=== PATIENT | female | born 1935 | race Caucasian/White ===

== ENCOUNTER 2016-10-14 07:07 | Inpatient (IN) | payer MEDICARE, BC ==
[2016-10-14] MEDS ORDERED: MORPHINE SULFATE 2 MG/ML SYRINGE IVP STA (07:21)
[2016-10-14] MEDS ORDERED: SODIUM CHLORIDE 0.9% 1,000 ML IV STA (07:21)
[2016-10-14] MEDS ORDERED: NITROGLYCERIN SL TABS 0.4 MG TAB SUBLINGUAL STA (07:21)
[2016-10-14] MEDS ORDERED: ONDANSETRON 4 MG/2 ML VIAL IVP STA (07:21)
[2016-10-14 07:42] LABS: Basophils # (A) 0.1 k/uL (0-0.2); Basophils % (A) 1 %; CHCM 33.4; Eosinophils % (A) 0 %; HCT 37.9 % (34.0-46.0); HDW 2.23; HGB 12.4 gm/dL (11.4-16.0); Luc # (Auto) 0.18; Luc % (Auto) 2; Lymphocytes # (A) 1.3 k/uL (1.0-4.8); Lymphocytes % (A) 12 %; MCH 31.4 pg (25.0-35.0); MCHC 32.6 g/dL (31.0-37.0); MCV 96.4 fL (80.0-100.0); Mean Platelet Volume 7.9; Monocytes # (A) 1.1 k/uL (0-1.0); Monocytes % (A) 10 %; Neutrophils # (A) 7.6 k/uL (1.3-7.7); Neutrophils % (A) 74 %; RBC 3.93 m/uL (3.80-5.40); RDW 13.3 % (11.5-15.5); WBC 10.3 k/uL (3.8-10.6)
--- NOTE | 2016-10-14 07:48 | ED ---
Chest Pain HPI - General Chief Complaint: Chest Pain Stated Complaint: chest pain Time Seen by Provider: 10/14/16 07:10 Source: patient Mode of arrival: EMS Limitations: no limitations - History of Present Illness Initial Comments: Started 2 AM today, its affecting her left side of the chest, pain gets worse with deep breaths, she denies any trauma to the chest no fever no chills she has been coughing up some phlegm. Does have a history of hypertension congestive heart failure and thyroid disease I remember seeing her back in September 19 myself in ER at that time she had a left bundle branch block and today's EKG has a left bundle branch block. She denies any headaches no migraines has does have a some shortness of breath no abdominal pain no frequency urgency dysuria no sinus symptoms of TIA or CVA - Related Data Home Medications Medication Instructions Recorded Confirmed ALPRAZolam [Xanax] 0.25 mg PO DAILY PRN 01/28/16 09/19/16 Furosemide [Furosemide] 40 mg PO DAILY PRN 01/28/16 09/19/16 Levothyroxine Sodium [Levoxyl] 200 mcg PO QAM 01/28/16 09/19/16 Verapamil HCl [Verapamil ER] 240 mg PO QAM 01/28/16 09/19/16 Calcium Carbonate [Calcium] 600 mg PO DAILY 08/14/16 09/19/16 Ergocalciferol [Vitamin D2] 100,000 unit PO QMONTH 08/14/16 09/19/16 Simvastatin [Simvastatin] 20 mg PO HS 09/02/16 09/19/16 Aspirin EC [Ecotrin Low Dose] 81 mg PO DAILY 09/19/16 09/19/16 predniSONE See Taper PO DAILY 09/19/16 09/19/16 Previous Rx's Medication Instructions Recorded Cephalexin [Keflex] 500 mg PO Q8HR #30 cap 09/23/16 Nystatin 100,000 Unit/gm Powd 1 applic TOPICAL BID #30 powder 09/23/16 [Mycostatin Powder] Allergies Allergy/AdvReac Type Severity Reaction Status Date / Time doxycycline Allergy Itching Verified 10/14/16 07:22 Review of Systems ROS Statement: Those systems with pertinent positive or pertinent negative responses have been documented in the HPI. ROS Other: All systems not noted in ROS Statement are negative. EKG Findings - EKG Comments: EKG Findings:: EKG is a sinus tachycardia ventricular rate is 105 NM interval is 150 QRS duration is 132 review of this EKG shows left bundle branch block old EKG was reviewed and this one was compared with old EKG for from September 19 that one also had a left bundle branch block Past Medical History Past Medical History: Heart Failure, Hyperlipidemia, Hypertension, Osteoarthritis (OA), Skin Disorder, Thyroid Disorder Additional Past Medical History / Comment(s): urine incontinency,psoriasis to perineum and rectal areas,no longer uses cpap,hx diverticulitis, states since taking the Doxycycl- hyc has been itching all over. History of Any Multi-Drug Resistant Organisms: None Reported Past Surgical History: Bowel Resection, Joint Replacement Additional Past Surgical History / Comment(s): thyroidectomy,raissa knee replacements Past Anesthesia/Blood Transfusion Reactions: No Reported Reaction Past Psychological History: No Psychological Hx Reported Smoking Status: Never smoker Past Alcohol Use History: Occasional Past Drug Use History: None Reported - Past Family History Mother Family Medical History: No Reported History, Memory Impairment Father Family Medical History: Liver Disease Sister(s) Additional Family Medical History / Comment(s): heart problems Brother(s) Additional Family Medical History / Comment(s): heart problems r/t rheumatic fever General Exam - General Exam Comments Initial Comments: General: The patient is awake and alert, in no distress, and does not appear acutely ill. She is quite anxious Skin: Skin is warm and dry and no rashes or lesions are noted. Do not notice any rash on the left lateral chest wall Eye: Extraocular muscles are intact. Ears, nose, mouth and throat: There are moist mucous membranes and no oral lesions. Neck: The neck is supple, there is no tenderness or JVD. Cardiovascular: There is a regular rate and rhythm. No murmur, rub or gallop is appreciated. Respiratory: To auscultation bilateral, decreased breath sounds at the bases Gastrointestinal: Soft, non-distended, non-tender abdomen without masses or organomegaly Back: There is no tenderness to palpation in the midline. There is no obvious deformity. Musculoskeletal: Normal ROM, no tenderness, There is no pedal edema. There is no calf tenderness or swelling. No cords were appreciated. Neurological: CN II-XII intact, Cranial nerves III through XII are intact. There are no obvious motor or sensory deficits. Coordination appears grossly intact. Speech is normal. Psychiatric: Cooperative, seems depressed and quite anxious. Limitations: no limitations Course Vital Signs 10/14/16 10/14/16 10/14/16 07:15 07:25 08:06 Temperature 98.9 F Pulse Rate 106 H 105 H Pulse Rate [ 106 H [employer] ] Respiratory 22 20 Rate Blood Pressure 159/89 137/59 O2 Sat by Pulse 91 L 95 Oximetry 10/14/16 09:27 Temperature Pulse Rate 103 H Pulse Rate [ [employer] ] Respiratory 20 Rate Blood Pressure 167/72 O2 Sat by Pulse 97 Oximetry Critical Care Time Total Critical Care Time: 40 Critical Care Time: She presented with the pleuritic chest pain on the left side, x-ray confirmed the congestive heart failure and d-dimer was quite elevated with the CT and J chest to confirm the PE she be admitted to Dr. Berman service and then numb depending on who she has seen before: Have a pulmonary medicine on board as well she be heparinized and we managed her pain with the morphine IV and congestive heart failure she had Lasix 40 mg IV Disposition Clinical Impression: Chest pain, Pleuritic chest pain, Congestive heart failure, Pulmonary embolism Disposition: ADMITTED IP TO THIS HOSP Condition: Fair Referrals: Case Berman MD [Primary Care Provider] - 1-2 days
[2016-10-14 07:52] LABS: ALT 57 U/L (9-52); AST 32 U/L (14-36); Alkaline Phosphatase 64 U/L (38-126); Anion Gap 12 mmol/L; Blood Urea Nitrogen 14 mg/dL (7-17); Carbon Dioxide 28 mmol/L (22-30); Chloride 102 mmol/L (98-107); Glucose 124 mg/dL (74-99); Non-African American GFR(MDRD) >60 (>60 ml/min/1.73 sqM); Potassium 3.8 mmol/L (3.5-5.1); Sodium 142 mmol/L (137-145); Total Bilirubin 1.2 mg/dL (0.2-1.3); Total Protein 6.5 g/dL (6.3-8.2)
[2016-10-14 07:55] LABS: INR 1.1 (<1.1); Partial Thromboplastin Time 23.4 sec (22.0-30.0); Prothrombin Time 11.4 sec (9.0-12.0)
[2016-10-14] MEDS ORDERED: MORPHINE SULFATE 2 MG/ML SYRINGE IVP ONE ×2 (07:56→09:13)
--- NOTE | 2016-10-14 08:01 | XR ---
EXAMINATION TYPE: XR chest 2V DATE OF EXAM: 10/14/2016 7:56 AM COMPARISON: 09/19/2016 HISTORY: 81-year-old female with chest pain TECHNIQUE: AP and lateral views FINDINGS: Heart is mildly enlarged. Diffuse interstitial prominence and prominence to the pulmonary vasculature . These changes appear somewhat accentuated from prior. Blunted costophrenic angles suggests trace ef fusions. IMPRESSION: Correlate for mild CHF with pulmonary vascular congestion and trace pleural effusions.
[2016-10-14 08:35] LABS: Troponin I 0.028 ng/mL (0.000-0.034)
[2016-10-14] MEDS ORDERED: RX INFO: IV CONTRAST WAS GIVEN 1 EACH MISC MISCELLANE PRN (08:39)
[2016-10-14 08:43] LABS: Creatine Kinase MB 10.9 ng/mL (0.0-2.4)
[2016-10-14] MEDS ORDERED: FUROSEMIDE 10 MG/ML 4 ML VIAL IV STA (08:46)
--- NOTE | 2016-10-14 09:45 | CT ---
EXAMINATION TYPE: CT angio chest DATE OF EXAM: 10/14/2016 9:20 AM COMPARISON: Radiographs same day and CT 08/08/2016 HISTORY: 81-year-old female left lateral chest pain, rule out PE. TECHNIQUE: Contiguous axial scanning of the chest performed with IV Contrast, patient injected with 6 6 mL of Omnipaque 350. Delayed images through the kidneys were obtained. Coronal/sagittal MIP reconst ructions performed. CT DLP: 270 mGycm Automated exposure control for dose reduction was used. FINDINGS: The heart is mild to moderately enlarged without pericardial effusion. Mild coronary vessel calcifica tions are present in remarkable for coronary artery disease. Aorta is normal caliber with conventional arch vessel branching anatomy and mild atherosclerotic arch calcifications. No thoracic lymphadenopathy seen. While there is satisfactory opacification of the pulmonary arterial system, there is excessive respir atory motion degrading the exam. However, there appear to be filling defects within the pulmonary art eries involving the right lower lobe segmental and subsegmental branches, possibly chronic mural base d thrombus along the left lower lobar branch, and additional segmental and subsegmental pulmonary emb von more distally in the left lower lobe. This is mild to moderate burden on the left and mild burden on the right. There is no flattening of the interventricular septum or reflux of contrast into the h epatic veins. There is prominent patchy dependent atelectasis along the posterior lungs and posterior costophrenic angles and some patchy consolidation posteromedial left lower lobe, axial image 89. Patchy groundglass present in the mid to lower lungs and some reticular opacities. No significant ple ural effusion. Visualized upper abdomen shows a tiny 4 mm dependent gallstone and normal adrenal glands. 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 Bones: Moderate endplate spondylosis throughout. No osseous destructive process. IMPRESSION: 1. EXAM POSITIVE FOR PULMONARY EMBOLI WITHIN THE BILATERAL LOWER LOBE SEGMENTAL AND SUBSEGMENTAL BRAN CHES. MODERATE BURDEN ON THE LEFT AND MILD BURDEN ON THE RIGHT. NO CT EVIDENCE FOR RIGHT HEART STRAIN . 2. SOME OF THE THROMBUS IN THE LEFT LOWER LOBAR PULMONARY ARTERY APPEARS MURAL BASED AND CHRONIC. 3. FOCAL CONSOLIDATION POSTERIOR LEFT BASE COULD REPRESENT PULMONARY INFARCT OR INFILTRATE. 4. GROUNDGLASS AND INTERSTITIAL DENSITIES IN THE MID TO LOWER LUNGS WORSENED FROM 08/08/2016 COULD REF LECT PROGRESSIVE INTERSTITIAL FIBROSIS/INTERSTITIAL PNEUMONITIS OR MILD CHF. NO PLEURAL EFFUSION> 5. INCIDENTAL 1.5 CM SPLENIC ARTERY ANEURYSM UNCHANGED FROM PREVIOUS EXAM. CRITICAL FINDINGS GIVEN TO DR. RAE IN THE ER BY PHONE AT 9:40 AM.
[2016-10-14] MEDS ORDERED: NALOXONE 0.4 MG/ML 1 ML VIAL IV PRN (09:58)
[2016-10-14] MEDS ORDERED: HEPARIN SODIUM,PORCINE 10,000 UNIT/ML 1 ML VIAL IV ONE (10:03)
[2016-10-14] MEDS ORDERED: HEPARIN SODIUM,PORCINE 5,000 UNIT/ML 1 ML VIAL IV PRN (10:03)
[2016-10-14] MEDS ORDERED: FUROSEMIDE 40 MG TAB PO PRN (10:04)
[2016-10-14] MEDS ORDERED: ALPRAZolam 0.25 MG TAB PO PRN (10:04)
[2016-10-14] MEDS: HEPARIN SODIUM,PORCINE/D5W PMX 25,000 UNIT in DEXTROSE/WATER 1 500ML.BAG IV SCH (10:33)
[2016-10-14] MEDS: CALCIUM CARBONATE 500 MG CHEWABLE PO SCH (11:35)
[2016-10-14] MEDS: HYDROcodone/APAP 10-325MG 1 EACH TAB PO PRN (12:46)
[2016-10-14] MEDS: SODIUM CHLORIDE 0.9% 1,000 ML IV SCH (12:46)
--- NOTE | 2016-10-14 13:05 | P.CNPUL ---
History of Present Illness Consult date: 10/14/16 Reason for consult: dyspnea, pulmonary embolism History of present illness: 81-year-old female patient was hospitalized for an acute pleuritic chest pain proceed with shortness of breath and EMS was called to the scene and the patient was moved to the emergency department where a CT angios the chest was done and showed presence of bilateral pulmonary embolism and the patient was started on IV heparin. Specifically, the CAT scan of the chest showed filling defects within the pulmonary arteries involving the right lower lobe segmental and subsegmental branches, mural thrombus along the left lower lobe pulmonary artery branch along with filling defect in the segmental and subsegmental pulmonary emboli distally in the left lower lobe. The patient had mild-to- moderate burden of clots. There was no flattening of the interventricular septum or any reflux of contrast into the hepatic veins. No thoracic lymphadenopathy. The patient remained hemodynamically stable. No hypotension. No significant tachycardia. Noted the patient was in the hospital between 09/20/2016 and 09/24/2016. At that time the patient was in for Celexa the right lower extremity. The patient was treated and she was discharged home. Note that during the course of the tube and the patient was receiving subcu heparin for DVT prophylaxis. She also has history of myositis and she has been on a long-term prednisone taper and according to the family she was down to 15 mg of prednisone a daily basis. 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 Dominant atrophy and type I hypertrophy along with chronic myopathic changes with some grouped lobe related fibers. This suspected diagnosis of myositis along with her age and his other comorbidities has caused significant limitation in exercise capacity and over the past 2 weeks the patient has been noted to be spending most of the time in bed and she has become very sedentary and doing limited amount of activity and moving around to help of a walker. She has significant amount of social support system and she has drank is living with her what involved in her care such as preparing food doing laundry and doing other daily household activity. The patient denies having any previous history of DVT or pulmonary embolism. No calf pain or tenderness. 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 She had one episode of fall few months back without any major injuries. Otherwise no frequent falling, but the patient is considered to be at an increased risk of falls due to her overall debility and muscle weakness. No malignancy. No recent orthopedic surgeries. Review of Systems For review of system was done and the positive findings are almost above the history of present illness Past Medical History Past Medical History: Heart Failure, Hyperlipidemia, Hypertension, Osteoarthritis (OA), Skin Disorder, Thyroid Disorder Additional Past Medical History / Comment(s): Obesity, muscle weakness without definite diagnosis of myositis based on the muscle biopsy being treated with steroids on outpatient basis and the patient has been receiving long-term steroid taper, psoriasis, recent hospitalization for a right lower extremity cellulitis, hypothyroidism, osteoarthritis, history of bowel obstruction requiring surgical intervention, diverticulosis, urinary incontinence, obstructive sleep apnea not utilizing any CPAP therapy, extensive reaction to doxycycline occurred on January 2016. History of Any Multi-Drug Resistant Organisms: None Reported Past Surgical History: Bowel Resection, Joint Replacement Additional Past Surgical History / Comment(s): thyroidectomy,raissa knee replacements Past Anesthesia/Blood Transfusion Reactions: No Reported Reaction Past Psychological History: No Psychological Hx Reported Smoking Status: Never smoker Past Alcohol Use History: Occasional Past Drug Use History: None Reported - Past Family History Mother Family Medical History: No Reported History, Memory Impairment Father Family Medical History: Liver Disease Sister(s) Additional Family Medical History / Comment(s): heart problems Brother(s) Additional Family Medical History / Comment(s): heart problems r/t rheumatic fever Medications and Allergies Home Medications Medication Instructions Recorded Confirmed Type ALPRAZolam [Xanax] 0.25 mg PO DAILY PRN 01/28/16 10/14/16 History Furosemide [Furosemide] 40 mg PO DAILY PRN 01/28/16 10/14/16 History Levothyroxine Sodium [Levoxyl] 200 mcg PO QAM 01/28/16 10/14/16 History Verapamil HCl [Verapamil ER] 240 mg PO QAM 01/28/16 10/14/16 History Calcium Carbonate [Calcium] 600 mg PO DAILY 08/14/16 10/14/16 History Ergocalciferol [Vitamin D2] 100,000 unit PO Q30D 08/14/16 10/14/16 History Simvastatin [Simvastatin] 20 mg PO HS 09/02/16 10/14/16 History Aspirin EC [Ecotrin Low Dose] 81 mg PO DAILY 09/19/16 10/14/16 History predniSONE See Taper PO DAILY 09/19/16 10/14/16 History Allergies Allergy/AdvReac Type Severity Reaction Status Date / Time doxycycline Allergy Itching Verified 10/14/16 10:18 Physical Exam Vitals: Vital Signs Temp Pulse Pulse Resp BP BP Pulse Ox 10/14/16 11:24 88 16 10/14/16 10:35 97.6 F 100 16 144/77 97 10/14/16 10:15 100 F H 88 17 162/75 97 Intake and Output 10/13/16 10/14/16 10/14/16 22:59 06:59 14:59 Other: Weight 86.2 kg Patient Weight 10/15/16 06:59 Weight 86.2 kg Head exam was generally normal. There was no scleral icterus or corneal arcus. Mucous membranes were moist.Neck was supple and without jugular venous distension, thyromegaly, or carotid bruits. Carotids were easily palpable bilaterally. There was no adenopathy. Lung sounds are diminished bilaterally as the patient is unable to perform deep breathing due to the pleuritic chest pain that she is experiencing. Breath sounds are quite diminished specially the lung bases.Cardiac exam revealed the PMI to be normally situated and sized. The rhythm was regular and no extrasystoles were noted during several minutes of auscultation. The first and second heart sounds were normal and physiologic splitting of the second heart sound was noted. There were no murmurs, rubs, clicks, or gallops.Abdominal exam revealed normal bowel sounds. The abdomen was soft, non-tender, and without masses, organomegaly, or appreciable enlargement of the abdominal aorta. Extremities are slightly swollen and there is some calf tenderness bilaterally. Scars of previous knee surgery can be seen bilaterally. No cyanosis or clubbing. Neurologically the patient is awake and alert. Results - Laboratory Findings CBC and BMP: 10/14/16 07:20 10/14/16 07:20 PT/INR, D-dimer PT 11.4 sec (9.0-12.0) 10/14/16 07:20 INR 1.1 (<1.1) 10/14/16 07:20 D-Dimer 2.69 mg/L FEU (<0.60) H 10/14/16 07:20 - Diagnostic Findings CT scan - chest: image reviewed Assessment and Plan Plan: Assessment 1 Acute bilateral pulmonary embolism with suspected DVT of the lower extremity. This fact is being sedentary lifestyle and progressive muscle weakness which has caused this patient to become quite inactive and sedentary. Hemodynamically stable. No evidence of any right ventricular failure or strain based on the CAT scan findings. We'll need an echocardiogram. We will need also to repeat a Doppler of the lower extremities 2 acute hypoxemia with pleuritic breath or chest pain secondary to above 3 suspected myositis although this has not been confirmed by an open muscle biopsy. Currently on a prednisone burst taper receiving 50 mg 4 obesity 5 psoriasis, 6 recent hospitalization for a right lower extremity cellulitis, 7 hypothyroidism, 8 osteoarthritis, 9 history of bowel obstruction requiring surgical intervention, 10 diverticulosis, 11 urinary incontinence, 12 obstructive sleep apnea not utilizing any CPAP therapy, 13 extensive reaction to doxycycline occurred on January 2016. Plan IV heparin. Doppler of the lower extremities. Echocardiogram. Continue the prednisone and discussed the case with rheumatology and considers discontinue the prednisone altogether as long as the patient does not have any evidence of myositis on the open lung biopsy. He will need aggressive physical therapy and occupational therapy. We will recommend long-term anticoagulation due to the extensive nature of this better pulmonary embolism. She will need at least 1 year of anticoagulation to be reevaluated later stage.
[2016-10-14] MEDS: CEPHALEXIN 500 MG CAP PO SCH (15:27)
[2016-10-14] MEDS: HYDROmorphone 2 MG/ML 1 ML SYRINGE IVP PRN (15:36)
--- NOTE | 2016-10-14 17:06 | US ---
EXAMINATION TYPE: US venous doppler duplex LE BI DATE OF EXAM: 10/14/2016 2:39 PM COMPARISON: NONE CLINICAL HISTORY: 81-year-old female with pulmonary embolus, CHF TECHNIQUE: Duplex Doppler ultrasound examination of bilateral lower extremities. FINDINGS: SIDE PERFORMED: Bilateral VESSELS IMAGED: External Iliac Vein (EIV) Common Femoral Vein Deep Femoral Vein Greater Saphenous Vein * Femoral Vein Popliteal Vein Small Saphenous Vein * Proximal Calf Veins (* superficial vessels) Right Leg: Negative for DVT Left Leg: Negative for DVT IMPRESSION: No evidence of DVT within the bilateral lower extremities imaged from the groin to the upper calves.
[2016-10-14] MEDS ORDERED: ACETAMINOPHEN TAB 325 MG TAB PO PRN (23:17)
[2016-10-15] MEDS: ATORVASTATIN 10 MG TAB PO SCH ×2 (00:14→23:29)
[2016-10-15] MEDS: CEPHALEXIN 500 MG CAP PO SCH ×3 (00:14→17:58)
[2016-10-15] MEDS: DILTIAZEM 125 MG in SODIUM CHLORIDE 0.9% 100 ML IV SCH (00:15)
[2016-10-15] MEDS: NYSTATIN 100,000 UNIT/GM POWD 15 GM TOPICAL SCH ×3 (00:18→23:30)
[2016-10-15] MEDS: HYDROmorphone 2 MG/ML 1 ML SYRINGE IVP PRN ×4 (00:56→13:54)
[2016-10-15 03:16] VITALS: RESP 18
[2016-10-15 06:27] LABS: Basophils % (A) 0 %; CH 31.7; CHCM 32.6; Eosinophils % (A) 0 %; HCT 34.3 % (34.0-46.0); HDW 2.23; Luc # (Auto) 0.16; Luc % (Auto) 2; Lymphocytes # (A) 1.8 k/uL (1.0-4.8); Lymphocytes % (A) 20 %; MCH 31.5 pg (25.0-35.0); MCHC 32.2 g/dL (31.0-37.0); MCV 97.9 fL (80.0-100.0); Mean Platelet Volume 8.2; Monocytes # (A) 0.8 k/uL (0-1.0); Monocytes % (A) 9 %; Neutrophils # (A) 6.2 k/uL (1.3-7.7); Neutrophils % (A) 68 %; WBC 9.1 k/uL (3.8-10.6); WBC (Perox) 9.58
[2016-10-15] MEDS: LEVOTHYROXINE 100 MCG TAB PO SCH (07:10)
[2016-10-15] MEDS: HEPARIN SODIUM,PORCINE/D5W PMX 25,000 UNIT in DEXTROSE/WATER 1 500ML.BAG IV SCH ×2 (07:56→18:00)
[2016-10-15] MEDS: ALBUTEROL NEBULIZED 2.5 MG/3 ML INHALATION SCH ×5 (08:00→20:42)
--- NOTE | 2016-10-15 08:05 | XR ---
EXAMINATION TYPE: XR chest 1V portable DATE OF EXAM: 10/15/2016 7:48 AM Comparison: 10/14/2016 Clinical History: 81-year-old female CHF follow-up Findings: Heart remains mildly enlarged. Diffuse interstitial opacities, patchy left greater than right bibasil ar opacities, and trace effusions. Impression: Overall stable exam. Correlate for COPD with superimposed CHF and pulmonary vascular congestion/inter stitial edema. Trace left greater than right pleural effusions.
[2016-10-15] MEDS ORDERED: ERGOCALCIFEROL 50,000 UNIT CAP PO SCH (09:00)
[2016-10-15] MEDS ORDERED: VERAPAMIL SR 240 MG TABLET.ER PO SCH (09:00)
[2016-10-15] MEDS: HYDROcodone/APAP 10-325MG 1 EACH TAB PO PRN (09:56)
[2016-10-15] MEDS: ASPIRIN 81 MG CHEW PO SCH (11:32)
[2016-10-15] MEDS: CALCIUM CARBONATE 500 MG CHEWABLE PO SCH (11:33)
[2016-10-15] MEDS: predniSONE 10 MG TAB PO SCH (11:33)
[2016-10-15] MEDS ORDERED: RX INFO: IV CONTRAST WAS GIVEN 1 EACH MISC MISCELLANE PRN (11:38)
--- NOTE | 2016-10-15 11:38 | P.CONS ---
History of Present Illness - Reason for Consult Consult date: 10/15/16 Pulmonary embolus - History of Present Illness The patient is a 81-year-old lady, who had presented in the fall of 2015, with complaints of significant muscle pain and weakness, in the shoulder and the pelvic girdle areas. She had also developed a prominent skin rash. 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 She was started on steroids, and had a muscle biopsy in late 08/16. Interestingly, the biopsy showed no definite evidence of muscle inflammation but did show significant muscle atrophic. The patient is currently continuing on a steroid taper, along with physical therapy with some improvement. She was also admitted to the hospital in the last week of August 2016 with cellulitis. The patient developed fairly acute onset of shortness of breath and chest pressure which was made worse by deep breathing. Per the patient she was having significant discomfort in the left lower chest wall on deep inspiration. Therefore EMS was called and the patient was brought into the hospital. She had a CTA of the chest done, which showed bilateral pulmonary emboli with moderate burden on the left, and mild burden on the right. She also had mild elevation of CK-MB, and troponin. She was therefore admitted for further management, and started on IV heparin. Doppler of both lower extremities was also performed and negative for DVT. The patient denies any prior personal history of DVT or PE. There is no family history of the same. Overall activity level level is reduced due to her neuromuscular condition. However the patient states that she does ambulate with a walker, and does exercises recommended by physical therapy several times a day, as well as some off her activities of daily living. Review of Systems Constitutional: Reports weakness Eyes: denies blurred vision, denies pain Ears: deny: decreased hearing, ear discharge, earache, tinnitus Ears, nose, mouth and throat: Denies headache, Denies sore throat Breasts: Reports as per HPI (Up-to-date with her mammograms) Cardiovascular: Reports chest pain, Reports palpitations, Reports shortness of breath Respiratory: Reports dyspnea, Reports pain on inspiration Gastrointestinal: Denies abdominal pain, Denies diarrhea, Denies nausea, Denies vomiting Genitourinary: Denies dysuria, Denies hematuria Menstruation: Reports postmenopausal Musculoskeletal: Reports as per HPI, Reports muscle weakness (Mostly affecting the shoulder and pelvic girdle) Musculoskeletal: right: shoulder stiffness Integumentary: Reports rash (Resolved with steroids) Neurological: Reports gait dysfunction, Reports weakness Psychiatric: Denies anxiety, Denies depression Endocrine: Denies fatigue, Denies weight change Hematologic/Lymphatic: Reports as per HPI Past Medical History Past Medical History: Heart Failure, Hyperlipidemia, Hypertension, Osteoarthritis (OA), Skin Disorder, Thyroid Disorder Additional Past Medical History / Comment(s): Obesity, muscle weakness without definite diagnosis of myositis based on the muscle biopsy being treated with steroids on outpatient basis and the patient has been receiving long-term steroid taper, psoriasis, recent hospitalization for a right lower extremity cellulitis, hypothyroidism, osteoarthritis, history of bowel obstruction requiring surgical intervention, diverticulosis, urinary incontinence, obstructive sleep apnea not utilizing any CPAP therapy, extensive reaction to doxycycline occurred on January 2016. History of Any Multi-Drug Resistant Organisms: None Reported Past Surgical History: Bowel Resection, Joint Replacement Additional Past Surgical History / Comment(s): thyroidectomy,raissa knee replacements Past Anesthesia/Blood Transfusion Reactions: No Reported Reaction Past Psychological History: No Psychological Hx Reported Smoking Status: Never smoker Past Alcohol Use History: Occasional Past Drug Use History: None Reported - Past Family History Mother Family Medical History: No Reported History, Memory Impairment Father Family Medical History: Liver Disease Sister(s) Additional Family Medical History / Comment(s): heart problems Brother(s) Additional Family Medical History / Comment(s): heart problems r/t rheumatic fever Medications and Allergies Home Medications Medication Instructions Recorded Confirmed Type ALPRAZolam [Xanax] 0.25 mg PO DAILY PRN 01/28/16 10/14/16 History Furosemide [Furosemide] 40 mg PO DAILY PRN 01/28/16 10/14/16 History Levothyroxine Sodium [Levoxyl] 200 mcg PO QAM 01/28/16 10/14/16 History Verapamil HCl [Verapamil ER] 240 mg PO QAM 01/28/16 10/14/16 History Calcium Carbonate [Calcium] 600 mg PO DAILY 08/14/16 10/14/16 History Ergocalciferol [Vitamin D2] 100,000 unit PO Q30D 08/14/16 10/14/16 History Simvastatin [Simvastatin] 20 mg PO HS 09/02/16 10/14/16 History Aspirin EC [Ecotrin Low Dose] 81 mg PO DAILY 09/19/16 10/14/16 History predniSONE See Taper PO DAILY 09/19/16 10/14/16 History Allergies Allergy/AdvReac Type Severity Reaction Status Date / Time doxycycline Allergy Itching Verified 10/14/16 10:18 Physical Exam Vitals: Vital Signs Temp Pulse Resp BP Pulse Ox 10/15/16 11:21 75 18 116/60 92 L 10/15/16 08:00 100.2 F H 80 18 133/60 96 10/15/16 04:00 98.3 F 94 18 111/60 95 10/15/16 02:05 99.0 F 10/15/16 01:25 101.4 F H 10/15/16 00:00 101.3 F H 112 H 18 125/65 92 L 10/14/16 20:00 102.1 F H 117 H 18 179/82 95 10/14/16 15:30 97 F L 80 17 143/70 98 10/14/16 15:24 88 16 10/14/16 11:24 88 16 Intake and Output 10/14/16 10/15/16 10/15/16 22:59 06:59 14:59 Intake Total 120 140 Balance 120 140 Intake: Intake, IV Titration 140 Amount Diltiazem 125 mg In 20 Sodium Chloride 0.9% 100 ml @ 5 MG/HR 5 mls/hr IV .Q24H [facility] Rx#:[id number] Heparin Sodium,Porcine/ 120 D5w Pmx 25,000 unit In Dextrose/Water 1 500ml. bag @ 18 UNITS/KG/HR 31. 02 mls/hr IV .Q16H8M [facility] Rx#:[id number] Oral 120 Other: Voiding Method Diaper Diaper Diaper # Voids 1 1 Weight 87 kg - Constitutional General appearance: no acute distress - EENT Eyes: EOMI, PERRLA ENT: hearing grossly normal, normal oropharynx - Neck Neck: no lymphadenopathy Thyroid: bilateral: normal size - Respiratory Respiratory: bilateral: CTA - Cardiovascular Rhythm: regular Heart sounds: normal: S1, S2 - Gastrointestinal General gastrointestinal: normal bowel sounds, soft - Integumentary Integumentary: normal - Neurologic Neurologic: CNII-XII intact, focal deficits (Proximal upper and lower extremity weakness. Distal strength appears to be normal) - Musculoskeletal As above - Psychiatric Psychiatric: A&O x's 3, appropriate affect, intact judgment & insight Results CBC & Chem 7: 10/15/16 05:53 10/14/16 07:20 Labs: Abnormal Lab Results - Last 24 Hours (Table) 10/14/16 10/15/16 10/15/16 Range/Units 16:15 00:19 05:53 RBC 3.50 L (3.80-5.40) m/uL Hgb 11.0 L (11.4-16.0) gm/dL Plt Count 131 L (150-450) k/uL APTT 73.8 H (22.0-30.0) sec Troponin I 0.053 H* (0.000-0.034) ng/mL 10/15/16 10/15/16 Range/Units 05:53 05:53 RBC (3.80-5.40) m/uL Hgb (11.4-16.0) gm/dL Plt Count (150-450) k/uL APTT 69.4 H (22.0-30.0) sec Troponin I 0.060 H* (0.000-0.034) ng/mL Chest x-ray: report reviewed CT scan - chest: report reviewed Venous US: report reviewed Assessment and Plan (1) Pulmonary embolism Narrative/Plan: The patient came in with bilateral clots, with CTA results as described above. Doppler of the lower extremities were negative. She has no prior personal history, and no family history. This would be considered unprovoked clot, or a secondary hypercoagulable condition. The patient does appear to have had a chronic inflammatory condition , over the last few months. She has also been on steroids since the beginning of 09/15 (though steroid use over a comparatively short period of time should not be a major risk factor by itself), and had a recent hospital admission. Overall activity level is also reduced compared to before. The combination of the above factors, does appear to be sufficient to explain the clot. Therefore testing for primary hypercoagulable conditions is not indicated. The patient is up-to-date with her age-appropriate cancer workup. Her CTA did show some progressive fibrosis, but no suspicious adenopathy or mass lesion. As her neuromuscular symptoms can occur with paraneoplastic syndromes, I believe his it is justified to do a more extended workup with a CT of the abdomen and pelvis. The patient is appropriately on IV heparin, and feels better. Chest pain on inspiration has mostly resolved. She can be switched over to an oral agent, whenever felt to be appropriate by the admitting service and pulmonary medicine. As her liver and kidney functions are normal, she can be treated with the any of the newer direct factor inhibitors. I would recommend anticoagulation for at least one year. At that time, if her risk factors are felt to be persistent, she would be a candidate for prolonged anticoagulation, as long as she tolerates the treatment well. Status: Acute (2) Bicytopenia Narrative/Plan: The patient had a mild drop in hemoglobin, and platelets postadmission. These were normal on admission. 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 At this time we will monitor. Status: Acute Plan: The case was also discussed with rheumatology.
--- NOTE | 2016-10-15 11:40 | P.CRDCN ---
History of Present Illness Consult date: 10/15/16 History of present illness: this is a pleasant 81-year-old female patient with a past medical history significant for hypertension and dyslipidemia presented to the hospital complaining of chest discomfort. The patient was in his usual state of health until the day she presented to the hospital where she was at home and suddenly developed sharp discomfort on the left lower part of the chest was worse with deep breath. She underwent a computed tomography scan of the chest which showed bilateral PE. Immediately the patient was started on anticoagulation using heparin IV. Over the last several weeks, the patient has been treated for what it seems to be myositis. She underwent a muscle biopsy. She was started on steroids. We get involved in the care of the patient because during her hospitalization she went into an A. fib with RVR and she was started on Cardizem and drip and she was already receiving the heparin IV. The patient is not aware of any prior history of atrial fibrillation and as a matter of fact she never seen any lamp inspector in the past and never been diagnosed was coronary artery disease or congestive heart failure. I will obtain an echocardiogram was Doppler to evaluate for any right heart strain and also to evaluate the LV function.I will start the patient on AV quyen [place] agents with metoprolol and try to wean her from the Cardizem IV. Currently she is on heparin for anticoagulation. She needs to be on oral anticoagulation once she is seen and evaluated by the hematology service. The atrial fibrillation is likely to be triggered by the PE. Past Medical History Past Medical History: Heart Failure, Hyperlipidemia, Hypertension, Osteoarthritis (OA), Skin Disorder, Thyroid Disorder Additional Past Medical History / Comment(s): Obesity, muscle weakness without definite diagnosis of myositis based on the muscle biopsy being treated with steroids on outpatient basis and the patient has been receiving long-term steroid taper, psoriasis, recent hospitalization for a right lower extremity cellulitis, hypothyroidism, osteoarthritis, history of bowel obstruction requiring surgical intervention, diverticulosis, urinary incontinence, obstructive sleep apnea not utilizing any CPAP therapy, extensive reaction to doxycycline occurred on January 2016. History of Any Multi-Drug Resistant Organisms: None Reported Past Surgical History: Bowel Resection, Joint Replacement Additional Past Surgical History / Comment(s): thyroidectomy,raissa knee replacements Past Anesthesia/Blood Transfusion Reactions: No Reported Reaction Past Psychological History: No Psychological Hx Reported Smoking Status: Never smoker Past Alcohol Use History: Occasional Past Drug Use History: None Reported - Past Family History Mother Family Medical History: No Reported History, Memory Impairment Father Family Medical History: Liver Disease Sister(s) Additional Family Medical History / Comment(s): heart problems Brother(s) Additional Family Medical History / Comment(s): heart problems r/t rheumatic fever Medications and Allergies Home Medications Medication Instructions Recorded Confirmed Type ALPRAZolam [Xanax] 0.25 mg PO DAILY PRN 01/28/16 10/14/16 History Furosemide [Furosemide] 40 mg PO DAILY PRN 01/28/16 10/14/16 History Levothyroxine Sodium [Levoxyl] 200 mcg PO QAM 01/28/16 10/14/16 History Verapamil HCl [Verapamil ER] 240 mg PO QAM 01/28/16 10/14/16 History Calcium Carbonate [Calcium] 600 mg PO DAILY 08/14/16 10/14/16 History Ergocalciferol [Vitamin D2] 100,000 unit PO Q30D 08/14/16 10/14/16 History Simvastatin [Simvastatin] 20 mg PO HS 09/02/16 10/14/16 History Aspirin EC [Ecotrin Low Dose] 81 mg PO DAILY 09/19/16 10/14/16 History predniSONE See Taper PO DAILY 09/19/16 10/14/16 History Allergies Allergy/AdvReac Type Severity Reaction Status Date / Time doxycycline Allergy Itching Verified 10/14/16 10:18 Physical Exam Vitals: Vital Signs Temp Pulse Resp BP Pulse Ox 10/15/16 11:21 75 18 116/60 92 L 10/15/16 08:00 100.2 F H 80 18 133/60 96 10/15/16 04:00 98.3 F 94 18 111/60 95 10/15/16 02:05 99.0 F 10/15/16 01:25 101.4 F H 10/15/16 00:00 101.3 F H 112 H 18 125/65 92 L 10/14/16 20:00 102.1 F H 117 H 18 179/82 95 10/14/16 15:30 97 F L 80 17 143/70 98 10/14/16 15:24 88 16 Intake and Output 10/14/16 10/15/16 10/15/16 22:59 06:59 14:59 Intake Total 120 140 Balance 120 140 Intake: Intake, IV Titration 140 Amount Diltiazem 125 mg In 20 Sodium Chloride 0.9% 100 ml @ 5 MG/HR 5 mls/hr IV .Q24H [facility] Rx#:[id number] Heparin Sodium,Porcine/ 120 D5w Pmx 25,000 unit In Dextrose/Water 1 500ml. bag @ 18 UNITS/KG/HR 31. 02 mls/hr IV .Q16H8M [facility] Rx#:[id number] Oral 120 Other: Voiding Method Diaper Diaper Diaper # Voids 1 1 Weight 87 kg - Constitutional General appearance: no acute distress - Respiratory Respiratory: bilateral: rhonchi - Cardiovascular Rhythm: irregularly irregular Heart sounds: normal: S1, S2 Results 10/15/16 05:53 10/14/16 07:20 Cardiac Enzymes 10/15/16 10/15/16 Range/Units 00:19 05:53 Troponin I 0.053 H* 0.060 H* (0.000-0.034) ng/mL Coagulation 10/14/16 10/15/16 Range/Units 16:15 05:53 APTT 73.8 H 69.4 H (22.0-30.0) sec CBC 10/15/16 Range/Units 05:53 WBC 9.1 (3.8-10.6) k/uL RBC 3.50 L (3.80-5.40) m/uL Hgb 11.0 L (11.4-16.0) gm/dL Hct 34.3 (34.0-46.0) % Plt Count 131 L (150-450) k/uL Current Medications Generic Name Dose Route Start Last Admin Trade Name Freq PRN Reason Stop Dose Admin Acetaminophen 650 mg 10/14/16 23:17 10/15/16 00:13 Tylenol Tab PO 650 mg Q4HR PRN Administration Fever Acetaminophen/Hydrocodone Bitart 1 each 10/14/16 12:35 10/15/16 09:56 [place] 10 PO 1 each Q6H PRN Administration Pain Albuterol Sulfate 2.5 mg 10/15/16 08:00 10/15/16 08:15 Ventolin Nebulized INHALATION Not Given RT-QID [facility] Alprazolam 0.25 mg 10/14/16 10:04 Xanax PO DAILY PRN Anxiety Aspirin 81 mg 10/15/16 09:00 10/15/16 11:32 Aspirin PO 81 mg DAILY [facility] Administration Atorvastatin Calcium 10 mg 10/14/16 21:00 10/15/16 00:14 Lipitor PO 10 mg HS [facility] Administration Calcium Carbonate/Glycine 500 mg 10/14/16 12:00 10/15/16 11:33 Tums PO 500 mg 1200 [facility] Administration Cephalexin 500 mg 10/14/16 16:00 10/15/16 09:56 Keflex PO 500 mg Q8HR [facility] Administration Ergocalciferol 100,000 unit 10/15/16 09:00 Vitamin D2 PO QMONTH [facility] Heparin Sodium (Porcine) 0 unit 10/14/16 10:03 Heparin IV PER PROTOCOL PRN Low PTT Protocol Hydromorphone HCl 2 mg 10/14/16 15:19 10/15/16 07:29 Dilaudid IVP 2 mg Q6HR PRN Administration Pain Heparin Sodium/Dextrose 25,000 500 mls @ 31.02 mls/hr 10/14/16 10:15 07:56 unit/ IV Solution IV Not Given .Q16H8M [facility] Protocol 18 UNITS/KG/HR Sodium Chloride 1,000 mls @ 40 mls/hr 10/14/16 12:45 10/14/16 12:46 Saline 0.9% IV Not Given .Q24H [facility] Diltiazem HCl 125 mg/ Sodium 125 mls @ 5 mls/hr 10/14/16 23:45 10/15/16 00:15 Chloride IV 5 mg/hr .Q24H [facility] 5 mls/hr Protocol Administration 5 MG/HR Levothyroxine Sodium 200 mcg 10/15/16 06:30 10/15/16 07:10 Synthroid PO 200 mcg 0630 [facility] Administration Metoprolol Tartrate 50 mg 10/15/16 11:30 Lopressor PO BID [facility] Miscellaneous Information 1 each 10/14/16 08:39 Rx Info: Iv Contrast Was Given MISCELLANE 10/16/16 08:40 DAILY PRN Per Protocol Naloxone HCl 0.2 mg 10/14/16 09:58 Narcan IV Q2M PRN Opioid Reversal Nystatin 1 applic 10/14/16 21:00 10/15/16 07:56 Mycostatin Powder TOPICAL Not Given BID [facility] Prednisone 10 mg 10/15/16 09:00 10/15/16 11:33 PO 10 mg DAILY [facility] Administration Intake and Output 10/14/16 10/15/16 10/15/16 22:59 06:59 14:59 Intake Total 120 140 Balance 120 140 Intake: Intake, IV Titration 140 Amount Diltiazem 125 mg In 20 Sodium Chloride 0.9% 100 ml @ 5 MG/HR 5 mls/hr IV .Q24H [facility] Rx#:[id number] Heparin Sodium,Porcine/ 120 D5w Pmx 25,000 unit In Dextrose/Water 1 500ml. bag @ 18 UNITS/KG/HR 31. 02 mls/hr IV .Q16H8M [facility] Rx#:[id number] Oral 120 Other: Voiding Method Diaper Diaper Diaper # Voids 1 1 Weight 87 kg 10/15/16 05:53 Assessment and Plan Plan: assessment #1 A. fib with RVR #2 bilateral PE #3 systemic hypertension #4 dyslipidemia #5 possible myositis Plan #1 continue the IV heparin at this point #2 start the patient on metoprolol for heart rate control and wean her from the Cardizem IV #3 obtain an echocardiogram was Doppler #4 follow-up with the patient
[2016-10-15] MEDS: METOPROLOL TARTRATE 50 MG TAB PO SCH ×2 (12:07→23:29)
[2016-10-15 12:54] LABS: ALT 47 U/L (9-52); AST 23 U/L (14-36); Alkaline Phosphatase 53 U/L (38-126); Anion Gap 8 mmol/L; Blood Urea Nitrogen 12 mg/dL (7-17); Calcium 8.6 mg/dL (8.4-10.2); Carbon Dioxide 29 mmol/L (22-30); Chloride 102 mmol/L (98-107); Glucose 101 mg/dL (74-99); Non-African American GFR(MDRD) >60 (>60 ml/min/1.73 sqM); Potassium 3.5 mmol/L (3.5-5.1); Sodium 139 mmol/L (137-145); Total Bilirubin 0.9 mg/dL (0.2-1.3); Total Protein 5.4 g/dL (6.3-8.2)
--- NOTE | 2016-10-15 13:25 | P.PN ---
Subjective 81-year-old female patient was hospitalized for an acute pleuritic chest pain proceed with shortness of breath and EMS was called to the scene and the patient was moved to the emergency department where a CT angios the chest was done and showed presence of bilateral pulmonary embolism and the patient was started on IV heparin. Specifically, the CAT scan of the chest showed filling defects within the pulmonary arteries involving the right lower lobe segmental and subsegmental branches, mural thrombus along the left lower lobe pulmonary artery branch along with filling defect in the segmental and subsegmental pulmonary emboli distally in the left lower lobe. The patient had mild-to- moderate burden of clots. There was no flattening of the interventricular septum or any reflux of contrast into the hepatic veins. No thoracic lymphadenopathy. The patient remained hemodynamically stable. No hypotension. No significant tachycardia. Noted the patient was in the hospital between 09/20/2016 and 09/24/2016. At that time the patient was in for Celexa the right lower extremity. The patient was treated and she was discharged home. Note that during the course of the tube and the patient was receiving subcu heparin for DVT prophylaxis. She also has history of myositis and she has been on a long-term prednisone taper and according to the family she was down to 15 mg of prednisone a daily basis. I reviewed the medical records and I see that the patient had a muscle biopsy and the results were sent out at [facility] and the biopsy showed no evidence of any acute or chronic myositis and there is type II. Dominant atrophy and type I hypertrophy along with chronic myopathic changes with some grouped lobe related fibers. This suspected diagnosis of myositis along with her age and his other comorbidities has caused significant limitation in exercise capacity and over the past 2 weeks the patient has been noted to be spending most of the time in bed and she has become very sedentary and doing limited amount of activity and moving around to help of a walker. She has significant amount of social support system and she has drank is living with her what involved in her care such as preparing food doing laundry and doing other daily household activity. The patient denies having any previous history of DVT or pulmonary embolism. No calf pain or tenderness. 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 She had one episode of fall few months back without any major injuries. Otherwise no frequent falling, but the patient is considered to be at an increased risk of falls due to her overall debility and muscle weakness. No malignancy. No recent orthopedic surgeries. On 10/15/2016 the patient remains on IV heparin and for pulmonary embolism treatment. Breath sounds are quite diminished in lung bases and today's chest x -ray shows some atelectatic changes and small effusions lung bases more so on the left. The patient is on oxygen at 2 L per minute nasal cannula. Icterus is improving. She is able to take deeper breaths. No hemoptysis. No angina. She was found to be in atrial fibrillation with rapid ventricular response that she was started on a Cardizem drip and she is already on IV heparin. The patient is not aware of any previous cardiac arrhythmias. Echocardiogram was ordered and is also still pending for now. Repeat Doppler of the lower extremities showed no evidence of any DVTs. Objective - Vital Signs Vital signs: Vital Signs Temp 100.2 F H 10/15/16 08:00 Pulse 75 10/15/16 11:21 Resp 18 10/15/16 11:21 BP 116/60 10/15/16 11:21 Pulse Ox 92 L 10/15/16 11:21 Intake & Output 10/14/16 10/15/16 10/15/16 18:59 06:59 18:59 Intake Total 20 120 140 Balance 20 120 140 Weight 86.2 kg 87 kg Intake: Intake, IV Titration 140 Amount Diltiazem 125 mg In 20 Sodium Chloride 0.9% 100 ml @ 5 MG/HR 5 mls/hr IV .Q24H [facility] Rx#:[id number] Heparin Sodium,Porcine/ 120 D5w Pmx 25,000 unit In Dextrose/Water 1 500ml. bag @ 18 UNITS/KG/HR 31. 02 mls/hr IV .Q16H8M [facility] Rx#:[id number] Oral 20 120 Other: Voiding Method Diaper Diaper # Voids 1 1 - Exam Head exam was generally normal. There was no scleral icterus or corneal arcus. Mucous membranes were moist.Neck was supple and without jugular venous distension, thyromegaly, or carotid bruits. Carotids were easily palpable bilaterally. There was no adenopathy. Lung sounds are diminished bilaterally lung bases. Heart sounds are irregular, pulses +2 and the rate is under better control. Abdomen is soft nontender no direct tenderness to about this or guarding. Extremities trace edema and there is no cyanosis or clubbing. Neurologically the patient has multiple weakness bilaterally both in upper and lower extremities and this is more severe proximal muscle weakness. - Labs CBC & Chem 7: 10/15/16 05:53 10/15/16 11:56 Labs: Abnormal Lab Results - Last 24 Hours (Table) 10/14/16 10/15/16 10/15/16 Range/Units 16:15 00:19 05:53 RBC 3.50 L (3.80-5.40) m/uL Hgb 11.0 L (11.4-16.0) gm/dL Plt Count 131 L (150-450) k/uL APTT 73.8 H (22.0-30.0) sec Glucose (74-99) mg/dL Troponin I 0.053 H* (0.000-0.034) ng/mL Total Protein (6.3-8.2) g/dL Albumin (3.5-5.0) g/dL 10/15/16 10/15/16 10/15/16 Range/Units 05:53 05:53 11:56 RBC (3.80-5.40) m/uL Hgb (11.4-16.0) gm/dL Plt Count (150-450) k/uL APTT 69.4 H (22.0-30.0) sec Glucose (74-99) mg/dL Troponin I 0.060 H* 0.046 H* (0.000-0.034) ng/mL Total Protein (6.3-8.2) g/dL Albumin (3.5-5.0) g/dL 10/15/16 Range/Units 11:56 RBC (3.80-5.40) m/uL Hgb (11.4-16.0) gm/dL Plt Count (150-450) k/uL APTT (22.0-30.0) sec Glucose 101 H (74-99) mg/dL Troponin I (0.000-0.034) ng/mL Total Protein 5.4 L (6.3-8.2) g/dL Albumin 2.9 L (3.5-5.0) g/dL Assessment and Plan Plan: Assessment 1 Acute bilateral pulmonary embolism with suspected DVT of the lower extremity. This fact is being sedentary lifestyle and progressive muscle weakness which has caused this patient to become quite inactive and sedentary. Hemodynamically stable. No evidence of any right ventricular failure or strain based on the CAT scan findings. We'll need an echocardiogram. We will need also to repeat a Doppler of the lower extremities On 10/15 2016 the patient remains on IV heparin. The patient has developed some small bilateral pleural effusions bilaterally along with atelectatic changes in the lung bases. She'll be continued on IV heparin and she be encouraged to use incentive spirometer. Doppler of the lower oximetry has been negative. 2 New onset atrial fibrillation with rapid ventricular response. This could be potentially related to the pulmonary embolism. The patient on a Cardizem drip for rate control. The patient on IV heparin. Echo cardiac exam is pending for now. 3 suspected myositis although this has not been confirmed by an open muscle biopsy. Currently on a prednisone burst taper receiving 15 mg 4 obesity 5 psoriasis, 6 recent hospitalization for a right lower extremity cellulitis, 7 hypothyroidism, 8 osteoarthritis, 9 history of bowel obstruction requiring surgical intervention, 10 diverticulosis, 11 urinary incontinence, 12 obstructive sleep apnea not utilizing any CPAP therapy, 13 extensive reaction to doxycycline occurred on January 2016. Plan IV heparin. Echocardiogram is pending. The patient was seen by hematology oncology. This blood clot is unprovoked and that could be in a setting of a larger picture of either connective tissue disease or a paraneoplastic syndrome causing muscle weakness. As such, the patient will have a CAT scan of the abdomen and pelvis completed. His incentive spirometer. Deep breathing. We' ll continue to follow.
[2016-10-15] MEDS: SODIUM CHLORIDE 0.9% 1,000 ML IV SCH (13:53)
[2016-10-15] MEDS: IOHEXOL 350 MG/ML 25 ML BOTTLE (ORAL USE) PO PRN ×2 (13:59→14:54)
--- NOTE | 2016-10-15 14:49 | HP ---
DATE OF ADMISSION: 10/14/2016 CHIEF COMPLAINT: Shortness of breath and left anterolateral and lower chest pain. HISTORY OF PRESENT ILLNESS: This is another admission for this 81-year-old white female. She presented to the hospital with shortness of breath and left lower anterior lateral chest pain and was found to have a PE. She has had a prior history of osteoarthritis, hypertension, hypothyroidism and recently has been treated for generalized inflammatory dermatitis and weakness, which was initially thought to be dermatomyositis, but ruled out. REVIEW OF SYSTEMS: She has had no syncope, orthopnea, PND, abdominal pain, vomiting, hematemesis, melena, jaundice, hematuria, frequency, urgency, renal disease, etc. Past medical history, family history and personal and social histories are otherwise unremarkable and unchanged. She is allergic to TETRACYCLINE. Her medications include: 1. Verapamil ER 240 once a day. 2. Sujit care oral capsules 40 one a day. 3. Levothyroxine 0.3 mg a day. 4. Lasix 40 mg once a day. 5. Xanax 0.25 p.o. t.i.d. p.r.n. She does not smoke or drink. PHYSICAL EXAMINATION: Blood pressure is 160/90 with a pulse of 92, respirations of 38, and she is afebrile. In general, she appeared to be uncomfortable with the chest pain and short of breath. She had generalized erythematous maculopapular dermatitis. Pupils equal, round, and reactive. Gaze is conjugate. Ears are clear. Nose, mouth, and throat were normal. Neck veins are not distended. Thyroid is not enlarged. Chest is clear, but she is splinting. Cardiac exam demonstrates sinus tachycardia and the abdomen is soft, nontender. There is no visceromegaly or masses. Bowel sounds are present. Extremities are normal. IMPRESSION: 1. Left-sided pulmonary embolism. 2. Hypertension. 3. Hypothyroidism. 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 PLAN: 1. Bed rest. 2. IV fluids. 3. Anticoagulation. 4. Updrafts. 5. Hematology consult.
--- NOTE | 2016-10-15 16:06 | CT ---
EXAMINATION TYPE: CT abdomen pelvis w con DATE OF EXAM: 10/15/2016 3:59 PM COMPARISON: NONE HISTORY: LUQ pain CT DLP: 1087.4 mGycm Automated exposure control for dose reduction was used. TECHNIQUE: Helical acquisition of images was performed from the lung bases through the pelvis. CONTRAST: Performed with Oral Contrast and with IV Contrast, patient injected with 100 mL of Omnipaque 300. FINDINGS: There is small bilateral pleural effusions. There are infiltrates and atelectasis at both lung bases and more on the left side. Heart is enlarged. Liver shows no focal defect. There is probably a cyst calcified small gallstone. Spleen appears ashok l. There is no pancreatic mass. Bile ducts are not dilated. There is no adrenal mass. Kidneys show satisfactory contrast opacification. There is no hydronephrosi s. Ureters are not dilated. Bladder distends smoothly. There is no sign of a pelvic mass. There is no ascites. I see no intestina l wall thickening. There are no dilated loops. There are spondylotic changes in the lumbar spine. The re is some spinal stenosis noted at L3-4. IMPRESSION: BILATERAL BASILAR PULMONARY INFILTRATES AND ATELECTASIS. SMALL PLEURAL EFFUSIONS. CARDIOMEGALY. NO ACUTE ABNORMALITY SEEN WITHIN THE ABDOMEN AND PELVIS. PROBABLE SMALL GALLSTONE.
[2016-10-15] MEDS: CEFTAROLINE FOSAMIL 600 MG in SODIUM CHLORIDE 0.9% 250 ML IVPB SCH (17:58)
--- NOTE | 2016-10-15 22:13 | PN ---
DATE OF SERVICE: 10/15/2016 CHIEF COMPLAINT: Pulmonary embolism. HISTORY OF PRESENT ILLNESS: This lady is still having a lot of chest discomfort in the left anterior lateral area and also the left upper quadrant. She has had no fever, chills, CT scan of the abdomen has been ordered. PHYSICAL EXAMINATION: CHEST: Fairly clear. No rales or rhonchi. CARDIAC: Normal. ABDOMEN: Soft and nontender. EXTREMITIES: Normal. IMPRESSION: 1. Pulmonary embolism. 2. Left upper quadrant pain. 3. Hypertension. 4. Atrial fibrillation. 5. Fever of undetermined etiology. PLAN: 1. Await results of cultures. 2. Await results of CT of the abdomen. 3. Continue anticoagulation.
[2016-10-16 06:24] LABS: Basophils % (A) 0 %; CHCM 32.7; Eosinophils # (A) 0.1 k/uL (0-0.7); Eosinophils % (A) 1 %; HCT 32.2 % (34.0-46.0); HDW 2.27; HGB 10.5 gm/dL (11.4-16.0); Luc # (Auto) 0.17; Luc % (Auto) 3; Lymphocytes # (A) 1.3 k/uL (1.0-4.8); Lymphocytes % (A) 21 %; MCH 31.9 pg (25.0-35.0); MCHC 32.5 g/dL (31.0-37.0); MCV 98.1 fL (80.0-100.0); Mean Platelet Volume 7.7; Monocytes # (A) 0.6 k/uL (0-1.0); Monocytes % (A) 9 %; Neutrophils # (A) 4.1 k/uL (1.3-7.7); Neutrophils % (A) 66 %; RBC 3.29 m/uL (3.80-5.40); RDW 12.8 % (11.5-15.5); WBC 6.2 k/uL (3.8-10.6); WBC (Perox) 6.93
[2016-10-16] MEDS: LEVOTHYROXINE 100 MCG TAB PO SCH (06:55)
[2016-10-16] MEDS: CEFTAROLINE FOSAMIL 600 MG in SODIUM CHLORIDE 0.9% 250 ML IVPB SCH ×2 (07:01→17:16)
[2016-10-16] MEDS: DILTIAZEM 125 MG in SODIUM CHLORIDE 0.9% 100 ML IV SCH ×2 (07:02→17:18)
[2016-10-16] MEDS: ALBUTEROL NEBULIZED 2.5 MG/3 ML INHALATION SCH ×4 (07:38→20:09)
[2016-10-16] MEDS: NYSTATIN 100,000 UNIT/GM POWD 15 GM TOPICAL SCH ×2 (08:32→23:04)
[2016-10-16] MEDS: CALCIUM CARBONATE 500 MG CHEWABLE PO SCH (08:32)
[2016-10-16] MEDS: predniSONE 10 MG TAB PO SCH (08:32)
[2016-10-16] MEDS: ASPIRIN 81 MG CHEW PO SCH (08:32)
[2016-10-16] MEDS: METOPROLOL TARTRATE 50 MG TAB PO SCH ×3 (08:33→23:04)
--- NOTE | 2016-10-16 09:52 | ECHOF ---
Referral Reason:PE MEASUREMENTS -------- HEIGHT: 175.3 cm WEIGHT: 88.5 kg BP: RVIDd: 3.0 cm (< 3.3) IVSd: 1.2 cm (0.6 - 1.1) LVIDd: 3.8 cm (3.9 - 5.3) LVPWd: 1.0 cm (0.6 - 1.1) IVSs: 1.5 cm LVIDs: 2.7 cm LVPWs: 1.4 cm LA Diam: 4.0 cm (2.7 - 3.8) Ao Diam: 3.2 cm (2.0 - 3.7) AV Cusp: 1.6 cm (1.5 - 2.6) LA Diam: 4.7 cm (2.7 - 3.8) MV EXCURSION: 16.009 mm (> 18.000) MV EF SLOPE: 81 mm/s (70 - 150) EPSS: 0.3 cm RAP: 5.00 mmHg RVSP: 49.39 mmHg FINDINGS -------- Undetermined rhythm. This was a technically adequate study. Pt. not compliant. There is mild concentric left ventricular hypertrophy. Overall left ventricular systolic function is low-normal with, an EF between 50 - 55 %. The right ventricle is normal in size. The left atrial size is normal. The right atrial size is normal. There is mild aortic valve sclerosis. There is no evidence of aortic regurgitation. Mild mitral annular calcification present. Mild mitral regurgitation is present. Mild tricuspid regurgitation present. There is moderate pulmonary hypertension. The right ventricular systolic pressure, as measured by Doppler, is 49.39mmHg. Trace/mild (physiologic) pulmonic regurgitation. The aortic root size is normal. There is no pericardial effusion. CONCLUSIONS -------- 1. Pt. not compliant. 2. There is mild concentric left ventricular hypertrophy. 3. Overall left ventricular systolic function is low-normal with, an EF between 50 - 55 %. 4. There is mild aortic valve sclerosis. 5. Mild mitral annular calcification present. 6. Mild mitral regurgitation is present. 7. Mild tricuspid regurgitation present. 8. There is moderate pulmonary hypertension. 9. The right ventricular systolic pressure, as measured by Doppler, is 49.39mmHg. MANUFACTURING SR ENGINEER: Luzma Bacon RDCS
--- NOTE | 2016-10-16 10:23 | P.PN ---
Subjective Principal diagnosis: A. fib this is a pleasant 81-year-old female patient with a past medical history significant for hypertension and dyslipidemia presented to the hospital complaining of chest discomfort. The patient was in his usual state of health until the day she presented to the hospital where she was at home and suddenly developed sharp discomfort on the left lower part of the chest was worse with deep breath. She underwent a computed tomography scan of the chest which showed bilateral PE. Immediately the patient was started on anticoagulation using heparin IV. Over the last several weeks, the patient has been treated for what it seems to be myositis. She underwent a muscle biopsy. She was started on steroids. We get involved in the care of the patient because during her hospitalization she went into an A. fib with RVR and she was started on Cardizem and drip and she was already receiving the heparin IV. The patient is not aware of any prior history of atrial fibrillation and as a matter of fact she never seen any manager generation in the past and never been diagnosed was coronary artery disease or congestive heart failure. The patient continues to be in A. fib with heart rate around 100. She is on metoprolol 50 mg by mouth twice a day and she still on Cardizem and drip at 5. I'm going to increase the dose of metoprolol to 50 mg by mouth 3 times a day and try to wean her from the Cardizem drip. We will check with the hematology service before we start her on any anticoagulation orally. The patient had an echo showed normal LV function. Objective - Vital Signs Vital signs: Vital Signs Temp 98.8 F 10/16/16 08:00 Pulse 103 H 10/16/16 08:00 Resp 18 10/16/16 08:00 BP 112/54 10/16/16 08:00 Pulse Ox 91 L 10/16/16 08:00 Intake & Output 10/15/16 10/16/16 10/16/16 18:59 06:59 18:59 Intake Total 420 180 Balance 420 180 Weight 88.5 kg Intake: Intake, IV Titration 420 Amount Diltiazem 125 mg In 20 Sodium Chloride 0.9% 100 ml @ 5 MG/HR 5 mls/hr IV .Q24H [facility] Rx#:[id number] Heparin Sodium,Porcine/ 120 D5w Pmx 25,000 unit In Dextrose/Water 1 500ml. bag @ 18 UNITS/KG/HR 31. 02 mls/hr IV .Q16H8M [facility] Rx#:[id number] Sodium Chloride 0.9% 1, 280 000 ml @ 40 mls/hr IV . Q24H [facility] Rx#:[id number] Oral 180 Other: Voiding Method Diaper Diaper Diaper # Voids 1 - Constitutional General appearance: Present: no acute distress - Respiratory Respiratory: bilateral: diminished - Cardiovascular Rhythm: irregularly irregular Heart sounds: normal: S1, S2 - Labs CBC & Chem 7: 10/16/16 05:57 10/15/16 11:56 Labs: Abnormal Lab Results - Last 24 Hours (Table) 10/15/16 10/15/16 10/16/16 Range/Units 11:56 11:56 05:57 RBC 3.29 L (3.80-5.40) m/uL Hgb 10.5 L (11.4-16.0) gm/dL Hct 32.2 L (34.0-46.0) % Plt Count 139 L (150-450) k/uL APTT (22.0-30.0) sec Glucose 101 H (74-99) mg/dL Troponin I 0.046 H* (0.000-0.034) ng/mL Total Protein 5.4 L (6.3-8.2) g/dL Albumin 2.9 L (3.5-5.0) g/dL 10/16/16 Range/Units 05:57 RBC (3.80-5.40) m/uL Hgb (11.4-16.0) gm/dL Hct (34.0-46.0) % Plt Count (150-450) k/uL APTT 53.0 H (22.0-30.0) sec Glucose (74-99) mg/dL Troponin I (0.000-0.034) ng/mL Total Protein (6.3-8.2) g/dL Albumin (3.5-5.0) g/dL Microbiology - Last 24 Hours (Table) 10/14/16 23:36 Blood Culture Gram Stain - Preliminary Blood Blood Culture - Preliminary Coagulase Negative Staph 10/15/16 00:19 Blood Culture - Preliminary Blood No Growth after 24 hours 10/14/16 23:36 Blood Culture - Preliminary Blood Assessment and Plan Plan: assessment #1 A. fib with RVR #2 bilateral PE #3 systemic hypertension #4 dyslipidemia #5 possible myositis Plan #1 continue the IV heparin at this point #2 increase the dose of metoprolol to 50 mg by mouth 3 times a day #3 follow-up with the patient
[2016-10-16] MEDS: HEPARIN SODIUM,PORCINE/D5W PMX 25,000 UNIT in DEXTROSE/WATER 1 500ML.BAG IV SCH (10:46)
--- NOTE | 2016-10-16 13:25 | P.PN ---
Subjective Principal diagnosis: 81-year-old female patient was hospitalized for an acute pleuritic chest pain proceed with shortness of breath and EMS was called to the scene and the patient was moved to the emergency department where a CT angios the chest was done and showed presence of bilateral pulmonary embolism and the patient was started on IV heparin. Specifically, the CAT scan of the chest showed filling defects within the pulmonary arteries involving the right lower lobe segmental and subsegmental branches, mural thrombus along the left lower lobe pulmonary artery branch along with filling defect in the segmental and subsegmental pulmonary emboli distally in the left lower lobe. The patient had mild-to- moderate burden of clots. There was no flattening of the interventricular septum or any reflux of contrast into the hepatic veins. No thoracic lymphadenopathy. The patient remained hemodynamically stable. No hypotension. No significant tachycardia. Noted the patient was in the hospital between 09/20/2016 and 09/24/2016. At that time the patient was in for Celexa the right lower extremity. The patient was treated and she was discharged home. Note that during the course of the tube and the patient was receiving subcu heparin for DVT prophylaxis. She also has history of myositis and she has been on a long-term prednisone taper and according to the family she was down to 15 mg of prednisone a daily basis. I reviewed the medical records and I see that the patient had a muscle biopsy and the results were sent out at [facility] and the biopsy showed no evidence of any acute or chronic myositis and there is type II. Dominant atrophy and type I hypertrophy along with chronic myopathic changes with some grouped lobe related fibers. This suspected diagnosis of myositis along with her age and his other comorbidities has caused significant limitation in exercise capacity and over the past 2 weeks the patient has been noted to be spending most of the time in bed and she has become very sedentary and doing limited amount of activity and moving around to help of a walker. She has significant amount of social support system and she has drank is living with her what involved in her care such as preparing food doing laundry and doing other daily household activity. The patient denies having any previous history of DVT or pulmonary embolism. No calf pain or tenderness. 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 She had one episode of fall few months back without any major injuries. Otherwise no frequent falling, but the patient is considered to be at an increased risk of falls due to her overall debility and muscle weakness. No malignancy. No recent orthopedic surgeries. On 10/15/2016 the patient remains on IV heparin and for pulmonary embolism treatment. Breath sounds are quite diminished in lung bases and today's chest x -ray shows some atelectatic changes and small effusions lung bases more so on the left. The patient is on oxygen at 2 L per minute nasal cannula. Icterus is improving. She is able to take deeper breaths. No hemoptysis. No angina. She was found to be in atrial fibrillation with rapid ventricular response that she was started on a Cardizem drip and she is already on IV heparin. The patient is not aware of any previous cardiac arrhythmias. Echocardiogram was ordered and is also still pending for now. Repeat Doppler of the lower extremities showed no evidence of any DVTs. 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 PTT today is 53. CBC is relatively unremarkable. Renal profile is normal. Objective - Vital Signs Vital signs: Vital Signs Temp 98.3 F 10/16/16 11:50 Pulse 94 10/16/16 11:50 Resp 18 10/16/16 11:50 BP 102/58 10/16/16 11:50 Pulse Ox 95 10/16/16 11:50 Intake & Output 10/15/16 10/16/16 10/16/16 18:59 06:59 18:59 Intake Total 420 680 Balance 420 680 Weight 88.5 kg Intake: Intake, IV Titration 420 500 Amount Diltiazem 125 mg In 20 Sodium Chloride 0.9% 100 ml @ 5 MG/HR 5 mls/hr IV .Q24H [facility] Rx#:[id number] Heparin Sodium,Porcine/ 120 500 D5w Pmx 25,000 unit In Dextrose/Water 1 500ml. bag @ 18 UNITS/KG/HR 31. 02 mls/hr IV .Q16H8M [facility] Rx#:[id number] Sodium Chloride 0.9% 1, 280 000 ml @ 40 mls/hr IV . Q24H [facility]AYNE Rx#:[id number] Oral 180 Other: Voiding Method Diaper Diaper Diaper # Voids 1 1 - Exam Head exam was generally normal. There was no scleral icterus or corneal arcus. Mucous membranes were moist.Neck was supple and without jugular venous distension, thyromegaly, or carotid bruits. Carotids were easily palpable bilaterally. There was no adenopathy. Lung sounds are diminished bilaterally lung bases. Heart sounds are irregular, pulses +2 and the rate is under better control. Abdomen is soft nontender no direct tenderness to about this or guarding. Extremities trace edema and there is no cyanosis or clubbing. Neurologically the patient has multiple weakness bilaterally both in upper and lower extremities and this is more severe proximal muscle weakness. - Labs CBC & Chem 7: 10/16/16 05:57 10/15/16 11:56 Labs: Abnormal Lab Results - Last 24 Hours (Table) 10/16/16 10/16/16 Range/Units 05:57 05:57 RBC 3.29 L (3.80-5.40) m/uL Hgb 10.5 L (11.4-16.0) gm/dL Hct 32.2 L (34.0-46.0) % Plt Count 139 L (150-450) k/uL APTT 53.0 H (22.0-30.0) sec Microbiology - Last 24 Hours (Table) 10/14/16 23:36 Blood Culture Gram Stain - Preliminary Blood Blood Culture - Preliminary Coagulase Negative Staph 10/15/16 00:19 Blood Culture - Preliminary Blood No Growth after 24 hours 10/14/16 23:36 Blood Culture - Preliminary Blood Assessment and Plan Plan: 1 Acute bilateral pulmonary embolism with suspected DVT of the lower extremity. This fact is being sedentary lifestyle and progressive muscle weakness which has caused this patient to become quite inactive and sedentary. Hemodynamically stable. No evidence of any right ventricular failure or strain based on the CAT scan findings. We'll need an echocardiogram. We will need also to repeat a Doppler of the lower extremities 2 New onset atrial fibrillation with rapid ventricular response. This could be potentially related to the pulmonary embolism. The patient on a Cardizem drip for rate control. The patient on IV heparin. Echo cardiac exam is pending for now. 3 suspected myositis although this has not been confirmed by an open muscle biopsy. Currently on a prednisone burst taper receiving 15 mg 4 obesity 5 psoriasis, 6 recent hospitalization for a right lower extremity cellulitis, 7 hypothyroidism, 8 osteoarthritis, 9 history of bowel obstruction requiring surgical intervention, 10 diverticulosis, 11 urinary incontinence, 12 obstructive sleep apnea not utilizing any CPAP therapy, 13 extensive reaction to doxycycline occurred on January 2016. Consider discharge planning in the next 24-48 hours, patient is to be discharged home fairly on Xarelto instead of Coumadin, and she is to have outpatient follow-up. Patient is to remain on anticoagulation therapy lifetime Time with Patient: Less than 30
[2016-10-16 15:21] VITALS: BMI 28.8
[2016-10-16] MEDS: SODIUM CHLORIDE 0.9% 1,000 ML IV SCH (17:17)
--- NOTE | 2016-10-16 19:14 | PN ---
DATE OF SERVICE: 10/16/2016 CHIEF COMPLAINT: Status post pulmonary embolism and abdominal pain. HISTORY OF PRESENT ILLNESS: This lady is still complaining of some abdominal discomfort and shortness of breath. CT of the abdomen and pelvis is pending, and she has been seen by Hematology. PHYSICAL EXAMINATION: Face is flushed. She is short of breath. Neck veins are not distended. The chest is clear, but breath sounds are diminished. Cardiac exam reveals atrial fibrillation. The abdomen is soft. There are no masses or visceromegaly. Extremities are normal. Neurologically she is intact. IMPRESSION: 1. Status post pulmonary embolism. 2. Abdominal pain, particularly in the left upper quadrant. 3. Atrial fibrillation. 4. Low-grade fever. PLAN: 1. Await results of CT. 2. Continue anticoagulation. 3. Paraneoplastic syndrome has to be considered at this lady.
[2016-10-16] MEDS: FAMOTIDINE 20 MG TAB PO SCH (22:00)
[2016-10-16] MEDS: ATORVASTATIN 10 MG TAB PO SCH (23:03)
--- NOTE | 2016-10-17 00:05 | P.PN ---
Progress Note - Text The patient reports some further improvement in her breathing. She is not having any chest pain on inspiration. Oxygen requirement is stable. Vital signs were reviewed, and are within normal limits. She denied any recurrence of fever or chills. No history of any hemoptysis or cough . Her shoulder and pelvic girdle weakness are stable. No recurrence of rash. Her review of systems otherwise negative out of 10 Labs/radiology : Computed tomography scan of the abdomen and pelvis revealed no evidence of any metastatic disease. A/P: #1. Pulmonary embolus- the patient is symptomatically improved, on IV heparin. She can be transitioned over to an oral anticoagulant at this time. She would much prefer using one of the newer oral direct factor inhibitor rather than Coumadin. These would be appropriate for her, given normal renal function and liver function. In addition, the relation of INR could be challenging in this patient on steroids, due to interaction with Coumadin. Therefore if covered by her insurance, the oral DFA is would be appropriate choice for her On the patient will need anticoagulation at least for one year. However at that time if her risk factors, specifically decreased activity and/ or need for ongoing steroid use persist, then prolonged anticoagulation lifelong will need to be considered, assuming the patient tolerates treatment well. Computed tomography scan of the abdomen and pelvis was negative for any evidence of malignancy.
[2016-10-17] MEDS: HEPARIN SODIUM,PORCINE/D5W PMX 25,000 UNIT in DEXTROSE/WATER 1 500ML.BAG IV SCH (06:03)
[2016-10-17] MEDS: LEVOTHYROXINE 100 MCG TAB PO SCH (06:04)
[2016-10-17] MEDS: CEFTAROLINE FOSAMIL 600 MG in SODIUM CHLORIDE 0.9% 250 ML IVPB SCH (06:04)
--- NOTE | 2016-10-17 06:27 | CONS ---
DATE OF CONSULTATION: DATE OF SERVICE: 10/16/2016 REASON FOR CONSULTATION: Fever and antibiotic recommendation. HISTORY OF PRESENT ILLNESS: The patient is a 81-year-old female who was brought into the ER on 10/14/2016 with chief complaints of difficulty breathing, had been starting getting worse that day. The patient's shortness of breath was also associated with the pain in the left lower chest area, did describe the pain to be sharp 6 to 7 out of 10, and worse when taking a deep breath. The patient has very mild cough and not bringing up any sputum. The patient denies having any lower extremity pain, denies having any fever or chill prior to presentation to the hospital. The patient has been evaluated by the ER physician where the patient did have a chest CT which was positive for PE bilateral and also a left lower lobe a consolidation and a question of possible pulmonary infarct. The patient did spike a fever of 100 on the and that evening she did spike a fever of over 102.1 and 100.2 yesterday morning for which ID has been consulted for further recommendation regarding antibiotic therapy. Patient did have blood cultures obtained on the , which is showing a coagulase negative staph. She did not have any elevated white count. Follow up blood culture has been negative. The patient is currently on antibiotic Teflaro. At the time of my evaluation this morning, the patient complaining of very weak and tired. She seemed to be slightly lethargic without any ability to do any activity. The patient did have a recent diagnosis of possible myositis and has been on prednisone therapy. Patient denies having any abdominal pain. Patient denies having any diarrhea and no burning or frequency of urine. REVIEW OF SYSTEMS: CONSTITUTIONAL: Positive for weakness. Denies any high grade or chills. EYES: No complaint. ENT: No complaint. RESPIRATORY: As per HPI. CARDIOVASCULAR: As per HPI. GENITOURINARY: No complaint. GASTROINTESTINAL: No complaint. MUSCULOSKELETAL: No complaint. INTEGUMENTARY: No complaint. PSYCHOLOGICAL: No complaint. ENDOCRINE: No complaint. NEUROLOGICAL: No complaint. PAST MEDICAL HISTORY: Significant for hypertension, hyperlipidemia, osteoarthritis, hypothyroidism, muscle weakness, obesity, recent right lower extremity cellulitis. PAST SURGICAL HISTORY: Bilateral knee replacement, thyroidectomy. SOCIAL HISTORY: No history of smoking, drinking, or drug use. FAMILY HISTORY: Mother with history of memory impairment. Father with history of liver disease. One of the sisters with heart problem. Allergy to DOXYCYCLINE. Medications include the patient is currently on prednisone, Mycostatin powder, Narcan, Lopressor, Synthroid, Dilaudid, famotidine, diltiazem, Teflaro 600 q.12, Lipitor, aspirin, Xanax, [place], Tylenol. On examination, blood pressure is 128/60 with a pulse of 76, temperature 97.2. She is 94% on room air. General description is an elderly female, lying in bed in no distress. No tachypnea or accessory muscle of respiration use. HEENT examination shows slight pallor. No scleral icterus. Oral mucous membrane is dry. NECK: Trachea is central. No thyromegaly. LUNGS: Unlabored breathing. Clear to auscultation. There was some decreased breath sounds at the bases. No wheeze. HEART: S1, S2, regular rhythm. ABDOMEN: Soft, no tenderness. EXTREMITIES: Slight swelling, no redness has been noticed. SKIN EXAMINATION: No rash. No mass palpable. NEUROLOGICAL: Patient awake, alert, oriented x3. Mood and affect normal. LABS: Hemoglobin is 10.5, white count 6.2 with a BUN of 12, creatinine 0.56. Electrolytes have been normal. Liver enzymes are normal. Troponin is slightly elevated. Blood cultures on admission, both of these sets were drawn in the ER showing a coagulase negative staph. Urine has been negative. Follow up blood culture on the negative so far. CT angiogram suggestive of PE and possible pulmonary infarct in left lower lobe. The patient also had a CT of the abdomen and pelvis, which showed bilateral basilar pulmonary infiltrate and atelectasis changes. No acute abnormality seen in the abdomen and pelvis, probable small gallstones. DIAGNOSTIC IMPRESSION AND PLAN: Patient with a fever and patient admitted to the hospital with shortness of breath and chest pain more likely secondary to underlying bilateral pulmonary embolism and question of possible pulmonary infarct. Clinically doubt underlying pneumonia as the patient has very mild cough and remains to be dry in nature. Patient had no abdominal pain, did have CT of the abdomen and pelvis, that was negative for any intra-abdominal pathology. The urine is negative. She did have positive blood culture with coagulase negative staph, those were drawn in the ER at same time and more likely representing a skin contamination as the patient had no clinical disease to go along with it. PLAN: 1. Patient currently on the Teflaro, it may be safely discontinued. 2. Will continue to monitor closely off antibiotic. If patient spikes any new fever or any change in clinical condition to reculture and start on appropriate antibiotic. Thank you for this consultation. We will follow this patient along with you. MITUL
[2016-10-17 06:54] LABS: Basophils % (A) 0 %; CH 31.8; CHCM 32.5; Eosinophils % (A) 1 %; HCT 33.2 % (34.0-46.0); HGB 10.7 gm/dL (11.4-16.0); Luc # (Auto) 0.12; Luc % (Auto) 3; Lymphocytes # (A) 1.4 k/uL (1.0-4.8); Lymphocytes % (A) 32 %; MCH 31.7 pg (25.0-35.0); MCHC 32.2 g/dL (31.0-37.0); MCV 98.5 fL (80.0-100.0); Monocytes # (A) 0.4 k/uL (0-1.0); Monocytes % (A) 10 %; Neutrophils # (A) 2.4 k/uL (1.3-7.7); Neutrophils % (A) 55 %; RBC 3.37 m/uL (3.80-5.40); RDW 12.7 % (11.5-15.5); WBC 4.3 k/uL (3.8-10.6); WBC (Perox) 4.58
[2016-10-17] MEDS: predniSONE 10 MG TAB PO SCH (08:18)
[2016-10-17] MEDS: NYSTATIN 100,000 UNIT/GM POWD 15 GM TOPICAL SCH (08:18)
[2016-10-17] MEDS: ASPIRIN 81 MG CHEW PO SCH (08:18)
[2016-10-17] MEDS: FAMOTIDINE 20 MG TAB PO SCH (08:18)
[2016-10-17] MEDS: METOPROLOL TARTRATE 50 MG TAB PO SCH (08:18)
[2016-10-17] MEDS: ALBUTEROL NEBULIZED 2.5 MG/3 ML INHALATION SCH ×2 (08:46→12:00)
[2016-10-17] MEDS ORDERED: RIVAROXABAN 15 MG TAB PO SCH (09:15)
--- NOTE | 2016-10-17 11:12 | PN ---
DATE OF SERVICE: 10/17/2016 Reason for followup: 1. Fever. 2. Positive blood culture. INTERVAL HISTORY: The patient is afebrile. Pain to the left lower chest area has improved. Her breathing is better. The patient denies having any significant cough or sputum production. Denies any abdominal pain, no nausea, vomiting or any diarrhea. On examination, blood pressure is 130/61 with a pulse of 82, temperature 97. She is 93% on room air. General description is an elderly female, lying in bed in no distress. RESPIRATORY SYSTEM: Unlabored breathing with decreased breath sounds at the left base. No wheeze. HEART: S1, S2, regular rate and rhythm. ABDOMEN: Soft, no tenderness. LABS: Hemoglobin is 10.7, white count of 4.3. Followup blood culture has been negative. DIAGNOSTIC IMPRESSION AND PLAN: 1. Patient admitted with fever, source is more likely pulmonary infarct. Clinically doubt pneumonia as patient did not have significant cough or sputum production. No elevated white count. Antibiotics can be safely discontinued. 2. Positive blood culture with coagulase-negative staph likely skin contamination, repeat blood culture has been negative. No need for antibiotic therapy for the same. Plan of care discussed with the primary team.
--- NOTE | 2016-10-17 11:14 | P.PN ---
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 81-year-old female patient was hospitalized for an acute pleuritic chest pain proceed with shortness of breath and EMS was called to the scene and the patient was moved to the emergency department where a CT angios the chest was done and showed presence of bilateral pulmonary embolism and the patient was started on IV heparin. Specifically, the CAT scan of the chest showed filling defects within the pulmonary arteries involving the right lower lobe segmental and subsegmental branches, mural thrombus along the left lower lobe pulmonary artery branch along with filling defect in the segmental and subsegmental pulmonary emboli distally in the left lower lobe. The patient had mild-to- moderate burden of clots. There was no flattening of the interventricular septum or any reflux of contrast into the hepatic veins. No thoracic lymphadenopathy. The patient remained hemodynamically stable. No hypotension. No significant tachycardia. Noted the patient was in the hospital between 09/20/2016 and 09/24/2016. At that time the patient was in for Celexa the right lower extremity. The patient was treated and she was discharged home. Note that during the course of the tube and the patient was receiving subcu heparin for DVT prophylaxis. She also has history of myositis and she has been on a long-term prednisone taper and according to the family she was down to 15 mg of prednisone a daily basis. I reviewed the medical records and I see that the patient had a muscle biopsy and the results were sent out at [facility] and the biopsy showed no evidence of any acute or chronic myositis and there is type II. Dominant atrophy and type I hypertrophy along with chronic myopathic changes with some grouped lobe related fibers. This suspected diagnosis of myositis along with her age and his other comorbidities has caused significant limitation in exercise capacity and over the past 2 weeks the patient has been noted to be spending most of the time in bed and she has become very sedentary and doing limited amount of activity and moving around to help of a walker. She has significant amount of social support system and she has drank is living with her what involved in her care such as preparing food doing laundry and doing other daily household activity. The patient denies having any previous history of DVT or pulmonary embolism. No calf pain or tenderness. 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 She had one episode of fall few months back without any major injuries. Otherwise no frequent falling, but the patient is considered to be at an increased risk of falls due to her overall debility and muscle weakness. No malignancy. No recent orthopedic surgeries. On 10/15/2016 the patient remains on IV heparin and for pulmonary embolism treatment. Breath sounds are quite diminished in lung bases and today's chest x -ray shows some atelectatic changes and small effusions lung bases more so on the left. The patient is on oxygen at 2 L per minute nasal cannula. Icterus is improving. She is able to take deeper breaths. No hemoptysis. No angina. She was found to be in atrial fibrillation with rapid ventricular response that she was started on a Cardizem drip and she is already on IV heparin. The patient is not aware of any previous cardiac arrhythmias. Echocardiogram was ordered and is also still pending for now. Repeat Doppler of the lower extremities showed no evidence of any DVTs. 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 PTT today is 53. CBC is relatively unremarkable. Renal profile is normal. On 10/17/2016, patient is doing well, she is now on Xarelto, discharge planning could be considered. And I would recommend that she stays on Xarelto lifetime, and on prednisone for her dermatomyositis as per rheumatology. Objective - Vital Signs Vital signs: Vital Signs Temp 97.0 F L 10/17/16 08:33 Pulse 82 10/17/16 09:00 Resp 18 10/17/16 08:00 BP 130/61 10/17/16 08:00 Pulse Ox 93 L 10/17/16 08:00 Intake & Output 10/16/16 10/17/16 10/17/16 18:59 06:59 18:59 Intake Total 680 500 Balance 680 500 Weight 88.5 kg 89.5 kg Intake: Intake, IV Titration 500 500 Amount Heparin Sodium,Porcine/ 500 500 D5w Pmx 25,000 unit In Dextrose/Water 1 500ml. bag @ 18 UNITS/KG/HR 31. 02 mls/hr IV .Q16H8M [facility] Rx#:[id number] Oral 180 0 Other: Voiding Method Diaper Diaper Diaper # Voids 1 1 # Bowel Movements 1 - Labs CBC & Chem 7: 10/17/16 06:14 01/15/17 11:56 Labs: Abnormal Lab Results - Last 24 Hours (Table) 10/17/16 10/17/16 Range/Units 06:14 06:14 RBC 3.37 L (3.80-5.40) m/uL Hgb 10.7 L (11.4-16.0) gm/dL Hct 33.2 L (34.0-46.0) % APTT 33.4 H (22.0-30.0) sec Microbiology - Last 24 Hours (Table) 10/15/16 00:19 Blood Culture - Preliminary Blood No Growth after 48 hours 10/15/16 20:13 Blood Culture - Preliminary Blood No Growth after 24 hours 10/15/16 19:52 Blood Culture - Preliminary Blood No Growth after 24 hours 10/14/16 23:36 Blood Culture Gram Stain - Preliminary Blood Blood Culture - Preliminary Coagulase Negative Staph Assessment and Plan Plan: 1 Acute bilateral pulmonary embolism with suspected DVT of the lower extremity. This fact is being sedentary lifestyle and progressive muscle weakness which has caused this patient to become quite inactive and sedentary. Hemodynamically stable. No evidence of any right ventricular failure or strain based on the CAT scan findings. 2 New onset atrial fibrillation with rapid ventricular response. This could be potentially related to the pulmonary embolism. The patient on a Cardizem drip for rate control. The patient on IV heparin. Echo cardiac exam is pending for now. 3 suspected myositis although this has not been confirmed by an open muscle biopsy. Currently on a prednisone burst taper receiving 15 mg 4 obesity 5 psoriasis, 6 recent hospitalization for a right lower extremity cellulitis, 7 hypothyroidism, 8 osteoarthritis, 9 history of bowel obstruction requiring surgical intervention, 10 diverticulosis, 11 urinary incontinence, 12 obstructive sleep apnea not utilizing any CPAP therapy, 13 extensive reaction to doxycycline occurred on January 2016. Consider discharge planning in the next 24 hours patient is to continue follow- up with rheumatology and with hematology/oncology. Time with Patient: Less than 30
[2016-10-17] MEDS: CALCIUM CARBONATE 500 MG CHEWABLE PO SCH (11:32)
[2016-10-17] MEDS: SODIUM CHLORIDE 0.9% 1,000 ML IV SCH (11:33)
[2016-10-17 12:08] VITALS: BP 132/64; TEMP 97.2
[2016-10-17 12:10] VITALS: PULSE 82
--- NOTE | 2016-10-17 12:25 | P.PN ---
Subjective Principal diagnosis: PE This is a pleasant 81-year-old female with history of hypertension, hyperlipidemia, who initially presented to the hospital with symptoms of chest discomfort. Patient was found by CTA to have bilateral pulmonary embolism and was initiated on IV heparin. Yesterday the IV heparin was discontinued and she was started on xarelto per PE protocol. Patient also went into atrial fibrillation with rapid ventricular response. Her dose of beta melida was increased to 50 mg one tablet by mouth 3 times a day yesterday. He continues to be in atrial fibrillation heart rate in the 80s today. Arrangements are being made for her to transfer to [facility] today. Objective - Vital Signs Vital signs: Vital Signs Temp 97.2 F L 10/17/16 12:00 Pulse 82 10/17/16 12:10 Resp 18 10/17/16 12:00 BP 132/64 10/17/16 12:00 Pulse Ox 93 L 10/17/16 12:00 Intake & Output 10/16/16 10/17/16 10/17/16 18:59 06:59 18:59 Intake Total 680 500 Balance 680 500 Weight 88.5 kg 89.5 kg Intake: Intake, IV Titration 500 500 Amount Heparin Sodium,Porcine/ 500 500 D5w Pmx 25,000 unit In Dextrose/Water 1 500ml. bag @ 18 UNITS/KG/HR 31. 02 mls/hr [id number] Rx#:[id number] Oral 180 0 Other: Voiding Method Diaper Diaper Diaper # Voids 1 1 # Bowel Movements 1 - Exam PHYSICAL EXAMINATION: HEENT: Head is atraumatic, normocephalic. Pupils equal, round. Neck is supple. There is no elevated jugular venous pressure. HEART EXAMINATION: S1 and S2 are regular regular CHEST EXAMINATION: Lungs are clear to auscultation and precussion. No chest wall tenderness is noted on palpation or with deep breathing. ABDOMEN: Soft, nontender. Bowel sounds are heard. No organomegaly noted. EXTREMITIES: 2+ peripheral pulses with no evidence of peripheral edema and no calf tenderness noted. NEUROLOGIC patient is awake, alert and oriented -3. . - Labs CBC & Chem 7: 10/17/16 06:14 10/15/16 11:56 Labs: Abnormal Lab Results - Last 24 Hours (Table) 10/17/16 10/17/16 Range/Units 06:14 06:14 RBC 3.37 L (3.80-5.40) m/uL Hgb 10.7 L (11.4-16.0) gm/dL Hct 33.2 L (34.0-46.0) % APTT 33.4 H (22.0-30.0) sec Microbiology - Last 24 Hours (Table) 10/15/16 00:19 Blood Culture - Preliminary Blood No Growth after 48 hours 10/15/16 20:13 Blood Culture - Preliminary Blood No Growth after 24 hours 10/15/16 19:52 Blood Culture - Preliminary Blood No Growth after 24 hours 10/14/16 23:36 Blood Culture Gram Stain - Preliminary Blood Blood Culture - Preliminary Coagulase Negative Staph Assessment and Plan (1) Chronic a-fib Status: Acute (2) HTN (hypertension) Status: Acute (3) Hyperlipemia Status: Acute (4) Pulmonary embolism Status: Acute Plan: From cardiology's perspective, we'll continue the metoprolol tartrate 50 mg 1 tablet by mouth 3 times a day along with his Xarelto, a follow-up appointment will be made in the office post discharge. DNP note has been reviewed, I agree with a documented findings and plan of care. Patient was seen and examined.
--- NOTE | 2016-10-17 13:29 | P.DS ---
Providers Date of admission: 10/14/16 09:58 Expected date of discharge: 10/17/16 Attending physician: Case Berman Consults: 10/14/16 10:58 Consult Physician Stat Consulting Provider: Kylah Jeter Consult Reason/Comments: Pulmonary embolism Do you want consulting provider notified?: Yes 10/14/16 14:38 Consult Physician Routine Consulting Provider: Param Zuniga Consult Reason/Comments: PE Do you want consulting provider notified?: Yes 10/14/16 23:47 Consult Physician Routine Consulting Provider: Roderick Walls Consult Reason/Comments: Afib with RVR Do you want consulting provider notified?: Yes 10/16/16 10:28 Consult Physician Stat Consulting Provider: Adam Doty Consult Reason/Comments: fever Do you want consulting provider notified?: Yes Primary care physician: Case Berman Hospital Course: 81-year-old female patient was hospitalized for an acute pleuritic chest pain proceed with shortness of breath and EMS was called to the scene and the patient was moved to the emergency department where a CT angios the chest was done and showed presence of bilateral pulmonary embolism and the patient was started on IV heparin. Specifically, the CAT scan of the chest showed filling defects within the pulmonary arteries involving the right lower lobe segmental and subsegmental branches, mural thrombus along the left lower lobe pulmonary artery branch along with filling defect in the segmental and subsegmental pulmonary emboli distally in the left lower lobe. The patient had mild-to- moderate burden of clots. There was no flattening of the interventricular septum or any reflux of contrast into the hepatic veins. No thoracic lymphadenopathy. The patient remained hemodynamically stable. No hypotension. No significant tachycardia. 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 Patient was seen by Dr. Zuniga oncology hematology. CAT scan of the abdomen and pelvis was negative for any evidence of malignancy. Recommendations were to use Xarelto anticoagulation would need to be lifelong Additionally patient was seen by cardiology service had episode of atrial fibrillation with a rapid ventricular response. Beta melida dose was increased to 3 times a day. There was a noted improvement in the rate. For now would continue the prednisone the PCP can discuss the case with the rheumatology and consider discontinuing the prednisone altogether as the patient does not have any evidence of myositis on open lung biopsy Given patient's generalized weakness decision was to transfer patient to subacute rehab in which the patient agreed patient was felt to be stable and appropriate proceed with a discharge Impression discharge diagnosis Present on admission shortness of breath due to an acute bilateral pulmonary emboli with suspected DVT of the lower extremity Acute hypoxic respiratory failure resolving 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 Obstructive sleep apnea not utilizing CPAP therapy History of osteoarthritis A recent hospitalization for right lower extremity cellulitis Skin condition psoriasis History of an extensive reaction to doxycycline January 2016 Chronic urinary incontinence Diverticulosis Chronic atrial fibrillation current rate controlled with intermittent episode of rapid ventricular response Hyperlipidemia Hypertension Echocardiogram 10/16/2016 left ventricular systolic function low normal EF between 50 and 55% Hypertension with hypertensive heart disease mild LVH with moderate pulmonary hypertension per echocardiogram The above dictated assessment and findings were discussed with dr berman . Impression and the plan of care have been dictated as directed. Columba Elmore nurse practitioner acting as a scribe for dr berman Patient Condition at Discharge: Fair Plan - Discharge Summary New Discharge Prescriptions: ALPRAZolam [Xanax] 0.25 mg PO DAILY PRN #30 tab PRN Reason: Anxiety HYDROcodone/APAP 10-325MG [[place] 10-325] 1 each PO Q6H PRN #30 tab PRN Reason: Pain Metoprolol Tartrate [Lopressor] 50 mg PO TID #90 tab Rivaroxaban [Xarelto] 15 mg PO BID-W/MEALS #60 tab Discharge Medication List Furosemide 40 mg PO DAILY PRN 01/28/16 [History] Levothyroxine Sodium [Levoxyl] 200 mcg PO QAM 01/28/16 [History] Verapamil HCl [Verapamil ER] 240 mg PO QAM 01/28/16 [History] Calcium Carbonate [Calcium] 600 mg PO DAILY 08/14/16 [History] Ergocalciferol [Vitamin D2 (DRISDOL)] 100,000 unit PO Q30D 08/14/16 [History] Simvastatin 20 mg PO HS 09/02/16 [History] Aspirin EC [Ecotrin Low Dose] 81 mg PO DAILY 09/19/16 [History] predniSONE See Taper PO DAILY 09/19/16 [History] Nystatin 100,000 Unit/gm Powd [Mycostatin Powder] 1 applic TOPICAL BID #30 powder 09/23/16 [Rx] ALPRAZolam [Xanax] 0.25 mg PO DAILY PRN #30 tab 10/17/16 [Rx] Acetaminophen Tab [Tylenol] 650 mg PO Q4HR PRN #0 tab 10/17/16 [Rx] Albuterol Nebulized [Ventolin Nebulized] 2.5 mg INHALATION RT-QID nebu [Rx] Famotidine [Pepcid] 20 mg PO BID tab 10/17/16 [Rx] HYDROcodone/APAP 10-325MG [[place] 10-325] 1 each PO Q6H PRN #30 tab 10/17/16 [Rx] Metoprolol Tartrate [Lopressor] 50 mg PO TID #90 tab 10/17/16 [Rx] Rivaroxaban [Xarelto] 15 mg PO BID-W/MEALS #60 tab 10/17/16 [Rx] Follow up Appointment(s)/Referral(s): Case Berman MD [Primary Care Provider] - 1-2 days Discharge Disposition: TRANSFER TO SNF/ECF
--- NOTE | 2016-10-18 13:44 | PN ---
DATE OF SERVICE: 10/17/2016 CHIEF COMPLAINT: Shortness of breath, chest pain and pulmonary embolism. HISTORY OF PRESENT ILLNESS: This lady is doing a little bit better. CT did not demonstrate any pathology in the left upper quadrant. The pain is improving and she is less short of breath. PHYSICAL EXAM: She has good breath sounds bilaterally. The cardiac exam is normal and the abdomen is soft, nontender. Extremities are normal. IMPRESSION: 1. Status post pulmonary embolism. 2. Left upper quadrant pain, etiology unknown. 3. Generalized progressive weakness, etiology unknown. 4. Generalized macular, papular, erythematous dermatitis. PLAN: Continue activity and she can probably go home and this might be today. If it is, this will be arranged by the nurse practitioner and will follow her up in the office in a few days.
== END 2016-10-17 15:21 | DRG 176 ==
LOC: EC 07:07 → 6SEL 09:58
PROVIDERS: ADMIT Family Medicine; ATTEND Family Medicine
DX: I26.99 Other pulmonary embolism without acute cor pulmonale (principal); I11.0 Hypertensive heart disease with heart failure; I27.2 Other secondary pulmonary hypertension; I50.9 Heart failure, unspecified; E03.9 Hypothyroidism, unspecified; E66.9 Obesity, unspecified; E78.5 Hyperlipidemia, unspecified; G47.33 Obstructive sleep apnea (adult) (pediatric); I44.7 Left bundle-branch block, unspecified; I48.2 Chronic atrial fibrillation; K57.90 Diverticulosis of intestine, part unspecified, without perforation or abscess without bleeding; L40.9 Psoriasis, unspecified; M19.90 Unspecified osteoarthritis, unspecified site; M60.9 Myositis, unspecified; R32 Unspecified urinary incontinence; L30.9 Dermatitis, unspecified; R10.12 Left upper quadrant pain; Z68.29 Body mass index [BMI] 29.0-29.9, adult; Z96.653 Presence of artificial knee joint, bilateral; Z79.82 Long term (current) use of aspirin; Z79.899 Other long term (current) drug therapy; Z88.1 Allergy status to other antibiotic agents
CPT/HCPCS: 36415; 71010; 71020; 71275; 74177; 80053; 82550; 82553; 83605; 83735; 84484; 85025; 85379; 85610; 85730; 87040; 87077; 87086; 87186; 93005; 93306; 93965; 93970; 94640; 96361; 96374; 96375; 96376; 99291

== ENCOUNTER 2016-10-21 15:31 | Emergency (ER) | payer MEDICARE, BC ==
[2016-10-21 15:46] VITALS: RESP 18
--- NOTE | 2016-10-21 16:19 | ED ---
Chest Pain HPI - General Chief Complaint: Chest Pain Stated Complaint: RIB PAIN Time Seen by Provider: 10/21/16 15:48 Source: patient, family Mode of arrival: EMS - History of Present Illness Initial Comments: The patient is a 81-year-old female who presents to he with a chief complaint of left-sided chest wall pain. The patient states that this began earlier today after she bent over and reached for something with her left arm. She then noticed a popping sensation along her left sided chest wall. Patient states that she was provided with a Hills while at these nursing facility. The patient was then transferred to the ED for further evaluation. Patient's family states they were concerned because the patient was recently diagnosed with a left-sided pulmonary embolism. Patient was treated with heparin and then started on Xarelto. Patient has been taking her Xarelto twice a day as directed. She has been following all the instructions to take this medication appropriately. Patient denies any shortness of breath associated with her symptoms. She is noted to be tender to palpation along the left-sided chest wall. Patient's pain is worsened with movement of the left arm. The patient is refusing any labwork. - Related Data Home Medications Medication Instructions Recorded Confirmed Furosemide 40 mg PO DAILY PRN 01/28/16 10/21/16 Levothyroxine Sodium [Levoxyl] 200 mcg PO QAM 01/28/16 10/21/16 Verapamil HCl [Verapamil ER] 240 mg PO QAM 01/28/16 10/21/16 Calcium Carbonate [Calcium] 600 mg PO HS 08/14/16 10/21/16 Aspirin EC [Ecotrin Low Dose] 81 mg PO DAILY 09/19/16 10/21/16 predniSONE See Taper PO DAILY 09/19/16 10/21/16 Acetaminophen Tab [Tylenol] 650 mg PO Q4HR PRN 10/21/16 10/21/16 Ammonium Lactate Lotion 1 applic TOPICAL BID 10/21/16 10/21/16 [Lac-Hydrin 12% Lotion] Atorvastatin [Lipitor] 10 mg PO HS 10/21/16 10/21/16 HYDROcodone/APAP 10-325MG [[place] 1 tab PO Q6H PRN 10/21/16 10/21/16 10-325] Potassium Chloride [Klor-Con 20] 20 meq PO DAILY PRN 10/21/16 10/21/16 Previous Rx's Medication Instructions Recorded Nystatin 100,000 Unit/gm Powd 1 applic TOPICAL BID #30 powder 09/23/16 [Mycostatin Powder] ALPRAZolam [Xanax] 0.25 mg PO DAILY PRN #30 tab 10/17/16 Albuterol Nebulized [Ventolin 2.5 mg INHALATION RT-QID nebu 10/17/16 Nebulized] Famotidine [Pepcid] 20 mg PO BID tab 10/17/16 Metoprolol Tartrate [Lopressor] 50 mg PO TID #90 tab 10/17/16 Rivaroxaban [Xarelto] 15 mg PO BID-W/MEALS #60 tab 10/17/16 HYDROcodone/APAP 10-325MG [[place] 1 tab PO Q6H PRN #20 tab 10/21/16 10-325] Allergies Allergy/AdvReac Type Severity Reaction Status Date / Time doxycycline Allergy Itching Verified 10/21/16 15:59 Review of Systems ROS Statement: Those systems with pertinent positive or pertinent negative responses have been documented in the HPI. ROS Other: All systems not noted in ROS Statement are negative. Constitutional: Denies: fever, chills, weakness Eyes: Denies: eye pain ENT: Denies: ear pain, throat pain Respiratory: Denies: cough, dyspnea, wheezes, hemoptysis Cardiovascular: Reports: chest pain. Denies: palpitations, dyspnea on exertion , orthopnea Endocrine: Reports: fatigue Gastrointestinal: Denies: abdominal pain, nausea, vomiting Genitourinary: Denies: urgency, dysuria Skin: Denies: rash, lesions Neurological: Denies: headache, weakness Psychiatric: Denies: anxiety, depression EKG Findings - EKG Comments: EKG Findings:: EKG demonstrates NSR with a rate of 72. There are no concerning ST-T changes. The QRS is slightly prolonged with evidence of LBBB. Past Medical History Past Medical History: Heart Failure, Hyperlipidemia, Hypertension, Osteoarthritis (OA), Skin Disorder, Thyroid Disorder Additional Past Medical History / Comment(s): Obesity, muscle weakness without definite diagnosis of myositis based on the muscle biopsy being treated with steroids on outpatient basis and the patient has been receiving long-term steroid taper, psoriasis, recent hospitalization for a right lower extremity cellulitis, hypothyroidism, osteoarthritis, history of bowel obstruction requiring surgical intervention, diverticulosis, urinary incontinence, obstructive sleep apnea not utilizing any CPAP therapy, extensive reaction to doxycycline occurred on January 2016. History of Any Multi-Drug Resistant Organisms: None Reported Past Surgical History: Bowel Resection, Joint Replacement Additional Past Surgical History / Comment(s): thyroidectomy,raissa knee replacements Past Anesthesia/Blood Transfusion Reactions: No Reported Reaction Past Psychological History: No Psychological Hx Reported Smoking Status: Never smoker Past Alcohol Use History: Occasional Past Drug Use History: None Reported - Past Family History Mother Family Medical History: No Reported History, Memory Impairment Father Family Medical History: Liver Disease Sister(s) Additional Family Medical History / Comment(s): heart problems Brother(s) Additional Family Medical History / Comment(s): heart problems r/t rheumatic fever General Exam General appearance: alert, in no apparent distress Head exam: Present: atraumatic, normocephalic Eye exam: Present: normal appearance, PERRL, EOMI, other (patient wears glasses) Pupils: Present: normal accommodation ENT exam: Present: normal exam, mucous membranes dry Neck exam: Present: normal inspection. Absent: tenderness Respiratory exam: Present: normal lung sounds bilaterally, chest wall tenderness (left-sided chest wall tenderness in the region of rights 6-8). Absent: respiratory distress, wheezes, rales, rhonchi, stridor Cardiovascular Exam: Present: regular rate, normal rhythm GI/Abdominal exam: Present: soft. Absent: distended, tenderness, guarding, rebound, rigid Extremities exam: Present: normal inspection, other (left-sided chest wall pain reproduced with movement of the left arm). Absent: tenderness Back exam: Present: normal inspection Neurological exam: Present: alert, oriented X3 Psychiatric exam: Present: normal affect, normal mood Skin exam: Present: warm, dry, intact, normal color. Absent: erythema Course Vital Signs 10/21/16 10/21/16 15:37 17:52 Temperature 98.2 F 97.9 F Pulse Rate 73 69 Respiratory 18 18 Rate Blood Pressure 111/56 109/53 O2 Sat by Pulse 95 94 L Oximetry Chest Pain MDM - MDM The patient is a 81-year-old female who presents to ED with a chief complaint of left-sided chest wall pain. Patient states that these symptoms have been present over the course of the past day. Patient states that the symptoms began after she bent over and reached for something with her left arm. She felt a popping sensation in her left chest at that point in time. Patient is noted to have exquisite tenderness to palpation along left-sided chest wall. Patient denies any sridhar shortness of breath associated with this pain. Patient denies any fevers or chills. Patient also has reproduction of pain with movement of the left arm. Patient's family is requesting that she not receive any additional narcotic medications due to the fact she is very sensitive to these meds and did receive a dose earlier today. She agrees with this plan as well. Patient did refuse a blood work. Check chest x-ray series to rule out fracture along the left ribs. 5:53 PM Updated patient's family of overall findings including no evidence of rib fracture on x-rays. Patient has an incentive spirometer at [facility]. She notes that he uses appropriately. Encourage the patient continue using this on a daily basis to ensure that she did not develop atelectasis or pneumonia. We'll discharge patient with additional doses of Hills for pain control. Suspect the patient has a pulled muscle some sort. Encourage patient to use heat for treatment of this pain. Counseled the patient and her family to follow-up with her PCP for further management in the long-term. Encouraged him to return to the ED should the patient's symptoms worsen, particularly associated with worsening chest pain or shortness of breath. I have answered all of the patient's questions to her satisfaction. Disposition Clinical Impression: Chest wall pain, Musculoskeletal pain Disposition: HOME SELF-CARE Condition: Good Instructions: Costochondritis (ED), Chest Pain (ED) Additional Instructions: Patient should not participate in any activity that involves use of the left arm. This is because of muscle strain present along the left chest wall. Patient can participate in physical therapy with left arm after two weeks and/ or pain has resolved. The patient is to take Hills 5mg/325mg every six hours as needed for chest wall pain. Prescriptions: HYDROcodone/APAP 10-325MG [[place] 10-325] 1 tab PO Q6H PRN #20 tab PRN Reason: Pain Referrals: Case Berman MD [Primary Care Provider] - 1-2 days Time of Disposition: 17:53
--- NOTE | 2016-10-21 17:19 | XR ---
EXAMINATION TYPE: XR ribs LT w pa chest xray DATE OF EXAM: 10/21/2016 4:59 PM COMPARISON: NONE HISTORY: Pain TECHNIQUE: Frontal chest. 2 views left RIBS FINDINGS: Costochondral cartilage calcification is present. No displaced left rib fractures are evide nt. Minimal left pleural fluid collection may be present. No pneumothorax is evident. IMPRESSION: 1. Minimal left pleural effusion. 2. No acute left rib fractures
[2016-10-21 17:53] VITALS: BP 109/53; PULSE 69; TEMP 97.9
== END 2016-10-21 18:51 | disposition home or self-care (01) ==
LOC: EC 15:31
DX: S29.011A Strain of muscle and tendon of front wall of thorax, initial encounter (principal); M94.0 Chondrocostal junction syndrome [Tietze]; J90 Pleural effusion, not elsewhere classified; I11.0 Hypertensive heart disease with heart failure; I50.9 Heart failure, unspecified; E78.5 Hyperlipidemia, unspecified; E03.9 Hypothyroidism, unspecified; M19.90 Unspecified osteoarthritis, unspecified site; L40.9 Psoriasis, unspecified; E66.9 Obesity, unspecified; Z86.711 Personal history of pulmonary embolism; Z82.49 Family history of ischemic heart disease and other diseases of the circulatory system; Z79.82 Long term (current) use of aspirin; Z79.52 Long term (current) use of systemic steroids; Z79.01 Long term (current) use of anticoagulants; Z79.891 Long term (current) use of opiate analgesic; Z79.899 Other long term (current) drug therapy; Z88.1 Allergy status to other antibiotic agents; X58.XXXA Exposure to other specified factors, initial encounter
CPT/HCPCS: 93005; 99285

== ENCOUNTER → 2017-03-22 | Outpatient (CLI) | payer MEDICARE, BC ==
--- NOTE | 2017-03-22 09:33 | US ---
EXAMINATION TYPE: US abdomen complete DATE OF EXAM: 03/22/2017 COMPARISON: NONE CLINICAL HISTORY: M79.662 Pain Lt Lower Limb, M79.61 Pain Rt Lower L. EXAM MEASUREMENTS: Liver Length: 16.9 cm Gallbladder Wall: 0.3 cm CBD: 0.5 cm Spleen: 10.6 cm Right Kidney: 11.2 x 4.4 x 5.2 cm Left Kidney: 10.3 x 4.4 x 5.0 cm Pancreas: wnl Liver: wnl Gallbladder: single fundal stone seen with no wall thickness Evidence for sonographic Panda's sign: no CBD: wnl Spleen: wnl Right Kidney: wnl Left Kidney: wnl Upper IVC: patent IVC with no signs of thrombus seen Abd Aorta: wnl Limited views of the pancreas are unremarkable. The liver is normal in size without biliary dilatation. There is a small stone within the gallbladder. There is no positive sonographic Panda's sign. The ga llbladder wall measures 3 mm. The distal common hepatic duct measures 5 mm. The spleen is normal in size. Both kidneys are normal. Limited views of the aorta and IVC are normal. IMPRESSION: CHOLELITHIASIS.
--- NOTE | 2017-03-22 09:34 | US ---
EXAMINATION TYPE: US venous doppler duplex LE DATE OF EXAM: 03/22/2017 9:10 AM COMPARISON: Previous study dated 10/14/2016. CLINICAL HISTORY: M79.662 Pain Lt Lower Limb, M79.61 Pain Rt Lower L. Swelling in legs for years, h/o PE, no h/o DVT in legs SIDE PERFORMED: Bilateral TECHNIQUE: The lower extremity deep venous system is examined utilizing real time linear array sonog mark with graded compression, doppler sonography and color-flow sonography. VESSELS IMAGED: External Iliac Vein (EIV) Common Femoral Vein Deep Femoral Vein Greater Saphenous Vein * Femoral Vein Popliteal Vein Small Saphenous Vein * Proximal Calf Veins (* superficial vessels) Right Leg: Appears negative for DVT Left Leg: Appears negative for DVT No popliteal fossa lesion was seen. IMPRESSION: THIS EXAMINATION IS NEGATIVE FOR DVT IN BOTH LEGS.
== END | disposition home or self-care (01) ==
LOC: RADUSWWP 08:17
PROVIDERS: ATTEND Family Medicine
DX: M79.661 Pain in right lower leg (principal); M79.662 Pain in left lower leg; R22.43 Localized swelling, mass and lump, lower limb, bilateral; R10.84 Generalized abdominal pain; K80.20 Calculus of gallbladder without cholecystitis without obstruction
CPT/HCPCS: 76700; 93970

== ENCOUNTER 2017-08-02 07:09 | Emergency (ER) | payer MEDICARE, BC ==
[2017-08-02 07:14] VITALS: TEMP 97.5
[2017-08-02] MEDS ORDERED: MORPHINE SULFATE 10 MG/ML SYRINGE IV STA (07:33)
[2017-08-02] MEDS ORDERED: KETOROLAC 30 MG/ML 1 ML VIAL IVP STA (07:34)
[2017-08-02 08:11] LABS: Basophils % (A) 1 %; CH 29.9; CHCM 31.8; Eosinophils # (A) 0.2 k/uL (0-0.7); Eosinophils % (A) 4 %; HCT 38.7 % (34.0-46.0); HDW 1.98; HGB 12.6 gm/dL (11.4-16.0); Luc # (Auto) 0.13; Luc % (Auto) 3; Lymphocytes # (A) 1.3 k/uL (1.0-4.8); Lymphocytes % (A) 30 %; MCH 30.7 pg (25.0-35.0); MCHC 32.5 g/dL (31.0-37.0); MCV 94.6 fL (80.0-100.0); Mean Platelet Volume 8.5; Monocytes # (A) 0.6 k/uL (0-1.0); Monocytes % (A) 14 %; Neutrophils # (A) 2.1 k/uL (1.3-7.7); Neutrophils % (A) 48 %; RDW 14.2 % (11.5-15.5); WBC 4.2 k/uL (3.8-10.6); WBC (Perox) 4.06
[2017-08-02 08:15] LABS: ALT 42 U/L (9-52); AST 29 U/L (14-36); Alkaline Phosphatase 77 U/L (38-126); Anion Gap 8 mmol/L; Blood Urea Nitrogen 12 mg/dL (7-17); Calcium 9.2 mg/dL (8.4-10.2); Carbon Dioxide 25 mmol/L (22-30); Chloride 110 mmol/L (98-107); Cholesterol 141 mg/dL (<200); Glucose 85 mg/dL (74-99); HDL Cholesterol 31 mg/dL (40-60); Magnesium 1.9 mg/dL (1.6-2.3); Non-African American GFR(MDRD) >60 (>60 ml/min/1.73 sqM); Phosphorus 3.6 mg/dL (2.5-4.5); Sodium 143 mmol/L (137-145); Total Bilirubin 0.5 mg/dL (0.2-1.3); Total Protein 6.2 g/dL (6.3-8.2)
--- NOTE | 2017-08-02 09:18 | US ---
EXAMINATION TYPE: US venous doppler duplex LE DATE OF EXAM: 08/02/2017 7:35 AM COMPARISON: US lower extremities 03/22/2017 CLINICAL HISTORY: Pain. Bilateral leg swelling and knee pain with HX of PE, on Xarelto SIDE PERFORMED: Bilateral TECHNIQUE: The lower extremity deep venous system is examined utilizing real time linear array sonog mark with graded compression, doppler sonography and color-flow sonography. VESSELS IMAGED: Common Femoral Vein Deep Femoral Vein Greater Saphenous Vein * Femoral Vein Popliteal Vein Small Saphenous Vein * Proximal Calf Veins (* superficial vessels) Right Leg: Negative for DVT Left Leg: Negative for DVT IMPRESSION: Grayscale, color doppler, spectral doppler imaging performed of the deep veins of the lo wer extremities. There is normal flow, compressibility, vascular waveforms. No evident deep venous thrombosis at or above the knees.
[2017-08-02 09:27] VITALS: BP 155/72; PULSE 79; RESP 16
--- NOTE | 2017-08-02 09:42 | ED ---
General Adult HPI - General Chief complaint: Extremity Injury, Lower Stated complaint: knee pain Time Seen by Provider: 08/02/17 07:19 Source: patient, RN notes reviewed, old records reviewed Mode of arrival: EMS Limitations: no limitations - History of Present Illness Initial comments: This is a 82-year-old female to the ER for evaluation. Patient is a for lower extremity edema mainly left leg pain. Patient has severe left knee pain is worse when she walks on it. No injuries or trauma. Patient's that she has history of DVT concerned that his DVT in the left extremity at this time. Patient is not on anticoagulation. Patient that she does take Lasix for edema - Related Data Home Medications Medication Instructions Recorded Confirmed Furosemide 40 mg PO DAILY PRN 01/28/16 08/02/17 Levothyroxine Sodium [Levoxyl] 200 mcg PO QAM 01/28/16 08/02/17 Verapamil HCl [Verapamil ER] 240 mg PO QAM 01/28/16 08/02/17 Calcium Carbonate [Calcium] 600 mg PO HS 08/14/16 08/02/17 Potassium Chloride [Klor-Con 20] 20 meq PO DAILY PRN 10/21/16 08/02/17 Cyanocobalamin (Vitamin B-12) 1,000 mcg PO DAILY 08/02/17 08/02/17 [Vitamin B-12] Rivaroxaban [Xarelto] 20 mg PO HS 08/02/17 08/02/17 Previous Rx's Medication Instructions Recorded ALPRAZolam [Xanax] 0.25 mg PO DAILY PRN #30 tab 10/17/16 Metoprolol Tartrate [Lopressor] 50 mg PO TID #90 tab 10/17/16 Simvastatin [Zocor] 20 mg PO DAILY #60 tab 08/02/17 Allergies Allergy/AdvReac Type Severity Reaction Status Date / Time doxycycline Allergy Itching Verified 10/21/16 15:59 Review of Systems ROS Statement: Those systems with pertinent positive or pertinent negative responses have been documented in the HPI. ROS Other: All systems not noted in ROS Statement are negative. Past Medical History Past Medical History: Heart Failure, Hyperlipidemia, Hypertension, Osteoarthritis (OA), Skin Disorder, Thyroid Disorder Additional Past Medical History / Comment(s): Obesity, muscle weakness without definite diagnosis of myositis based on the muscle biopsy being treated with steroids on outpatient basis and the patient has been receiving long-term steroid taper, psoriasis, recent hospitalization for a right lower extremity cellulitis, hypothyroidism, osteoarthritis, history of bowel obstruction requiring surgical intervention, diverticulosis, urinary incontinence, obstructive sleep apnea not utilizing any CPAP therapy, extensive reaction to doxycycline occurred on January 2016. History of Any Multi-Drug Resistant Organisms: None Reported Past Surgical History: Bowel Resection, Joint Replacement Additional Past Surgical History / Comment(s): thyroidectomy,raissa knee replacements Past Anesthesia/Blood Transfusion Reactions: No Reported Reaction Past Psychological History: No Psychological Hx Reported Smoking Status: Never smoker Past Alcohol Use History: Occasional Past Drug Use History: None Reported - Past Family History Mother Family Medical History: No Reported History, Memory Impairment Father Family Medical History: Liver Disease Sister(s) Additional Family Medical History / Comment(s): heart problems Brother(s) Additional Family Medical History / Comment(s): heart problems r/t rheumatic fever General Exam Limitations: no limitations General appearance: alert, in no apparent distress Head exam: Present: atraumatic, normocephalic, normal inspection Eye exam: Present: normal appearance, PERRL, EOMI. Absent: scleral icterus, conjunctival injection, periorbital swelling ENT exam: Present: normal exam, mucous membranes moist Neck exam: Present: normal inspection. Absent: tenderness, meningismus, lymphadenopathy Respiratory exam: Present: normal lung sounds bilaterally. Absent: respiratory distress, wheezes, rales, rhonchi, stridor Cardiovascular Exam: Present: regular rate, normal rhythm, normal heart sounds. Absent: systolic murmur, diastolic murmur, rubs, gallop, clicks GI/Abdominal exam: Present: soft, normal bowel sounds. Absent: distended, tenderness, guarding, rebound, rigid Extremities exam: Present: normal inspection, full ROM, normal capillary refill. Absent: tenderness, pedal edema, joint swelling, calf tenderness Back exam: Present: normal inspection Neurological exam: Present: alert, oriented X3, CN II-XII intact Psychiatric exam: Present: normal affect, normal mood Skin exam: Present: warm, dry, intact, normal color. Absent: rash Course Vital Signs 08/02/17 08/02/17 07:10 09:26 Temperature 97.5 F L Pulse Rate 75 79 Respiratory 17 16 Rate Blood Pressure 157/74 155/72 O2 Sat by Pulse 97 95 Oximetry - Reevaluation(s) Reevaluation #1: Discussed with length to keep patient hospital regarding lower extremity edema, right-sided CHF, patient refuses to stay in the hospital for diuresis. Medical Decision Making - Medical Decision Making 82 female DEL with left knee pain. Patient has no DVT left lower extremity. Patient not requiring pain control. Patient states that she would like to be discharged home does not want to stay in the hospital at this time. - Lab Data Result diagrams: 08/02/17 07:52 08/02/17 07:52 Lab Results 08/02/17 08/02/17 Range/Units 07:52 07:52 WBC 4.2 (3.8-10.6) k/uL RBC 4.10 (3.80-5.40) m/uL Hgb 12.6 (11.4-16.0) gm/dL Hct 38.7 (34.0-46.0) % MCV 94.6 (80.0-100.0) fL MCH 30.7 (25.0-35.0) pg MCHC 32.5 (31.0-37.0) g/dL RDW 14.2 (11.5-15.5) % Plt Count 161 (150-450) k/uL Neutrophils % 48 % Lymphocytes % 30 % Monocytes % 14 % Eosinophils % 4 % Basophils % 1 % Neutrophils # 2.1 (1.3-7.7) k/uL Lymphocytes # 1.3 (1.0-4.8) k/uL Monocytes # 0.6 (0-1.0) k/uL Eosinophils # 0.2 (0-0.7) k/uL Basophils # 0.0 (0-0.2) k/uL Sodium 143 (137-145) mmol/L Potassium 4.0 (3.5-5.1) mmol/L Chloride 110 H (98-107) mmol/L Carbon Dioxide 25 (22-30) mmol/L Anion Gap 8 mmol/L BUN 12 (7-17) mg/dL Creatinine 0.61 (0.52-1.04) mg/dL Est GFR (MDRD) Af Amer >60 (>60 ml/min/1.73 sqM) Est GFR (MDRD) Non-Af >60 (>60 ml/min/1.73 sqM) Glucose 85 (74-99) mg/dL Calcium 9.2 (8.4-10.2) mg/dL Phosphorus 3.6 (2.5-4.5) mg/dL Magnesium 1.9 (1.6-2.3) mg/dL Total Bilirubin 0.5 (0.2-1.3) mg/dL AST 29 (14-36) U/L ALT 42 (9-52) U/L Alkaline Phosphatase 77 (38-126) U/L Total Protein 6.2 L (6.3-8.2) g/dL Albumin 3.5 (3.5-5.0) g/dL Triglycerides 155 H (<150) mg/dL Cholesterol 141 (<200) mg/dL LDL Cholesterol, Calc 79 (0-99) mg/dL HDL Cholesterol 31 L (40-60) mg/dL - Radiology Data Radiology results: report reviewed (Ultrasound left lower extremity is negative for acute disease), image reviewed Disposition Clinical Impression: Bilateral leg edema Disposition: HOME SELF-CARE Condition: Good Instructions: Leg Edema (ED) Prescriptions: Simvastatin [Zocor] 20 mg PO DAILY #60 tab Referrals: Case Berman MD [Primary Care Provider] - 1-2 days
--- NOTE | 2017-08-10 00:45 | CDI ---
Documentation Clarification OP Dear Marvin Barrios Please do addendum to ED report for missing HPI and Physical examination. Thank you, Walter Cruz [employer] Continuity Supervisor If you have any questions, please contact [employer] Supervisor at [phone] [facility]
== END 2017-08-02 10:37 | disposition home or self-care (01) ==
LOC: EC 07:09
DX: R60.0 Localized edema (principal); I10 Essential (primary) hypertension; E03.9 Hypothyroidism, unspecified; M19.90 Unspecified osteoarthritis, unspecified site; G47.33 Obstructive sleep apnea (adult) (pediatric); E66.9 Obesity, unspecified; Z68.29 Body mass index [BMI] 29.0-29.9, adult; Z96.653 Presence of artificial knee joint, bilateral; Z79.01 Long term (current) use of anticoagulants; Z79.899 Other long term (current) drug therapy; Z88.1 Allergy status to other antibiotic agents; Z53.20 Procedure and treatment not carried out because of patient's decision for unspecified reasons
CPT/HCPCS: 99284; 96374; 36415; 80061; 80053; 83735; 84100; 85025; 93970; J1885

== ENCOUNTER 2018-01-08 01:37 | Emergency (ER) | payer BC, MEDICARE ==
[2018-01-08] MEDS ORDERED: FLUCONAZOLE 150 MG TAB PO STA (01:54)
[2018-01-08] MEDS ORDERED: CEPHALEXIN 500MG STARTER PACK 4 CAP BTL PO STA (01:54)
[2018-01-08 01:55] VITALS: BP 165/75; PULSE 86; RESP 18; TEMP 97.7
--- NOTE | 2018-01-08 02:00 | ED ---
General Adult HPI - General Chief complaint: Extremity Injury, Lower Stated complaint: Ankle redness Time Seen by Provider: 01/08/18 01:39 Source: patient, family, EMS, RN notes reviewed Mode of arrival: EMS Limitations: no limitations - History of Present Illness Initial comments: Patient is a pleasant 82-year-old female presenting to the emergency Department with daughter for right ankle redness. Onset was less than 24 hours ago. Patient has mild discomfort. Patient does have a history of similar symptoms previously associated with cellulitis. No fevers. Patient states leg swelling is chronic and unchanged. No calf pain. No dyspnea or chest pain. - Related Data Home Medications Medication Instructions Recorded Confirmed Furosemide 40 mg PO DAILY PRN 01/28/16 08/02/17 Levothyroxine Sodium [Levoxyl] 200 mcg PO QAM 01/28/16 08/02/17 Verapamil HCl [Verapamil ER] 240 mg PO QAM 01/28/16 08/02/17 Calcium Carbonate [Calcium] 600 mg PO HS 08/14/16 08/02/17 Potassium Chloride [Klor-Con 20] 20 meq PO DAILY PRN 10/21/16 08/02/17 Cyanocobalamin (Vitamin B-12) 1,000 mcg PO DAILY 08/02/17 08/02/17 [Vitamin B-12] Rivaroxaban [Xarelto] 20 mg PO HS 08/02/17 08/02/17 Previous Rx's Medication Instructions Recorded ALPRAZolam [Xanax] 0.25 mg PO DAILY PRN #30 tab 10/17/16 Metoprolol Tartrate [Lopressor] 50 mg PO TID #90 tab 10/17/16 Simvastatin [Zocor] 20 mg PO DAILY #60 tab 08/02/17 Cephalexin [Keflex] 500 mg PO QID #40 cap 01/08/18 Allergies Allergy/AdvReac Type Severity Reaction Status Date / Time doxycycline Allergy Itching Verified 10/21/16 15:59 Review of Systems ROS Statement: Those systems with pertinent positive or pertinent negative responses have been documented in the HPI. ROS Other: All systems not noted in ROS Statement are negative. Constitutional: Denies: fever, chills Eyes: Denies: eye pain ENT: Denies: ear pain Respiratory: Denies: cough Cardiovascular: Denies: chest pain Endocrine: Denies: fatigue Gastrointestinal: Denies: abdominal pain Genitourinary: Denies: dysuria Musculoskeletal: Denies: back pain Skin: Reports: rash Neurological: Denies: weakness Past Medical History Past Medical History: Heart Failure, Hyperlipidemia, Hypertension, Osteoarthritis (OA), Skin Disorder, Thyroid Disorder Additional Past Medical History / Comment(s): Obesity, muscle weakness without definite diagnosis of myositis based on the muscle biopsy being treated with steroids on outpatient basis and the patient has been receiving long-term steroid taper, psoriasis, recent hospitalization for a right lower extremity cellulitis, hypothyroidism, osteoarthritis, history of bowel obstruction requiring surgical intervention, diverticulosis, urinary incontinence, obstructive sleep apnea not utilizing any CPAP therapy, extensive reaction to doxycycline occurred on January 2016. History of Any Multi-Drug Resistant Organisms: None Reported Past Surgical History: Bowel Resection, Joint Replacement Additional Past Surgical History / Comment(s): thyroidectomy,raissa knee replacements Past Anesthesia/Blood Transfusion Reactions: No Reported Reaction Past Psychological History: No Psychological Hx Reported Smoking Status: Never smoker Past Alcohol Use History: Occasional Past Drug Use History: None Reported - Past Family History Mother Family Medical History: No Reported History, Memory Impairment Father Family Medical History: Liver Disease Sister(s) Additional Family Medical History / Comment(s): heart problems Brother(s) Additional Family Medical History / Comment(s): heart problems r/t rheumatic fever General Exam Limitations: no limitations General appearance: alert, in no apparent distress Head exam: Present: atraumatic Eye exam: Present: normal appearance, PERRL ENT exam: Present: normal oropharynx Neck exam: Present: normal inspection Respiratory exam: Present: normal lung sounds bilaterally. Absent: rales Cardiovascular Exam: Present: regular rate, normal rhythm GI/Abdominal exam: Present: soft. Absent: tenderness Extremities exam: Present: tenderness (Minimal tenderness right anterior lower leg and ankle region.), pedal edema (Patient and daughter state chronic). Absent: calf tenderness Neurological exam: Present: alert Psychiatric exam: Present: normal affect, normal mood Skin exam: Present: rash (Mild erythema right lower leg/ankle region) Course Vital Signs 01/08/18 01:48 Temperature 97.7 F Pulse Rate 86 Respiratory 18 Rate Blood Pressure 165/75 O2 Sat by Pulse 97 Oximetry - Reevaluation(s) Reevaluation #1: 01/08/18 01:56 Oral temperature 98.2 Medical Decision Making - Medical Decision Making Patient has appearance of mild cellulitis. No calf pain. No chest pain or dyspnea. No fever. Patient and daughter are both comfortable with antibiotics and discharge without further workup. Daughter does request a dose of Diflucan secondary to patient's history of yeast infections. Disposition Clinical Impression: Cellulitis of right lower extremity Disposition: HOME SELF-CARE Condition: Stable Instructions: Cellulitis (ED) Additional Instructions: Please follow-up with your primary care physician in the next day or 2 for recheck. Return for fevers, increased swelling, increased redness or pain, difficulty breathing, worsening or change in symptoms or other concerns. Prescriptions: Cephalexin [Keflex] 500 mg PO QID #40 cap Referrals: Case Berman MD [Primary Care Provider] - 1-2 days Time of Disposition: 02:00
== END 2018-01-08 02:43 | disposition home or self-care (01) ==
LOC: EC 01:37
DX: L03.115 Cellulitis of right lower limb (principal); E07.9 Disorder of thyroid, unspecified; E66.9 Obesity, unspecified; I11.0 Hypertensive heart disease with heart failure; I50.9 Heart failure, unspecified; Z88.1 Allergy status to other antibiotic agents; Z79.899 Other long term (current) drug therapy; Z68.27 Body mass index [BMI] 27.0-27.9, adult; Z96.653 Presence of artificial knee joint, bilateral
CPT/HCPCS: 99283

== ENCOUNTER 2018-05-20 07:50 | Inpatient (IN) | payer MEDICARE ==
--- NOTE | 2018-05-20 09:09 | ED ---
Neck Injury/Pain HPI - General Source: patient, EMS, RN notes reviewed Mode of arrival: EMS Limitations: physical limitation <Jean Ludwig - Last Filed: 05/20/18 11:32> <Srinivas Arrington - Last Filed: 05/20/18 11:46> - General Chief Complaint: Neck Pain/Injury Stated Complaint: neck pain Time Seen by Provider: 05/20/18 08:25 - History of Present Illness Initial Comments: 83-year-old female presents emergency department via EMS chief complaint of neck pain. Patient states that she woke up with neck pain that is worse with movement especially when she turns to the right or left side. She states that she was concerned because she had an ultrasound of her carotids as a screening 2 and half years ago which showed mild plaque. She states that she just takes Xarelto, statins for cholesterol. Patient states that she has no headache no focal weakness. Patient states that she does have some generalized weakness which is a concern of family. They do state that she hasn't poor physical condition secondary to doxycycline reaction a couple years ago. Patient though has worsening lower extremity edema per family, generalized fatigue and weakness that is more than usual. She's had no increased confusion or cognitive behavioral changes patient denies fever, chills, night sweats, chest pain, shortness breath, dizziness. (Jean Ludwig) - Related Data Home Medications Medication Instructions Recorded Confirmed Furosemide 40 mg PO DAILY PRN 01/28/16 05/20/18 Levothyroxine Sodium [Levoxyl] 200 mcg PO QAM 01/28/16 05/20/18 Verapamil HCl [Verapamil ER] 240 mg PO QAM 01/28/16 05/20/18 Calcium Carbonate [Calcium] 600 mg PO HS 08/14/16 05/20/18 Potassium Chloride [Klor-Con 20] 20 meq PO DAILY PRN 10/21/16 05/20/18 Cyanocobalamin (Vitamin B-12) 1,000 mcg PO DAILY 08/02/17 05/20/18 [Vitamin B-12] Rivaroxaban [Xarelto] 20 mg PO DAILY 08/02/17 05/20/18 Previous Rx's Medication Instructions Recorded ALPRAZolam [Xanax] 0.25 mg PO DAILY PRN #30 tab 10/17/16 Metoprolol Tartrate [Lopressor] 50 mg PO TID #90 tab 10/17/16 Simvastatin [Zocor] 20 mg PO DAILY #60 tab 08/02/17 Allergies Allergy/AdvReac Type Severity Reaction Status Date / Time doxycycline Allergy Itching Verified 05/20/18 10:07 Review of Systems ROS Other: All systems not noted in ROS Statement are negative. <Jean Ludwig - Last Filed: 05/20/18 11:32> ROS Other: All systems not noted in ROS Statement are negative. <Srinivas Arrington - Last Filed: 05/20/18 11:46> ROS Statement: Those systems with pertinent positive or pertinent negative responses have been documented in the HPI. Past Medical History Past Medical History: Heart Failure, Hyperlipidemia, Hypertension, Osteoarthritis (OA), Skin Disorder, Thyroid Disorder Additional Past Medical History / Comment(s): Obesity, muscle weakness without definite diagnosis of myositis based on the muscle biopsy being treated with steroids on outpatient basis and the patient has been receiving long-term steroid taper, psoriasis, recent hospitalization for a right lower extremity cellulitis, hypothyroidism, osteoarthritis, history of bowel obstruction requiring surgical intervention, diverticulosis, urinary incontinence, obstructive sleep apnea not utilizing any CPAP therapy, extensive reaction to doxycycline occurred on January 2016. History of Any Multi-Drug Resistant Organisms: None Reported Past Surgical History: Bowel Resection, Joint Replacement Additional Past Surgical History / Comment(s): thyroidectomy,raissa knee replacements Past Anesthesia/Blood Transfusion Reactions: No Reported Reaction Past Psychological History: Anxiety Smoking Status: Never smoker Past Alcohol Use History: Occasional Past Drug Use History: None Reported - Past Family History Mother Family Medical History: No Reported History, Memory Impairment Father Family Medical History: Liver Disease Sister(s) Additional Family Medical History / Comment(s): heart problems Brother(s) Additional Family Medical History / Comment(s): heart problems r/t rheumatic fever <Jean Ludwig - Last Filed: 05/20/18 11:32> General Exam Limitations: physical limitation General appearance: alert, in no apparent distress Eye exam: Present: normal appearance, PERRL, EOMI. Absent: scleral icterus, conjunctival injection, periorbital swelling ENT exam: Present: normal exam, normal oropharynx, mucous membranes moist, TM's normal bilaterally, normal external ear exam Neck exam: Present: normal inspection, tenderness (Tenderness to left paraspinal ), full ROM (Moderate discomfort with range of motion), other (No bruit). Absent: meningismus, lymphadenopathy Respiratory exam: Present: normal lung sounds bilaterally. Absent: respiratory distress, wheezes, rales, rhonchi, stridor Cardiovascular Exam: Present: regular rate, normal rhythm, normal heart sounds. Absent: systolic murmur, diastolic murmur, rubs, gallop, clicks Extremities exam: Present: pedal edema (2+ pitting edema) Neurological exam: Present: alert, oriented X3, CN II-XII intact, reflexes normal. Absent: motor sensory deficit Skin exam: Present: warm, dry, intact, normal color. Absent: rash <Jean Ludwig - Last Filed: 05/20/18 11:32> Course <Jean Ludwig - Last Filed: 05/20/18 11:32> <Srinivas Arrington - Last Filed: 05/20/18 11:46> Vital Signs 05/20/18 07:55 Temperature 97.9 F Pulse Rate 68 Respiratory 16 Rate Blood Pressure 157/83 O2 Sat by Pulse 97 Oximetry - Reevaluation(s) Reevaluation #1: 05/20/18 11:37 PA supervision: I personally saw and examined the patient. I reviewed and agree with the PA findings including all diagnostic interpretations treatment plans is written unless otherwise stated. (Srinivas Arrington) Reevaluation #2: 05/20/18 11:46 I did discuss the findings with Dr. Berman (Srinivas Arrington) Medical Decision Making - Lab Data Result diagrams: 05/20/18 08:54 05/20/18 08:54 <Jean Ludwig - Last Filed: 05/20/18 11:32> - Lab Data Result diagrams: 05/20/18 08:54 05/20/18 08:54 <Srinivas Arrington - Last Filed: 05/20/18 11:46> - Lab Data Lab Results 05/20/18 05/20/18 05/20/18 Range/Units 08:51 08:54 08:54 WBC 5.4 (3.8-10.6) k/uL RBC 4.63 (3.80-5.40) m/uL Hgb 13.9 (11.4-16.0) gm/dL Hct 42.8 (34.0-46.0) % MCV 92.4 (80.0-100.0) fL MCH 30.1 (25.0-35.0) pg MCHC 32.5 (31.0-37.0) g/dL RDW 12.9 (11.5-15.5) % Plt Count 204 (150-450) k/uL Neutrophils % 52 % Lymphocytes % 30 % Monocytes % 11 % Eosinophils % 4 % Basophils % 1 % Neutrophils # 2.8 (1.3-7.7) k/uL Lymphocytes # 1.6 (1.0-4.8) k/uL Monocytes # 0.6 (0-1.0) k/uL Eosinophils # 0.2 (0-0.7) k/uL Basophils # 0.0 (0-0.2) k/uL PT (9.0-12.0) sec INR (<1.2) APTT (22.0-30.0) sec Sodium (137-145) mmol/L Potassium (3.5-5.1) mmol/L Chloride (98-107) mmol/L Carbon Dioxide (22-30) mmol/L Anion Gap mmol/L BUN (7-17) mg/dL Creatinine (0.52-1.04) mg/dL Est GFR (CKD-EPI)AfAm (>60 ml/min/1.73 sqM) Est GFR (CKD-EPI)NonAf (>60 ml/min/1.73 sqM) Glucose (74-99) mg/dL Plasma Lactic Acid Beau (0.7-2.0) mmol/L Calcium (8.4-10.2) mg/dL Magnesium (1.6-2.3) mg/dL Total Bilirubin (0.2-1.3) mg/dL AST (14-36) U/L ALT (9-52) U/L Alkaline Phosphatase (38-126) U/L Total Creatine Kinase 258 H (30-135) U/L CK-MB (CK-2) 8.4 H* (0.0-2.4) ng/mL CK-MB (CK-2) Rel Index 3.3 Troponin I <0.012 (0.000-0.034) ng/mL NT-Pro-B Natriuret Pep pg/mL Total Protein (6.3-8.2) g/dL Albumin (3.5-5.0) g/dL Urine Color Yellow Urine Appearance Turbid H (Clear) Urine pH 6.5 (5.0-8.0) Ur Specific [place] 1.016 (1.001-1.035) Urine Protein Trace H (Negative) Urine Glucose (UA) Negative (Negative) Urine Ketones Negative (Negative) Urine Blood Small H (Negative) Urine Nitrite Positive H (Negative) Urine Bilirubin Negative (Negative) Urine Urobilinogen <2.0 (<2.0) mg/dL Ur Leukocyte Esterase Large H (Negative) Urine RBC 3 (0-5) /hpf Urine WBC >182 H (0-5) /hpf Urine WBC Clumps Many H (None) /hpf Ur Squamous Epith Cells 7 H (0-4) /hpf Urine Bacteria Moderate H (None) /hpf 05/20/18 05/20/18 05/20/18 Range/Units 08:54 08:54 08:54 WBC (3.8-10.6) k/uL RBC (3.80-5.40) m/uL Hgb (11.4-16.0) gm/dL Hct (34.0-46.0) % MCV (80.0-100.0) fL MCH (25.0-35.0) pg MCHC (31.0-37.0) g/dL RDW (11.5-15.5) % Plt Count (150-450) k/uL Neutrophils % % Lymphocytes % % Monocytes % % Eosinophils % % Basophils % % Neutrophils # (1.3-7.7) k/uL Lymphocytes # (1.0-4.8) k/uL Monocytes # (0-1.0) k/uL Eosinophils # (0-0.7) k/uL Basophils # (0-0.2) k/uL PT (9.0-12.0) sec INR (<1.2) APTT (22.0-30.0) sec Sodium 144 (137-145) mmol/L Potassium 4.1 (3.5-5.1) mmol/L Chloride 111 H (98-107) mmol/L Carbon Dioxide 25 (22-30) mmol/L Anion Gap 8 mmol/L BUN 11 (7-17) mg/dL Creatinine 0.50 L (0.52-1.04) mg/dL Est GFR (CKD-EPI)AfAm >90 (>60 ml/min/1.73 sqM) Est GFR (CKD-EPI)NonAf >90 (>60 ml/min/1.73 sqM) Glucose 93 (74-99) mg/dL Plasma Lactic Acid Beau 1.1 (0.7-2.0) mmol/L Calcium 9.5 (8.4-10.2) mg/dL Magnesium 2.1 (1.6-2.3) mg/dL Total Bilirubin 0.7 (0.2-1.3) mg/dL AST 26 (14-36) U/L ALT 35 (9-52) U/L Alkaline Phosphatase 86 (38-126) U/L Total Creatine Kinase (30-135) U/L CK-MB (CK-2) (0.0-2.4) ng/mL CK-MB (CK-2) Rel Index Troponin I (0.000-0.034) ng/mL NT-Pro-B Natriuret Pep 1090 pg/mL Total Protein 6.5 (6.3-8.2) g/dL Albumin 3.8 (3.5-5.0) g/dL Urine Color Urine Appearance (Clear) Urine pH (5.0-8.0) Ur Specific [place] (1.001-1.035) Urine Protein (Negative) Urine Glucose (UA) (Negative) Urine Ketones (Negative) Urine Blood (Negative) Urine Nitrite (Negative) Urine Bilirubin (Negative) Urine Urobilinogen (<2.0) mg/dL Ur Leukocyte Esterase (Negative) Urine RBC (0-5) /hpf Urine WBC (0-5) /hpf Urine WBC Clumps (None) /hpf Ur Squamous Epith Cells (0-4) /hpf Urine Bacteria (None) /hpf 05/20/18 Range/Units 08:54 WBC (3.8-10.6) k/uL RBC (3.80-5.40) m/uL Hgb (11.4-16.0) gm/dL Hct (34.0-46.0) % MCV (80.0-100.0) fL MCH (25.0-35.0) pg MCHC (31.0-37.0) g/dL RDW (11.5-15.5) % Plt Count (150-450) k/uL Neutrophils % % Lymphocytes % % Monocytes % % Eosinophils % % Basophils % % Neutrophils # (1.3-7.7) k/uL Lymphocytes # (1.0-4.8) k/uL Monocytes # (0-1.0) k/uL Eosinophils # (0-0.7) k/uL Basophils # (0-0.2) k/uL PT 13.3 H (9.0-12.0) sec INR 1.4 H (<1.2) APTT 31.5 H (22.0-30.0) sec Sodium (137-145) mmol/L Potassium (3.5-5.1) mmol/L Chloride (98-107) mmol/L Carbon Dioxide (22-30) mmol/L Anion Gap mmol/L BUN (7-17) mg/dL Creatinine (0.52-1.04) mg/dL Est GFR (CKD-EPI)AfAm (>60 ml/min/1.73 sqM) Est GFR (CKD-EPI)NonAf (>60 ml/min/1.73 sqM) Glucose (74-99) mg/dL Plasma Lactic Acid Beau (0.7-2.0) mmol/L Calcium (8.4-10.2) mg/dL Magnesium (1.6-2.3) mg/dL Total Bilirubin (0.2-1.3) mg/dL AST (14-36) U/L ALT (9-52) U/L Alkaline Phosphatase (38-126) U/L Total Creatine Kinase (30-135) U/L CK-MB (CK-2) (0.0-2.4) ng/mL CK-MB (CK-2) Rel Index Troponin I (0.000-0.034) ng/mL NT-Pro-B Natriuret Pep pg/mL Total Protein (6.3-8.2) g/dL Albumin (3.5-5.0) g/dL Urine Color Urine Appearance (Clear) Urine pH (5.0-8.0) Ur Specific [place] (1.001-1.035) Urine Protein (Negative) Urine Glucose (UA) (Negative) Urine Ketones (Negative) Urine Blood (Negative) Urine Nitrite (Negative) Urine Bilirubin (Negative) Urine Urobilinogen (<2.0) mg/dL Ur Leukocyte Esterase (Negative) Urine RBC (0-5) /hpf Urine WBC (0-5) /hpf Urine WBC Clumps (None) /hpf Ur Squamous Epith Cells (0-4) /hpf Urine Bacteria (None) /hpf Disposition <Jean Ludwig - Last Filed: 05/20/18 11:32> <Srinivas Arrington - Last Filed: 05/20/18 11:46> Clinical Impression: UTI (urinary tract infection), Weakness, CHF (congestive heart failure), Pedal edema, Neck pain Disposition: ADMITTED IP TO THIS HOSP Condition: Stable Referrals: Case Berman MD [Primary Care Provider] - 1-2 days
[2018-05-20 09:16] LABS: Appearance,Urine Turbid (Clear); Bacteria,Urine Moderate /hpf; Bilirubin,Urine Negative (Negative); Blood,Urine Small (Negative); Color,Urine Yellow; Glucose,Urine (UA) Negative (Negative); Ketones,Urine Negative (Negative); Leukocyte Esterase,Urine Large (Negative); Nitrite,Urine Positive (Negative); PH, Urine 6.5 (5.0-8.0); Protein,Urine Trace (Negative); RBC,Urine 3 /hpf (0-5); Specific Gravity,Urine 1.016 (1.001-1.035); Squamous Epithelial Cell,Urine 7 /hpf (0-4); Urobilinogen,Urine <2.0 mg/dL (<2.0); WBC,Urine >182 /hpf (0-5)
[2018-05-20 09:22] LABS: Basophils % (A) 1 %; Eosinophils # (A) 0.2 k/uL (0-0.7); Eosinophils % (A) 4 %; HCT 42.8 % (34.0-46.0); HGB 13.9 gm/dL (11.4-16.0); Lymphocytes # (A) 1.6 k/uL (1.0-4.8); Lymphocytes % (A) 30 %; MCH 30.1 pg (25.0-35.0); MCHC 32.5 g/dL (31.0-37.0); MCV 92.4 fL (80.0-100.0); Mean Platelet Volume 7.3; Monocytes # (A) 0.6 k/uL (0-1.0); Monocytes % (A) 11 %; Neutrophils # (A) 2.8 k/uL (1.3-7.7); Neutrophils % (A) 52 %; Platelet Count 204 k/uL (150-450); RBC 4.63 m/uL (3.80-5.40); RDW 12.9 % (11.5-15.5); WBC 5.4 k/uL (3.8-10.6)
[2018-05-20 09:29] LABS: INR 1.4 (<1.2); Partial Thromboplastin Time 31.5 sec (22.0-30.0); Prothrombin Time 13.3 sec (9.0-12.0)
[2018-05-20 09:31] LABS: ALT 35 U/L (9-52); AST 26 U/L (14-36); Albumin 3.8 g/dL (3.5-5.0); Alkaline Phosphatase 86 U/L (38-126); Anion Gap 8 mmol/L; Blood Urea Nitrogen 11 mg/dL (7-17); Calcium 9.5 mg/dL (8.4-10.2); Carbon Dioxide 25 mmol/L (22-30); Chloride 111 mmol/L (98-107); Glucose 93 mg/dL (74-99); Magnesium 2.1 mg/dL (1.6-2.3); Potassium 4.1 mmol/L (3.5-5.1); Sodium 144 mmol/L (137-145); Total Bilirubin 0.7 mg/dL (0.2-1.3); Total Protein 6.5 g/dL (6.3-8.2)
[2018-05-20] MEDS ORDERED: VERAPAMIL SR 240 MG TABLET.ER PO STA (09:43)
[2018-05-20 09:49] LABS: Creatine Kinase 258 U/L (30-135)
[2018-05-20 10:02] LABS: Troponin I <0.012 ng/mL (0.000-0.034)
--- NOTE | 2018-05-20 10:05 | XR ---
EXAMINATION TYPE: XR chest 2V DATE OF EXAM: 05/20/2018 COMPARISON: 10/21/2016 INDICATION: Weakness neck pain TECHNIQUE: Frontal and lateral views of the chest are obtained. FINDINGS: The heart size is normal. The pulmonary vasculature is slightly prominent. Minimal blunting the left costophrenic angle is present. This may be chronic. IMPRESSION: 1. Chronic mild blunting at the left costophrenic angle. Minimal effusion is not excluded. 2. Mild prominence of pulmonary vascular markings.
[2018-05-20 10:11] LABS: Creatine Kinase MB 8.4 ng/mL (0.0-2.4)
--- NOTE | 2018-05-20 10:46 | CT ---
EXAMINATION TYPE: CT cervical spine wo con DATE OF EXAM: 05/20/2018 COMPARISON: 09/02/2016 HISTORY: pain CT DLP: 184.9 mGycm Automated exposure control for dose reduction was used. TECHNIQUE: CT scan of the cervical spine is obtained without contrast, axial images are obtained, sa gittal and coronal reformatted images are also reviewed. FINDINGS: Uncovertebral joint hypertrophy is present C2-C3. Level causing severe right and moderate l eft foraminal stenosis. Facet hypertrophy and facet and uncovertebral joint hypertrophy is present C3 -4. Uncovertebral joint hypertrophy and facet hypertrophy is present C4-5 C5-6 C6-7 with some foramin al narrowing. Disc bulge is present C4-5 with mild anterior thecal sac compression. No spinal canal stenosis presen t. There is apical thickening present on the right. Monitoring is recommended. This may have been presen t 09/02/2016. IMPRESSION: 1. Uncovertebral joint hypertrophy and some facet hypertrophy contributing to foraminal stenosis. 2. Disc bulging C4-5 with mild anterior thecal sac compression. 3. Right apical thickening may have been present previously. Monitoring is recommended.
[2018-05-20] MEDS ORDERED: cefTRIAXone IN SWFI 1,000 MG/10 ML SYRINGE IVP STA (11:21)
[2018-05-20] MEDS ORDERED: FUROSEMIDE 10 MG/ML 2 ML VIAL IV STA (11:34)
[2018-05-20] MEDS ORDERED: FUROSEMIDE 40 MG TAB PO PRN (11:35)
[2018-05-20] MEDS ORDERED: POTASSIUM CHLORIDE ER 20 MEQ TAB.ER PO PRN (11:35)
[2018-05-20] MEDS ORDERED: ALPRAZolam 0.25 MG TAB PO PRN (11:35)
[2018-05-20] MEDS: METOPROLOL TARTRATE 50 MG TAB PO SCH ×2 (17:15→21:11)
[2018-05-20] MEDS: cefTRIAXone IN SWFI 1,000 MG/10 ML SYRINGE IVP SCH (21:11)
[2018-05-20] MEDS: CALCIUM CARB-VIT D 500MG-200UN 1 EACH TAB PO SCH (21:11)
[2018-05-21] MEDS: LEVOTHYROXINE 100 MCG TAB PO SCH (06:55)
[2018-05-21] MEDS: METOPROLOL TARTRATE 50 MG TAB PO SCH ×3 (09:22→20:36)
[2018-05-21] MEDS: ATORVASTATIN 10 MG TAB PO SCH (09:22)
[2018-05-21] MEDS: VERAPAMIL SR 240 MG TABLET.ER PO SCH (09:23)
[2018-05-21] MEDS: RIVAROXABAN 20 MG TAB PO SCH (09:23)
[2018-05-21] MEDS: CYANOCOBALAMIN 500 MCG TAB PO SCH (09:23)
[2018-05-21] MEDS: cefTRIAXone IN SWFI 1,000 MG/10 ML SYRINGE IVP SCH ×2 (10:32→20:36)
[2018-05-21 14:18] LABS: T4, Free (Free Thyroxine) 2.13 ng/dL (0.78-2.19)
--- NOTE | 2018-05-21 15:44 | HP ---
HISTORY AND PHYSICAL CHIEF COMPLAINT: The pain on the left side of the neck, urinary tract infection and possible CHF. HISTORY OF PRESENT ILLNESS: This is another admission for this 83-year-old white female who has a history of hypertension and hypothyroidism. She also has had a progressive brawny edema of the lower extremities with very little dependent edema. She came to emergency room because of general weakness and pain in the left side of the neck. She had no chest pain, shortness of breath, orthopnea, PND, etc. In the emergency room. She claimed her legs are more swollen than normal. BNP was elevated and she was admitted with a diagnosis of congestive heart failure. She had no fever, chills, cough, hemoptysis, etc. REVIEW OF SYSTEMS: She has had no neurologic problems, CVAs, TIAs, change in vision or hearing, chest pain, pleurisy, wheezing, sputum production, rheumatic fever, murmurs, history of heart failure, CAD, abdominal pain, nausea, vomiting, hematemesis, melena, hematochezia, jaundice, hematuria, frequency, urgency, arthralgias, etc. Past medical, family history and personal and social histories are otherwise unremarkable. She does have atrial fibrillation. SHE IS ALLERGIC TO TETRACYCLINES. MEDICATIONS INCLUDE: 1. Metoprolol 50 mg t.i.d. 2. Xarelto 20 mg once a day. 3. Atorvastatin 10 mg q.h.s. 4. KCl 20 mEq once a day. 5. Lasix 20 mg once a day. 6. Verapamil 240 mg once a day. 7. Heliocare 240 mg once a day. 8. Levothyroxine 0.3 mg a day. 9. Xanax 0.25 q.i.d. p.r.n. She has never smoked and she drinks alcohol occasionally. The laboratory dueñas, she has a left bundle branch block. PHYSICAL EXAM: Blood pressure 120/78 with a pulse of 100 and irregularly irregular. Respirations are 20 and temp is 98.4. In general, she appeared to be well developed, well nourished, well preserved, in no acute distress. Skin color is normal. Skin is warm, dry. Lymph nodes not enlarged. Head, ears, eyes, nose, mouth, and throat were normal. Neck veins were not distended. Thyroid is not enlarged. Chest is clear. No significant rales or rhonchi. Cardiac exam demonstrates atrial fibrillation with a well-controlled ventricular response and there is an S3. Abdomen is soft, nontender without visceromegaly or masses. Bowel sounds present. Extremities demonstrate predominantly brawny edema of the feet, ankles and lower legs. There is very little pitting. Neurologically she is intact. IMPRESSION: 1. ? Congestive heart failure. 2. History of hypertension. 3. Hypothyroidism. 4. Brawny edema in the lower extremities. 5. Neck pain, etiology unknown. 6. Atrial fibrillation. PLAN: 1. Bed rest. 2. IV fluids. 3. Nasal O2. 4. Stress echo, if she can perform this study. 5. Free T4. 6. Cardiology consult. If any of her studies are abnormal. MMODL / IJN: [id number] /
--- NOTE | 2018-05-21 17:20 | P.GSCN ---
History of Present Illness Consult date: 05/21/18 Reason for Consult: Brawny edema Requesting physician: Case Berman History of present illness: This is an 83-year-old fairly active female patient follows with Dr. Berman on an outpatient basis. She has a previous medical history of hypertension, hypothyroidism, atrial fibrillation, and chronic lower extremity non-pitting edema. She presented to [facility] emergency room with complaints of pain on the left side of her neck and states she was told a couple of years ago that she does have mild carotid blockage. In addition she did state that she has had increased edema to her lower extremities. She denies any other complaints. Dr. Jane was consulted for her lower extremity edema Review of Systems Review of systems was completed and was negative except as noted. - EENT EENT Comment(s): Left-sided neck pain - Cardiovascular Reports leg edema Past Medical History Past Medical History: Heart Failure, Hyperlipidemia, Hypertension, Osteoarthritis (OA), Skin Disorder, Thyroid Disorder Additional Past Medical History / Comment(s): Muscle weakness without definite diagnosis of myositis based on the muscle biopsy treated with steroids, psoriasis, right lower extremity cellulitis, pedal edema, hypothyroidism, osteoarthritis hands and knees bilaterally, history of bowel obstruction requiring surgical intervention, diverticulosis, urinary incontinence, obstructive sleep apnea not utilizing any CPAP therapy, extensive reaction to doxycycline occurred on January 2016 with itching and leg weakness. History of Any Multi-Drug Resistant Organisms: None Reported Past Surgical History: Appendectomy, Bowel Resection, Joint Replacement, Tonsillectomy Additional Past Surgical History / Comment(s): thyroidectomy, raissa knee replacements, bowel resection, muscle bx, D&C, bilateral cataract removals, bilateral foot bunionectomy, colonoscopies. Past Anesthesia/Blood Transfusion Reactions: No Reported Reaction Smoking Status: Never smoker - Past Family History Mother Family Medical History: Dementia, Memory Impairment Father Family Medical History: Liver Disease Additional Family Medical History / Comment(s): Father was an alcoholic and of cirrhosis of the liver. Sister(s) Additional Family Medical History / Comment(s): heart problems Brother(s) Additional Family Medical History / Comment(s): heart problems r/t rheumatic fever Medications and Allergies Home Medications Medication Instructions Recorded Confirmed Type Furosemide 40 mg PO DAILY PRN 01/28/16 05/20/18 History Levothyroxine Sodium [Levoxyl] 200 mcg PO QAM 01/28/16 05/20/18 History Verapamil HCl [Verapamil ER] 240 mg PO QAM 01/28/16 05/20/18 History Calcium Carbonate [Calcium] 600 mg PO HS 08/14/16 05/20/18 History ALPRAZolam [Xanax] 0.25 mg PO DAILY PRN #30 tab 10/17/16 05/20/18 Rx Metoprolol Tartrate [Lopressor] 50 mg PO TID #90 tab 10/17/16 05/20/18 Rx Potassium Chloride [Klor-Con 20] 20 meq PO DAILY PRN 10/21/16 05/20/18 History Cyanocobalamin (Vitamin B-12) 1,000 mcg PO DAILY 08/02/17 05/20/18 History [Vitamin B-12] Rivaroxaban [Xarelto] 20 mg PO DAILY 08/02/17 05/20/18 History Simvastatin [Zocor] 20 mg PO DAILY #60 tab 08/02/17 05/20/18 Rx Allergies Allergy/AdvReac Type Severity Reaction Status Date / Time doxycycline Allergy Itching Verified 05/20/18 10:07 Surgical - Exam Vital Signs Temp Pulse Resp BP Pulse Ox 97.9 F 68 16 157/83 97 05/20/18 07:55 05/20/18 07:55 05/20/18 07:55 05/20/18 07:55 05/20/18 07:55 - General well developed, well nourished, no distress, chronically ill - Eyes PERRL, normal ocular movement - ENT no hearing loss - Neck no masses, no bruits, trachea midline - Respiratory Lungs sounds clear bilaterally. Respirations even, nonlabored. Currently on room air with oxygen saturation 96%. - Cardiovascular S1, S2 present. Regular rate and rhythm, sinus rhythm with a bundle branch block on telemetry. Palpable peripheral pulses bilaterally. Bilateral lower extremity nonpitting edema present. No calf pain noted. - Abdomen Abdomen: soft, non tender, bowel sounds - Genitourinary Voiding clear, yellow urine. - Rectum Deferred - Integumentary no rash, no growths - Neurologic normal coordination, normal sensation - Musculoskeletal Patient does walk with a walker. normal gait, normal posture - Psychiatric oriented to time, oriented to person, oriented to place, speech is normal, memory intact Results - Labs 05/20/18 08:54 05/20/18 08:54 Abnormal Lab Results - Last 24 Hours (Table) 05/20/18 Range/Units 08:54 TSH <0.015 L (0.465-4.680) mIU/L Microbiology - Last 24 Hours (Table) 05/20/18 08:51 Urine Culture - Preliminary Urine,Clean Catch Gram Neg Bacilli Thyroid panel 05/20/18 Range/Units 08:54 TSH <0.015 L (0.465-4.680) mIU/L Pituitary panel 05/20/18 Range/Units 08:54 TSH <0.015 L (0.465-4.680) mIU/L - Imaging Chest x-ray: report reviewed, image reviewed EKG: image reviewed Assessment and Plan (1) Lower extremity edema Current Visit: Yes Status: Chronic Code(s): R60.0 - LOCALIZED EDEMA SNOMED Code(s): 183532176 (2) Neck pain Current Visit: Yes Status: Acute Code(s): M54.2 - CERVICALGIA SNOMED Code( s): 78762592 Plan: The patient was seen and examined at the bedside. Chart/diagnostics were reviewed. Patient is in no acute distress at this time. States her pain in her neck is much better. States the edema in her leg is chronic, gets worse as the day goes on, and doesn't really bother her much. At this time we would recommend Rubio wraps to bilateral lower extremities, elevate bilateral lower extremities above the level of the heart at all times except when ambulating or toileting. Continue medical management per Dr. Berman. Thank you Dr. eBrman for this consult. Please call us with any questions. Time with Patient: Greater than 30
[2018-05-21] MEDS: CALCIUM CARB-VIT D 500MG-200UN 1 EACH TAB PO SCH (20:36)
[2018-05-22] MEDS: LEVOTHYROXINE 100 MCG TAB PO SCH (06:25)
[2018-05-22] MEDS ORDERED: DOBUTamine DRIP for NUC MED 500 MG in DEXTROSE/WATER 1 250ML.BAG IV ONE (10:07)
[2018-05-22] MEDS: ATORVASTATIN 10 MG TAB PO SCH (11:15)
[2018-05-22] MEDS: METOPROLOL TARTRATE 50 MG TAB PO SCH ×3 (11:15→19:52)
[2018-05-22] MEDS: RIVAROXABAN 20 MG TAB PO SCH (11:15)
[2018-05-22] MEDS: CYANOCOBALAMIN 500 MCG TAB PO SCH (11:15)
[2018-05-22] MEDS: cefTRIAXone IN SWFI 1,000 MG/10 ML SYRINGE IVP SCH ×2 (11:16→19:53)
[2018-05-22] MEDS: FUROSEMIDE 40 MG TAB PO SCH (11:16)
[2018-05-22] MEDS: VERAPAMIL SR 240 MG TABLET.ER PO SCH (11:16)
--- NOTE | 2018-05-22 12:33 | P.PN ---
Subjective Progress Note Date: 05/22/18 Principal diagnosis: History of hypertension, I both thyroidism, atrial fibrillation on Xarelto at home for anticoagulation therapy, obstructive sleep apnea not utilizing CPAP therapy, history of diverticulosis, history of urinary incontinence and chronic bilateral lower extremity pitting edema Patient is laying in bed with her head elevated. She is in no acute distress. She reports that she took off the Rubio wrap's to her bilateral lower extremities due to some burning sensation with the Rubio wrap's in place. Reinforced with the patient the importance of utilizing the Rubio wraps as ordered. She is afebrile. Urine culture on 05/20/2018 demonstrated Klebsiella pneumonia in her urine, she is currently on Rocephin for antibiotic treatment. Objective - Vital Signs Vital signs: Vital Signs Temp 97.8 F 05/22/18 08:00 Pulse 72 05/22/18 08:00 Resp 16 05/22/18 08:00 BP 143/83 05/22/18 08:00 Pulse Ox 96 05/22/18 08:00 Intake & Output 05/21/18 05/22/18 05/22/18 18:59 06:59 18:59 Intake Total 840 Output Total 300 Balance 840 -300 Weight 83.2 kg Intake: Oral 840 Output: Urine 300 Other: Voiding Method Bedside Commode Diaper # Voids 3 2 2 - Constitutional General appearance: Present: no acute distress, obese - Respiratory Details: Lungs sounds essentially clear throughout, diminished her bilateral bases. Respirations are symmetrical and nonlabored. Oxygen saturation are 96% on room air. - Cardiovascular Details: Regular rhythm with rate. S1 and S2 present, positive systolic murmur 2/6. +2 pitting edema to her bilateral lower extremities. No calf pain present. Peripheral pulses palpable bilaterally. - Gastrointestinal Gastrointestinal Comment(s): Abdomen is soft, nontender nondistended. Active bowel sounds all 4 abdominal quadrants. No guarding or rigidity. No organomegaly. - Genitourinary Genitourinary Comment(s): Voiding clear yellow urine. - Integumentary Integumentary Comment(s): Skin is warm and dry. No clubbing or cyanosis present. No rash present. - Neurologic Neurologic: Present: CNII-XII intact - Musculoskeletal Musculoskeletal: Present: generalized weakness, strength equal bilaterally - Psychiatric Psychiatric: Present: A&O x's 3, appropriate affect, intact judgment & insight - Allied health notes Allied health notes reviewed: nursing - Labs CBC & Chem 7: 05/20/18 08:54 05/20/18 08:54 Labs: Abnormal Lab Results - Last 24 Hours (Table) 05/20/18 Range/Units 08:54 TSH <0.015 L (0.465-4.680) mIU/L Microbiology - Last 24 Hours (Table) 05/20/18 08:51 Urine Culture - Final Urine,Clean Catch Klebsiella pneumoniae Assessment and Plan (1) Congestive heart failure Current Visit: Yes Status: Acute Code(s): I50.9 - HEART FAILURE, UNSPECIFIED SNOMED Code(s): 15282812 (2) UTI (urinary tract infection) Current Visit: Yes Status: Acute Code(s): N39.0 - URINARY TRACT INFECTION, SITE NOT SPECIFIED SNOMED Code(s): 17141443 (3) Lower extremity edema Current Visit: Yes Status: Chronic Code(s): R60.0 - LOCALIZED EDEMA SNOMED Code(s): 200803289 (4) Chronic a-fib Current Visit: No Status: Acute Code(s): I48.2 - CHRONIC ATRIAL FIBRILLATION SNOMED Code(s): 283510354 (5) HTN (hypertension) Current Visit: No Status: Acute Code(s): I10 - ESSENTIAL (PRIMARY) HYPERTENSION SNOMED Code(s): 60695756 (6) Hyperlipemia Current Visit: No Status: Acute Code(s): E78.5 - HYPERLIPIDEMIA, UNSPECIFIED SNOMED Code(s): 02234563 Plan: 1. Rubio wraps from toes to thighs to bilateral lower extremities. 2. Keep legs elevated higher than the level of her heart when not sitting up for meals, ambulating or toileting. 3. GI and DVT prophylaxis. 4. Medical management per Dr. Berman's recommendations. 5. More recommendations to follow based on patient's clinical course. Time with Patient: Greater than 30
[2018-05-22] MEDS ORDERED: AMINOPHYLLINE 500 MG/20 ML VIAL IV PRN (13:31)
[2018-05-22 13:42] VITALS: BMI 27.1
[2018-05-22] MEDS ORDERED: FLUCONAZOLE 150 MG TAB PO STA (13:52)
--- NOTE | 2018-05-22 15:15 | P.CON ---
Consult Note - . Assessment/Plan:: Consult note: Patient complains of elongated dystrophic mycotic nails of both feet without care for greater than 6 months. Reports both hallux nails had been removed many years ago because of a dystrophy of the nails. Patient reports painful footgear due to the nail dystrophy as well as a painful callus on the plantar aspect of the left foot. Past medical history: Hypothyroidism, hypertension, psoriasis, hyperlipidemia, coronary artery disease, COPD, sleep apnea. ALLERGIES: Doxycycline Local exam: 2+ edema noted both lower extremities which are wrapped bilaterally with Rubio bandages. Pedal pulses are difficult to palpate due to the edema of the foot. No foot cellulitis is noted. There are no open wounds/ulcerations of either foot. There is a tyloma plantar aspect of the left first metatarsal phalangeal joint with no perilesional erythema. Web spaces are clear bilaterally. Hallux nails are surgically absent. Nails 2 through 5 bilaterally are markedly dystrophic and elongated with distals onychomycosis and subungual debris left second and third and right third and fourth. Periungual hyperemia and discomfort noted digits 2 through 5 bilaterally. There is no evidence of ingrown nails although several of the nails are incurvated. Assessment: PVD, onychomycosis, onychodystrophy Plan: Onychoreduction digits 1, 4 and 5 left and right 2 and 5 with debulking of mycotic nails left 2 and 3 and right 3 and 4 without incident and to patient' s comfort and tolerance. Paring of tyloma left plantar first metatarsophalangeal joint without incident. Patient advised regular podiatric visits for nail care and callus care. Thank you for involving me in the care of this interesting patient.
[2018-05-22] MEDS: CALCIUM CARB-VIT D 500MG-200UN 1 EACH TAB PO SCH (19:52)
[2018-05-23] MEDS ORDERED: REGADENOSON 0.4 MG/5 ML SYRINGE IV ONE (06:00)
[2018-05-23 08:27] VITALS: RESP 18
--- NOTE | 2018-05-23 10:52 | NM ---
EXAMINATION TYPE: NM stress lexiscan cardiolite DATE OF EXAM: 05/23/2018 COMPARISON: Previous exam 01/18/2011 HISTORY: Congestive heart failure TECHNIQUE: After the intravenous administration of 10.12 mCi Tc 99m Sestamibi - Cardiolite resting S PECT images acquired 45 minutes post injection. The patient received 0.4mg Lexiscan, 24.3 mCi Tc 99m Sestamibi - Stress images obtained [address] injection FINDINGS: Review of stress and rest SPECT images demonstrates no distinct perfusion abnormality. Gated analysi s shows normal wall motion with an estimated left ventricular ejection fraction of 63 %. Some gut activity is noted incidentally. IMPRESSION: No scintigraphic evidence for reversible ischemia.
[2018-05-23] MEDS: VERAPAMIL SR 240 MG TABLET.ER PO SCH (10:58)
[2018-05-23] MEDS: ATORVASTATIN 10 MG TAB PO SCH (10:58)
[2018-05-23] MEDS: RIVAROXABAN 20 MG TAB PO SCH (10:58)
[2018-05-23] MEDS: CYANOCOBALAMIN 500 MCG TAB PO SCH (10:58)
[2018-05-23] MEDS: LEVOTHYROXINE 100 MCG TAB PO SCH (10:58)
[2018-05-23] MEDS: FUROSEMIDE 40 MG TAB PO SCH (10:59)
[2018-05-23] MEDS: cefTRIAXone IN SWFI 1,000 MG/10 ML SYRINGE IVP SCH (11:04)
[2018-05-23] MEDS: METOPROLOL TARTRATE 50 MG TAB PO SCH ×2 (11:04→15:22)
[2018-05-23] MEDS ORDERED: AMOXIC-POT CLAV 875-125MG 1 EACH TAB PO SCH (11:45)
--- NOTE | 2018-05-23 13:28 | EST ---
EXERCISE STRESS DATE OF SERVICE: 05/23/2018 AGE: 83 SEX: Female HT: 5'9" WT: 179 PROTOCOL: Lexiscan Cardiolite STAGE: DURATION OF EXERCISE: HEART RATE REST: 69 BLOOD PRESSURE REST: 150/81 MAXIMUM HEART RATE ACHIEVED: 80 MAXIMUM BLOOD PRESSURE: 165/76 85% MPHR: 100% MPHR: METS: INDICATIONS: A. Fib, congestive heart failure. CLINICAL INFORMATION: Baseline rhythm is sinus mechanism, rate 69, left bundle branch block. Baseline blood pressure 150/81 mmHg. Patient received injection of Lexiscan. Electrocardiographic monitoring revealed no evidence of diagnostic ischemic ST deviation. Cardiolite was injected per protocol. CONCLUSION: 1. Nondiagnostic electrocardiograph stress testing. 2. Nuclear images will be reported separately. MMODL / IJN: [id number] /
[2018-05-23 15:32] VITALS: BP 125/57; PULSE 71; TEMP 98.1
--- NOTE | 2018-05-23 16:07 | PN ---
PROGRESS NOTE DATE OF SERVICE: 05/21/2018. CHIEF COMPLAINT: Generalized weakness, pain on the left side of the neck and urinary tract infection. HISTORY OF PRESENT ILLNESS: This lady is doing fairly well. She has had no new his issues or problems. The cardiac enzymes are normal. She is asking to have a kindergarten paraprofessional to address her toenails and she will be seen by Vascular surgery for her chronic lower extremity edema. She has had no chest pain or palpitation. PHYSICAL EXAM: Chest demonstrates sinus rhythm. Chest is clear. There are no neck masses. Cardiac exam is normal. The carotids are normal. Her lower extremity edema is improved slightly. IMPRESSION: 1. Generalized weakness. 2. Pain in the left side of the neck, etiology unknown. 3. Urinary tract infection. 4. Onychomycosis. 5. Dependent edema. PLAN: 1. Referred to kindergarten paraprofessional. 2. Refer to Vascular surgery for evaluation of her lower extremity edema. 3. Followup an elevated BNP with stress echo. MMODL / IJN: [id number] /
--- NOTE | 2018-05-23 16:28 | PN ---
PROGRESS NOTE CHIEF COMPLAINT: Urinary tract infection, generalized weakness, and perineal irritation. HISTORY OF PRESENT ILLNESS: This lady is doing well. We are still waiting for the stress study. She does have a mild dermatitis in the perineal area. PHYSICAL EXAM: Chest is clear. Cardiac exam is normal and she is in sinus rhythm. Abdomen is soft, nontender. Extremities are less edematous. IMPRESSION: 1. Generalized weakness. 2. Pain in the left side of neck, etiology unknown. 3. Elevated BNP. 4. History of hypertension. PLAN: 1. Await stress study. 2. Vascular surgery has suggested that she treat her lower extremity edema with Rubio wraps, which is what I have told her for years. MMODL / IJN: [id number] /
--- NOTE | 2018-05-23 16:34 | PN ---
PROGRESS NOTE DATE OF SERVICE: 05/23/2018. CHIEF COMPLAINT: Pain in the left side of the neck, generalized weakness and urinary tract infection. HISTORY OF PRESENT ILLNESS: This lady is down getting a Lexiscan done. There has been no interval history of any problems. Culture of the urine is returned. She is sensitive to Augmentin. This will be started. IMPRESSION: 1. Generalized weakness. 2. Pain in the left side of the neck. 3. Elevated BNP. 4. Independent and brawny edema of the lower legs. PLAN: 1. Await results of Lexiscan. 2. Augmentin 875 twice a day. 3. Cardiology consult. 4. If Lexiscan is negative, she can go home today. MMODL / IJN: [id number] /
== END 2018-05-23 19:20 | disposition home health service (06) | DRG 292 ==
LOC: EC 07:50 → INTOOBSV 11:36 → 6SEL 11:36 → OBSVTOIN 11:36 → UNDOADMIN 11:36 → 6SEL 17:02
PROVIDERS: ADMIT Family Medicine; ATTEND Family Medicine
PROC: 0HBRXZZ Excision of Toe Nail, External Approach (ICD-10-PCS; principal; 2018-05-22)
PROC: 0HBNXZZ Excision of Left Foot Skin, External Approach (ICD-10-PCS; principal; 2018-05-22)
DX: I11.0 Hypertensive heart disease with heart failure (principal); N39.0 Urinary tract infection, site not specified; J44.9 Chronic obstructive pulmonary disease, unspecified; I48.2 Chronic atrial fibrillation; B96.1 Klebsiella pneumoniae [K. pneumoniae] as the cause of diseases classified elsewhere; I50.9 Heart failure, unspecified; M54.2 Cervicalgia; I25.10 Atherosclerotic heart disease of native coronary artery without angina pectoris; E78.5 Hyperlipidemia, unspecified; E89.0 Postprocedural hypothyroidism; B35.1 Tinea unguium; I73.9 Peripheral vascular disease, unspecified; I44.7 Left bundle-branch block, unspecified; L30.9 Dermatitis, unspecified; M62.81 Muscle weakness (generalized); L60.3 Nail dystrophy; L84 Corns and callosities; G47.33 Obstructive sleep apnea (adult) (pediatric); F41.9 Anxiety disorder, unspecified; M19.042 Primary osteoarthritis, left hand; M19.041 Primary osteoarthritis, right hand; K57.90 Diverticulosis of intestine, part unspecified, without perforation or abscess without bleeding; L40.9 Psoriasis, unspecified; R32 Unspecified urinary incontinence; E66.9 Obesity, unspecified; Z68.26 Body mass index [BMI] 26.0-26.9, adult; Z79.01 Long term (current) use of anticoagulants; Z79.890 Hormone replacement therapy; Z79.899 Other long term (current) drug therapy; Z96.653 Presence of artificial knee joint, bilateral; Z98.42 Cataract extraction status, left eye; Z98.41 Cataract extraction status, right eye; Z88.1 Allergy status to other antibiotic agents; Z83.79 Family history of other diseases of the digestive system; Z82.49 Family history of ischemic heart disease and other diseases of the circulatory system; Z82.0 Family history of epilepsy and other diseases of the nervous system; Z81.1 Family history of alcohol abuse and dependence
CPT/HCPCS: 36415; 71046; 72125; 78452; 80053; 81001; 82550; 82553; 83605; 83735; 83880; 84439; 84443; 84484; 85025; 85610; 85730; 87077; 87086; 87186; 93005; 93017; 96374; 96375; 99285

== ENCOUNTER 2018-06-24 23:44 | Emergency (ER) | payer MEDICARE ==
[2018-06-24 23:56] VITALS: RESP 17
--- NOTE | 2018-06-25 00:10 | ED ---
General Adult HPI - General Chief complaint: Chest Pain Stated complaint: Chest Pain Time Seen by Provider: 06/25/18 00:07 Source: patient, EMS Mode of arrival: EMS Limitations: no limitations - History of Present Illness Initial comments: Kate is an 83-year-old female who presents to the emergency department today for evaluation of left-sided rib pain with palpation for the past few hours. Patient has an extensive cardiac history and has recently undergone extensive evaluation and hospitalization. Patient reports that she's been doing well for couple of weeks. She reports that she noted this evening that if she pushes on her left rib just medial to her breasts she has some stabbing pain. Patient reports that she has done this repeatedly throughout the evening and every time it causes the same stabbing pain. Patient became concerned that this may be pain in her heart so she asked her daughter to bring her to the ER for evaluation. Patient denies any lightheadedness, diaphoresis, but this pain. HEENT occurs only when she palpates the ribs. The pain is not exertional. Daughter expresses concern that her mother has a history of pulmonary embolism the past, patient is currently on Xarelto reports that she has been compliant with her medications. Patient denies any other complaints including recent illness, fevers, chills, exertional chest pain, shortness of breath, palpitations, recent nausea or vomiting, change in appetite or activity liver, change in bowel or bladder habits. - Related Data Home Medications Medication Instructions Recorded Confirmed Furosemide 40 mg PO DAILY PRN 01/28/16 05/20/18 Levothyroxine Sodium [Levoxyl] 200 mcg PO QAM 01/28/16 05/20/18 Verapamil HCl [Verapamil ER] 240 mg PO QAM 01/28/16 05/20/18 Calcium Carbonate [Calcium] 600 mg PO HS 08/14/16 05/20/18 Potassium Chloride [Klor-Con 20] 20 meq PO DAILY PRN 10/21/16 05/20/18 Cyanocobalamin (Vitamin B-12) 1,000 mcg PO DAILY 08/02/17 05/20/18 [Vitamin B-12] Rivaroxaban [Xarelto] 20 mg PO DAILY 08/02/17 05/20/18 Previous Rx's Medication Instructions Recorded ALPRAZolam [Xanax] 0.25 mg PO DAILY PRN #30 tab 10/17/16 Metoprolol Tartrate [Lopressor] 50 mg PO TID #90 tab 10/17/16 Simvastatin [Zocor] 20 mg PO DAILY #60 tab 08/02/17 Amoxic-Pot Clav 875-125Mg 1 each PO Q12HR #20 tab 05/23/18 [Augmentin 875-125] Furosemide [Lasix] 40 mg PO DAILY tab 05/23/18 Allergies Allergy/AdvReac Type Severity Reaction Status Date / Time doxycycline Allergy Itching Verified 05/20/18 10:07 Review of Systems ROS Statement: Those systems with pertinent positive or pertinent negative responses have been documented in the HPI. ROS Other: All systems not noted in ROS Statement are negative. Past Medical History Past Medical History: Heart Failure, Hyperlipidemia, Hypertension, Osteoarthritis (OA), Skin Disorder, Thyroid Disorder Additional Past Medical History / Comment(s): Muscle weakness without definite diagnosis of myositis based on the muscle biopsy treated with steroids, psoriasis, right lower extremity cellulitis, pedal edema, hypothyroidism, osteoarthritis hands and knees bilaterally, history of bowel obstruction requiring surgical intervention, diverticulosis, urinary incontinence, obstructive sleep apnea not utilizing any CPAP therapy, extensive reaction to doxycycline occurred on January 2016 with itching and leg weakness. History of Any Multi-Drug Resistant Organisms: None Reported Past Surgical History: Appendectomy, Bowel Resection, Joint Replacement, Tonsillectomy Additional Past Surgical History / Comment(s): thyroidectomy, raissa knee replacements, bowel resection, muscle bx, D&C, bilateral cataract removals, bilateral foot bunionectomy, colonoscopies. Past Anesthesia/Blood Transfusion Reactions: No Reported Reaction Smoking Status: Never smoker - Past Family History Mother Family Medical History: Dementia, Memory Impairment Father Family Medical History: Liver Disease Additional Family Medical History / Comment(s): Father was an alcoholic and of cirrhosis of the liver. Sister(s) Additional Family Medical History / Comment(s): heart problems Brother(s) Additional Family Medical History / Comment(s): heart problems r/t rheumatic fever General Exam - General Exam Comments Initial Comments: GENERAL: Patient is well-developed and well-nourished. Patient is nontoxic and well- hydrated and is in no distress. HENT: Normocephalic, Atraumatic. EYES: The sclera were anicteric and conjunctiva were pink and moist. Extraocular movements were intact and pupils were equal round and reactive to light. Eyelids were unremarkable. PULMONARY: Unlabored respirations. Good breath sounds bilaterally. No audible rales rhonchi or wheezing was noted. Tenderness to palpation at the subchondral junction of the seventh and eighth ribs on the left CARDIOVASCULAR: There is a regular rate and rhythm ABDOMEN: Soft and nontender with normal bowel sounds. SKIN: Skin is clear with no lesions or rashes and otherwise unremarkable. No rash or injury noted NEUROLOGIC: Patient is alert and oriented x3. Cranial nerves II through XII are grossly intact. Motor and sensory are also intact. Normal speech, volume and content. Symmetrical smile. MUSCULOSKELETAL: Normal extremities with adequate strength and full range of motion. No lower extremity swelling or edema. No calf tenderness. LYMPHATICS: No significant lymphadenopathy is noted PSYCHIATRIC: Normal Limitations: no limitations Limitations: no limitations Course Vital Signs 06/24/18 06/25/18 23:46 03:54 Temperature 98.2 F 98.6 F Pulse Rate 85 90 Respiratory 17 17 Rate Blood Pressure 184/76 159/74 O2 Sat by Pulse 98 97 Oximetry EKG Findings - EKG Comments: EKG Findings:: EKG obtained at 2349 - rate is 88, rhythm is sinus, there is a normal axis, evidence of a left bundle branch block, ME 200, QRS is 142, QTc is 505, when compared to EKG obtained last month there is no significant change in morphology. No evidence of acute ischemia or infarction. Medical Decision Making - Medical Decision Making The patient was seen and evaluated, history is obtained from the patient and her daughter at bedside as well as review of the medical record. This is an 83- year-old female who has recently undergone extensive cardiac testing including stress test. Patient presents to the emergency Department today with a left- sided chest wall pain that is reproducible upon palpation and resolves when the ribs are not palpated. Patient concerned that this may be heart pain. Since daughter concerned due to the patient's distant history of a pulmonary embolism though the patient is currently on throughout that is been compliant with her medications. Patient is well-appearing and in no acute distress. She is not tachycardic or hypoxic. Her exam is consistent with musculoskeletal pain with palpation of the costochondral junction. Labs and imaging were ordered At the patient's daughter's insistence a study for pulmonary embolism was ordered. This study began but the patient could not tolerate the IV contrast in her IV. Stated that this was the worst pain she had ever experienced in her life and she did not want to pursue this testing. Patient has remained hemodynamically stable with no tachycardia, no hypoxia, no tachypnea. She is on her home medications. She has no elevation of troponin or BMP. At this time I am confident that her chest wall pain is secondary to costochondritis and not pulmonary or cardiac in nature. I discussed this with the patient and the daughter. 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 At this time the patient and the daughter felt comfortable with the plan for discharge home. Supportive care and return parameters were discussed. All questions pertaining the care answered the best my ability patient discharged home in stable condition. - Lab Data Result diagrams: 06/25/18 00:45 06/25/18 00:45 Lab Results 06/25/18 06/25/18 06/25/18 Range/Units 00:45 00:45 00:45 WBC 4.7 (3.8-10.6) k/uL RBC 4.32 (3.80-5.40) m/uL Hgb 13.5 (11.4-16.0) gm/dL Hct 40.4 (34.0-46.0) % MCV 93.5 (80.0-100.0) fL MCH 31.3 (25.0-35.0) pg MCHC 33.5 (31.0-37.0) g/dL RDW 12.9 (11.5-15.5) % Plt Count 165 (150-450) k/uL Neutrophils % 36 % Lymphocytes % 40 % Monocytes % 14 % Eosinophils % 6 % Basophils % 1 % Neutrophils # 1.7 (1.3-7.7) k/uL Lymphocytes # 1.9 (1.0-4.8) k/uL Monocytes # 0.7 (0-1.0) k/uL Eosinophils # 0.3 (0-0.7) k/uL Basophils # 0.0 (0-0.2) k/uL PT (9.0-12.0) sec INR (<1.2) APTT (22.0-30.0) sec D-Dimer (<0.60) mg/L FEU Sodium 140 (137-145) mmol/L Potassium 3.9 (3.5-5.1) mmol/L Chloride 107 (98-107) mmol/L Carbon Dioxide 24 (22-30) mmol/L Anion Gap 9 mmol/L BUN 15 (7-17) mg/dL Creatinine 0.50 L (0.52-1.04) mg/dL Est GFR (CKD-EPI)AfAm >90 (>60 ml/min/1.73 sqM) Est GFR (CKD-EPI)NonAf >90 (>60 ml/min/1.73 sqM) Glucose 93 (74-99) mg/dL Calcium 9.7 (8.4-10.2) mg/dL Magnesium 2.1 (1.6-2.3) mg/dL Total Bilirubin 0.6 (0.2-1.3) mg/dL AST 30 (14-36) U/L ALT 42 (9-52) U/L Alkaline Phosphatase 97 (38-126) U/L Total Creatine Kinase 200 H (30-135) U/L CK-MB (CK-2) 6.8 H (0.0-2.4) ng/mL CK-MB (CK-2) Rel Index 3.4 Troponin I <0.012 (0.000-0.034) ng/mL NT-Pro-B Natriuret Pep pg/mL Total Protein 6.7 (6.3-8.2) g/dL Albumin 4.0 (3.5-5.0) g/dL 06/25/18 06/25/18 Range/Units 00:45 00:45 WBC (3.8-10.6) k/uL RBC (3.80-5.40) m/uL Hgb (11.4-16.0) gm/dL Hct (34.0-46.0) % MCV (80.0-100.0) fL MCH (25.0-35.0) pg MCHC (31.0-37.0) g/dL RDW (11.5-15.5) % Plt Count (150-450) k/uL Neutrophils % % Lymphocytes % % Monocytes % % Eosinophils % % Basophils % % Neutrophils # (1.3-7.7) k/uL Lymphocytes # (1.0-4.8) k/uL Monocytes # (0-1.0) k/uL Eosinophils # (0-0.7) k/uL Basophils # (0-0.2) k/uL PT 11.0 (9.0-12.0) sec INR 1.1 (<1.2) APTT 25.7 (22.0-30.0) sec D-Dimer 0.44 (<0.60) mg/L FEU Sodium (137-145) mmol/L Potassium (3.5-5.1) mmol/L Chloride (98-107) mmol/L Carbon Dioxide (22-30) mmol/L Anion Gap mmol/L BUN (7-17) mg/dL Creatinine (0.52-1.04) mg/dL Est GFR (CKD-EPI)AfAm (>60 ml/min/1.73 sqM) Est GFR (CKD-EPI)NonAf (>60 ml/min/1.73 sqM) Glucose (74-99) mg/dL Calcium (8.4-10.2) mg/dL Magnesium (1.6-2.3) mg/dL Total Bilirubin (0.2-1.3) mg/dL AST (14-36) U/L ALT (9-52) U/L Alkaline Phosphatase (38-126) U/L Total Creatine Kinase (30-135) U/L CK-MB (CK-2) (0.0-2.4) ng/mL CK-MB (CK-2) Rel Index Troponin I (0.000-0.034) ng/mL NT-Pro-B Natriuret Pep 647 pg/mL Total Protein (6.3-8.2) g/dL Albumin (3.5-5.0) g/dL Disposition Clinical Impression: Atypical chest pain Disposition: HOME SELF-CARE Condition: Good Instructions: Chest Pain (ED), Costochondritis (ED) Is patient prescribed a controlled substance at d/c from ED?: No Referrals: Case Berman MD [Primary Care Provider] - 1-2 days
[2018-06-25] MEDS ORDERED: ASPIRIN 81 MG PO STA (00:23)
[2018-06-25 00:53] LABS: Basophils % (A) 1 %; Eosinophils # (A) 0.3 k/uL (0-0.7); Eosinophils % (A) 6 %; HCT 40.4 % (34.0-46.0); HGB 13.5 gm/dL (11.4-16.0); Lymphocytes # (A) 1.9 k/uL (1.0-4.8); Lymphocytes % (A) 40 %; MCH 31.3 pg (25.0-35.0); MCHC 33.5 g/dL (31.0-37.0); MCV 93.5 fL (80.0-100.0); Mean Platelet Volume 7.5; Monocytes # (A) 0.7 k/uL (0-1.0); Monocytes % (A) 14 %; Neutrophils # (A) 1.7 k/uL (1.3-7.7); Neutrophils % (A) 36 %; Platelet Count 165 k/uL (150-450); RBC 4.32 m/uL (3.80-5.40); RDW 12.9 % (11.5-15.5); WBC 4.7 k/uL (3.8-10.6)
[2018-06-25 01:02] LABS: ALT 42 U/L (9-52); AST 30 U/L (14-36); Alkaline Phosphatase 97 U/L (38-126); Anion Gap 9 mmol/L; Blood Urea Nitrogen 15 mg/dL (7-17); Calcium 9.7 mg/dL (8.4-10.2); Carbon Dioxide 24 mmol/L (22-30); Chloride 107 mmol/L (98-107); Glucose 93 mg/dL (74-99); Magnesium 2.1 mg/dL (1.6-2.3); Potassium 3.9 mmol/L (3.5-5.1); Sodium 140 mmol/L (137-145); Total Bilirubin 0.6 mg/dL (0.2-1.3); Total Protein 6.7 g/dL (6.3-8.2)
[2018-06-25 01:10] LABS: D-Dimer 0.44 mg/L FEU (<0.60); INR 1.1 (<1.2); Partial Thromboplastin Time 25.7 sec (22.0-30.0)
[2018-06-25 01:28] LABS: Creatine Kinase 200 U/L (30-135)
[2018-06-25 01:41] LABS: Creatine Kinase MB 6.8 ng/mL (0.0-2.4); Troponin I <0.012 ng/mL (0.000-0.034)
--- NOTE | 2018-06-25 01:48 | XR ---
EXAMINATION TYPE: XR chest 2V DATE OF EXAM: 06/25/2018 COMPARISON: 05/20/2018 HISTORY: Chest pain TECHNIQUE: Frontal and lateral views of the chest are obtained. FINDINGS: There is no heart failure nor confluent pneumonic infiltrate. Costophrenic angles are amirah r. There are chest leads. Thoracic aorta is atheromatous. IMPRESSION: No active cardiopulmonary disease. No change.
[2018-06-25 03:56] VITALS: BP 159/74; PULSE 90; TEMP 98.6
== END 2018-06-25 03:55 | disposition home or self-care (01) ==
LOC: EC 23:44
DX: R07.89 Other chest pain (principal); I11.0 Hypertensive heart disease with heart failure; I50.9 Heart failure, unspecified; E03.9 Hypothyroidism, unspecified; G47.33 Obstructive sleep apnea (adult) (pediatric); Z96.653 Presence of artificial knee joint, bilateral; Z82.49 Family history of ischemic heart disease and other diseases of the circulatory system; Z86.711 Personal history of pulmonary embolism; Z79.01 Long term (current) use of anticoagulants; Z79.899 Other long term (current) drug therapy; Z88.1 Allergy status to other antibiotic agents; Z53.20 Procedure and treatment not carried out because of patient's decision for unspecified reasons
CPT/HCPCS: 36415; 71046; 80053; 82550; 82553; 83735; 83880; 84484; 85025; 85379; 85610; 85730; 93005; 99285

== ENCOUNTER → 2018-07-11 | Outpatient (CLI) | payer MEDICARE ==
--- NOTE | 2018-07-11 14:44 | US ---
EXAMINATION TYPE: US carotid duplex BILAT DATE OF EXAM: 07/11/2018 COMPARISON: CT cervical spine May 20, 2018 CLINICAL HISTORY: M54.2 Left neck pain, G90.01 Carotid Syncope. EXAM MEASUREMENTS: RIGHT: Peak Systolic Velocity (PSV) cm/sec ----- Right CCA: 79.1 ----- Right ICA: 170.8 ----- Right ECA: 87.9 ICA/CCA ratio: 2.2 RIGHT: End Diastole cm/sec ----- Right CCA: 10.9 ----- Right ICA: 31.8 ----- Right ECA: 0 LEFT: Peak Systolic Velocity (PSV) cm/sec ----- Left CCA: 65.6 ----- Left ICA: 93.2 ----- Left ECA: 66.7 ICA/CCA ratio: 1.4 LEFT: End Diastole cm/sec ----- Left CCA: 11.7 ----- Left ICA: 18.3 ----- Left ECA: 7.3 VERTEBRALS (direction of flow): Right Vertebral: Antegrade Left Vertebral: Antegrade Rhythm: Normal Minimal plaque left bulb. Elevated velocity right mid ICA Bilateral ICAs very tortuous Grayscale images show mild plaque at bilateral carotid bulbs. Increased peak systolic velocity right internal carotid artery is present but may be related to tortuous course as end-diastolic velocity is within normal limits and ICA over CCA ratio is within normal limits. IMPRESSION: No convincing hemodynamically significant stenosis seen in either internal carotid arter y. Criteria for Assigning % of Stenosis / Diameter reduction (Estimation based on the indirect measurements of the internal carotid artery velocities (ICA PSV). 1. Normal (no stenosis)=ICA PSV < 125 cm/s: ratio < 2.0: ICA EDV<40 cm/s. 2. Less than 50% stenosis=ICA PSV < 125 cm/s: ratio < 2.0: ICA EDV<40 cm/s. 3. 50 to 69% stenosis=ICA PSV of 125 to 230 cm/s: ration 2.0 ? 4.0: ICA EDV 40-100 cm/s. 4. Greater than 70% stenosis to near occlusion= ICA PSV > 230 cm/s: ratio > 4.0: ICA EDV > 100 cm/s. 5. Near occlusion= ICA PSV velocities may be low or undetectable: variable ratio and ICA EDV. 6. Total occlusion=unable to detect flow.
== END ==
LOC: RADUSWWP 13:24
PROVIDERS: ATTEND Family Medicine
DX: M54.2 Cervicalgia (principal); R09.89 Other specified symptoms and signs involving the circulatory and respiratory systems
CPT/HCPCS: 93880

== ENCOUNTER 2018-09-07 02:31 | Inpatient (IN) | payer MEDICARE ==
[2018-09-07] MEDS ORDERED: VANCOMYCIN IV PER PHARMACY 1 EACH MISC MISCELLANE PRN (03:44)
[2018-09-07] MEDS ORDERED: NAFCILLIN 2 GM in DEXTROSE 5% IN WATER 50 ML IVPB STA ×2 (03:44)
[2018-09-07] MEDS ORDERED: NALOXONE 0.4 MG/ML 1 ML VIAL IV PRN (03:58)
[2018-09-07] MEDS ORDERED: Acetaminophen-Codeine 300-30mg TAB PO PRN (03:58)
[2018-09-07] MEDS ORDERED: ACETAMINOPHEN TAB 325 MG TAB PO PRN (03:58)
--- NOTE | 2018-09-07 03:58 | ED ---
Lower Extremity Injury HPI - General Chief Complaint: Extremity Injury, Lower Stated Complaint: cellulitis Time Seen by Provider: 09/07/18 03:00 Source: patient, family, EMS Limitations: no limitations - History of Present Illness Initial Comments: This patient is an 83-year-old woman who presents with complaint of having right leg swelling, redness, and warmth. She states the symptoms started this morning approximately 3 hours ago. She denies any injury that precipitated the symptoms. She states that is identical to previous episode of cellulitis that she had. She has not had any systemic symptoms, she denies fever or chills, chest pain, dyspnea, palpitations, lightheadedness or syncope. She declines analgesic at history and physical. 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 MD Complaint: leg injury -: hour(s) Injury: Leg: Right Type of Injury: other Place: home Severity: moderate Improves With: nothing Worsens With: nothing - Related Data Home Medications Medication Instructions Recorded Confirmed Furosemide 40 mg PO DAILY PRN 01/28/16 05/20/18 Levothyroxine Sodium [Levoxyl] 200 mcg PO QAM 01/28/16 05/20/18 Verapamil HCl [Verapamil ER] 240 mg PO QAM 01/28/16 05/20/18 Calcium Carbonate [Calcium] 600 mg PO HS 08/14/16 05/20/18 Potassium Chloride [Klor-Con 20] 20 meq PO DAILY PRN 10/21/16 05/20/18 Cyanocobalamin (Vitamin B-12) 1,000 mcg PO DAILY 08/02/17 05/20/18 [Vitamin B-12] Rivaroxaban [Xarelto] 20 mg PO DAILY 08/02/17 05/20/18 Previous Rx's Medication Instructions Recorded ALPRAZolam [Xanax] 0.25 mg PO DAILY PRN #30 tab 10/17/16 Metoprolol Tartrate [Lopressor] 50 mg PO TID #90 tab 10/17/16 Simvastatin [Zocor] 20 mg PO DAILY #60 tab 08/02/17 Amoxic-Pot Clav 875-125Mg 1 each PO Q12HR #20 tab 05/23/18 [Augmentin 875-125] Furosemide [Lasix] 40 mg PO DAILY tab 08/23/18 Allergies Allergy/AdvReac Type Severity Reaction Status Date / Time doxycycline Allergy Itching Verified 05/20/18 10:07 Review of Systems ROS Statement: Those systems with pertinent positive or pertinent negative responses have been documented in the HPI. ROS Other: All systems not noted in ROS Statement are negative. Constitutional: Denies: fever, chills, weakness Respiratory: Denies: cough, dyspnea Cardiovascular: Denies: chest pain, palpitations, orthopnea, edema, syncope Gastrointestinal: Denies: abdominal pain, nausea, vomiting Musculoskeletal: Reports: as per HPI, other (Right lower extremity swelling and pain) Skin: Reports: change in color. Denies: rash Neurological: Denies: headache, weakness, numbness, paresthesias Hematological/Lymphatic: Reports: other (Taking the Xarelto) Past Medical History Past Medical History: Heart Failure, Hyperlipidemia, Hypertension, Osteoarthritis (OA), Skin Disorder, Thyroid Disorder Additional Past Medical History / Comment(s): Muscle weakness without definite diagnosis of myositis based on the muscle biopsy treated with steroids, psoriasis, right lower extremity cellulitis, pedal edema, hypothyroidism, osteoarthritis hands and knees bilaterally, history of bowel obstruction requiring surgical intervention, diverticulosis, urinary incontinence, obstructive sleep apnea not utilizing any CPAP therapy, extensive reaction to doxycycline occurred on January 2016 with itching and leg weakness. History of Any Multi-Drug Resistant Organisms: None Reported Past Surgical History: Appendectomy, Bowel Resection, Joint Replacement, Tonsillectomy Additional Past Surgical History / Comment(s): thyroidectomy, raissa knee replacements, bowel resection, muscle bx, D&C, bilateral cataract removals, bilateral foot bunionectomy, colonoscopies. Past Anesthesia/Blood Transfusion Reactions: No Reported Reaction Past Psychological History: Anxiety Smoking Status: Never smoker - Past Family History Mother Family Medical History: Dementia, Memory Impairment Father Family Medical History: Liver Disease Additional Family Medical History / Comment(s): Father was an alcoholic and of cirrhosis of the liver. Sister(s) Additional Family Medical History / Comment(s): heart problems Brother(s) Additional Family Medical History / Comment(s): heart problems r/t rheumatic fever General Exam General appearance: alert, in no apparent distress Head exam: Present: atraumatic, normocephalic Eye exam: Present: normal appearance. Absent: scleral icterus, conjunctival injection Respiratory exam: Present: normal lung sounds bilaterally. Absent: respiratory distress, wheezes, rales, rhonchi, stridor Cardiovascular Exam: Present: regular rate, normal rhythm, normal heart sounds. Absent: systolic murmur, diastolic murmur, rubs, gallop GI/Abdominal exam: Present: soft. Absent: distended, tenderness, guarding, rebound, rigid, mass Extremities exam: Present: normal inspection, normal capillary refill. Absent: pedal edema, calf tenderness Neurological exam: Present: alert Skin exam: Present: erythema. Absent: warm, dry, intact, normal color Course Vital Signs 09/07/18 02:47 Temperature 98.8 F Pulse Rate 68 Respiratory 16 Rate Disposition Clinical Impression: Cellulitis of right lower extremity Disposition: ADMITTED IP TO THIS [facility] Condition: Poor Referrals: Case Berman MD [Primary Care Provider] - 1-2 days
[2018-09-07] MEDS ORDERED: VANCOMYCIN 1,750 MG in SODIUM CHLORIDE 0.9% 500 ML 500 ML IVPB ONE (04:00)
[2018-09-07] MEDS ORDERED: POTASSIUM CHLORIDE ER 20 MEQ TAB.ER PO PRN (04:03)
[2018-09-07] MEDS ORDERED: ALPRAZolam 0.25 MG TAB PO PRN (04:03)
[2018-09-07] MEDS: SODIUM CHLORIDE 0.9% 1,000 ML IV SCH ×3 (04:22→23:26)
[2018-09-07 04:26] LABS: Basophils % (A) 0 %; Eosinophils # (A) 0.1 k/uL (0-0.7); Eosinophils % (A) 1 %; HCT 40.3 % (34.0-46.0); HGB 12.9 gm/dL (11.4-16.0); Lymphocytes % (A) 28 %; MCH 30.5 pg (25.0-35.0); MCHC 32.1 g/dL (31.0-37.0); MCV 95.1 fL (80.0-100.0); Mean Platelet Volume 7.7; Monocytes # (A) 0.8 k/uL (0-1.0); Monocytes % (A) 11 %; Neutrophils # (A) 4.1 k/uL (1.3-7.7); Neutrophils % (A) 56 %; Platelet Count 192 k/uL (150-450); RBC 4.24 m/uL (3.80-5.40); RDW 12.2 % (11.5-15.5); WBC 7.2 k/uL (3.8-10.6)
[2018-09-07 04:38] LABS: Anion Gap 8 mmol/L; Blood Urea Nitrogen 16 mg/dL (7-17); C Reactive Protein 62.8 mg/L (<10.0); Carbon Dioxide 24 mmol/L (22-30); Chloride 105 mmol/L (98-107); Glucose 90 mg/dL (74-99); Potassium 3.8 mmol/L (3.5-5.1); Sodium 137 mmol/L (137-145)
[2018-09-07] MEDS: LEVOTHYROXINE 100 MCG TAB PO SCH (05:58)
[2018-09-07 06:09] VITALS: BMI 28.8
[2018-09-07] MEDS: VERAPAMIL SR 240 MG TABLET.ER PO SCH (08:35)
[2018-09-07] MEDS: ATORVASTATIN 10 MG TAB PO SCH (08:35)
[2018-09-07] MEDS: FUROSEMIDE 40 MG TAB PO SCH (08:35)
[2018-09-07] MEDS: RIVAROXABAN 20 MG TAB PO SCH (08:35)
[2018-09-07] MEDS ORDERED: HEPARIN SODIUM,PORCINE 5,000 UNIT/ML 1 ML VIAL SQ SCH (09:00)
[2018-09-07] MEDS ORDERED: AMOXIC-POT CLAV 875-125MG 1 EACH TAB PO SCH (09:00)
[2018-09-07] MEDS ORDERED: METOPROLOL TARTRATE 50 MG TAB PO SCH (09:00)
[2018-09-07] MEDS: FAMOTIDINE 20 MG TAB PO SCH ×2 (09:03→20:17)
[2018-09-07] MEDS: CYANOCOBALAMIN 500 MCG TAB PO SCH (09:03)
--- NOTE | 2018-09-07 09:30 | US ---
EXAMINATION TYPE: US venous doppler duplex LE RT DATE OF EXAM: 09/07/2018 9:13 AM COMPARISON: Previous study dated 08/02/2017. CLINICAL HISTORY: R/O DVT. h/o cellulitis in right leg, painful, swollen, reddened calf and ankle SIDE PERFORMED: Right TECHNIQUE: The lower extremity deep venous system is examined utilizing real time linear array sonog mark with graded compression, doppler sonography and color-flow sonography. VESSELS IMAGED: External Iliac Vein (EIV) Common Femoral Vein Deep Femoral Vein Greater Saphenous Vein * Femoral Vein Popliteal Vein Small Saphenous Vein * Proximal Calf Veins (* superficial vessels) Right Leg: Appears negative for DVT, unable to do compression imaging in popiteal fossa, unable to v iew vessels w/o color imaging. PTV area had extensive edema and unable to assess. No popliteal fossa lesion was seen. IMPRESSION: COMPROMISED STUDY DEMONSTRATING NO DEFINITE DVT AND EXTENSIVE EDEMA IN THE RIGHT POPLITEAL FOSSA.
[2018-09-07] MEDS ORDERED: FUROSEMIDE 40 MG TAB PO PRN (12:29)
[2018-09-07] MEDS: NAFCILLIN 2 GM in DEXTROSE 5% IN WATER 50 ML IVPB SCH ×4 (12:46→20:17)
[2018-09-07] MEDS: VANCOMYCIN 1,500 MG in SODIUM CHLORIDE 0.9% 250 ML IVPB SCH (17:02)
[2018-09-07] MEDS: METOPROLOL TARTRATE 50 MG TAB PO SCH (20:17)
[2018-09-07] MEDS: CALCIUM CARBONATE 500 MG CHEWABLE PO SCH (20:17)
[2018-09-07] MEDS ORDERED: VANCOMYCIN 1,250 MG in SODIUM CHLORIDE 0.9% 250 ML IVPB SCH (21:00)
[2018-09-08] MEDS: NAFCILLIN 2 GM in DEXTROSE 5% IN WATER 50 ML IVPB SCH ×6 (04:48→20:27)
[2018-09-08] MEDS: VANCOMYCIN 1,500 MG in SODIUM CHLORIDE 0.9% 250 ML IVPB SCH ×2 (05:55→17:14)
[2018-09-08] MEDS: LEVOTHYROXINE 100 MCG TAB PO SCH (05:56)
[2018-09-08] MEDS: RIVAROXABAN 20 MG TAB PO SCH (08:37)
[2018-09-08] MEDS: ATORVASTATIN 10 MG TAB PO SCH (08:38)
[2018-09-08] MEDS: CYANOCOBALAMIN 500 MCG TAB PO SCH (08:38)
[2018-09-08] MEDS: VERAPAMIL SR 240 MG TABLET.ER PO SCH (08:38)
[2018-09-08] MEDS: METOPROLOL TARTRATE 50 MG TAB PO SCH ×2 (08:38→20:27)
[2018-09-08] MEDS: FUROSEMIDE 40 MG TAB PO SCH (08:38)
[2018-09-08] MEDS: FAMOTIDINE 20 MG TAB PO SCH ×2 (08:38→20:27)
[2018-09-08] MEDS: SODIUM CHLORIDE 0.9% 1,000 ML IV SCH ×2 (11:25→20:29)
--- NOTE | 2018-09-08 16:20 | HP ---
HISTORY AND PHYSICAL CHIEF COMPLAINT: Pain, redness and swelling in the right lower leg. HISTORY OF PRESENT ILLNESS: This is another admission for this 83-year-old white female who has longstanding history of hypertension and brawny lower extremity edema. She noticed quickly that she developed redness, pain and more swelling than normal in the right lower leg, descending into the ankle and foot and came to emergency room. She did have a low- grade fever. REVIEW OF SYSTEMS: She has had no neurologic problems, change in vision hearing, chest pain, shortness of breath, heart disease, palpitations, orthopnea, PND, abdominal pain, nausea, vomiting, hematemesis, melena, hematochezia, colitis, diverticulosis, diverticulitis, hemorrhoids, jaundice, hepatitis, cirrhosis, hematuria, frequency, urgency, incontinence, diabetes, arthralgias, etc. Past medical history, family history, personal and social history are all otherwise unremarkable and unchanged. She is on hospice at home, but still functional. She does not smoke or drink. PHYSICAL EXAM: Blood pressure is 140/64 with a pulse of 88, respirations of 20 and she is afebrile. In general, she appeared to be slightly pale. Skin was dry. Head, ears, eyes, nose, mouth, and throat were normal. Neck veins not distended. Thyroid is not enlarged. CHEST: Clear. Cardiac exam is normal. Abdomen is soft, nontender. Examination of extremities demonstrates severe brawny edema on both sides from the knees down and there is a 0 dermatitis in both legs and the right lower leg is cellulitic from behind the knee down all the way into the foot. Homans is negative and there is very little tenderness in the calf on the right. Neurological: She is intact. IMPRESSION: 1. Cellulitis of the right lower leg. 2. Chronic brawny edema in the lower extremities. 3. Hypertension. PLAN: 1. Bed rest. 2. IV fluids. 3. IV antibiotics. 4. Elevation. MMODL / IJN: [id number] /
--- NOTE | 2018-09-08 17:05 | PN ---
PROGRESS NOTE CHIEF COMPLAINT: Cellulitis the right leg. HISTORY OF PRESENT ILLNESS: This lady's leg is doing better. She is still complaining of a lot of inconvenience and discomfort. She has also been found to have a slightly tender nodule on the lateral aspect of the right calf. PHYSICAL EXAM: Chest is clear. Cardiac exam is normal. Abdomen is soft, nontender. There is a tender nodule in the right lateral lower leg. This could be either varicose vein or possibly area of cellulitis. IMPRESSION: 1. Cellulitis, right lower leg. 2. Venous stasis disease. PLAN: Continue with current program and keep her legs elevated for now. MMODL / IJN: [id number] /
[2018-09-08] MEDS: CALCIUM CARBONATE 500 MG CHEWABLE PO SCH (20:27)
[2018-09-09] MEDS: NAFCILLIN 2 GM in DEXTROSE 5% IN WATER 50 ML IVPB SCH ×6 (04:14→20:00)
[2018-09-09] MEDS ORDERED: VANCOMYCIN TROUGH DUE 1 EACH MISC MISCELLANE ONE (05:00)
[2018-09-09] MEDS: LEVOTHYROXINE 100 MCG TAB PO SCH (05:46)
[2018-09-09] MEDS: VANCOMYCIN 1,500 MG in SODIUM CHLORIDE 0.9% 250 ML IVPB SCH ×2 (05:47→17:08)
[2018-09-09] MEDS: SODIUM CHLORIDE 0.9% 1,000 ML IV SCH (05:47)
[2018-09-09 05:59] LABS: Anion Gap 7 mmol/L; Blood Urea Nitrogen 9 mg/dL (7-17); Calcium 8.7 mg/dL (8.4-10.2); Carbon Dioxide 25 mmol/L (22-30); Chloride 109 mmol/L (98-107); Glucose 84 mg/dL (74-99); Potassium 3.7 mmol/L (3.5-5.1); Sodium 141 mmol/L (137-145)
[2018-09-09] MEDS: METOPROLOL TARTRATE 50 MG TAB PO SCH ×2 (08:54→19:57)
[2018-09-09] MEDS: RIVAROXABAN 20 MG TAB PO SCH (08:54)
[2018-09-09] MEDS: FAMOTIDINE 20 MG TAB PO SCH ×2 (08:54→19:56)
[2018-09-09] MEDS: VERAPAMIL SR 240 MG TABLET.ER PO SCH (08:54)
[2018-09-09] MEDS: ATORVASTATIN 10 MG TAB PO SCH (08:54)
[2018-09-09] MEDS: FUROSEMIDE 40 MG TAB PO SCH (08:55)
[2018-09-09] MEDS: CYANOCOBALAMIN 500 MCG TAB PO SCH (08:55)
--- NOTE | 2018-09-09 14:05 | CDI ---
Documentation Clarification Form Date: 09/09/2018 1:58:54 PM From: Katiuska Mitchell CCS, CCDS Admit Date: 09/07/2018 3:59:00 AM Patient Name: Brittany Reveles Visit Number: [id number] Discharge Date: 09/10/2018 ATTENTION: The Clinical Documentation Specialists (CDI) and [facility] Coding Staff appreciate your assistance in clarifying documentation. Please respond to the clarification below the line at the bottom and electronically sign. The CDI & [facility] Coding staff will review the response and follow-up if needed. Please note: Queries are made part of the Legal Health Record. If you have any questions, please contact the author of this message via ITS. Dr. Case Berman CHF is documented in the ED note history. Admitted with bilateral lower extremity swelling, warmth & redness, DVT ruled out by US of lower extremities. History/Risk Factors: Heart Failure, Hyperlipidemia, Hypertension, OA, Hypothyroidism. Home Rx: Lasix 40 mg po, Klor Con, Calcium, Xanax, Verapamil, Zocor, Xarelto, Lopressor, Levoxyl Clinical Indicators: VSS 10/2016 ECHO: Systolic low-normal w/EF 50-55%, Mild aortic valve sclerosis, Mild MR, Mild TR, Moderate pulmonary hypertension. Treatment: Continues to receive home dose Lasix. IV Nafcillin, IV Vancomycin, continued Xarelto. In your professional opinion, can you please clarify the acuity and type of CHF or is CHF ruled out? - CHF ruled out - CHF ruled in: Systolic Heart Failure: o Acute o Chronic o Acute on Chronic Diastolic Heart Failure: o Acute o Chronic o Acute on Chronic Systolic & Diastolic Heart Failure: o Acute o Chronic o Acute on Chronic Heart Failure Unable to Determine Other, please specify (Last Revision: December 2017) MTDD
[2018-09-09] MEDS ORDERED: FLUCONAZOLE 150 MG TAB PO STA (17:24)
--- NOTE | 2018-09-09 18:20 | US ---
EXAMINATION TYPE: US extremity nonvasc mass RT DATE OF EXAM: 09/09/2018 COMPARISON: NONE CLINICAL HISTORY: r/o poss cyst or absess . Right calf lump. Edema visualized. No cyst or abscess seen. IMPRESSION: There is subcutaneous edema. No solid or cystic mass identified.
[2018-09-09] MEDS: CALCIUM CARBONATE 500 MG CHEWABLE PO SCH (19:56)
[2018-09-10] MEDS: NAFCILLIN 2 GM in DEXTROSE 5% IN WATER 50 ML IVPB SCH ×4 (04:51→11:58)
[2018-09-10] MEDS: VANCOMYCIN 1,500 MG in SODIUM CHLORIDE 0.9% 250 ML IVPB SCH (06:11)
[2018-09-10] MEDS: LEVOTHYROXINE 100 MCG TAB PO SCH (06:13)
[2018-09-10 08:02] VITALS: BP 145/73; PULSE 83; RESP 16; TEMP 98.8
[2018-09-10] MEDS: ATORVASTATIN 10 MG TAB PO SCH (08:27)
[2018-09-10] MEDS: RIVAROXABAN 20 MG TAB PO SCH (08:28)
[2018-09-10] MEDS: CYANOCOBALAMIN 500 MCG TAB PO SCH (08:28)
[2018-09-10] MEDS: METOPROLOL TARTRATE 50 MG TAB PO SCH (08:28)
[2018-09-10] MEDS: FAMOTIDINE 20 MG TAB PO SCH (08:28)
[2018-09-10] MEDS: VERAPAMIL SR 240 MG TABLET.ER PO SCH (08:28)
[2018-09-10] MEDS: FUROSEMIDE 40 MG TAB PO SCH (08:28)
[2018-09-10] MEDS ORDERED: CEPHALEXIN 500 MG CAP PO SCH (13:00)
--- NOTE | 2018-09-11 16:08 | PN ---
PROGRESS NOTE CHIEF COMPLAINT: Cellulitis lower extremities. HISTORY OF PRESENT ILLNESS: This lady is doing well, but she has a soft tissue lump on the lateral aspect of her right lower leg which she is concerned about and she thinks is new. There is no history of trauma. It is not red or fluctuant. PHYSICAL EXAM: Chest is clear. Cardiac exam is normal. The cellulitis and edema gradually improving. There is a soft tissue lump in the right lateral lower leg which probably isn't an abscess. Part of the issue is that she has lost a fair amount of fluid from the legs and this is probably just an area of thickened subcutaneous fat. IMPRESSION: 1. Nodule in the right lateral lower leg. 2. Cellulitis of both lower extremities. PLAN: 1. Ultrasound of the side of the calf. 2. Continue with the IV antibiotics. MMODL / IJN: [id number] /
--- NOTE | 2018-09-11 22:53 | DS ---
DISCHARGE SUMMARY CHIEF COMPLAINT: Pain, redness and swelling in both legs. HISTORY OF PRESENT ILLNESS AND PHYSICAL EXAM: Details of this lady's history and physical can be found in the initial workup. LABORATORY STUDIES: While she was in the hospital, she had laboratory studies, details of which can be found in the laboratory section of her chart. COURSE IN HOSPITAL: After admission, she was placed on bedrest, started on intravenous fluids and IV antibiotics. The redness, swelling and pain in the legs started to improve. She was doing well enough it was felt that she could go home on the and she will go home on usual activity, regular diet and elevation of the legs as much as possible and be seen in the office in several days. FINAL DIAGNOSES: 1. Bilateral lower extremity cellulitis. 2. Lower extremity venous stasis disease and stasis dermatitis. OPERATIONS: None. CONSULTATIONS: None. She is improved. MMELVINL / NATASHAN: [id number] /
--- NOTE | 2018-09-14 12:29 | PN ---
PROGRESS NOTE INQUIRY: This is regarding congestive heart failure. CHF is ruled out. MMODL / IJN: [id number] /
== END 2018-09-10 14:06 | disposition home health service (06) | DRG 603 ==
LOC: EC 02:31 → 4MS4W 03:59
PROVIDERS: ADMIT Family Medicine; ATTEND Family Medicine
DX: L03.115 Cellulitis of right lower limb (principal); I87.2 Venous insufficiency (chronic) (peripheral); I10 Essential (primary) hypertension; I87.8 Other specified disorders of veins; L03.116 Cellulitis of left lower limb; E78.5 Hyperlipidemia, unspecified; G47.33 Obstructive sleep apnea (adult) (pediatric); M60.9 Myositis, unspecified; L40.9 Psoriasis, unspecified; E89.0 Postprocedural hypothyroidism; M19.042 Primary osteoarthritis, left hand; M19.041 Primary osteoarthritis, right hand; F41.9 Anxiety disorder, unspecified; K57.90 Diverticulosis of intestine, part unspecified, without perforation or abscess without bleeding; Z79.01 Long term (current) use of anticoagulants; Z79.890 Hormone replacement therapy; Z79.899 Other long term (current) drug therapy; Z86.718 Personal history of other venous thrombosis and embolism; Z86.711 Personal history of pulmonary embolism; Z96.653 Presence of artificial knee joint, bilateral; Z98.42 Cataract extraction status, left eye; Z98.41 Cataract extraction status, right eye; Z88.1 Allergy status to other antibiotic agents; Z81.8 Family history of other mental and behavioral disorders; Z81.1 Family history of alcohol abuse and dependence; Z83.79 Family history of other diseases of the digestive system; Z82.49 Family history of ischemic heart disease and other diseases of the circulatory system; Z82.69 Family history of other diseases of the musculoskeletal system and connective tissue
CPT/HCPCS: 36415; 80048; 80202; 85025; 86140; 87040; 87077; 87150; 87186; 96365; 99284

== ENCOUNTER 2019-07-02 12:05 | Inpatient (IN) | payer MEDICARE ==
[2019-07-02] MEDS ORDERED: IBUPROFEN 600 MG TAB PO STA (12:33)
[2019-07-02] MEDS ORDERED: ACETAMINOPHEN TAB 500 MG TAB PO STA (12:33)
[2019-07-02] MEDS ORDERED: PIPERACILLIN-TAZOBACTAM 3.375 GM in SODIUM CHLORIDE 0.9% 100 ML IVPB STA (12:33)
--- NOTE | 2019-07-02 12:40 | ED ---
General Adult HPI - General Chief complaint: Weakness Stated complaint: weakness Time Seen by Provider: 07/02/19 12:05 Source: EMS, RN notes reviewed Mode of arrival: EMS Limitations: no limitations - History of Present Illness Initial comments: This is an 84-year-old female presents emergency Department complaining of weakness over the last couple days chills over the last couple of days and pain in the posterior aspect of the right leg where she has noticed the area to be slightly more red than normal and hot. Patient states she has had cellulitis in that area before. Patient does have chronic cellulitis to the anterior aspect of her right distal leg but this posterior redness is new. Patient has not checked her temperature but has stated she has the chills. Patient denies headache patient denies numbness or weakness. Patient denies any chest pain difficult breathing shortest breath per patient denies any recent cough. Patient denies any abdominal pain patient denies nausea vomiting diarrhea. Patient denies any areas of redness swelling or tenderness. - Related Data Home Medications Medication Instructions Recorded Confirmed Furosemide 40 mg PO DAILY PRN 01/28/16 07/02/19 Levothyroxine Sodium [Levoxyl] 200 mcg PO QAM 01/28/16 07/02/19 Verapamil HCl [Verapamil ER] 240 mg PO DAILY@1200 01/28/16 07/02/19 Potassium Chloride [Klor-Con 20] 20 meq PO DAILY PRN 10/21/16 07/02/19 Rivaroxaban [Xarelto] 20 mg PO HS 08/02/17 07/02/19 Metoprolol Tartrate [Lopressor] 50 mg PO Q8H 09/07/18 07/02/19 Simvastatin [Zocor] 20 mg PO DAILY@1200 07/02/19 07/02/19 Previous Rx's Medication Instructions Recorded ALPRAZolam [Xanax] 0.25 mg PO DAILY PRN #30 tab 10/17/16 Allergies Allergy/AdvReac Type Severity Reaction Status Date / Time doxycycline Allergy Itching Verified 07/02/19 12:30 Review of Systems ROS Statement: Those systems with pertinent positive or pertinent negative responses have been documented in the HPI. ROS Other: All systems not noted in ROS Statement are negative. Past Medical History Past Medical History: Heart Failure, Hyperlipidemia, Hypertension, Osteoarthritis (OA), Skin Disorder, Thyroid Disorder Additional Past Medical History / Comment(s): Muscle weakness without definite diagnosis of myositis based on the muscle biopsy treated with steroids, psoriasis, right lower extremity cellulitis, pedal edema, hypothyroidism, osteoarthritis hands and knees bilaterally, history of bowel obstruction requiring surgical intervention, diverticulosis, urinary incontinence, obstructive sleep apnea not utilizing any CPAP therapy, extensive reaction to doxycycline occurred on January 2016 with itching and leg weakness. History of Any Multi-Drug Resistant Organisms: None Reported Past Surgical History: Appendectomy, Bowel Resection, Joint Replacement, Tonsillectomy Additional Past Surgical History / Comment(s): thyroidectomy, raissa knee replacements, bowel resection, muscle bx, D&C, bilateral cataract removals, bilateral foot bunionectomy, colonoscopies. Past Anesthesia/Blood Transfusion Reactions: No Reported Reaction Past Psychological History: Anxiety Smoking Status: Never smoker Past Alcohol Use History: Occasional Past Drug Use History: None Reported - Past Family History Mother Family Medical History: Dementia, Memory Impairment Father Family Medical History: Liver Disease Additional Family Medical History / Comment(s): Father was an alcoholic and of cirrhosis of the liver. Sister(s) Additional Family Medical History / Comment(s): heart problems Brother(s) Additional Family Medical History / Comment(s): heart problems r/t rheumatic fever General Exam - General Exam Comments Initial Comments: GENERAL: Patient is well-developed and well-nourished. Patient is nontoxic and well- hydrated and is in mild distress. ENT: Neck is soft and supple. No significant lymphadenopathy is noted. Oropharynx is clear. Moist mucous membranes. Neck has full range of motion without eliciting any pain. EYES: The sclera were anicteric and conjunctiva were pink and moist. Extraocular movements were intact and pupils were equal round and reactive to light. Eyelids were unremarkable. PULMONARY: Unlabored respirations. Good breath sounds bilaterally. No audible rales rhonchi or wheezing was noted. CARDIOVASCULAR: There is a regular rate and rhythm without any murmurs gallops or rubs. ABDOMEN: Soft and nontender with normal bowel sounds. SKIN: Skin is clear with no lesions or rashes and otherwise unremarkable. NEUROLOGIC: Patient is alert and oriented 3 cranial nerves II through XII are grossly intact motor and sensory are also intact MUSCULOSKELETAL: Right calf is tender to palpation. There is also redness from about her heel up to the mid calf area which is also warm. Patient's chronic state was on the anterior aspect of her right leg. LYMPHATICS: No significant lymphadenopathy is noted PSYCHIATRIC: Normal psychiatric evaluation. Limitations: no limitations Course Vital Signs 07/02/19 07/02/19 12:06 14:01 Temperature 99.5 F Pulse Rate 80 78 Respiratory 16 18 Rate Blood Pressure 144/72 141/64 O2 Sat by Pulse 97 99 Oximetry Medical Decision Making - Medical Decision Making EKG shows normal sinus rhythm at 77 bpm UT interval is 200 QRS 138 QT interval 436 QTC is 493. Patient's EKG shows left bundle branch block Ultrasound showed no DVT. Chest x-ray showed no acute abnormality. Though the patient did not have a white count the leg was warm hot and tender and the patient was feeling lethargic so I admitted the patient for cellulitis of that leg. Patient also did complain of some urinary symptoms but we were un able to get a urine and she refuses to be catheterized. I spoke with Dr. Méndez and he agreed to admit the patient admitted the patient wrote admitting orders - Lab Data Result diagrams: 07/02/19 12:20 07/02/19 12:20 Lab Results 07/02/19 07/02/19 07/02/19 Range/Units 12:20 12:20 12:20 WBC 7.1 (3.8-10.6) k/uL RBC 4.08 (3.80-5.40) m/uL Hgb 13.2 (11.4-16.0) gm/dL Hct 38.2 (34.0-46.0) % MCV 93.6 (80.0-100.0) fL MCH 32.5 (25.0-35.0) pg MCHC 34.7 (31.0-37.0) g/dL RDW 12.3 (11.5-15.5) % Plt Count 168 (150-450) k/uL Neutrophils % 66 % Lymphocytes % 16 % Monocytes % 13 % Eosinophils % 1 % Basophils % 1 % Neutrophils # 4.7 (1.3-7.7) k/uL Lymphocytes # 1.2 (1.0-4.8) k/uL Monocytes # 0.9 (0-1.0) k/uL Eosinophils # 0.1 (0-0.7) k/uL Basophils # 0.1 (0-0.2) k/uL PT 12.6 H (9.0-12.0) sec INR 1.2 H (<1.2) APTT 35.6 H (22.0-30.0) sec Sodium 139 (137-145) mmol/L Potassium 4.3 (3.5-5.1) mmol/L Chloride 104 (98-107) mmol/L Carbon Dioxide 25 (22-30) mmol/L Anion Gap 10 mmol/L BUN 12 (7-17) mg/dL Creatinine 0.64 (0.52-1.04) mg/dL Est GFR (CKD-EPI)AfAm >90 (>60 ml/min/1.73 sqM) Est GFR (CKD-EPI)NonAf 83 (>60 ml/min/1.73 sqM) Glucose 86 (74-99) mg/dL Calcium 8.9 (8.4-10.2) mg/dL Total Bilirubin 1.3 (0.2-1.3) mg/dL AST 26 (14-36) U/L ALT 17 (9-52) U/L Alkaline Phosphatase 68 (38-126) U/L Total Protein 6.7 (6.3-8.2) g/dL Albumin 3.7 (3.5-5.0) g/dL Influenza Type A RNA (Not Detectd) Influenza Type B (PCR) (Not Detectd) 07/02/19 Range/Units 13:00 WBC (3.8-10.6) k/uL RBC (3.80-5.40) m/uL Hgb (11.4-16.0) gm/dL Hct (34.0-46.0) % MCV (80.0-100.0) fL MCH (25.0-35.0) pg MCHC (31.0-37.0) g/dL RDW (11.5-15.5) % Plt Count (150-450) k/uL Neutrophils % % Lymphocytes % % Monocytes % % Eosinophils % % Basophils % % Neutrophils # (1.3-7.7) k/uL Lymphocytes # (1.0-4.8) k/uL Monocytes # (0-1.0) k/uL Eosinophils # (0-0.7) k/uL Basophils # (0-0.2) k/uL PT (9.0-12.0) sec INR (<1.2) APTT (22.0-30.0) sec Sodium (137-145) mmol/L Potassium (3.5-5.1) mmol/L Chloride (98-107) mmol/L Carbon Dioxide (22-30) mmol/L Anion Gap mmol/L BUN (7-17) mg/dL Creatinine (0.52-1.04) mg/dL Est GFR (CKD-EPI)AfAm (>60 ml/min/1.73 sqM) Est GFR (CKD-EPI)NonAf (>60 ml/min/1.73 sqM) Glucose (74-99) mg/dL Calcium (8.4-10.2) mg/dL Total Bilirubin (0.2-1.3) mg/dL AST (14-36) U/L ALT (9-52) U/L Alkaline Phosphatase (38-126) U/L Total Protein (6.3-8.2) g/dL Albumin (3.5-5.0) g/dL Influenza Type A RNA Not Detected (Not Detectd) Influenza Type B (PCR) Not Detected (Not Detectd) Disposition Clinical Impression: Cellulitis of right leg Disposition: ADMITTED IP TO THIS HOSP Referrals: Case Berman MD [Primary Care Provider] - 1-2 days
--- NOTE | 2019-07-02 13:11 | XR ---
EXAMINATION TYPE: XR chest 2V DATE OF EXAM: 07/02/2019 COMPARISON: Chest x-ray June 25, 2018 HISTORY: Fever. TECHNIQUE: Frontal and lateral views of the chest are obtained. FINDINGS: There is chronic emphysematous change without suspicious new focal air space opacity, pleu ral effusion, or pneumothorax seen. The cardiac silhouette size remains enlarged with atheroscleroti c aorta. The osseous structures are demineralized. Multilevel spurring of thoracic spine is present . IMPRESSION: Chronic emphysematous changes and cardiomegaly without acute pulmonary process.
[2019-07-02] MEDS: SODIUM CHLORIDE 0.9% 500 ML 500 ML IV SCH (13:19)
--- NOTE | 2019-07-02 13:54 | US ---
EXAMINATION TYPE: US venous doppler duplex LE RT DATE OF EXAM: 07/02/2019 1:43 PM COMPARISON: Prior bilateral ultrasound 2017 CLINICAL HISTORY: Painful right calf with redness . SIDE PERFORMED: Right TECHNIQUE: The lower extremity deep venous system is examined utilizing real time linear array sonog mark with graded compression, doppler sonography and color-flow sonography. VESSELS IMAGED: External Iliac Vein (EIV) Common Femoral Vein Deep Femoral Vein Greater Saphenous Vein * Femoral Vein Popliteal Vein Small Saphenous Vein * Proximal Calf Veins (* superficial vessels) Patient of large body habitus. Right Leg: Negative for DVT At redness in right calf is extensive edematous tissue. Grayscale, color doppler, spectral doppler imaging performed of the deep veins of the right lower ext remity. There is normal flow, compressibility, vascular waveforms. IMPRESSION: Suboptimal study without acute DVT in the right lower extremity. Towards end of study th ere is severe focal subcutaneous edema at level of right calf noted.
[2019-07-02 14:14] LABS: Basophils # (A) 0.1 k/uL (0-0.2); Basophils % (A) 1 %; Eosinophils # (A) 0.1 k/uL (0-0.7); Eosinophils % (A) 1 %; HCT 38.2 % (34.0-46.0); HGB 13.2 gm/dL (11.4-16.0); Lymphocytes # (A) 1.2 k/uL (1.0-4.8); Lymphocytes % (A) 16 %; MCH 32.5 pg (25.0-35.0); MCHC 34.7 g/dL (31.0-37.0); MCV 93.6 fL (80.0-100.0); Mean Platelet Volume 7.4; Monocytes # (A) 0.9 k/uL (0-1.0); Monocytes % (A) 13 %; Neutrophils # (A) 4.7 k/uL (1.3-7.7); Neutrophils % (A) 66 %; Platelet Count 168 k/uL (150-450); RBC 4.08 m/uL (3.80-5.40); RDW 12.3 % (11.5-15.5); WBC 7.1 k/uL (3.8-10.6)
[2019-07-02 14:22] LABS: ALT 17 U/L (9-52); AST 26 U/L (14-36); African American GFR (CKD) >90 (>60 ml/min/1.73 sqM); Albumin 3.7 g/dL (3.5-5.0); Alkaline Phosphatase 68 U/L (38-126); Anion Gap 10 mmol/L; Blood Urea Nitrogen 12 mg/dL (7-17); Calcium 8.9 mg/dL (8.4-10.2); Carbon Dioxide 25 mmol/L (22-30); Chloride 104 mmol/L (98-107); Glucose 86 mg/dL (74-99); INR 1.2 (<1.2); Partial Thromboplastin Time 35.6 sec (22.0-30.0); Potassium 4.3 mmol/L (3.5-5.1); Prothrombin Time 12.6 sec (9.0-12.0); Sodium 139 mmol/L (137-145); Total Bilirubin 1.3 mg/dL (0.2-1.3); Total Protein 6.7 g/dL (6.3-8.2)
[2019-07-02] MEDS ORDERED: SODIUM CHLORIDE 0.9% 1,000 ML IV ONE (15:14)
[2019-07-02 17:20] LABS: Appearance,Urine Clear (Clear); Bilirubin,Urine Negative (Negative); Blood,Urine Negative (Negative); Color,Urine Yellow; Glucose,Urine (UA) Negative (Negative); Ketones,Urine Negative (Negative); Leukocyte Esterase,Urine Negative (Negative); Nitrite,Urine Negative (Negative); Protein,Urine Trace (Negative); Specific Gravity,Urine 1.016 (1.001-1.035); Urobilinogen,Urine <2.0 mg/dL (<2.0)
[2019-07-02] MEDS ORDERED: POTASSIUM CHLORIDE ER 20 MEQ TAB.ER PO PRN (19:03)
[2019-07-02] MEDS ORDERED: ALPRAZolam 0.25 MG TAB PO PRN (19:03)
[2019-07-02] MEDS: RIVAROXABAN 20 MG TAB PO SCH (22:02)
[2019-07-02] MEDS: PIPERACILLIN-TAZOBACTAM 3.375 GM in SODIUM CHLORIDE 0.9% 100 ML IVPB SCH (22:03)
[2019-07-02] MEDS: METOPROLOL TARTRATE 50 MG TAB PO SCH (23:47)
[2019-07-03] MEDS: PIPERACILLIN-TAZOBACTAM 3.375 GM in SODIUM CHLORIDE 0.9% 100 ML IVPB SCH ×3 (06:22→22:03)
[2019-07-03] MEDS: LEVOTHYROXINE 100 MCG TAB PO SCH (06:22)
[2019-07-03] MEDS: FUROSEMIDE 40 MG TAB PO PRN (09:05)
[2019-07-03] MEDS: METOPROLOL TARTRATE 50 MG TAB PO SCH ×3 (09:06→23:57)
[2019-07-03] MEDS: VERAPAMIL SR 240 MG TABLET.ER PO SCH (12:19)
[2019-07-03] MEDS: ATORVASTATIN 10 MG TAB PO SCH (12:19)
[2019-07-03] MEDS: IBUPROFEN 800 MG TAB PO PRN (13:38)
--- NOTE | 2019-07-03 16:06 | P.GSCN ---
History of Present Illness Consult date: 07/03/19 Reason for Consult: Dependent edema/chronic to her bilateral lower extremities. Requesting physician: Case Berman History of present illness: This is an 84-year-old female patient who is followed by Dr. Case Berman on an outpatient basis. She has a past medical history significant for a long- standing history of lower extremity edema, hypertension, hypothyroidism, psoriasis, osteoarthritis, history of bowel obstruction with bowel resection, urinary incontinence, diverticulosis, obstructive sleep apnea not utilizing any CPAP therapy at home, and hyperlipidemia. The patient presented to the emergen cy department here at [facility] yesterday 07/02/2019 with complaints of generalized weakness over a couple a day, complaints of chills, swelling to her bilateral lower extremities more so to the right lower extremity and complaints of pain to her right calf. She denies any complaints of nausea, vomiting, headache, recent injury or trauma, shortness of breath, diarrhea or constipation. Her initial lab results in the emergency department showed a WBC count 7.1, Hgb 13.2, platelets 168, BUN 12, creatinine 0.64 and a lactic acid level of 1.1. Due to the patient's swelling of her bilateral lower extremities a consult was placed to Dr. Max Jane for evaluation and treatment recommendations. Review of Systems A 14 point review of systems was completed and was negative except as mentioned in the HPI. Past Medical History Past Medical History: Atrial Fibrillation, Heart Failure, Hyperlipidemia, Hypert ension, Osteoarthritis (OA), Skin Disorder, Thyroid Disorder Additional Past Medical History / Comment(s): Muscle weakness without definite diagnosis of myositis based on the muscle biopsy treated with steroids, psoriasis, right lower extremity cellulitis, pedal edema, hypothyroidism, osteoarthritis hands and knees bilaterally, history of bowel obstruction requiring surgical intervention, diverticulosis, urinary incontinence, obstructive sleep apnea not utilizing any CPAP therapy, extensive reaction to doxycycline occurred on January 2016 with itching and leg weakness. History of Any Multi-Drug Resistant Organisms: None Reported Past Surgical History: Appendectomy, Bowel Resection, Joint Replacement, Tonsillectomy Additional Past Surgical History / Comment(s): thyroidectomy, raissa knee replaceme nts, bowel resection, muscle bx, D&C, bilateral cataract removals, bilateral foot bunionectomy, colonoscopies. Past Anesthesia/Blood Transfusion Reactions: No Reported Reaction Past Psychological History: Anxiety, Depression Additional Psychological History / Comment(s): Pt has 2 adult grandsons who live with her and are very helpful. She ambulates with a walker. Pt no longer drives, family takes her to appointments. Smoking Status: Never smoker Past Alcohol Use History: Occasional Past Drug Use History: None Reported - Past Family History Mother Family Medical History: Dementia, Memory Impairment Father Family Medical History: Liver Disease Additional Family Medical History / Comment(s): Father was an alcoholic and of cirrhosis of the liver. Sister(s) Additional Family Medical History / Comment(s): heart problems Brother(s) Additional Family Medical History / Comment(s): heart problems r/t rheumatic fever Medications and Allergies Home Medications Medication Instructions Recorded Confirmed Type Furosemide 40 mg PO DAILY PRN 01/28/16 07/02/19 History Levothyroxine Sodium [Levoxyl] 200 mcg PO QAM 01/28/16 07/02/19 History Verapamil HCl [Verapamil ER] 240 mg PO DAILY@1200 01/28/16 07/02/19 History Potassium Chloride [Klor-Con 20] 20 meq PO DAILY PRN 10/21/16 07/02/19 History Rivaroxaban [Xarelto] 20 mg PO HS 08/02/17 07/02/19 History Metoprolol Tartrate [Lopressor] 50 mg PO Q8H 09/07/18 07/02/19 History ALPRAZolam [Xanax] 0.25 mg PO Q6HR PRN 07/02/19 07/02/19 History Simvastatin [Zocor] 20 mg PO DAILY@1200 07/02/19 07/02/19 History Allergies Allergy/AdvReac Type Severity Reaction Status Date / Time doxycycline Allergy Itching Verified 07/02/19 12:30 Surgical - Exam Vital Signs Temp Pulse Resp BP Pulse Ox 99.5 F 80 16 144/72 97 07/02/19 12:06 07/02/19 12:06 07/02/19 12:06 07/02/19 12:06 07/02/19 12:06 - General well developed, well nourished, no distress, no pain, chronically ill, obese - Eyes PERRL, normal ocular movement - ENT normal pinna, normal nares, normal mucosa, no hearing loss, no congestion, dentures (upper plate) - Neck The supple, no lymphadenopathy. no masses, no bruits, trachea midline, no venous distension - Respiratory Lung sounds are essentially clear throughout. Respirations are symmetrical and nonlabored. No wheezing, rhonchi or crackles appreciated. - Cardiovascular Regular rhythm and rate. S1 and S2 present, negative for S3, gallop or murmur. - Abdomen Abdomen is soft, nontender and nondistended. Active bowel sounds present all 4 abdominal quadrants. No guarding or rigidity. No organomegaly appreciated. - Genitourinary Deferred - Rectum Deferred - Integumentary Erythema to her bilateral groin areas and under her bilateral breasts. no growths - Neurologic normal coordination, normal sensation - Musculoskeletal Generalized weakness, move all 4 extremities. - Psychiatric oriented to time, oriented to person, oriented to place, speech is normal, memory intact Results - Labs 07/02/19 12:20 07/02/19 12:20 Abnormal Lab Results - Last 24 Hours (Table) 07/02/19 Range/Units 17:06 Urine Protein Trace H (Negative) - Imaging Comments: Ultrasound of her right lower extremity negative for DVT. Assessment and Plan Assessment: 1. Cellulitis of the right leg, with swelling to her bilateral lower extremitie s Plan: The patient was seen and examined on the fourth floor medical surgical unit. Her chart and diagnostics were reviewed. Her case was discussed in detail with Dr. Max Jane. Treatment recommendations are to apply Rubio wraps to her bilateral lower extremities from her toes to just below the knee. Change the Rubio wrap's daily and when necessary. Also when not sitting up for meals or ambulating, recommendations are to have her legs elevated 6-8 inches higher than the level of her heart. Medical management and other comorbidities per primary care service. Continue DVT and GI prophylaxis. Thank you Dr. Berman for this consult and we'll look forward to working with you in the care of your patient. Time with Patient: Greater than 30
[2019-07-03] MEDS: ACETAMINOPHEN TAB 325 MG TAB PO PRN (17:07)
--- NOTE | 2019-07-03 18:43 | HP ---
HISTORY AND PHYSICAL CHIEF COMPLAINT: Chills, right lower extremity pain, redness and swelling. HISTORY OF PRESENT ILLNESS: This is another admission for this 84-year-old white female who has brawny edema in both lower extremities, for which she has difficulty giving appropriate care. Efforts have been made in the past to try to supply her with external compression, without success. She started developing an open area on the back of the right ankle where she had a skin fold and it progressed into painful cellulitis. She came to emergency room, where she was admitted for elevation, IV fluids and antibiotics. REVIEW OF SYSTEMS: She has had no headaches, cough, chest pain, abdominal pain, nausea, vomiting, urinary complaints, etc. Past medical history, family history, and personal and social histories are otherwise unremarkable and noncontributory. She is ALLERGIC TO TETRACYCLINES. Medicines that she is on can be found in her MAR. She does not smoke or drink. PHYSICAL EXAMINATION: Blood pressure 160/80 with a pulse of 100, respirations 12 and temperature 99.5. In general she appeared to be well developed, well nourished, in no acute distress. Skin color was normal. Skin was warm and dry. Lymph nodes were not enlarged. Head, ears, eyes, nose, mouth and throat were normal. Neck veins were not distended. Thyroid was not enlarged. Chest was clear. Cardiac exam was normal. Abdomen was soft, nontender. Lower extremities demonstrated brawny edema from the knees down. She had several skin folds in the ankle areas of both feet. There was fairly marked erythematous and tender cellulitis in the right lower leg from the calf down with an open split area in the back of the right ankle. Pulses were good. Neurologically she was intact. IMPRESSION: 1. Cellulitis of right lower extremity. 2. Brawny edema of both lower legs. 3. Maceration of skin on lower legs. PLAN: 1. Bed rest. 2. IV fluids. 3. Elevation. 4. IV antibiotics. MMODL / IJN: [id number] /
[2019-07-03] MEDS: RIVAROXABAN 20 MG TAB PO SCH (22:03)
[2019-07-04] MEDS: LEVOTHYROXINE 100 MCG TAB PO SCH (06:28)
[2019-07-04] MEDS: PIPERACILLIN-TAZOBACTAM 3.375 GM in SODIUM CHLORIDE 0.9% 100 ML IVPB SCH ×3 (06:49→21:16)
[2019-07-04] MEDS: METOPROLOL TARTRATE 50 MG TAB PO SCH ×2 (07:28→16:04)
[2019-07-04] MEDS: IBUPROFEN 800 MG TAB PO PRN (07:35)
[2019-07-04] MEDS: ATORVASTATIN 10 MG TAB PO SCH (12:09)
[2019-07-04] MEDS: VERAPAMIL SR 240 MG TABLET.ER PO SCH (12:09)
--- NOTE | 2019-07-04 16:00 | P.PN ---
Subjective Progress Note Date: 07/04/19 Principal diagnosis: Cellulitis of the right leg, with swelling to her bilateral lower extremities. Medical history significant for a long-standing history of lower extremity edema , hypertension, hypothyroidism, psoriasis, osteoarthritis, history of bowel obstruction with bowel resection, urinary incontinence, diverticulosis, obstructive sleep apnea not utilizing any CPAP therapy at home, and hyperlipidemia. The patient was seen and examined at the bedside on the medical surgical fourth floor unit. She is alert and oriented 3. Rubio wraps were applied to her bilateral lower extremities yesterday from her toes to just below her knees. The patient reports that she remove the Rubio wrap's about 2 hours after placement due to complaints of throbbing pain to her bilateral lower extremities. She remains afebrile last 24 hours. Antibiotic management per primary care service. Objective - Vital Signs Vital signs: Vital Signs Temp 97.7 F 07/04/19 13:16 Pulse 71 07/04/19 13:16 Resp 20 07/04/19 13:47 BP 139/70 07/04/19 13:16 Pulse Ox 98 07/04/19 13:16 Intake & Output 07/03/19 07/04/19 07/04/19 18:59 06:59 18:59 Intake Total 200 Balance 200 Intake: Oral 200 Other: Voiding Method Bedside Commode Bedside Commode Incontinent Incontinent # Voids 3 1 1 - Constitutional General appearance: Present: cooperative, no acute distress, obese - Respiratory Details: Lungs sounds essentially clear throughout. Respirations are symmetrical and nonlabored. - Cardiovascular Details: Regular rhythm and rate. S1 and S2 present, negative for S3, gallop or murmur. - Gastrointestinal Gastrointestinal Comment(s): Abdomen is soft, nontender nondistended. Active bowel sounds present all 4 abdominal quadrants. - Integumentary Integumentary Comment(s): Skin is warm and dry. No clubbing or cyanosis is present. Erythema areas present to her bilateral groin areas and to just underneath her breasts bilaterally. She also has some hemosiderin straining to her right lower extremity. - Neurologic Neurologic Comment(s): No focal deficits. Neurologic: Present: CNII-XII intact - Musculoskeletal Musculoskeletal: Present: generalized weakness, strength equal bilaterally - Psychiatric Psychiatric: Present: A&O x's 3, appropriate affect, intact judgment & insight - Allied health notes Allied health notes reviewed: nursing - Labs CBC & Chem 7: 07/02/19 12:20 07/02/19 12:20 Labs: Microbiology - Last 24 Hours (Table) 07/02/19 13:57 Blood Culture - Preliminary Blood No Growth after 24 hours - Imaging and Cardiology Chest x-ray: report reviewed, image reviewed Assessment and Plan Assessment: 1. Cellulitis of the right leg, with swelling to her bilateral lower extremities Plan: 1. Rubio wraps were reapplied to her bilateral lower extremities from her toes to just below the knee. Reinforced with the patient the importance of keeping the Rubio wraps in place. Discussed with the patient and the patient's nurse that if the wraps become uncomfortable she irregular removed some 2 hours to give her legs rest, then have the nurse reapply the Rubio wrap's. 2. Pain management per current when necessary orders. 3. When not sitting up for meals or ambulating in the hallway she should have her legs elevated higher than the level of her heart 6-8 inches. 4. We will follow the patient on a as needed basis. Time with Patient: Greater than 30
[2019-07-04] MEDS: ACETAMINOPHEN TAB 325 MG TAB PO PRN (16:05)
--- NOTE | 2019-07-04 16:26 | PN ---
PROGRESS NOTE DATE OF SERVICE: 07/03/2019 CHIEF COMPLAINT: Pain, redness, swelling and cellulitis of the right lower extremity. HISTORY OF PRESENT ILLNESS: This lady is not doing much better. Pain is about the same and the swelling has not gone down. She still has chills but no fever. PHYSICAL EXAMINATION: Her chest is clear. Cardiac exam is normal. Abdomen is soft and nontender. Extremities are normal except for the legs where she still has extensive and intense erythema and cellulitis of the right lower leg and ankle. Calf is somewhat tight, but Homans is negative. IMPRESSION: Venostasis disease, brawny edema and cellulitis of the lower extremities, with the right being worse than the left. PLAN: 1. Continue with IV fluids and antibiotics. 2. We are asking Vascular Surgery to see her to consider other options to control her edema. MMODL / IJN: [id number] /
--- NOTE | 2019-07-04 20:14 | PN ---
PROGRESS NOTE DATE OF SERVICE: 07/04/2019 CHIEF COMPLAINT: Cellulitis of the right lower leg. HISTORY OF PRESENT ILLNESS: This lady is just about the same. She was seen by Vascular Surgery and Rubio wraps were applied, but she made the nurses take them off. This is fairly typical for her uncooperative attitude. REVIEW OF SYSTEMS: She has had no fever or chills, but she still has redness, pain and swelling in the right lower leg. IMPRESSION AND PLAN: 1. Cellulitis of the right lower leg with brawny edema. 2. Continue with antibiotics. 3. Bed rest as much as possible with elevation. MMODL / IJN: [id number] /
[2019-07-04] MEDS: RIVAROXABAN 20 MG TAB PO SCH (21:16)
[2019-07-05] MEDS: METOPROLOL TARTRATE 50 MG TAB PO SCH ×4 (00:07→23:47)
[2019-07-05] MEDS: PIPERACILLIN-TAZOBACTAM 3.375 GM in SODIUM CHLORIDE 0.9% 100 ML IVPB SCH ×3 (05:39→21:11)
[2019-07-05] MEDS: LEVOTHYROXINE 100 MCG TAB PO SCH (05:43)
[2019-07-05] MEDS: ATORVASTATIN 10 MG TAB PO SCH (11:17)
[2019-07-05] MEDS: VERAPAMIL SR 240 MG TABLET.ER PO SCH (11:17)
[2019-07-05] MEDS: FUROSEMIDE 40 MG TAB PO PRN (11:17)
--- NOTE | 2019-07-05 15:21 | PN ---
PROGRESS NOTE CHIEF COMPLAINT: Cellulitis of the right lower leg. HISTORY OF PRESENT ILLNESS: This lady is doing much better. She was encouraged to leave the Rubio wraps on yesterday and her leg has gone down tremendously. The cellulitic areas are definitely improving. There is less redness and tenderness and swelling is going down quite quickly. PHYSICAL EXAMINATION: Chest is clear. Cardiac exam is normal. Abdomen is soft, nontender. The right foot and leg are much smaller and there is no further weeping from the fold on the back of the lower leg. IMPRESSION: Cellulitis of the right lower leg. PLAN: Continue to encourage her to use the Rubio wraps. She will probably be able to go home in the next day or 2, but she may have to go to rehab. RODRÍGUEZ / NATASHAN: [id number] /
[2019-07-05] MEDS: RIVAROXABAN 20 MG TAB PO SCH (21:11)
[2019-07-06] MEDS: PIPERACILLIN-TAZOBACTAM 3.375 GM in SODIUM CHLORIDE 0.9% 100 ML IVPB SCH ×3 (05:55→21:40)
[2019-07-06] MEDS: LEVOTHYROXINE 100 MCG TAB PO SCH (05:55)
[2019-07-06] MEDS: METOPROLOL TARTRATE 50 MG TAB PO SCH ×4 (07:57→23:29)
[2019-07-06] MEDS: ATORVASTATIN 10 MG TAB PO SCH (07:57)
[2019-07-06] MEDS: VERAPAMIL SR 240 MG TABLET.ER PO SCH (13:01)
--- NOTE | 2019-07-06 19:40 | PN ---
PROGRESS NOTE DATE OF SERVICE: 07/06/2019 CHIEF COMPLAINT: Cellulitis of the lower extremities with edema. HISTORY OF PRESENT ILLNESS: This lady is doing fairly well. She has no complaints. She is allowing the legs to be wrapped with Rubio wraps now and they are getting much smaller. She is complaining of some discomfort in the left hip, but this has been there for years. PHYSICAL EXAMINATION: Chest is clear. Cardiac exam is normal. The abdomen is soft and protuberant. Extremities demonstrate Rubio wraps up to the knees and edema in the feet is definitely diminishing. She will probably be able to go home tomorrow. MMODL / IJN: [id number] /
[2019-07-06] MEDS: RIVAROXABAN 20 MG TAB PO SCH (21:40)
[2019-07-07] MEDS: PIPERACILLIN-TAZOBACTAM 3.375 GM in SODIUM CHLORIDE 0.9% 100 ML IVPB SCH (06:07)
[2019-07-07] MEDS: LEVOTHYROXINE 100 MCG TAB PO SCH (06:07)
[2019-07-07] MEDS: ATORVASTATIN 10 MG TAB PO SCH (08:17)
[2019-07-07] MEDS: METOPROLOL TARTRATE 50 MG TAB PO SCH ×2 (08:17→15:51)
--- NOTE | 2019-07-07 11:29 | CDI ---
Documentation Clarification Form Date: 07/07/2019 11:19:41 AM From: Katiuska Mitchell CCS, CCDS Admit Date: 07/05/2019 12:01:00 PM Patient Name: Brittany Reveles Visit Number: [id number] Discharge Date: ATTENTION: The Clinical Documentation Specialists (CDI) and [facility] Coding Staff appreciate your assistance in clarifying documentation. Please respond to the clarification below the line at the bottom and electronically sign. The CDI & [facility] Coding staff will review the response and follow-up if needed. Please note: Queries are made part of the Legal Health Record. If you have any questions, please contact the author of this message via ITS. Dr. Case Berman: Per the ED note & Vascular Surgery consult, the patient has a history of heart failure with hypertension. History/Risk Factors: Heart Failure, Hyperlipidemia, Hypertension, OA, Muscle weakness with no definitive diagnosis, chronic lower extremity cellulitis, DERRICK & diverticulosis. Clinical Indicators: Presented with pain & redness to right lower extremity, diagnosed with RLE cellulitis. Known chronic edema. VS: P 80, R 16 - 18, BP 144/72, PO 97 RA BNP: No BNP drawn. Echocardiogram Results: Previous ECHO 10/16/16: systolic low normal, EF 50-55%, Mild aortic valve sclerosis, Mild MR & TR, moderate pulmonary hypertension. Chest X Ray: Chronic emphysematous changes, no acute pulmonary process. Treatment: IV Zosyn, IV fluid 1000, IV fluid rate 75, po Lasix 40 mg daily (home dose) In your professional opinion, can you please clarify the acuity and type of CHF if known? Heart Failure is ruled out Heart Failure is ruled in, please specify type & acuity: Systolic Heart Failure: o Acute o Chronic o Acute on Chronic Diastolic Heart Failure: o Acute o Chronic o Acute on Chronic Systolic & Diastolic Heart Failure: o Acute o Chronic o Acute on Chronic Heart Failure Unable to Determine Other, please specify (Last Revision: December 2017) MTDD
[2019-07-07] MEDS: VERAPAMIL SR 240 MG TABLET.ER PO SCH (13:29)
[2019-07-07] MEDS ORDERED: INFLUENZA VACCINE (6 MOS+) 60 MCG/0.5 ML SYRINGE IM ONE (14:48)
[2019-07-07 15:28] VITALS: BP 134/72; PULSE 72; RESP 18; TEMP 98.7
[2019-07-07] MEDS ORDERED: MUPIROCIN 2% OINT 22 GM TUBE TOPICAL SCH (16:00)
[2019-07-07] MEDS ORDERED: AMOXIC-POT CLAV 875-125MG 1 EACH TAB PO SCH (21:00)
--- NOTE | 2019-07-07 23:32 | DS ---
DISCHARGE SUMMARY CHIEF COMPLAINT: Pain, swelling and redness in her lower legs. HISTORY OF PRESENT ILLNESS AND PHYSICAL EXAMINATION: Details of this lady's history and physical can be found in the initial workup. LABORATORY STUDIES: While she was in the hospital she had laboratory studies, details of which can be found in the laboratory section of her chart. COURSE IN THE HOSPITAL: After admission she was placed on bedrest, started on intravenous fluids and IV antibiotics with elevation. She was seen again by Vascular Surgery, who concurred that the best treatment for her lower extremities was external compression and that Rubio wraps were the best alternative. She has always been reluctant to use them. They were applied, and she did see how much swelling was alleviated. She was doing well and it was felt that she could go home and she will be on Augmentin and Bactroban ointment. She will be followed up by [facility]. We will also see her in the office on Sunday. FINAL DIAGNOSES: 1. Cellulitis of the lower extremities with the right being worse than the left. 2. Brawny edema in the lower extremities. 3. Venous insufficiency in the lower extremities with stasis dermatitis. 4. Hypertension. 5. Hypothyroidism. OPERATIONS: None. CONSULTATION: Vascular Surgery. She is improved. MMODL / IJN: [id number] /
--- NOTE | 2019-07-10 05:22 | MISC ---
MISCELLANOUS REPORT QUERY Heart failure is ruled out. MMODL / IJN: [id number] /
== END 2019-07-07 16:16 | disposition home health service (06) | DRG 603 ==
LOC: EC 12:05 → 4MS4W 15:14 → OBSVTOIN 07-05 12:01
PROVIDERS: ADMIT Family Medicine; ATTEND Family Medicine
DX: L03.115 Cellulitis of right lower limb (principal); L03.116 Cellulitis of left lower limb; I48.91 Unspecified atrial fibrillation; I87.2 Venous insufficiency (chronic) (peripheral); E78.5 Hyperlipidemia, unspecified; E89.0 Postprocedural hypothyroidism; G47.33 Obstructive sleep apnea (adult) (pediatric); I10 Essential (primary) hypertension; F32.9 Major depressive disorder, single episode, unspecified; F41.9 Anxiety disorder, unspecified; K57.90 Diverticulosis of intestine, part unspecified, without perforation or abscess without bleeding; L40.9 Psoriasis, unspecified; M62.81 Muscle weakness (generalized); R32 Unspecified urinary incontinence; M19.042 Primary osteoarthritis, left hand; M19.041 Primary osteoarthritis, right hand; M17.0 Bilateral primary osteoarthritis of knee; E66.9 Obesity, unspecified; Z68.28 Body mass index [BMI] 28.0-28.9, adult; Z79.01 Long term (current) use of anticoagulants; Z79.890 Hormone replacement therapy; Z79.899 Other long term (current) drug therapy; Z96.653 Presence of artificial knee joint, bilateral; Z90.49 Acquired absence of other specified parts of digestive tract; Z81.1 Family history of alcohol abuse and dependence; Z83.79 Family history of other diseases of the digestive system; Z82.0 Family history of epilepsy and other diseases of the nervous system
CPT/HCPCS: 36415; 71046; 80053; 81003; 83605; 84443; 85025; 85610; 85730; 87040; 87502; 90686; 93005; 96361; 96365; 96366; 99285

== ENCOUNTER 2019-08-29 10:14 | Emergency (ER) | payer MEDICARE ==
[2019-08-29 10:27] VITALS: PULSE 60; RESP 20; TEMP 97.6
[2019-08-29] MEDS ORDERED: SODIUM CHLORIDE 0.9% 500 ML 500 ML IV STA (11:05)
--- NOTE | 2019-08-29 11:41 | US ---
EXAMINATION TYPE: US venous doppler duplex LE RT DATE OF EXAM: 08/29/2019 11:35 AM COMPARISON: NONE CLINICAL HISTORY: r/o blood clot. swelling SIDE PERFORMED: Right TECHNIQUE: The lower extremity deep venous system is examined utilizing real time linear array sonog mark with graded compression, doppler sonography and color-flow sonography. VESSELS IMAGED: External Iliac Vein (EIV) Common Femoral Vein Deep Femoral Vein Greater Saphenous Vein * Femoral Vein Popliteal Vein Small Saphenous Vein * Proximal Calf Veins (* superficial vessels) Right Leg: Negative for DVT IMPRESSION: No evidence for DVT at this time.
--- NOTE | 2019-08-29 11:44 | ED ---
General Adult HPI - General Chief complaint: Extremity Problem,Nontraumatic Stated complaint: Cellulitis Time Seen by Provider: 08/29/19 10:28 Source: patient, RN notes reviewed Mode of arrival: ambulatory Limitations: no limitations - History of Present Illness Initial comments: 84-year-old female with a past medical history atrial fibrillation, heart failure, hyperlipidemia, hypertension presents to the emergency department for a chief complaint of right leg pain. Patient states she believes she is having a recurrence of right lower extremity cellulitis. States that she was hospitalized for this last month. States she finished those antibiotics. However about 4 days ago she started having worsening pain and swelling in the right lower leg. States that she went to urgent care and they're concerned about her worsening cellulitis so are going to put her on oral antibiotics. However they sent her to the emergency department for rule out DVT. Patient is anticoagulated.Patient has no other complaints at this time including shortness of breath, chest pain, abdominal pain, nausea or vomiting, headache, or visual changes. - Related Data Home Medications Medication Instructions Recorded Confirmed Furosemide 40 mg PO DAILY PRN 01/28/16 07/02/19 Levothyroxine Sodium [Levoxyl] 200 mcg PO QAM 01/28/16 07/02/19 Verapamil HCl [Verapamil ER] 240 mg PO DAILY@1200 01/28/16 07/02/19 Potassium Chloride [Klor-Con 20] 20 meq PO DAILY PRN 10/21/16 07/02/19 Rivaroxaban [Xarelto] 20 mg PO HS 08/02/17 07/02/19 Metoprolol Tartrate [Lopressor] 50 mg PO Q8H 09/07/18 07/02/19 ALPRAZolam [Xanax] 0.25 mg PO Q6HR PRN 07/02/19 07/02/19 Previous Rx's Medication Instructions Recorded Amoxic-Pot Clav 875-125Mg 1 each PO Q12HR #20 tab 07/07/19 [Augmentin 875-125] Atorvastatin [Lipitor] 10 mg PO DAILY@1200 #30 tab 07/07/19 Mupirocin 2% Oint [Bactroban 2% 1 applic TOPICAL BID #30 tube 07/07/19 Oint] Cephalexin [Keflex] 500 mg PO Q6HR 14 Days #56 cap 08/29/19 Allergies Allergy/AdvReac Type Severity Reaction Status Date / Time doxycycline Allergy Itching Verified 08/29/19 10:23 Review of Systems ROS Statement: Those systems with pertinent positive or pertinent negative responses have been documented in the HPI. ROS Other: All systems not noted in ROS Statement are negative. Past Medical History Past Medical History: Atrial Fibrillation, Heart Failure, Hyperlipidemia, Hypertension, Osteoarthritis (OA), Skin Disorder, Thyroid Disorder Additional Past Medical History / Comment(s): Muscle weakness without definite diagnosis of myositis based on the muscle biopsy treated with steroids, psoriasis, right lower extremity cellulitis, pedal edema, hypothyroidism, osteoarthritis hands and knees bilaterally, history of bowel obstruction requiring surgical intervention, diverticulosis, urinary incontinence, obstructive sleep apnea not utilizing any CPAP therapy, extensive reaction to doxycycline occurred on January 2016 with itching and leg weakness. History of Any Multi-Drug Resistant Organisms: None Reported Past Surgical History: Appendectomy, Bowel Resection, Joint Replacement, Tonsillectomy Additional Past Surgical History / Comment(s): thyroidectomy, raissa knee replacements, bowel resection, muscle bx, D&C, bilateral cataract removals, bilateral foot bunionectomy, colonoscopies. Past Anesthesia/Blood Transfusion Reactions: No Reported Reaction Past Psychological History: Anxiety, Depression Smoking Status: Never smoker Past Alcohol Use History: Occasional Past Drug Use History: None Reported - Past Family History Mother Family Medical History: Dementia, Memory Impairment Father Family Medical History: Liver Disease Additional Family Medical History / Comment(s): Father was an alcoholic and of cirrhosis of the liver. Sister(s) Additional Family Medical History / Comment(s): heart problems Brother(s) Additional Family Medical History / Comment(s): heart problems r/t rheumatic fever General Exam Limitations: no limitations General appearance: alert, in no apparent distress Head exam: Present: atraumatic, normocephalic, normal inspection Eye exam: Present: normal appearance, PERRL, EOMI. Absent: scleral icterus, conjunctival injection, periorbital swelling ENT exam: Present: normal exam, mucous membranes moist Neck exam: Present: normal inspection, full ROM. Absent: tenderness, meningismus, lymphadenopathy Respiratory exam: Present: normal lung sounds bilaterally. Absent: respiratory distress, wheezes, rales, rhonchi, stridor Cardiovascular Exam: Present: regular rate, normal rhythm, normal heart sounds. Absent: systolic murmur, diastolic murmur, rubs, gallop, clicks Extremities exam: Present: full ROM (Full range motion of the right foot and ankle.), tenderness (Tenderness noted to the right calf. No tenderness in the right foot.), normal capillary refill (Capillary refill less than 2 seconds in the right foot and ankle to left bilaterally.), other (There is some mild edema noted of the right foot and right calf with mild erythema.) Course Vital Signs 08/29/19 08/29/19 10:24 12:05 Temperature 97.6 F 97.6 F Pulse Rate 60 60 Respiratory 20 20 Rate Blood Pressure 135/69 135/69 O2 Sat by Pulse 98 98 Oximetry Medical Decision Making - Medical Decision Making Patient is well-appearing. She does have some mild edema and erythema of the right lower extremity however this is unimpressive. Ultrasound was performed which shows no evidence for DVT. I recommended blood work and IV antibiotics however patient refuses this stating she would prefer to try oral antibiotics. Patient did agree to IM Rocephin. I discussed oral antibiotic therapy for 24-48 hours and then reevaluating. If symptoms are worsening at that time she needs to return to the emergency department given her history. Patient is agreeable to this. Patient's family members at bedside. Disposition Clinical Impression: Cellulitis of right lower extremity Disposition: HOME SELF-CARE Condition: Good Instructions (If sedation given, give patient instructions): Cellulitis (ED) Additional Instructions: Take antibiotic as directed. Follow up with primary care in 1-2 days. If symptoms are not improving after 24-48 hours of antibiotic therapy return to the emergency department. Otherwise keep feet elevated, monitor for fevers, and return if you have any worsening symptoms prior to then. Prescriptions: Cephalexin [Keflex] 500 mg PO Q6HR 14 Days #56 cap Is patient prescribed a controlled substance at d/c from ED?: No Referrals: Case Berman MD [Primary Care Provider] - 1-2 days Time of Disposition: 12:47
[2019-08-29] MEDS ORDERED: cefTRIAXone IN SWFI 1,000 MG/10 ML SYRINGE IVP STA (11:45)
[2019-08-29] MEDS ORDERED: CEPHALEXIN 500MG STARTER PACK 4 CAP BTL PO STA (12:51)
[2019-08-29] MEDS ORDERED: cefTRIAXone 1,000 MG VIAL (IM USE) IM STA (12:51)
[2019-08-29] MEDS ORDERED: KETOROLAC 30 MG/ML 1 ML VIAL IM SCH (13:00)
[2019-08-29 13:05] VITALS: BP 130/69
== END 2019-08-29 13:05 | disposition home or self-care (01) ==
LOC: EC 10:14
DX: L03.115 Cellulitis of right lower limb (principal); I48.91 Unspecified atrial fibrillation; I11.0 Hypertensive heart disease with heart failure; I50.9 Heart failure, unspecified; E78.5 Hyperlipidemia, unspecified; E03.9 Hypothyroidism, unspecified; M19.90 Unspecified osteoarthritis, unspecified site; F41.9 Anxiety disorder, unspecified; F32.9 Major depressive disorder, single episode, unspecified; Z79.890 Hormone replacement therapy; Z79.01 Long term (current) use of anticoagulants; Z79.899 Other long term (current) drug therapy; Z88.1 Allergy status to other antibiotic agents; Z96.653 Presence of artificial knee joint, bilateral; Z91.19 Patient's noncompliance with other medical treatment and regimen
CPT/HCPCS: 96372; 99283

== ENCOUNTER 2020-01-11 17:33 | Emergency (ER) | payer MEDICARE ==
[2020-01-11 17:55] VITALS: RESP 18
[2020-01-11] MEDS ORDERED: ACETAMINOPHEN TAB 500 MG TAB PO STA (18:04)
--- NOTE | 2020-01-11 18:09 | ED ---
General Adult HPI - General Chief complaint: Extremity Problem,Nontraumatic Stated complaint: Leg pain Time Seen by Provider: 01/11/20 17:37 Source: patient, EMS, RN notes reviewed Mode of arrival: EMS Limitations: no limitations - History of Present Illness Initial comments: Patient is a pleasant 84-year-old female presenting to the emergency department with concern for possible cellulitis. Patient frequently gets cellulitis of her right leg however has noticed some pain and redness of her left leg over the past couple of days. Discomfort is moderate. Patient did develop fever just prior to arrival. Patient states she frequently has urinary tract infections however is unclear whether or not she could have one now. Patient states her urine was yellow. No recent traumas. No swelling. - Related Data Home Medications Medication Instructions Recorded Confirmed Furosemide 40 mg PO DAILY PRN 01/28/16 07/02/19 Levothyroxine Sodium [Levoxyl] 200 mcg PO QAM 01/28/16 07/02/19 Verapamil HCl [Verapamil ER] 240 mg PO DAILY@1200 01/28/16 07/02/19 Potassium Chloride [Klor-Con 20] 20 meq PO DAILY PRN 10/21/16 07/02/19 Rivaroxaban [Xarelto] 20 mg PO HS 08/02/17 07/02/19 Metoprolol Tartrate [Lopressor] 50 mg PO Q8H 09/07/18 07/02/19 ALPRAZolam [Xanax] 0.25 mg PO Q6HR PRN 07/02/19 07/02/19 Previous Rx's Medication Instructions Recorded Amoxic-Pot Clav 875-125Mg 1 each PO Q12HR #20 tab 07/07/19 [Augmentin 875-125] Atorvastatin [Lipitor] 10 mg PO DAILY@1200 #30 tab 07/07/19 Mupirocin 2% Oint [Bactroban 2% 1 applic TOPICAL BID #30 tube 07/07/19 Oint] Cephalexin [Keflex] 500 mg PO Q6HR 14 Days #56 cap 08/29/19 Fluconazole [Diflucan] 150 mg PO DAILY #1 tab 08/29/19 Allergies Allergy/AdvReac Type Severity Reaction Status Date / Time doxycycline Allergy Itching Verified 01/11/20 17:44 Review of Systems ROS Statement: Those systems with pertinent positive or pertinent negative responses have been documented in the HPI. ROS Other: All systems not noted in ROS Statement are negative. Constitutional: Reports: as per HPI, fever Eyes: Denies: eye pain ENT: Denies: ear pain Respiratory: Denies: cough, dyspnea Cardiovascular: Denies: chest pain Endocrine: Denies: fatigue Gastrointestinal: Denies: abdominal pain Genitourinary: Reports: as per HPI Musculoskeletal: Denies: back pain Skin: Reports: as per HPI, rash Past Medical History Past Medical History: Atrial Fibrillation, Heart Failure, Hyperlipidemia, Hypertension, Osteoarthritis (OA), Skin Disorder, Thyroid Disorder Additional Past Medical History / Comment(s): Muscle weakness without definite diagnosis of myositis based on the muscle biopsy treated with steroids, psoriasis, right lower extremity cellulitis, pedal edema, hypothyroidism, osteoarthritis hands and knees bilaterally, history of bowel obstruction requiring surgical intervention, diverticulosis, urinary incontinence, obstructive sleep apnea not utilizing any CPAP therapy, extensive reaction to do xycycline occurred on January 2016 with itching and leg weakness. History of Any Multi-Drug Resistant Organisms: None Reported Past Surgical History: Appendectomy, Bowel Resection, Joint Replacement, Tonsillectomy Additional Past Surgical History / Comment(s): thyroidectomy, raissa knee replacements, bowel resection, muscle bx, D&C, bilateral cataract removals, bilateral foot bunionectomy, colonoscopies. Past Anesthesia/Blood Transfusion Reactions: No Reported Reaction Past Psychological History: Anxiety, Depression Smoking Status: Never smoker Past Alcohol Use History: Occasional Past Drug Use History: None Reported - Past Family History Mother Family Medical History: Dementia, Memory Impairment Father Family Medical History: Liver Disease Additional Family Medical History / Comment(s): Father was an alcoholic and of cirrhosis of the liver. Sister(s) Additional Family Medical History / Comment(s): heart problems Brother(s) Additional Family Medical History / Comment(s): heart problems r/t rheumatic fever General Exam Limitations: no limitations General appearance: alert, in no apparent distress Eye exam: Present: normal appearance, PERRL ENT exam: Present: normal oropharynx Neck exam: Present: normal inspection Respiratory exam: Present: normal lung sounds bilaterally Cardiovascular Exam: Present: regular rate, normal rhythm Expanded Peripheral pulses: 2+: Posterior Tibialis (L), Dorsalis Pedis (L) GI/Abdominal exam: Present: soft. Absent: tenderness Extremities exam: Present: tenderness (left Anterior [place] with erythema from the ankle to below the knee.) Neurological exam: Present: alert Psychiatric exam: Present: normal affect, normal mood Skin exam: Present: erythema (Left anterior [place]) Course Vital Signs 01/11/20 17:44 Temperature 100.3 F H Pulse Rate 89 Respiratory 18 Rate O2 Sat by Pulse 98 Oximetry Medical Decision Making - Medical Decision Making Patient reevaluated and resting comfortably in bed. Patient and daughter u pdated. Patient has been on Augmentin and has had 3 doses now. Long discussion had with patient and family regarding disposition. They are informed that normally I would lean towards admission for IV antibiotics. Secondary to concerns regarding coronavirus pandemic they do not [facility]. Patient has only had 3 doses of medication and is not fully in her system. Patient and daughter are comfortable with a single dose of IV antibiotics follow-up with close follow-up by primary care physician for reevaluation. - Lab Data Result diagrams: 01/11/20 18:34 01/11/20 18:34 Lab Results 01/11/20 01/11/20 01/11/20 Range/Units 18:34 18:34 18:34 WBC 7.0 (3.8-10.6) k/uL RBC 4.01 (3.80-5.40) m/uL Hgb 12.4 (11.4-16.0) gm/dL Hct 37.0 (34.0-46.0) % MCV 92.4 (80.0-100.0) fL MCH 31.0 (25.0-35.0) pg MCHC 33.5 (31.0-37.0) g/dL RDW 12.6 (11.5-15.5) % Plt Count 165 (150-450) k/uL Neutrophils % 66 % Lymphocytes % 18 % Monocytes % 12 % Eosinophils % 1 % Basophils % 0 % Neutrophils # 4.7 (1.3-7.7) k/uL Lymphocytes # 1.3 (1.0-4.8) k/uL Monocytes # 0.9 (0-1.0) k/uL Eosinophils # 0.1 (0-0.7) k/uL Basophils # 0.0 (0-0.2) k/uL PT 12.4 H (9.0-12.0) sec INR 1.2 H (<1.2) APTT 32.3 H (22.0-30.0) sec Sodium 136 L (137-145) mmol/L Potassium 3.9 (3.5-5.1) mmol/L Chloride 106 (98-107) mmol/L Carbon Dioxide 23 (22-30) mmol/L Anion Gap 7 mmol/L BUN 12 (7-17) mg/dL Creatinine 0.57 (0.52-1.04) mg/dL Est GFR (CKD-EPI)AfAm >90 (>60 ml/min/1.73 sqM) Est GFR (CKD-EPI)NonAf 87 (>60 ml/min/1.73 sqM) Glucose 91 (74-99) mg/dL Plasma Lactic Acid Beau (0.7-2.0) mmol/L Calcium 8.8 (8.4-10.2) mg/dL Total Bilirubin 1.0 (0.2-1.3) mg/dL AST 18 (14-36) U/L ALT 12 (4-34) U/L Alkaline Phosphatase 82 (38-126) U/L Total Protein 6.3 (6.3-8.2) g/dL Albumin 3.5 (3.5-5.0) g/dL Urine Color Urine Appearance (Clear) Urine pH (5.0-8.0) Ur Specific [place] (1.001-1.035) Urine Protein (Negative) Urine Glucose (UA) (Negative) Urine Ketones (Negative) Urine Blood (Negative) Urine Nitrite (Negative) Urine Bilirubin (Negative) Urine Urobilinogen (<2.0) mg/dL Ur Leukocyte Esterase (Negative) Urine RBC (0-5) /hpf Urine WBC (0-5) /hpf Ur Squamous Epith Cells (0-4) /hpf Urine Mucus (None) /hpf 01/11/20 01/11/20 Range/Units 18:34 19:08 WBC (3.8-10.6) k/uL RBC (3.80-5.40) m/uL Hgb (11.4-16.0) gm/dL Hct (34.0-46.0) % MCV (80.0-100.0) fL MCH (25.0-35.0) pg MCHC (31.0-37.0) g/dL RDW (11.5-15.5) % Plt Count (150-450) k/uL Neutrophils % % Lymphocytes % % Monocytes % % Eosinophils % % Basophils % % Neutrophils # (1.3-7.7) k/uL Lymphocytes # (1.0-4.8) k/uL Monocytes # (0-1.0) k/uL Eosinophils # (0-0.7) k/uL Basophils # (0-0.2) k/uL PT (9.0-12.0) sec INR (<1.2) APTT (22.0-30.0) sec Sodium (137-145) mmol/L Potassium (3.5-5.1) mmol/L Chloride (98-107) mmol/L Carbon Dioxide (22-30) mmol/L Anion Gap mmol/L BUN (7-17) mg/dL Creatinine (0.52-1.04) mg/dL Est GFR (CKD-EPI)AfAm (>60 ml/min/1.73 sqM) Est GFR (CKD-EPI)NonAf (>60 ml/min/1.73 sqM) Glucose (74-99) mg/dL Plasma Lactic Acid Beau 1.0 (0.7-2.0) mmol/L Calcium (8.4-10.2) mg/dL Total Bilirubin (0.2-1.3) mg/dL AST (14-36) U/L ALT (4-34) U/L Alkaline Phosphatase (38-126) U/L Total Protein (6.3-8.2) g/dL Albumin (3.5-5.0) g/dL Urine Color Yellow Urine Appearance Clear (Clear) Urine pH 7.0 (5.0-8.0) Ur Specific [place] 1.017 (1.001-1.035) Urine Protein 1+ H (Negative) Urine Glucose (UA) Negative (Negative) Urine Ketones 1+ H (Negative) Urine Blood Trace H (Negative) Urine Nitrite Negative (Negative) Urine Bilirubin Negative (Negative) Urine Urobilinogen 3.0 (<2.0) mg/dL Ur Leukocyte Esterase Negative (Negative) Urine RBC 3 (0-5) /hpf Urine WBC 1 (0-5) /hpf Ur Squamous Epith Cells 5 H (0-4) /hpf Urine Mucus Rare H (None) /hpf - Radiology Data Radiology results: image reviewed (Chest x-ray shows COPD and cardiomegaly. Coarse interstitium. Right basilar atelectasis versus focal 3. X-ray left tib- fib shows no acute process.) Disposition Clinical Impression: Cellulitis of left leg Disposition: HOME SELF-CARE Condition: Stable Additional Instructions: Please follow-up with Dr. Berman in the next 24 hours for recheck. Return for continued fevers, increased leg pain or redness or swelling, redness extending above the knee, worsening symptoms or any other concerns. Continue antibiotics. Is patient prescribed a controlled substance at d/c from ED?: No Referrals: Case Berman MD [Primary Care Provider] - 1-2 days Time of Disposition: 19:34
[2020-01-11] MEDS ORDERED: SODIUM CHLORIDE 0.9% 1,000 ML IV SCH (18:15)
[2020-01-11 18:56] LABS: Basophils % (A) 0 %; Eosinophils # (A) 0.1 k/uL (0-0.7); Eosinophils % (A) 1 %; HGB 12.4 gm/dL (11.4-16.0); Lymphocytes # (A) 1.3 k/uL (1.0-4.8); Lymphocytes % (A) 18 %; MCHC 33.5 g/dL (31.0-37.0); MCV 92.4 fL (80.0-100.0); Mean Platelet Volume 8.8; Monocytes # (A) 0.9 k/uL (0-1.0); Monocytes % (A) 12 %; Neutrophils # (A) 4.7 k/uL (1.3-7.7); Neutrophils % (A) 66 %; Platelet Count 165 k/uL (150-450); RBC 4.01 m/uL (3.80-5.40); RDW 12.6 % (11.5-15.5)
[2020-01-11 18:58] LABS: ALT 12 U/L (4-34); AST 18 U/L (14-36); African American GFR (CKD) >90 (>60 ml/min/1.73 sqM); Albumin 3.5 g/dL (3.5-5.0); Alkaline Phosphatase 82 U/L (38-126); Anion Gap 7 mmol/L; Blood Urea Nitrogen 12 mg/dL (7-17); Calcium 8.8 mg/dL (8.4-10.2); Carbon Dioxide 23 mmol/L (22-30); Chloride 106 mmol/L (98-107); Glucose 91 mg/dL (74-99); Non-African American GFR(CKD) 87 (>60 ml/min/1.73 sqM); Potassium 3.9 mmol/L (3.5-5.1); Sodium 136 mmol/L (137-145); Total Protein 6.3 g/dL (6.3-8.2)
--- NOTE | 2020-01-11 19:01 | XR ---
EXAMINATION TYPE: XR chest 2V DATE OF EXAM: 01/11/2020 COMPARISON: 07/02/2019 TECHNIQUE: PA and lateral views submitted. HISTORY: Fever FINDINGS: There is subsegmental changes at the right lung base with blunting of the costophrenic angle. Bluntin g of the left costophrenic angle also noted. Heart is enlarged and changes of COPD are noted. Degener ative changes spine. Coarsened interstitium is seen. No pneumothorax. Vague nodular 8 mm density over lying the anterior margin first rib may be related to slight patient rotation and superimposed struct ures. Short-term follow-up chest x-ray recommended. IMPRESSION: 1. COPD and cardiomegaly with coarsened interstitium and tiny bilateral pleural effusions. Right basi lar atelectasis versus infiltrate. Correlate for developing interstitial pneumonitis versus mild claudia estion.
--- NOTE | 2020-01-11 19:02 | XR ---
EXAMINATION TYPE: XR tibia fibula LT DATE OF EXAM: 01/11/2020 COMPARISON: 01/15/2020 HISTORY: Pain TECHNIQUE: Two views are submitted. FINDINGS: The osseous structures are intact. Postsurgical changes are noted. Mild diffuse soft tissue edema wit h diffuse osteopenia. Spurring involving the medial malleolus noted. Spurring involving the medial di stal femoral condyle. Mild narrowing of the ankle mortise. IMPRESSION: 1. No acute osseous abnormality.
[2020-01-11 19:05] LABS: INR 1.2 (<1.2); Partial Thromboplastin Time 32.3 sec (22.0-30.0); Prothrombin Time 12.4 sec (9.0-12.0)
[2020-01-11 19:30] LABS: Appearance,Urine Clear (Clear); Bilirubin,Urine Negative (Negative); Blood,Urine Trace (Negative); Color,Urine Yellow; Glucose,Urine (UA) Negative (Negative); Ketones,Urine 1+ (Negative); Leukocyte Esterase,Urine Negative (Negative); Mucus,Urine Rare /hpf; Nitrite,Urine Negative (Negative); Protein,Urine 1+ (Negative); RBC,Urine 3 /hpf (0-5); Specific Gravity,Urine 1.017 (1.001-1.035); Squamous Epithelial Cell,Urine 5 /hpf (0-4); WBC,Urine 1 /hpf (0-5)
[2020-01-11] MEDS ORDERED: AMPICILLIN-SULBACTAM 3 GM in SODIUM CHLORIDE 0.9% 100 ML IVPB STA (19:41)
[2020-01-11 19:42] VITALS: BP 157/74; PULSE 87; TEMP 98.9
== END 2020-01-11 20:31 | disposition home or self-care (01) ==
LOC: EC 17:33
DX: L03.116 Cellulitis of left lower limb (principal); I48.91 Unspecified atrial fibrillation; I11.0 Hypertensive heart disease with heart failure; I50.9 Heart failure, unspecified; E03.9 Hypothyroidism, unspecified; Z79.890 Hormone replacement therapy; Z79.01 Long term (current) use of anticoagulants; Z79.899 Other long term (current) drug therapy; Z88.1 Allergy status to other antibiotic agents; Z96.653 Presence of artificial knee joint, bilateral
CPT/HCPCS: 36415; 80053; 83605; 85025; 85610; 85730; 81001; 87040; 73590; 71046; 99284; 96365; 96361; J0295

== ENCOUNTER 2020-01-15 10:56 | Inpatient (IN) | payer MEDICARE ==
--- NOTE | 2020-01-15 11:09 | ED ---
Skin/Abscess/FB HPI - General Chief complaint: Skin/Abscess/Foreign Body Stated complaint: Cellulitis Time Seen by Provider: 01/15/20 11:00 Source: patient, EMS, RN notes reviewed Mode of arrival: EMS Limitations: no limitations - History of Present Illness Initial comments: This is a 84-year-old female history of left lower extremity cellulitis recently with her last ER visit or days ago also history of pulmonary embolism who is on Xarelto who presents with complaints of left lower extremity pain and drainage a lesion that popped up overnight that started bleeding this morning. She complains some fevers. No nausea no vomiting no other symptoms at this time. She is currently on oral antibiotics. MD complaint: abscess/boil, lesion, other - Related Data Home Medications Medication Instructions Recorded Confirmed Furosemide 40 mg PO DAILY PRN 01/28/16 07/02/19 Levothyroxine Sodium [Levoxyl] 200 mcg PO QAM 01/28/16 07/02/19 Verapamil HCl [Verapamil ER] 240 mg PO DAILY@1200 01/28/16 07/02/19 Potassium Chloride [Klor-Con 20] 20 meq PO DAILY PRN 10/21/16 07/02/19 Rivaroxaban [Xarelto] 20 mg PO HS 08/02/17 07/02/19 Metoprolol Tartrate [Lopressor] 50 mg PO Q8H 09/07/18 07/02/19 ALPRAZolam [Xanax] 0.25 mg PO Q6HR PRN 07/02/19 07/02/19 Previous Rx's Medication Instructions Recorded Amoxic-Pot Clav 875-125Mg 1 each PO Q12HR #20 tab 07/07/19 [Augmentin 875-125] Atorvastatin [Lipitor] 10 mg PO DAILY@1200 #30 tab 07/07/19 Mupirocin 2% Oint [Bactroban 2% 1 applic TOPICAL BID #30 tube 07/07/19 Oint] Cephalexin [Keflex] 500 mg PO Q6HR 14 Days #56 cap 08/29/19 Fluconazole [Diflucan] 150 mg PO DAILY #1 tab 08/29/19 Allergies Allergy/AdvReac Type Severity Reaction Status Date / Time doxycycline Allergy Itching Verified 01/11/20 17:44 Review of Systems ROS Statement: Those systems with pertinent positive or pertinent negative responses have been documented in the HPI. ROS Other: All systems not noted in ROS Statement are negative. Past Medical History Past Medical History: Atrial Fibrillation, Heart Failure, Hyperlipidemia, Hypertension, Osteoarthritis (OA), Skin Disorder, Thyroid Disorder Additional Past Medical History / Comment(s): Muscle weakness without definite diagnosis of myositis based on the muscle biopsy treated with steroids, pso riasis, right lower extremity cellulitis, pedal edema, hypothyroidism, osteoarthritis hands and knees bilaterally, history of bowel obstruction requiring surgical intervention, diverticulosis, urinary incontinence, obstructive sleep apnea not utilizing any CPAP therapy, extensive reaction to doxycycline occurred on January 2016 with itching and leg weakness. History of Any Multi-Drug Resistant Organisms: None Reported Past Surgical History: Appendectomy, Bowel Resection, Joint Replacement, Tonsillectomy Additional Past Surgical History / Comment(s): thyroidectomy, raissa knee replacements, bowel resection, muscle bx, D&C, bilateral cataract removals, bilateral foot bunionectomy, colonoscopies. Past Anesthesia/Blood Transfusion Reactions: No Reported Reaction Past Psychological History: Anxiety, Depression Smoking Status: Never smoker Past Alcohol Use History: Occasional Past Drug Use History: None Reported - Past Family History Mother Family Medical History: Dementia, Memory Impairment Father Family Medical History: Liver Disease Additional Family Medical History / Comment(s): Father was an alcoholic and of cirrhosis of the liver. Sister(s) Additional Family Medical History / Comment(s): heart problems Brother(s) Additional Family Medical History / Comment(s): heart problems r/t rheumatic fever General Exam - General Exam Comments Initial Comments: This is a well-developed well-nourished awake alert oriented 3 female Limitations: no limitations General appearance: alert, in no apparent distress Head exam: Present: atraumatic, normocephalic, normal inspection Eye exam: Present: normal appearance, PERRL, EOMI. Absent: scleral icterus, conjunctival injection, periorbital swelling ENT exam: Present: normal exam, mucous membranes moist Neck exam: Present: normal inspection. Absent: tenderness, meningismus, lymphadenopathy Respiratory exam: Present: normal lung sounds bilaterally. Absent: respiratory distress, wheezes, rales, rhonchi, stridor Cardiovascular Exam: Present: regular rate, normal rhythm, normal heart sounds. Absent: systolic murmur, diastolic murmur, rubs, gallop, clicks GI/Abdominal exam: Present: soft, normal bowel sounds. Absent: distended, tenderness, guarding, rebound, rigid Extremities exam: Present: full ROM, tenderness, normal capillary refill, other (Increased localized erythema with increased local temperature. There is evidence of a blisterlike lesion with some dried blood about it. No current lymphangitis is noted. Patient does however complain some mild discomfort to her anterior medial thigh area.). Absent: pedal edema, joint swelling, calf tenderness Back exam: Present: normal inspection Neurological exam: Present: alert, oriented X3, CN II-XII intact Psychiatric exam: Present: normal affect, normal mood Skin exam: Present: warm, dry. Absent: intact (As above), normal color, rash Course Vital Signs 01/15/20 01/15/20 11:00 11:05 Temperature 98.2 F Pulse Rate 72 Respiratory 18 18 Rate Blood Pressure 139/73 O2 Sat by Pulse 95 Oximetry Medical Decision Making - Medical Decision Making I did discuss findings with the patient and family as well as with Dr. Berman. Patient will be admitted for inpatient IV therapy. - Lab Data Result diagrams: 01/15/20 11:13 01/15/20 11:13 Lab Results 01/15/20 01/15/20 01/15/20 Range/Units 11:13 11:13 11:13 WBC 10.1 (3.8-10.6) k/uL RBC 3.86 (3.80-5.40) m/uL Hgb 12.0 (11.4-16.0) gm/dL Hct 36.2 (34.0-46.0) % MCV 93.8 (80.0-100.0) fL MCH 31.2 (25.0-35.0) pg MCHC 33.2 (31.0-37.0) g/dL RDW 12.6 (11.5-15.5) % Plt Count 232 (150-450) k/uL Neutrophils % 84 % Lymphocytes % 8 % Monocytes % 6 % Eosinophils % 0 % Basophils % 0 % Neutrophils # 8.5 H (1.3-7.7) k/uL Lymphocytes # 0.8 L (1.0-4.8) k/uL Monocytes # 0.6 (0-1.0) k/uL Eosinophils # 0.0 (0-0.7) k/uL Basophils # 0.0 (0-0.2) k/uL PT 14.9 H (9.0-12.0) sec INR 1.5 H (<1.2) APTT 35.4 H (22.0-30.0) sec Sodium 139 (137-145) mmol/L Potassium 3.5 (3.5-5.1) mmol/L Chloride 108 H (98-107) mmol/L Carbon Dioxide 19 L (22-30) mmol/L Anion Gap 12 mmol/L BUN 8 (7-17) mg/dL Creatinine 0.58 (0.52-1.04) mg/dL Est GFR (CKD-EPI)AfAm >90 (>60 ml/min/1.73 sqM) Est GFR (CKD-EPI)NonAf 86 (>60 ml/min/1.73 sqM) Glucose 111 H (74-99) mg/dL Calcium 8.3 L (8.4-10.2) mg/dL Magnesium 2.1 (1.6-2.3) mg/dL Total Bilirubin 0.9 (0.2-1.3) mg/dL AST 16 (14-36) U/L ALT 14 (4-34) U/L Alkaline Phosphatase 83 (38-126) U/L Total Protein 6.2 L (6.3-8.2) g/dL Albumin 3.2 L (3.5-5.0) g/dL - Radiology Data Radiology results: report reviewed (I did review the imaging and report no evidence of acute fracture or foreign body tissue findings are consistent with the initial exam), image reviewed Disposition Clinical Impression: Cellulitis of left lower extremity, Failure of outpatient treatment Disposition: ADMITTED IP TO THIS [facility] Condition: Fair Referrals: Case Berman MD [Primary Care Provider] - 1-2 days
[2020-01-15 11:25] LABS: Basophils % (A) 0 %; Eosinophils % (A) 0 %; HCT 36.2 % (34.0-46.0); Lymphocytes # (A) 0.8 k/uL (1.0-4.8); Lymphocytes % (A) 8 %; MCH 31.2 pg (25.0-35.0); MCHC 33.2 g/dL (31.0-37.0); MCV 93.8 fL (80.0-100.0); Mean Platelet Volume 8.5; Monocytes # (A) 0.6 k/uL (0-1.0); Monocytes % (A) 6 %; Neutrophils # (A) 8.5 k/uL (1.3-7.7); Neutrophils % (A) 84 %; Platelet Count 232 k/uL (150-450); RBC 3.86 m/uL (3.80-5.40); RDW 12.6 % (11.5-15.5); WBC 10.1 k/uL (3.8-10.6)
[2020-01-15 11:34] LABS: ALT 14 U/L (4-34); AST 16 U/L (14-36); African American GFR (CKD) >90 (>60 ml/min/1.73 sqM); Albumin 3.2 g/dL (3.5-5.0); Alkaline Phosphatase 83 U/L (38-126); Anion Gap 12 mmol/L; Blood Urea Nitrogen 8 mg/dL (7-17); Calcium 8.3 mg/dL (8.4-10.2); Carbon Dioxide 19 mmol/L (22-30); Chloride 108 mmol/L (98-107); Glucose 111 mg/dL (74-99); Magnesium 2.1 mg/dL (1.6-2.3); Non-African American GFR(CKD) 86 (>60 ml/min/1.73 sqM); Potassium 3.5 mmol/L (3.5-5.1); Sodium 139 mmol/L (137-145); Total Bilirubin 0.9 mg/dL (0.2-1.3); Total Protein 6.2 g/dL (6.3-8.2)
--- NOTE | 2020-01-15 11:37 | XR ---
EXAMINATION TYPE: XR tibia fibula LT DATE OF EXAM: 01/15/2020 CLINICAL HISTORY: pain TECHNIQUE: AP and lateral images of the left tibia and fibula are obtained. COMPARISON: None. FINDINGS: There is no acute fracture/dislocation evident. Total knee are placed in noted. Soft tissu e swelling identified which may reflect cellulitis the lower extremity below the knee. Degenerative c hanges in the ankle joint. IMPRESSION: There is no acute fracture or dislocation seen. ICD 10 NO FRACTURE, INITIAL EVALUATION
[2020-01-15 11:45] LABS: INR 1.5 (<1.2); Partial Thromboplastin Time 35.4 sec (22.0-30.0); Prothrombin Time 14.9 sec (9.0-12.0)
[2020-01-15] MEDS ORDERED: NALOXONE 0.4 MG/ML 1 ML VIAL IV PRN (13:15)
[2020-01-15] MEDS ORDERED: PIPERACILLIN-TAZOBACTAM 3.375 GM in SODIUM CHLORIDE 0.9% 100 ML IVPB STA (13:15)
[2020-01-15] MEDS ORDERED: POTASSIUM CHLORIDE ER 20 MEQ TAB.ER PO PRN (13:17)
[2020-01-15] MEDS ORDERED: ALPRAZolam 0.25 MG TAB PO PRN (13:17)
[2020-01-15] MEDS ORDERED: FUROSEMIDE 40 MG TAB PO PRN (13:17)
[2020-01-15] MEDS ORDERED: VANCOMYCIN IV PER PHARMACY 1 EACH MISC MISCELLANE PRN (13:18)
[2020-01-15] MEDS ORDERED: VANCOMYCIN 1,500 MG in SODIUM CHLORIDE 0.9% 250 ML IVPB STA (13:22)
[2020-01-15] MEDS: METOPROLOL TARTRATE 50 MG TAB PO SCH ×2 (15:05→20:43)
[2020-01-15] MEDS: SODIUM CHLORIDE 0.9% 1,000 ML IV SCH (15:52)
[2020-01-15] MEDS: RIVAROXABAN 20 MG TAB PO SCH (20:43)
[2020-01-15] MEDS: MUPIROCIN 2% OINT 22 GM TUBE TOPICAL SCH (20:44)
--- NOTE | 2020-01-15 23:47 | CONS ---
CONSULTATION DATE OF SERVICE: 01/15/2020 REASON FOR CONSULTATION: Left lower extremity cellulitis. HISTORY OF PRESENT ILLNESS: The patient is 84-year-old female presenting to the ER with chief complaints of increasing swelling and redness to her left lower extremity. Apparently her symptoms had been going on for about 2 days before she presented to hospital. The patient denies having any history of any trauma. The patient did mention diffuse swelling and redness and then the area started to pop up and burst this morning with drainage of some blood-stained material. No purulence. The patient does have a history of PE and is currently on Xarelto. The patient denies high-grade fever; said she had some chills. No chest pain, shortness of breath or cough. No abdominal pain or any diarrhea. The patient was evaluated by the ER physician on arrival to the ER. The patient was afebrile. White count was not significantly elevated. Did have a left shift, though. The patient did have x-rays of the left leg that were negative for any bony changes. The patient did have local wound cultures obtained which are currently pending. She has been admitted to the hospital and has been started on vancomycin and Zosyn. Infectious Disease was consulted for further recommendations regarding antibiotic therapy. REVIEW OF SYSTEMS: Positive points have been mentioned in HPI. Rest of the systems are negative: PAST MEDICAL HISTORY: Atrial fibrillation, heart failure, hyperlipidemia, hypertension, osteoarthritis, hypothyroidism. PAST SURGICAL HISTORY: Appendectomy, bowel resection, tonsillectomy, bilateral knee replacement, bilateral bunionectomy, colonoscopy. SOCIAL HISTORY: Denies any history of smoking. Occasionally drinks. No drug use. FAMILY HISTORY: Mother with history of dementia. Father with history of liver disease from drinking. ALLERGIES: DOXYCYCLINE. MEDICATIONS: The patient is currently on vancomycin, Pharmacy to dose, Zosyn, IV fluid, Xarelto, Narcan, Bactroban ointment, Synthroid, Lasix, diflucan, Imdur, Xanax and Tylenol. PHYSICAL EXAMINATION: Blood pressure 152/79 with a pulse of 75, temperature 98.3. She is 98% on room air. General description is an elderly female lying in bed in no distress. No tachypnea or accessory muscle of respiration use. HEENT examination shows no pallor or scleral icterus. Oral mucosa membrane is dry. No pharyngeal erythema or thrush. NECK: Trachea is central. No thyromegaly. LUNGS: Unlabored breathing. Clear to auscultation anteriorly with crackles. HEART: S1, S2. Irregular rate and rhythm. ABDOMEN: Soft. No tenderness. EXTREMITIES: Left leg with diffuse swelling and redness with minimal blood- stained drainage and slight erythema and warm to touch. Neurologically the patient is awake, alert, oriented x3. Mood and affect normal. LABS: Hemoglobin is 12, white count 10.1 with a BUN of 8, creatinine 0.58. Liver enzymes are normal. Wound cultures are currently pending. DIAGNOSTIC IMPRESSION AND PLAN: Patient with acute left lower extremity cellulitis in this patient who did have leg blister subsequent ruptured, more likely from a Gram-positive skin laury such as strep or staph. Clinically doubt a Gram-negative infection. PLAN: 1. We will keep the patient on vancomycin, Pharmacy to dose, target of 15, while watching her kidney function and vancomycin trough closely. 2. Discontinue the Zosyn to decrease risk of nephrotoxicity. 3. We will follow her clinical condition and culture and further adjust medication if needed. Thank you for this consultation. Will follow this patient along with you. MMODL / IJN: [id number] / MTDD
[2020-01-16] MEDS ORDERED: PIPERACILLIN-TAZOBACTAM 3.375 GM in SODIUM CHLORIDE 0.9% 100 ML IVPB SCH ×2
[2020-01-16] MEDS: VANCOMYCIN 1,500 MG in SODIUM CHLORIDE 0.9% 250 ML IVPB SCH ×2 (03:51→15:19)
[2020-01-16] MEDS: LEVOTHYROXINE 100 MCG TAB PO SCH (05:56)
[2020-01-16] MEDS: METOPROLOL TARTRATE 50 MG TAB PO SCH ×3 (05:58→21:47)
[2020-01-16] MEDS: SODIUM CHLORIDE 0.9% 1,000 ML IV SCH (08:55)
[2020-01-16] MEDS: ACETAMINOPHEN TAB 325 MG TAB PO PRN ×3 (09:03→21:48)
[2020-01-16] MEDS: FLUCONAZOLE 150 MG TAB PO SCH (10:13)
[2020-01-16] MEDS: MUPIROCIN 2% OINT 22 GM TUBE TOPICAL SCH ×2 (10:15→20:24)
[2020-01-16] MEDS ORDERED: FUROSEMIDE 20 MG TAB PO PRN (10:16)
[2020-01-16] MEDS: VERAPAMIL SR 240 MG TABLET.ER PO SCH (11:49)
[2020-01-16] MEDS: ATORVASTATIN 10 MG TAB PO SCH (11:49)
--- NOTE | 2020-01-16 13:54 | HP ---
HISTORY AND PHYSICAL CHIEF COMPLAINT: Redness, pain, swelling, cellulitis and abscess of the left lower leg. HISTORY OF PRESENT ILLNESS: This is another fairly recent admission for this 84-year-old white female who has a lifelong problem with lower extremity dependent and lymphedema. She has stasis dermatitis and frequent problems with secondary infection. Part of her difficulty is that she will not apply Rubio wraps which definitely have helped her problem. She is very noncompliant with regard to this, which is one of the reasons she continually gets into trouble. She started to have some redness in the left ankle and left [place] and was placed on amoxicillin, but it grew steadily worse. Then she developed an area in the middle of the left [place], which probably was an abscess which then erupted. She came to the emergency room. She is admitted for IV antibiotics, elevation and compression. REVIEW OF SYSTEMS: She has had no chills, fever, neurologic problems, chest pain, shortness of breath, heart disease, abdominal pain, nausea, vomiting, diarrhea, melena, renal failure, dysuria, frequency, urgency, incontinence, etc. Past medical history, family history and personal and social histories reveal that she does have a history of hypertension, hypothyroidism, hyperlipidemia and atrial fibrillation. MEDICATIONS AT HOME: Her medications at home include: 1. Amoxil 875 twice a day. 2. Metoprolol 50 mg t.i.d. 3. Xanax 0.25 t.i.d. p.r.n. 4. Levothyroxine 0.175 mcg once a day. 5. Lipitor 20 at bedtime. 6. Furosemide 20 mg once a day. 7. Xarelto 20 mg once a day. 8. Calcium 600 mg once a day. 9. KCl 20 mEq once a day. ALLERGIES: She is allergic to . The remainder of her history is unremarkable or noncontributory. PHYSICAL EXAMINATION: Blood pressure is 142/82 with a pulse of 86. Respirations 20 and she is afebrile. In general, she appeared to be slightly overweight and in no acute distress. Skin color is normal. Skin is warm, dry. Lymph nodes not enlarged. Head, ears, eyes, nose, mouth, and throat are normal. Neck veins not distended. Thyroid is enlarged. Chest is clear. Cardiac exam is normal and it sounds as though she is in normal sinus rhythm at this time. Abdomen is soft, nontender. There are no masses. Extremities demonstrated edema of both lower extremities with stasis dermatitis and cellulitis. She has a fairly extensive cellulitis in the left anterior ireland and the middle of the lower leg. There is a purulent draining abscess. Neurologically, she is intact. IMPRESSION: 1. Abscess and venous stasis cellulitis of the left lower leg. 2. Chronic stasis and lymphedema both lower extremities. 3. Hypertension. 4. History of atrial fibrillation. 5. Hypothyroidism. 6. Hyperlipidemia. PLAN: 1. Bed rest. 2. IV fluids. 3. Elevation of the leg. 4. External compression of the lower extremities. 5. Consult with Infectious Disease. 6. Consult with Vascular Surgery. MMODL / IJN: [id number] /
--- NOTE | 2020-01-16 15:00 | PN ---
PROGRESS NOTE CHIEF COMPLAINT: Abscess and cellulitis of the left lower leg. HISTORY OF PRESENT ILLNESS: This lady is on IV antibiotics. It looks as though she is growing MRSA out of the [place]. She is on vancomycin. PHYSICAL EXAMINATION: She is afebrile. Chest is clear. Cardiac exam is normal. Abdomen is soft, nontender. IMPRESSION: 1. MRSA abscess and cellulitis of the left lower leg. 2. Stasis dermatitis. 3. Chronic lymphedema of the lower extremities. PLAN: 1. Continue with IV fluids and antibiotics. 2. Await recommendations from Vascular Surgery and Infectious Disease. MMODL / IJN: [id number] /
[2020-01-16] MEDS: RIVAROXABAN 20 MG TAB PO SCH (20:24)
--- NOTE | 2020-01-17 00:35 | PN ---
PROGRESS NOTE DATE OF SERVICE: 01/16/2020 REASON FOR FOLLOWUP: Left leg wound and cellulitis. INTERVAL HISTORY: The patient is currently afebrile. She has been breathing comfortably. Still complaining of significant pain to the left leg area. No chest pain or cough. No abdominal pain or diarrhea. PHYSICAL EXAMINATION: Blood pressure 127/76, pulse of 75, temperature 98.4. She is 94% on room air. General description is an elderly female lying in bed in no distress. Respiratory system: Unlabored breathing, clear to auscultation anteriorly. Heart S1, S2. Regular rate and rhythm. Abdomen soft, no tenderness. Left leg swelling and redness, minimal decreased. LABS: No new labs have been obtained today. Wound culture showing presumptive MRSA. Blood culture has been negative. DIAGNOSTIC IMPRESSION AND PLAN: Patient with left leg wound and cellulitis. The patient at this time covered with vancomycin, to continue. the patient did have overall significant improvement, to finish therapy with oral antibiotics and monitor clinical course closely. Continue supportive care. MMODL / IJN: [id number] / MITUL
[2020-01-17] MEDS: VANCOMYCIN 1,500 MG in SODIUM CHLORIDE 0.9% 250 ML IVPB SCH ×2 (04:45→15:36)
[2020-01-17] MEDS: LEVOTHYROXINE 100 MCG TAB PO SCH (05:48)
[2020-01-17] MEDS: ACETAMINOPHEN TAB 325 MG TAB PO PRN ×2 (05:48→20:11)
[2020-01-17] MEDS: METOPROLOL TARTRATE 50 MG TAB PO SCH ×3 (05:48→20:08)
[2020-01-17 07:05] LABS: African American GFR (CKD) >90 (>60 ml/min/1.73 sqM); Non-African American GFR(CKD) 82 (>60 ml/min/1.73 sqM)
[2020-01-17] MEDS: FLUCONAZOLE 150 MG TAB PO SCH (07:58)
[2020-01-17] MEDS: MUPIROCIN 2% OINT 22 GM TUBE TOPICAL SCH ×2 (08:00→20:09)
[2020-01-17] MEDS ORDERED: LIDOCAINE 1% INJ 10MG/ML (20 ML MDV) SQ ONE (08:00)
[2020-01-17] MEDS: ATORVASTATIN 10 MG TAB PO SCH (11:45)
[2020-01-17] MEDS: VERAPAMIL SR 240 MG TABLET.ER PO SCH (11:45)
[2020-01-17] MEDS: SODIUM CHLORIDE 0.9% 1,000 ML IV SCH (13:51)
[2020-01-17] MEDS ORDERED: VANCOMYCIN TROUGH DUE 1 EACH MISC MISCELLANE ONE (15:00)
--- NOTE | 2020-01-17 15:07 | PN ---
PROGRESS NOTE CHIEF COMPLAINT: Cellulitis and abscess of the left lower leg secondary to MRSA. HISTORY OF PRESENT ILLNESS: This lady is still having quite a bit of discomfort. However, she has had no chills or fever. She is on vancomycin and she has been seen by Infectious Disease. She still awaits consult from Vascular Surgery. PHYSICAL EXAMINATION: She is afebrile. VITAL SIGNS: Normal. The chest is clear. The cardiac exam is normal. Leg is elevated and cellulitis is slowly receding from the left [place]. The abscess is less active and draining less. IMPRESSION: 1. MRSA abscess of the left [place] with cellulitis. 2. Venostasis disease. 3. Hypertension. PLAN: Continue with elevation and IV antibiotics while waiting for Vascular Surgery. She should probably start external compression. MMODL / IJN: [id number] /
--- NOTE | 2020-01-17 18:44 | CONS ---
DATE OF CONSULTATION: 01/17/2020 This is 84-year-old female patient presented to the ER with history of wound to left lower extremity anterior aspect of the [place] with some brown induration 2 weeks duration. No history of trauma. The patient has been admitted. The patient on IV antibiotic. I was consulted for wound debridement and deep culture. MEDICAL HISTORY: History of atrial fibrillation, hyperlipidemia, hypertension, no history of diabetes. PHYSICAL EXAMINATION: On examination, patient was seen in her room. Neck is supple. Chest is clear to auscultation. Abdomen is soft. Femorals are 1+. Patient has some swelling of the left lower extremities with brawny induration of the skin. There is 1 x 1 cm ulcer on the anterior aspect of the lower leg with some grayish tissue over the top of the wound. PLAN: Debridement of the wound and deep culture. MMODL / IJN: [id number] / MTDD
--- NOTE | 2020-01-17 18:53 | PCN ---
PROCEDURE NOTE PREOP DIAGNOSIS: Wound left lower extremity 1 x 1 cm with some devitalized grayish tissue. PROCEDURE PERFORMED: Debridement of the wound down to subcutaneous tissue and deep culture taken. DESCRIPTION OF PROCEDURE: The left thigh was prepped and drapes applied in the usual sterile manner. 1% lidocaine was infiltrated. Using sharp scissors, we did the debridement down to subcutaneous tissue. Devitalized tissue was removed. Some tissue was sent for deep culture. No active bleeding was noted. Wound was irrigated with saline and dressing applied. The patient tolerated the procedure well. MMODL / IJN: [id number] /
[2020-01-17] MEDS: RIVAROXABAN 20 MG TAB PO SCH (20:08)
--- NOTE | 2020-01-17 23:20 | PN ---
PROGRESS NOTE DATE OF SERVICE: 01/17/2020 REASON FOR FOLLOWUP: Left lower extremity cellulitis and MRSA. INTERVAL HISTORY: The patient is currently afebrile. She is breathing comfortably. Still complaining of significant pain to the left leg area. Denies having any chest pain or cough. No nausea, no vomiting. No abdominal pain. No diarrhea. PHYSICAL EXAMINATION: Blood pressure 136/74 with a pulse of 76, temperature 98.4. She is 96% on room air. General description is an elderly female up in the chair in no distress. Respiratory system: Unlabored breathing, clear to auscultation anteriorly. Heart S1, S2. Regular rate and rhythm. Abdomen soft, no tenderness. Left leg did has swelling and redness minimally decreased and minimal drainage. LABS: Vanco level therapeutic. DIAGNOSTIC IMPRESSION AND PLAN: Patient with left lower extremity cellulitis with culture positive for MRSA. Patient is covered with vancomycin. In view of slow clinical response, she may need outpatient IV antibiotic therapy. We will try to arrange that in the outpatient setting. Monitor clinical course closely. RODRÍGUEZ / NATASHAN: [id number] /
[2020-01-18] MEDS: VANCOMYCIN 1,500 MG in SODIUM CHLORIDE 0.9% 250 ML IVPB SCH ×2 (05:09→15:43)
[2020-01-18] MEDS: METOPROLOL TARTRATE 50 MG TAB PO SCH ×3 (05:09→20:36)
[2020-01-18] MEDS: LEVOTHYROXINE 100 MCG TAB PO SCH (05:09)
[2020-01-18 07:22] LABS: African American GFR (CKD) >90 (>60 ml/min/1.73 sqM); Non-African American GFR(CKD) >90 (>60 ml/min/1.73 sqM)
[2020-01-18] MEDS: FLUCONAZOLE 150 MG TAB PO SCH (07:41)
[2020-01-18] MEDS: ACETAMINOPHEN TAB 325 MG TAB PO PRN ×2 (07:41→14:33)
[2020-01-18] MEDS: ALPRAZolam 0.25 MG TAB PO PRN (07:42)
[2020-01-18] MEDS: MUPIROCIN 2% OINT 22 GM TUBE TOPICAL SCH ×2 (07:42→20:36)
[2020-01-18] MEDS: SODIUM CHLORIDE 0.9% 1,000 ML IV SCH (11:24)
[2020-01-18] MEDS: ATORVASTATIN 10 MG TAB PO SCH (11:27)
[2020-01-18] MEDS: VERAPAMIL SR 240 MG TABLET.ER PO SCH (11:27)
[2020-01-18] MEDS ORDERED: traMADol 50 MG TAB PO PRN (14:43)
[2020-01-18] MEDS ORDERED: MENTHOL-ZINC OXIDE OINT 113 GM TUBE TOPICAL PRN (14:48)
[2020-01-18] MEDS: RIVAROXABAN 20 MG TAB PO SCH (20:36)
[2020-01-19] MEDS: ACETAMINOPHEN TAB 325 MG TAB PO PRN (01:00)
--- NOTE | 2020-01-19 02:13 | PN ---
PROGRESS NOTE DATE OF SERVICE: 01/18/2020 REASON FOR FOLLOWUP: Left leg wound cellulitis. INTERVAL HISTORY: The patient is currently afebrile. Patient is breathing comfortably. Complaining of pain to the left leg, though slightly decreased in intensity. Denies any chest pain. No abdominal pain. No diarrhea. PHYSICAL EXAMINATION: Blood pressure 108/63 with a pulse of 64, temperature 98.2. She is 96% on room air. General description is an elderly female lying in bed in no distress. Examination of lower extremity, the wound no significant slough tissue, surrounding swelling and redness minimally improved, slightly warm to touch. No foul smelling drainage. LABS: Hemoglobin is 12, white count 10.1, creatinine is 0.51. Wound culture with MRSA. DIAGNOSTIC IMPRESSION AND PLAN: Patient with MRSA left leg wound and cellulitis. This patient has clinical response to the IV vancomycin. We will check with case investigator if the patient has any coverage for IV antibiotic at home. If not, antibiotic will be transitioned to Bactrim DS. Local wound care with dry Aquacel Silver dressing and Rubio wrap to keep the swelling down. Continue with supportive care. MMODL / IJN: [id number] /
[2020-01-19] MEDS: VANCOMYCIN 1,500 MG in SODIUM CHLORIDE 0.9% 250 ML IVPB SCH ×2 (05:08→16:09)
[2020-01-19] MEDS: METOPROLOL TARTRATE 50 MG TAB PO SCH ×3 (05:08→21:06)
[2020-01-19] MEDS: LEVOTHYROXINE 100 MCG TAB PO SCH (05:09)
[2020-01-19 06:51] LABS: African American GFR (CKD) >90 (>60 ml/min/1.73 sqM); Non-African American GFR(CKD) 85 (>60 ml/min/1.73 sqM)
[2020-01-19] MEDS: FLUCONAZOLE 150 MG TAB PO SCH (08:20)
[2020-01-19] MEDS: MUPIROCIN 2% OINT 22 GM TUBE TOPICAL SCH ×2 (08:20→21:03)
[2020-01-19] MEDS: VERAPAMIL SR 240 MG TABLET.ER PO SCH (12:17)
[2020-01-19] MEDS: ATORVASTATIN 10 MG TAB PO SCH (12:17)
--- NOTE | 2020-01-19 14:43 | PN ---
PROGRESS NOTE DATE OF SERVICE: 01/18/2020. CHIEF COMPLAINT: Cellulitis and abscess of the left [place]land. HISTORY OF PRESENT ILLNESS: This lady is doing fairly well except for having quite a bit of discomfort and her analgesics will be increased. She is currently on IV antibiotics and decision is to be made by Infectious Diseases if she will go home on IV vancomycin. She may also be discharged on Bactrim if her insurance will not pay for home IV antibiotic administration. PHYSICAL EXAMINATION: Color is good. Hydration is good. Chest is clear. Cardiac exam is normal and the abdomen is soft, nontender. IMPRESSION: 1. MRSA abscess and cellulitis of the left [place]. 2. Venostasis disease. PLAN: Continue with elevation, IV fluids, antibiotics and compression. Infectious Disease will determine when she can go and under what treatment regimen. MMODL / IJN: [id number] /
--- NOTE | 2020-01-19 14:46 | PN ---
PROGRESS NOTE CHIEF COMPLAINT: Cellulitis and abscess of the left [place]. HISTORY OF PRESENT ILLNESS: This lady is doing well, waiting to hear whether or not she will be able to go home today and if so, she will be on IV vancomycin or she will go home on Bactrim DS. PHYSICAL EXAMINATION: She is afebrile. Chest is clear. Cardiac exam is normal. Abdomen is soft, nontender. IMPRESSION: Cellulitis and abscess of the left [place]. PLAN: Probably home today or tomorrow. MMODL / IJN: [id number] /
--- NOTE | 2020-01-19 14:57 | PN ---
PROGRESS NOTE DATE OF SERVICE: 01/19/2020 REASON FOR FOLLOWUP: Left leg MRSA abscess and cellulitis. INTERVAL HISTORY: The patient is currently afebrile, she is breathing comfortably. Denies having any chest pain or any cough. Left leg pain and swelling have slightly decreased. No drainage. PHYSICAL EXAMINATION: Blood pressure 146/82 with a pulse of 64, temperature of 98, she is 94% on room air. General description is an elderly female, up in the chair in no distress. Examination of left leg overall swelling and redness has decreased. No purulent drainage or any foul-smelling. LABS: Creatinine 0.61. DIAGNOSTIC IMPRESSION AND PLAN: Patient with left leg abscess and cellulitis with spontaneous drainage. Culture has been positive with MRSA. Patient is currently responding to vancomycin to continue in the outpatient setting for about 10 days, pharmacy to dose, local care with Aquacel dressing. [facility] in one week. MMODL / IJN: [id number] /
[2020-01-19] MEDS: ALPRAZolam 0.25 MG TAB PO PRN (16:02)
[2020-01-19] MEDS: SODIUM CHLORIDE 0.9% 1,000 ML IV SCH (16:02)
[2020-01-19] MEDS: RIVAROXABAN 20 MG TAB PO SCH (21:03)
[2020-01-20] MEDS ORDERED: VANCOMYCIN 1,250 MG in SODIUM CHLORIDE 0.9% 250 ML IVPB SCH (06:00)
[2020-01-20] MEDS: METOPROLOL TARTRATE 50 MG TAB PO SCH ×2 (06:15→15:25)
[2020-01-20] MEDS: LEVOTHYROXINE 100 MCG TAB PO SCH (06:15)
[2020-01-20] MEDS: FLUCONAZOLE 150 MG TAB PO SCH (08:22)
[2020-01-20] MEDS: MUPIROCIN 2% OINT 22 GM TUBE TOPICAL SCH (08:23)
[2020-01-20 08:49] LABS: INR 1.4 (<1.2); Prothrombin Time 14.3 sec (9.0-12.0)
[2020-01-20 08:55] LABS: African American GFR (CKD) >90 (>60 ml/min/1.73 sqM); Anion Gap 6 mmol/L; Blood Urea Nitrogen 7 mg/dL (7-17); Carbon Dioxide 24 mmol/L (22-30); Chloride 110 mmol/L (98-107); Non-African American GFR(CKD) 86 (>60 ml/min/1.73 sqM); Potassium 4.3 mmol/L (3.5-5.1); Sodium 140 mmol/L (137-145)
[2020-01-20] MEDS: ALPRAZolam 0.25 MG TAB PO PRN ×2 (11:31→15:27)
[2020-01-20] MEDS ORDERED: LIDOCAINE 1% INJ 10MG/ML (20 ML MDV) SQ ONE (11:53)
[2020-01-20] MEDS: SODIUM CHLORIDE 0.9% 1,000 ML IV SCH (13:42)
[2020-01-20] MEDS: VERAPAMIL SR 240 MG TABLET.ER PO SCH (13:43)
[2020-01-20] MEDS: ATORVASTATIN 10 MG TAB PO SCH (13:43)
--- NOTE | 2020-01-20 13:56 | PN ---
PROGRESS NOTE CHIEF COMPLAINT: Abscess and cellulitis of left leg. HISTORY OF PRESENT ILLNESS: This lady is awaiting PICC line. She may go down today or tomorrow. After that, she will be able to go home. The pain has been better and she is not febrile. She is depressed. PHYSICAL EXAMINATION: Her chest is clear. The cardiac exam is normal and the abdomen is soft, nontender. She is afebrile. The leg is wrapped. IMPRESSION: 1. MRSA abscess and cellulitis of the left lower leg. 2. Venostasis disease and stasis dermatitis. 3. Hypertension. 4. Hypothyroidism. 5. Depression. PLAN: Await PICC line placement and then she will be discharged home on IV antibiotics. MMODL / IJN: [id number] /
--- NOTE | 2020-01-20 15:06 | IR ---
EXAMINATION TYPE: IR cvc insert >=5 years DATE OF EXAM: 01/20/2020 COMPARISON: NONE CLINICAL HISTORY: Infection Needs long-term intravenous access for antibiotics. PROCEDURE: Hand hygiene obtained with soap and water and alcohol-based hand rub. After informed consent, the skin overlying the cephalic vein was localized with ultrasound and noted to be compressible and patent. An ultrasound image was obtained and submitted on the patient's chart . The overlying skin was prepped and draped and Lidocaine was used for local anesthesia. A skin kaia k was made with a scalpel. Access was gained to the vein under ultrasound guidance with a 21 gauge n eedle and a 0.018 inch wire was advanced. Access site was dilated with Peel-Away sheath and catheter tailored to the appropriate length and advanced such that the distal tip is at the cavoatrial juncti on. Spot image was obtained verifying placement. Catheter was fixed to the skin and a sterile dress ing was placed following hemostasis. Catheter was aspirated and flushed with saline. Patient was di scharged in stable condition without complication. Maximal barrier technique is utilized. Ultrasound image is documented on the chart. Ultrasound used with sterile technique. Fluoro time and fluoroscopic images submitted to document procedure: 0.9 minutes fluoroscopy time, 57 intraoperative images document the procedure IMPRESSION: STATUS POST ULTRASOUND AND FLUOROSCOPIC GUIDED PICC LINE PLACEMENT, READY FOR USE. THIS PROCEDURE WAS PERFORMED BY THE UNDERSIGNED.
[2020-01-20 15:49] VITALS: BP 129/71; PULSE 64; RESP 16; TEMP 98.1
--- NOTE | 2020-01-20 16:56 | PN ---
PROGRESS NOTE DATE OF SERVICE: 01/20/2020 REASON FOR FOLLOWUP: Left leg MRSA cellulitis and wound. INTERVAL HISTORY: The patient is currently afebrile. She is breathing comfortably. Overall pain and discomfort to the left leg have slightly decreased in intensity. No chest pain or cough. No abdominal pain. No diarrhea. PHYSICAL EXAMINATION: Blood pressure 149/78 with a pulse of 73, temperature 98.9. She is 93% on room air. General description is an elderly female up in the chair in no distress. RESPIRATORY SYSTEM: Unlabored breathing. Clear to auscultation anteriorly. HEART: S1, S2. Regular rate and rhythm. ABDOMEN: Soft. No tenderness. Left leg is currently dressed up. No obvious drainage on the dressing. LABS: Creatinine 0.58. DIAGNOSTIC IMPRESSION AND PLAN: Patient with left leg wound with secondary cellulitis. Culture positive for MRSA. Patient is slowly responding to the vancomycin; to continue for another week or 10 days in the outpatient setting. Local wound care with dry Aquacel Silver dressing. Continue with supportive care. MMODL / IJN: [id number] /
--- NOTE | 2020-01-20 17:08 | CDI ---
Documentation Clarification Form Date: 01/20/2020 04:48:26 PM From: Dottie Luther RN CCDS Admit Date: 01/17/2020 02:20:00 PM Patient Name: Brittany Reveles Visit Number: [id number] Discharge Date: ATTENTION: The Clinical Documentation Specialists (CDI) and [facility] Coding Staff appreciate your assistance in clarifying documentation. Please respond to the clarification below the line at the bottom and electronically sign. The CDI & [facility] Coding staff will review the response and follow-up if needed. Please note: Queries are made part of the Legal Health Record. If you have any questions, please contact the author of this message via ITS. Dr. Galen Grigsby Your Procedure note of debridement of the wound performed on 01/16 History/Risk Factors: 84-year-old female presents to the ED with left lower extremity cellulitis with pain and drainage of a lesion. Medical history lower extremity lymphedema. Stasis dermatitis with frequent secondary infections. Clinical Indicators: Per your consult 01/16 some swelling of the left lower extremities with brawny induration of skin. There is a 1/x 1 cm ulcer on the anterior aspect of the lower leg with some grayish tissue on top of the wound. 01/14 Wound Culture Methicillin Resist S. Aureus Treatment:01/14 Vancomycin Ivpb q 12Hrs, 01/16Wound debridement with a sharp scissors, devitalized grayish tissue, 1x1cm, subcutaneous tissue, Five elements required for accurate and compliant documentation of a debridement: 1. Technique used (e.g., excisional, excised, cutting, etc.) 2. Instrument(s) used (e.g., scalpel, curette, etc.) 3. Nature of the tissue removed (e.g., necrotic, devitalized tissues, non- viable tissue, etc.) 4. Appearance and size of the wound (e.g., down to fresh bleeding tissue, 7cm x 10cm, etc.) 5. Depth of the debridement* (e.g., skin, subcutaneous tissue, fascia, muscle, bone, etc.) In order to capture the severity of condition and code the appropriate procedure; could you please document the following: Excisional debridement (the removal of necrotic, devitalized tissue or slough by means of cutting away of tissue) Non-excisional debridement (the removal of necrotic, devitalized tissue or slough by means of flushing, brushing, or washing. (Irrigation) Other; please specify Unable to determine (Last Revision: December 2017) MTDD
--- NOTE | 2020-01-20 17:36 | CDI ---
Documentation Clarification Form Date: 01/20/2020 05:12:46 PM From: Dottie Luther RN CCDS Admit Date: 01/17/2020 02:20:00 PM Patient Name: Brittany Reveles Visit Number: [id number] Discharge Date: ATTENTION: The Clinical Documentation Specialists (CDI) and [facility] Coding Staff appreciate your assistance in clarifying documentation. Please respond to the clarification below the line at the bottom and electronically sign. The CDI & [facility] Coding staff will review the response and follow-up if needed. Please note: Queries are made part of the Legal Health Record. If you have any questions, please contact the author of this message via ITS. Dr. Case Berman Heart Failure is documented in the ID consult 01/14 and in the ED Note 01/16 History/Risk Factors: 84-year-old female presented to the ED with left lower extremity cellulitis. Medical history lower extremity lymphedema. Stasis dermatitis with frequent secondary infections. Atrial Fibrillation, HTN and Heart Failure Clinical Indicators: 01/14 VS/Pulse OX: 139/73, 72, 98.2, 18, 95% room air 10/16/16 Echocardiogram Results: Overall left ventricular systolic function is low normal with, an EF between 50-55%. Mild concentric left ventricular hypertrophy, mild aortic valve sclerosis Treatment: 01/14 lasix 40mg po daily prn, 01/14 Lopressor po Q 8 DWAYNE, In your professional opinion, can you please clarify the acuity and type of CHF if known? Chronic Systolic Heart Failure Chronic Diastolic Heart Failure Chronic Systolic & Diastolic Heart Failure Heart Failure Ruled Out Unable to Determine Other, please specify (Last Revision: December 2017) MTDD
--- NOTE | 2020-01-21 12:45 | MISC ---
MISCELLANOUS REPORT Unable to determine. MMODL / IJN: [id number] /
--- NOTE | 2020-01-23 17:47 | DS ---
DISCHARGE SUMMARY CHIEF COMPLAINT: Pain, swelling and redness in the left lower leg. HISTORY OF PRESENT ILLNESS AND PHYSICAL EXAMINATION: Details of this lady's history and physical can be found in the initial workup. LABORATORY STUDIES: While she was in the hospital she had laboratory studies, details of which can be found in the laboratory section of her chart. COURSE IN THE HOSPITAL: After admission she was placed on bedrest and started on IV fluids and elevation of the left leg. She was seen by Infectious Disease and Vascular Surgery. She was started on vancomycin, and the cellulitis of the left anterior [place] began to slowly recede, as did the abscess in the middle of her [place]. She was then started on 6-inch Rubio wraps of the left leg to control her edema. She was doing well and the decision was made that she should go home on long-term IV antibiotics, and a PICC line was placed. She was discharged home on January 19. She will go home on vancomycin. She will follow up with Infectious Disease. She will be set up with [facility] for home care as well. We will contact her for transition of care via telehealth in the next day or two. FINAL DIAGNOSES: 1. Methicillin-resistant Staphylococcus aeruginosa abscess of left anterior [place] with MRSA cellulitis. 2. 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 3. Hypertension. 4. Hypothyroidism. 5. Depression. OPERATIONS: None. CONSULTATIONS: 1. Vascular Surgery. 2. Infectious Disease. She is improved. RODRÍGUEZ / NILAY: [id number] /
--- NOTE | 2020-01-26 08:02 | CDI ---
Date: 01/20/2020 04:48:26 PM From: Dottie Luther RN CCDS Admit Date: 01/17/2020 02:20:00 PM Patient Name: Brittany Reveles Visit Number: [id number] Discharge Date: ATTENTION: The Clinical Documentation Specialists (CDI) and [facility] Coding Staff appreciate your assistance in clarifying documentation. Please respond to the clarification below the line at the bottom and electronically sign. The CDI & [facility] Coding staff will review the response and follow-up if needed. Please note: Queries are made part of the Legal Health Record. If you have any questions, please contact the author of this message via ITS. Dr. Galen Grigsby Your Procedure note of debridement of the wound performed on 01/16 History/Risk Factors: 84-year-old female presents to the ED with left lower extremity cellulitis with pain and drainage of a lesion. Medical history lower extremity lymphedema. Stasis dermatitis with frequent secondary infections. Clinical Indicators: Per your consult 01/16 some swelling of the left lower extremities with brawny induration of skin. There is a 1/x 1 cm ulcer on the anterior aspect of the lower leg with some grayish tissue on top of the wound. 01/14 Wound Culture Methicillin Resist S. Aureus Treatment:01/14 Vancomycin Ivpb q 12Hrs, 01/16Wound debridement with a sharp scissors, devitalized grayish tissue, 1x1cm, subcutaneous tissue, Five elements required for accurate and compliant documentation of a debridement: 1. Technique used (e.g., excisional, excised, cutting, etc.) 2. Instrument(s) used - Sharp scissors 3. Nature of the tissue removed - devitalized 4. Appearance and size of the wound - 1x1 cm devitalized grayish tissue 5. Depth of the debridement* - Subcutaneous tissue In order to capture the severity of condition and code the appropriate procedure; could you please document the following: Excisional debridement (the removal of necrotic, devitalized tissue or slough by means of cutting away of tissue) Non-excisional debridement (the removal of necrotic, devitalized tissue or slough by means of flushing, brushing, or washing. (Irrigation) Other; please specify Unable to determine (Last Revision: December 2017) MTDD
--- NOTE | 2020-01-27 12:04 | CDI ---
Documentation Clarification Form Date: 01/20/2020 04:48:26 PM From: Dottie Luther RN CCDS Admit Date: 01/17/2020 02:20:00 PM Patient Name: Brittany Reveles Visit Number: [id number] Discharge Date: ATTENTION: The Clinical Documentation Specialists (CDI) and [facility] Coding Staff appreciate your assistance in clarifying documentation. Please respond to the clarification below the line at the bottom and electronically sign. The CDI & [facility] Coding staff will review the response and follow-up if needed. Please note: Queries are made part of the Legal Health Record. If you have any questions, please contact the author of this message via ITS. Dr. Galen Grigsby Your Procedure note of debridement of the wound performed on 01/16 History/Risk Factors: 84-year-old female presents to the ED with left lower extremity cellulitis with pain and drainage of a lesion. Medical history lower extremity lymphedema. Stasis dermatitis with frequent secondary infections. Clinical Indicators: Per your consult 01/16 some swelling of the left lower extremities with brawny induration of skin. There is a 1/x 1 cm ulcer on the anterior aspect of the lower leg with some grayish tissue on top of the wound. 01/14 Wound Culture Methicillin Resist S. Aureus Treatment:01/14 Vancomycin Ivpb q 12Hrs, 01/16Wound debridement with a sharp scissors, devitalized grayish tissue, 1x1cm, subcutaneous tissue, Five elements required for accurate and compliant documentation of a debridement: 1. Technique used (e.g., excisional, excised, cutting, etc.) 2. Instrument(s) used - Sharp scissors 3. Nature of the tissue removed - devitalized 4. Appearance and size of the wound - 1x1 cm devitalized grayish tissue 5. Depth of the debridement* - Subcutaneous tissue In order to capture the severity of condition and code the appropriate procedure; could you please document the following: * -Excisional debridement (the removal of necrotic, devitalized tissue or slough by means of cutting away of tissue) * -Non-excisional debridement (the removal of necrotic, devitalized tissue or slough by means of flushing, brushing, or washing. (Irrigation) * -Other; please specify * -Unable to determine (Last Revision: December 2017) MTDD
--- NOTE | 2020-02-03 09:56 | CDI ---
Documentation Clarification Form Date: 01/20/2020 04:48:26 PM From: Dottie Luther RN CCDS Admit Date: 01/17/2020 02:20:00 PM Patient Name: Brittany Reveles Visit Number: [id number] Discharge Date: ATTENTION: The Clinical Documentation Specialists (CDI) and [facility] Coding Staff appreciate your assistance in clarifying documentation. Please respond to the clarification below the line at the bottom and electronically sign. The CDI & [facility] Coding staff will review the response and follow-up if needed. Please note: Queries are made part of the Legal Health Record. If you have any questions, please contact the author of this message via ITS. Dr. Galen Grigsby Your Procedure note of debridement of the wound performed on 01/16 History/Risk Factors: 84-year-old female presents to the ED with left lower extremity cellulitis with pain and drainage of a lesion. Medical history lower extremity lymphedema. Stasis dermatitis with frequent secondary infections. Clinical Indicators: Per your consult 01/16 some swelling of the left lower extremities with brawny induration of skin. There is a 1/x 1 cm ulcer on the anterior aspect of the lower leg with some grayish tissue on top of the wound. 01/14 Wound Culture Methicillin Resist S. Aureus Treatment:01/14 Vancomycin Ivpb q 12Hrs, 01/16Wound debridement with a sharp scissors, devitalized grayish tissue, 1x1cm, subcutaneous tissue, Five elements required for accurate and compliant documentation of a debridement: 1. Technique used (e.g., excisional, excised, cutting, etc.) 2. Instrument(s) used - Sharp scissors 3. Nature of the tissue removed - devitalized 4. Appearance and size of the wound - 1x1 cm devitalized grayish tissue 5. Depth of the debridement* - Subcutaneous tissue In order to capture the severity of condition and code the appropriate procedure; could you please document the following: * Excisional debridement (the removal of necrotic, devitalized tissue or slough by means of cutting away of tissue) * Non-excisional debridement (the removal of necrotic, devitalized tissue or slough by means of flushing, brushing, or washing. (Irrigation) * Other; please specify * Unable to determine (Last Revision: December 2017) Excisional Debridement MTDD
== END 2020-01-20 17:08 | disposition home health service (06) | DRG 572 ==
LOC: EC 10:56 → 4SSUR 13:15 → OBSVTOIN 01-17 14:20 → 4SSUR 01-18 23:24
PROVIDERS: ADMIT Family Medicine; ATTEND Family Medicine
PROC: 0JBM0ZZ Excision of Left Upper Leg Subcutaneous Tissue and Fascia, Open Approach (ICD-10-PCS; principal; 2020-01-17)
PROC: 02HV33Z Insertion of Infusion Device into Superior Vena Cava, Percutaneous Approach (ICD-10-PCS; 2020-01-20)
DX: L03.116 Cellulitis of left lower limb (principal); L02.416 Cutaneous abscess of left lower limb; I87.2 Venous insufficiency (chronic) (peripheral); I11.0 Hypertensive heart disease with heart failure; I50.9 Heart failure, unspecified; B95.62 Methicillin resistant Staphylococcus aureus infection as the cause of diseases classified elsewhere; E78.5 Hyperlipidemia, unspecified; E89.0 Postprocedural hypothyroidism; F32.9 Major depressive disorder, single episode, unspecified; I48.91 Unspecified atrial fibrillation; I87.8 Other specified disorders of veins; I89.0 Lymphedema, not elsewhere classified; F41.9 Anxiety disorder, unspecified; M19.90 Unspecified osteoarthritis, unspecified site; Z79.01 Long term (current) use of anticoagulants; Z79.890 Hormone replacement therapy; Z79.899 Other long term (current) drug therapy; Z86.711 Personal history of pulmonary embolism; Z96.653 Presence of artificial knee joint, bilateral; Z91.19 Patient's noncompliance with other medical treatment and regimen; Z90.49 Acquired absence of other specified parts of digestive tract; Z98.42 Cataract extraction status, left eye; Z98.41 Cataract extraction status, right eye; Z96.1 Presence of intraocular lens; Z88.1 Allergy status to other antibiotic agents; Z81.1 Family history of alcohol abuse and dependence; Z83.79 Family history of other diseases of the digestive system; Z82.0 Family history of epilepsy and other diseases of the nervous system; Z82.49 Family history of ischemic heart disease and other diseases of the circulatory system
CPT/HCPCS: 36415; 36573; 80051; 80053; 80202; 82565; 83735; 84520; 85025; 85610; 85730; 87040; 87070; 87077; 87186; 87205; 93005; 96365; 99285

== ENCOUNTER 2020-11-14 18:25 | Observation (INO) | payer MEDICARE ==
[2020-11-14 19:27] LABS: Basophils % (A) 1 %; Eosinophils # (A) 0.1 k/uL (0-0.7); Eosinophils % (A) 3 %; HCT 42.8 % (34.0-46.0); Lymphocytes # (A) 1.8 k/uL (1.0-4.8); Lymphocytes % (A) 32 %; MCH 30.3 pg (25.0-35.0); MCHC 32.7 g/dL (31.0-37.0); MCV 92.7 fL (80.0-100.0); Mean Platelet Volume 8.4; Monocytes # (A) 0.8 k/uL (0-1.0); Monocytes % (A) 14 %; Neutrophils # (A) 2.5 k/uL (1.3-7.7); Neutrophils % (A) 46 %; Platelet Count 183 k/uL (150-450); RBC 4.62 m/uL (3.80-5.40); RDW 12.8 % (11.5-15.5); WBC 5.5 k/uL (3.8-10.6)
[2020-11-14 19:37] LABS: Albumin 4.4 g/dL (3.5-5.0); Calcium 9.6 mg/dL (8.4-10.2); Potassium 3.4 mmol/L (3.5-5.1); Total Bilirubin 0.9 mg/dL (0.2-1.3); Total Protein 7.3 g/dL (6.3-8.2)
--- NOTE | 2020-11-14 19:41 | XR ---
EXAMINATION TYPE: XR chest 2V DATE OF EXAM: 11/14/2020 COMPARISON: 01/11/2020. HISTORY: Chest pain. TECHNIQUE: Frontal and lateral views of the chest are obtained. FINDINGS: There is trace pleural effusions with adjacent atelectasis. No pneumothorax seen. There i s background of COPD. The cardiac silhouette size is mildly enlarged. The osseous structures are in tact. IMPRESSION: Trace pleural effusions.
[2020-11-14 19:44] LABS: INR 1.4 (<1.2)
--- NOTE | 2020-11-14 20:37 | US ---
EXAMINATION TYPE: US venous doppler duplex LE RT DATE OF EXAM: 11/14/2020 7:12 PM COMPARISON: NONE CLINICAL HISTORY: leg swelling. SIDE PERFORMED: Right TECHNIQUE: The lower extremity deep venous system is examined utilizing real time linear array sonog mark with graded compression, doppler sonography and color-flow sonography. VESSELS IMAGED: Common Femoral Vein Deep Femoral Vein Greater Saphenous Vein * Femoral Vein Popliteal Vein Small Saphenous Vein * Proximal Calf Veins-unable to visualized due to leg swelling (* superficial vessels) Right Leg: Negative for DVT IMPRESSION: No evidence of right lower extremity DVT within the limitations of this study.
[2020-11-14] MEDS ORDERED: FUROSEMIDE 10 MG/ML 4 ML VIAL IV STA (22:06)
[2020-11-14] MEDS ORDERED: NALOXONE 0.4 MG/ML 1 ML VIAL IV PRN (22:06)
[2020-11-14] MEDS ORDERED: ASPIRIN 325 MG TAB PO STA (22:06)
--- NOTE | 2020-11-14 22:06 | ED ---
General Adult HPI - General Chief complaint: Extremity Problem,Nontraumatic Stated complaint: chest pain, left arm pain Time Seen by Provider: 11/14/20 18:30 Source: patient, EMS Mode of arrival: ambulatory Limitations: no limitations - History of Present Illness Initial comments: 85-year-old female with past medical history of afib, heart failure, htn who presents emergency department with reported shortness of breath and chest pain. Patient reports that since last Sunday she has had chest discomfort which radiates into her arm as well as worsening shortness of breath. She has also had intermittent swelling of her lower extremities with the right being worse than the left. Normally takes 20 mg of Lasix daily. Reports that she took 2 doses of her Lasix yesterday and today. States that the swelling is only mildly gone down. Denies history of DVT or PE. Patient is on anticoagulation for her A. fib and denies any numbness doses. No fevers or chills. Denies cough. No sick contacts. No other alleviating, precipitating or modifying factors - Related Data Home Medications Medication Instructions Recorded Confirmed Verapamil HCl [Verapamil ER] 240 mg PO DAILY 01/28/16 11/14/20 Rivaroxaban [Xarelto] 20 mg PO DAILY 08/02/17 11/14/20 Metoprolol Tartrate [Lopressor] 50 mg PO TID 09/07/18 11/14/20 ALPRAZolam [Xanax] 0.25 mg PO DAILY PRN 07/02/19 11/14/20 Atorvastatin [Lipitor] 20 mg PO DAILY 01/15/20 11/14/20 Calcium Carbonate [Calcium] 600 mg PO HS 11/14/20 11/14/20 Cyanocobalamin (Vitamin B-12) 1,000 mcg PO DAILY 11/14/20 11/14/20 [Vitamin B-12] Furosemide [Lasix] 40 mg PO DAILY PRN 11/14/20 11/14/20 Levothyroxine Sodium [Synthroid] 300 mcg PO DAILY 11/14/20 11/14/20 Potassium Chloride [Klor-Con 20] 20 meq PO DAILY PRN 11/14/20 11/14/20 Allergies Allergy/AdvReac Type Severity Reaction Status Date / Time doxycycline Allergy Itching Verified 11/14/20 20:24 Review of Systems ROS Statement: Those systems with pertinent positive or pertinent negative responses have been documented in the HPI. ROS Other: All systems not noted in ROS Statement are negative. Past Medical History Past Medical History: Atrial Fibrillation, Heart Failure, Hyperlipidemia, Hypertension, Osteoarthritis (OA), Skin Disorder, Supraventricular Tachycardia (SVT), Thyroid Disorder Additional Past Medical History / Comment(s): psoriasis, right lower extremity cellulitis, pedal edema, hypothyroidism, osteoarthritis hands and knees bilaterally, history of bowel obstruction requiring surgical intervention, diverticulosis, urinary incontinence, obstructive sleep apnea not utilizing any CPAP therapy, extensive reaction to doxycycline occurred on January 2016 with itching and leg weakness. History of Any Multi-Drug Resistant Organisms: MRSA Date of last positivie culture/infection: 01/15/20 MDRO Source:: MRSA LEG Past Surgical History: Appendectomy, Bowel Resection, Joint Replacement, Tonsillectomy Additional Past Surgical History / Comment(s): thyroidectomy, raissa knee replacements, bowel resection, muscle bx, D&C, bilateral cataract removals, bilateral foot bunionectomy, colonoscopies. Past Anesthesia/Blood Transfusion Reactions: No Reported Reaction Past Psychological History: Anxiety, Depression Smoking Status: Never smoker Past Alcohol Use History: Occasional Past Drug Use History: None Reported - Past Family History Mother Family Medical History: Dementia, Memory Impairment Father Family Medical History: Liver Disease Additional Family Medical History / Comment(s): Father was an alcoholic and of cirrhosis of the liver. Sister(s) Additional Family Medical History / Comment(s): heart problems Brother(s) Additional Family Medical History / Comment(s): heart problems r/t rheumatic fever General Exam Limitations: no limitations General appearance: alert, in no apparent distress Head exam: Present: atraumatic, normocephalic, normal inspection Eye exam: Present: normal appearance, PERRL, EOMI. Absent: scleral icterus, conjunctival injection, periorbital swelling ENT exam: Present: normal exam, mucous membranes moist Neck exam: Present: normal inspection. Absent: tenderness, meningismus, lymphadenopathy Respiratory exam: Present: normal lung sounds bilaterally. Absent: respiratory distress, wheezes, rales, rhonchi, stridor Cardiovascular Exam: Present: regular rate, normal rhythm, normal heart sounds. Absent: systolic murmur, diastolic murmur, rubs, gallop, clicks GI/Abdominal exam: Present: soft, normal bowel sounds. Absent: distended, tenderness, guarding, rebound, rigid Extremities exam: Present: normal inspection, full ROM, normal capillary refill, pedal edema (right >left). Absent: tenderness, joint swelling, calf tenderness Back exam: Present: normal inspection Neurological exam: Present: alert, oriented X3, CN II-XII intact Psychiatric exam: Present: normal affect, normal mood Skin exam: Present: warm, dry, intact, normal color. Absent: rash Course Vital Signs 11/14/20 11/14/20 11/14/20 18:29 19:57 21:00 Temperature 99.1 F Pulse Rate 64 63 64 Pulse Rate [ Nursery Technician ] Respiratory 22 20 18 Rate Blood Pressure 163/92 150/88 155/88 O2 Sat by Pulse 97 98 97 Oximetry 11/14/20 11/14/20 11/14/20 22:00 23:00 23:45 Temperature Pulse Rate 60 62 65 Pulse Rate [ Nursery Technician ] Respiratory 18 18 20 Rate Blood Pressure 162/108 170/86 168/120 O2 Sat by Pulse 97 97 97 Oximetry 11/15/20 11/15/20 11/15/20 02:51 05:00 07:00 Temperature 98.3 F Pulse Rate 81 65 Pulse Rate [ 72 Nursery Technician ] Respiratory 20 22 18 Rate Blood Pressure 160/86 161/88 O2 Sat by Pulse 97 97 95 Oximetry 11/15/20 11/15/20 07:52 08:33 Temperature 98.8 F Pulse Rate 75 Pulse Rate [ 61 Nursery Technician ] Respiratory 18 Rate Blood Pressure 151/85 O2 Sat by Pulse 94 L Oximetry EKG Findings - EKG Comments: EKG Findings:: EKG at 18:41 demonstrates A. fib with a rate of 64. QRS 138. QTC of 491. Negative for sgarbossa criteria. EKG at 21:13 demonstrates A. fib the rate of 64. QRS 142. QTC 484. Left bundle branch block. Negative for st elevation and sgarbossa criteria Medical Decision Making - Medical Decision Making Upon arrival patient is placed in a room 1. A thorough history and physical exam was performed. Patient hooked up to continuous pulse ox and cardiac monitoring. 12-lead EKG was performed. Laboratory says were conducted and chest x-rays performed. Lab studies demonstrate a negative troponin. Chest x- ray demonstrates trace pleural effusions. Venous Doppler demonstrates no signs of DVT. Patient was given a full dose aspirin, Nitropaste and 40 milligrams dose of Lasix. I did recommend hospitalization for chest pain. We will trend the patient's cardiac enzymes and consult cardiology. Spoke with Dr. Pena who agreed to admit the patient. She is currently awaiting a bed on the floor - Lab Data Result diagrams: 11/15/20 02:45 11/15/20 02:45 Lab Results 11/14/20 11/14/20 11/14/20 Range/Units 19:14 19:14 19:14 WBC 5.5 (3.8-10.6) k/uL RBC 4.62 (3.80-5.40) m/uL Hgb 14.0 (11.4-16.0) gm/dL Hct 42.8 (34.0-46.0) % MCV 92.7 (80.0-100.0) fL MCH 30.3 (25.0-35.0) pg MCHC 32.7 (31.0-37.0) g/dL RDW 12.8 (11.5-15.5) % Plt Count 183 (150-450) k/uL MPV 8.4 Neutrophils % 46 % Lymphocytes % 32 % Monocytes % 14 % Eosinophils % 3 % Basophils % 1 % Neutrophils # 2.5 (1.3-7.7) k/uL Lymphocytes # 1.8 (1.0-4.8) k/uL Monocytes # 0.8 (0-1.0) k/uL Eosinophils # 0.1 (0-0.7) k/uL Basophils # 0.0 (0-0.2) k/uL PT 14.0 H (9.0-12.0) sec INR 1.4 H (<1.2) APTT 30.0 (22.0-30.0) sec Sodium 141 (137-145) mmol/L Potassium 3.4 L (3.5-5.1) mmol/L Chloride 102 (98-107) mmol/L Carbon Dioxide 29 (22-30) mmol/L Anion Gap 10 mmol/L BUN 13 (7-17) mg/dL Creatinine 0.82 (0.52-1.04) mg/dL Est GFR (CKD-EPI)AfAm 77 (>60 ml/min/1.73 sqM) Est GFR (CKD-EPI)NonAf 66 (>60 ml/min/1.73 sqM) Glucose 101 H (74-99) mg/dL Calcium 9.6 (8.4-10.2) mg/dL Magnesium 2.0 (1.6-2.3) mg/dL Total Bilirubin 0.9 (0.2-1.3) mg/dL AST 20 (14-36) U/L ALT 15 (4-34) U/L Alkaline Phosphatase 80 (38-126) U/L Troponin I (0.000-0.034) ng/mL NT-Pro-B Natriuret Pep pg/mL Total Protein 7.3 (6.3-8.2) g/dL Albumin 4.4 (3.5-5.0) g/dL 11/14/20 11/14/20 Range/Units 19:14 19:14 WBC (3.8-10.6) k/uL RBC (3.80-5.40) m/uL Hgb (11.4-16.0) gm/dL Hct (34.0-46.0) % MCV (80.0-100.0) fL MCH (25.0-35.0) pg MCHC (31.0-37.0) g/dL RDW (11.5-15.5) % Plt Count (150-450) k/uL MPV Neutrophils % % Lymphocytes % % Monocytes % % Eosinophils % % Basophils % % Neutrophils # (1.3-7.7) k/uL Lymphocytes # (1.0-4.8) k/uL Monocytes # (0-1.0) k/uL Eosinophils # (0-0.7) k/uL Basophils # (0-0.2) k/uL PT (9.0-12.0) sec INR (<1.2) APTT (22.0-30.0) sec Sodium (137-145) mmol/L Potassium (3.5-5.1) mmol/L Chloride (98-107) mmol/L Carbon Dioxide (22-30) mmol/L Anion Gap mmol/L BUN (7-17) mg/dL Creatinine (0.52-1.04) mg/dL Est GFR (CKD-EPI)AfAm (>60 ml/min/1.73 sqM) Est GFR (CKD-EPI)NonAf (>60 ml/min/1.73 sqM) Glucose (74-99) mg/dL Calcium (8.4-10.2) mg/dL Magnesium (1.6-2.3) mg/dL Total Bilirubin (0.2-1.3) mg/dL AST (14-36) U/L ALT (4-34) U/L Alkaline Phosphatase (38-126) U/L Troponin I <0.012 (0.000-0.034) ng/mL NT-Pro-B Natriuret Pep 2870 pg/mL Total Protein (6.3-8.2) g/dL Albumin (3.5-5.0) g/dL Disposition Clinical Impression: Congestive heart failure, Chest pain Disposition: ADMITTED IP TO THIS HOSP Condition: Stable Is patient prescribed a controlled substance at d/c from ED?: No Decision to Admit Reason: Admit from EC Decision Date: 11/14/20 Decision Time: 22:06
[2020-11-14] MEDS ORDERED: LORazepam 2 MG/ML INJ IV PRN (22:09)
[2020-11-14] MEDS ORDERED: NITROGLYCERIN OINT 1 INCH/GM PACKET TOPICAL STA (22:10)
[2020-11-14] MEDS ORDERED: ALPRAZolam 0.25 MG TAB PO PRN (22:43)
[2020-11-14] MEDS ORDERED: FUROSEMIDE 40 MG TAB PO PRN (22:43)
[2020-11-14] MEDS ORDERED: POTASSIUM CHLORIDE ER 20 MEQ TAB.ER PO PRN (22:43)
[2020-11-14] MEDS: CALCIUM CARBONATE 500 MG CHEWABLE PO SCH (23:50)
[2020-11-14] MEDS: METOPROLOL TARTRATE 50 MG TAB PO SCH (23:51)
[2020-11-15 03:17] LABS: Basophils % (A) 1 %; Eosinophils # (A) 0.1 k/uL (0-0.7); Eosinophils % (A) 3 %; HCT 41.6 % (34.0-46.0); HGB 13.5 gm/dL (11.4-16.0); Lymphocytes # (A) 2.1 k/uL (1.0-4.8); Lymphocytes % (A) 39 %; MCH 30.2 pg (25.0-35.0); MCHC 32.3 g/dL (31.0-37.0); MCV 93.5 fL (80.0-100.0); Mean Platelet Volume 8.4; Monocytes # (A) 0.7 k/uL (0-1.0); Monocytes % (A) 12 %; Neutrophils # (A) 2.4 k/uL (1.3-7.7); Neutrophils % (A) 43 %; Platelet Count 162 k/uL (150-450); RBC 4.45 m/uL (3.80-5.40); RDW 13.1 % (11.5-15.5); WBC 5.5 k/uL (3.8-10.6)
[2020-11-15 03:26] LABS: Calcium 9.7 mg/dL (8.4-10.2); Potassium 3.5 mmol/L (3.5-5.1)
[2020-11-15] MEDS: LEVOTHYROXINE 100 MCG TAB PO SCH (06:18)
[2020-11-15] MEDS: CYANOCOBALAMIN 500 MCG TAB PO SCH (08:35)
[2020-11-15] MEDS: RIVAROXABAN 20 MG TAB PO SCH (08:35)
[2020-11-15] MEDS: ATORVASTATIN 20 MG TAB PO SCH (08:36)
[2020-11-15] MEDS: METOPROLOL TARTRATE 50 MG TAB PO SCH ×3 (08:38→22:33)
[2020-11-15] MEDS ORDERED: VERAPAMIL SR 240 MG TABLET.ER PO SCH (09:00)
--- NOTE | 2020-11-15 12:22 | P.CRDCN ---
History of Present Illness History of present illness: HISTORY OF PRESENTING ILLNESS This is a pleasant 85-year-old female past medical history significant for paroxysmal atrial fibrillation on Xarelto, history of bilateral PE, hyperte nsion, pulmonary hypertension and dyslipidemia. She has follows in the office with Dr. Walls one time however states she does not have transportation to follow up regularly. We have beened asked to see in consultation for chest pain and heart failure. She states for the last few days she has been experiencing pain in the left anterior shoulder and left scapular region. The pain is worse with palpation or movement of the left arm. She also has been experiencing increased lower extremity edema for which she takes lasix, but only as needed. She describes that she is having frequent panic attacks 1-2 times per week where she feels like her insides are shaking. She is somewhat of a poor historian regarding her past diagnosis of afib. DIAGNOSTICS EKG reveals atrial fibrillation with left bundle branch block, PVC's and controlled ventricular rate. Chest xray trace pleural effusions with underlying COPD. Right lower extremity Doppler negative for DVT. Laboratory reviewed, CBC unremarkable, sodium 143, potassium 3.5, creatinine 0.82, magnesium 2.0, cardiac enzymes negative 3, proBNP 2870. Current cardiac medications include Lasix 40 mg daily as needed for lower extremity edema, atorvastatin 20 mg daily, Lopressor 50 mg 3 times a day, Xarelto 20 mg daily and verapamil 240 mg daily. Most recent echocardiogram obtained in 2017 reveals preserved LV systolic function with ejection fraction 50-55%, mild MR, mild TR and moderate pulmonary hypertension with an RVSP of 50 mmHg. Most recent stress test performed in 2018 with a Lexiscan stress test that was negative for reversible cardiac ischemia with ejection fraction 63%. REVIEW OF SYSTEMS At the time of my exam: CONSTITUTIONAL: Denies fever or chills. CARDIOVASCULAR: Denies chest pain, shortness of breath, orthopnea, PND or palpit ations. RESPIRATORY: Denies cough. GASTROINTESTINAL: Denies abdominal pain, diarrhea, constipation, nausea or vomiting. MUSCULOSKELETAL: Denies myalgias. NEUROLOGIC: Denies numbness, tingling, headacbe or weakness. ENDOCRINE: Denies fatigue, weight change, polydipsia or polyurina. GENITOURINARY: Denies burning, hematuria or urgency with micturation. HEMATOLOGIC: Denies history of anemia or bleeding. PHYSICAL EXAMINATION Blood pressure 151/85 heart rate 75 afebrile and maintaining oxygen saturation on room air. CONSTITUTIONAL: No apparent distress. HEENT: Head is normocephalic. Pupils are equal, round. Sclerae anicteric. Mucous membranes of the mouth are moist. No JVD. No carotid bruit. CHEST EXAMINATION: Lungs are clear to auscultation. No chest wall tenderness is noted on palpation or with deep breathing. HEART EXAMINATION: Irregular rate and rhythm. S1, S2 heard. No murmurs, gallops or rub. ABDOMEN: Soft, nontender. Positive bowel sounds. EXTREMITIES: 2+ peripheral pulses, 2+ bilateral lower extremity edema and no calf tenderness. NEUROLOGIC EXAMINATION: Patient is awake, alert and oriented. ASSESSMENT Chest pain, musculoskeletal Acute on chronic diastolic heart failure Chronic persistent atrial fibrillation on Xarelto Hypertension Dyslipidemia Former nicotine dependence PLAN Initiate IV diuresis, 40 mg twice a day. Add lisinopril to her anti-hypertensive regimen. Obtain 2-D echocardiogram and Doppler study to assess cardiac structure and function. Document accurate intake and output along with daily weights. Follow renal function and electrolytes in the morning. Ongoing telemetry monitoring for episodes of RVR in correlation with what she thinks is anxiety. Further recommendations to follow based on clinical course. Thank you kindly for this consultation. Nurse Practitioner note has been reviewed, I agree with a documented findings and plan of care. Patient was seen and examined. Past Medical History Past Medical History: Atrial Fibrillation, Heart Failure, Hyperlipidemia, Hypertension, Osteoarthritis (OA), Skin Disorder, Supraventricular Tachycardia (SVT), Thyroid Disorder Additional Past Medical History / Comment(s): psoriasis, right lower extremity cellulitis, pedal edema, hypothyroidism, osteoarthritis hands and knees bilaterally, history of bowel obstruction requiring surgical intervention, diverticulosis, urinary incontinence, obstructive sleep apnea not utilizing any CPAP therapy, extensive reaction to doxycycline occurred on January 2016 with itching and leg weakness. History of Any Multi-Drug Resistant Organisms: MRSA Date of last positivie culture/infection: 01/15/20 MDRO Source:: MRSA LEG Past Surgical History: Appendectomy, Bowel Resection, Joint Replacement, Tonsillectomy Additional Past Surgical History / Comment(s): thyroidectomy, raissa knee replacements, bowel resection, muscle bx, D&C, bilateral cataract removals, bilateral foot bunionectomy, colonoscopies. Past Anesthesia/Blood Transfusion Reactions: No Reported Reaction Past Psychological History: Anxiety, Depression Additional Psychological History / Comment(s): Pt has 2 adult grandsons who live with her and are very helpful. She ambulates with a walker. Pt no longer drives, family takes her to appointments. Smoking Status: Former smoker Past Alcohol Use History: Occasional Past Drug Use History: None Reported - Past Family History Mother Family Medical History: Dementia, Memory Impairment Father Family Medical History: Liver Disease Additional Family Medical History / Comment(s): Father was an alcoholic and of cirrhosis of the liver. Sister(s) Additional Family Medical History / Comment(s): heart problems Brother(s) Additional Family Medical History / Comment(s): heart problems r/t rheumatic fever Medications and Allergies Home Medications Medication Instructions Recorded Confirmed Type Verapamil HCl [Verapamil ER] 240 mg PO DAILY 01/28/16 11/14/20 History Rivaroxaban [Xarelto] 20 mg PO DAILY 08/02/17 11/14/20 History Metoprolol Tartrate [Lopressor] 50 mg PO TID 09/07/18 11/14/20 History ALPRAZolam [Xanax] 0.25 mg PO DAILY PRN 07/02/19 11/14/20 History Atorvastatin [Lipitor] 20 mg PO DAILY 01/15/20 11/14/20 History Calcium Carbonate [Calcium] 600 mg PO HS 11/14/20 11/14/20 History Cyanocobalamin (Vitamin B-12) 1,000 mcg PO DAILY 11/14/20 11/14/20 History [Vitamin B-12] Furosemide [Lasix] 40 mg PO DAILY PRN 11/14/20 11/14/20 History Levothyroxine Sodium [Synthroid] 300 mcg PO DAILY 11/14/20 11/14/20 History Potassium Chloride [Klor-Con 20] 20 meq PO DAILY PRN 11/14/20 11/14/20 History Allergies Allergy/AdvReac Type Severity Reaction Status Date / Time doxycycline Allergy Itching Verified 11/14/20 20:24 Physical Exam Vitals: Vital Signs Temp Pulse Pulse Resp BP Pulse Ox 11/15/20 08:33 98.8 F 75 18 151/85 94 L 11/15/20 07:52 61 11/15/20 05:00 65 22 161/88 97 11/15/20 02:51 81 20 160/86 97 11/14/20 23:45 65 20 168/120 97 11/14/20 23:00 62 18 170/86 97 11/14/20 22:00 60 18 162/108 97 11/14/20 21:00 64 18 155/88 97 11/14/20 19:57 63 20 150/88 98 11/14/20 18:29 99.1 F 64 22 163/92 97 Intake and Output 11/14/20 11/15/20 11/15/20 22:59 06:59 14:59 Other: # Voids 1 Weight 84.822 kg 84.822 kg Results 11/15/20 02:45 11/15/20 02:45 Cardiac Enzymes 11/14/20 11/14/20 11/14/20 Range/Units 19:14 19:14 23:46 AST 20 (14-36) U/L Troponin I <0.012 <0.012 (0.000-0.034) ng/mL 11/15/20 Range/Units 02:45 AST (14-36) U/L Troponin I <0.012 (0.000-0.034) ng/mL Coagulation 11/14/20 Range/Units 19:14 PT 14.0 H (9.0-12.0) sec APTT 30.0 (22.0-30.0) sec CBC 11/14/20 11/15/20 Range/Units 19:14 02:45 WBC 5.5 5.5 (3.8-10.6) k/uL RBC 4.62 4.45 (3.80-5.40) m/uL Hgb 14.0 13.5 (11.4-16.0) gm/dL Hct 42.8 41.6 (34.0-46.0) % Plt Count 183 162 (150-450) k/uL Comprehensive Metabolic Panel 11/14/20 11/15/20 Range/Units 19:14 02:45 Sodium 141 143 (137-145) mmol/L Potassium 3.4 L 3.5 (3.5-5.1) mmol/L Chloride 102 102 (98-107) mmol/L Carbon Dioxide 29 32 H (22-30) mmol/L BUN 13 12 (7-17) mg/dL Creatinine 0.82 0.82 (0.52-1.04) mg/dL Glucose 101 H 103 H (74-99) mg/dL Calcium 9.6 9.7 (8.4-10.2) mg/dL AST 20 (14-36) U/L ALT 15 (4-34) U/L Alkaline Phosphatase 80 (38-126) U/L Total Protein 7.3 (6.3-8.2) g/dL Albumin 4.4 (3.5-5.0) g/dL Current Medications Generic Name Dose Route Start Last Admin Trade Name Freq PRN Reason Stop Dose Admin Alprazolam 0.25 mg 11/14/20 22:43 Alprazolam 0.25 Mg Tab PO DAILY PRN Anxiety Atorvastatin Calcium 20 mg 11/15/20 09:00 11/15/20 08:36 Atorvastatin 20 Mg Tab PO 20 mg DAILY DWAYNE Administration Calcium Carbonate/Glycine 500 mg 11/14/20 22:45 11/14/20 23:50 Calcium Carbonate 500 Mg Chewable PO 500 mg HS DWAYNE Administration Cyanocobalamin 1,000 mcg 11/15/20 09:00 11/15/20 08:35 Cyanocobalamin 500 Mcg Tab PO 1,000 mcg DAILY DWAYNE Administration Furosemide 40 mg 11/15/20 12:15 Furosemide 10 Mg/Ml 4 Ml Vial IV Q12HR DWAYNE Levothyroxine Sodium 300 mcg 11/15/20 06:30 11/15/20 06:18 Levothyroxine 100 Mcg Tab PO 300 mcg DAILY@0630 DWAYNE Administration Lorazepam 1 mg 11/14/20 22:09 11/15/20 04:12 Lorazepam 2 Mg/Ml Inj IV 1 mg ONCE PRN Administration Anxiety Metoprolol Tartrate 50 mg 11/14/20 22:45 11/15/20 08:38 Metoprolol Tartrate 50 Mg Tab PO 50 mg TID DWAYNE Administration Naloxone HCl 0.2 mg 11/14/20 22:06 Naloxone 0.4 Mg/Ml 1 Ml Vial IV Q2M PRN Opioid Reversal Rivaroxaban 20 mg 11/15/20 09:00 11/15/20 08:35 Rivaroxaban 20 Mg Tab PO 20 mg DAILY DWAYNE Administration Verapamil HCl 240 mg 11/15/20 09:00 11/15/20 08:36 Verapamil Sr 240 Mg Tablet.Er PO 240 mg DAILY DWAYNE Administration Intake and Output 11/14/20 11/15/2021 22:59 06:59 14:59 Other: # Voids 1 Weight 84.822 kg 84.822 kg Patient Weight 11/16/20 06:59 Weight 84.822 kg 11/15/20 02:45 11/15/20 02:45
[2020-11-15] MEDS ORDERED: POTASSIUM CHLORIDE ER 20 MEQ TAB.ER PO SCH (12:30)
[2020-11-15] MEDS: FUROSEMIDE 10 MG/ML 4 ML VIAL IV SCH ×2 (13:48→22:33)
[2020-11-15] MEDS: lisinopriL 10 MG TAB PO SCH (13:49)
[2020-11-15] MEDS: CALCIUM CARBONATE 500 MG CHEWABLE PO SCH (22:18)
[2020-11-16] MEDS: LEVOTHYROXINE 100 MCG TAB PO SCH (05:21)
[2020-11-16 05:47] LABS: African American GFR (CKD) 62 (>60 ml/min/1.73 sqM); Anion Gap 9 mmol/L; Blood Urea Nitrogen 18 mg/dL (7-17); Carbon Dioxide 28 mmol/L (22-30); Chloride 103 mmol/L (98-107); Glucose 89 mg/dL (74-99); Non-African American GFR(CKD) 54 (>60 ml/min/1.73 sqM); Potassium 3.4 mmol/L (3.5-5.1); Sodium 140 mmol/L (137-145)
[2020-11-16] MEDS ORDERED: FUROSEMIDE 40 MG TAB PO SCH (09:00)
[2020-11-16] MEDS: POTASSIUM CHLORIDE ER 20 MEQ TAB.ER PO SCH (10:17)
[2020-11-16] MEDS: CYANOCOBALAMIN 500 MCG TAB PO SCH (10:17)
[2020-11-16] MEDS: ATORVASTATIN 20 MG TAB PO SCH (10:18)
[2020-11-16] MEDS: lisinopriL 10 MG TAB PO SCH (10:18)
[2020-11-16] MEDS: RIVAROXABAN 20 MG TAB PO SCH (10:19)
[2020-11-16] MEDS: FUROSEMIDE 20 MG TAB PO SCH (10:35)
--- NOTE | 2020-11-16 11:44 | P.PN ---
Subjective HISTORY OF PRESENTING ILLNESS This is a pleasant 85-year-old female past medical history significant for paroxysmal atrial fibrillation on Xarelto, history of bilateral PE, hypertension, pulmonary hypertension and dyslipidemia. She has follows in the office with Dr. Walls one time however states she does not have transportation to follow up regularly. She is seen and examined sitting up in bed in no acute distress. She states she didn't sleep much past 0200 last night up worrying about her grandson driving in the snow. She denies having chest pain, shortness of breath, dizziness or palpitations. Her heart rate on the monitor was de creased yesterday on several occasions prompting PCP to hold lopressor. She states she has been up to the bathroom with her walker and felt like her breathing was "ok". No documented output for the previous 24 hours. Blood pressure 117/63 heart rate 58 afebrile and maintaining oxygen saturation on room air. Laboratory data reviewed, sodium 140, potassium 3.4 and creatinine 0.98. Echocardiogram has been obtained, revealing preserved LV sytolic function. PHYSICAL EXAMINATION CONSTITUTIONAL: No apparent distress. HEENT: Head is normocephalic. Pupils are equal, round. Sclerae anicteric. Mucous membranes of the mouth are moist. No JVD. No carotid bruit. CHEST EXAMINATION: Lungs are clear to auscultation. No chest wall tenderness is noted on palpation or with deep breathing. HEART EXAMINATION: Irregular rate and rhythm. S1, S2 heard. No murmurs, gallops or rub. EXTREMITIES: 2+ peripheral pulses, trace bilateral lower extremity edema and no calf tenderness. ASSESSMENT Chest pain, musculoskeletal Acute on chronic diastolic heart failure Hypokalemia Chronic persistent atrial fibrillation on Xarelto Hypertension Dyslipidemia Former nicotine dependence PLAN Replace potassium per protocol. Discontinue verapamil. Spoke with the patients daughter, Izabela, and she doesn't believe her mom has been taking this compliantly at home. Adjust lopressor to 100 mg BID, first dose tonight. Hold for systolic BP less than 90 or heart rate less than 50. Transition to oral diuretics, lasix 20 mg daily along with daily potassium supplementation. Repeat BMP in the morning. Ongoing telemetry and blood pressure monitoring for another 24 hours. Nurse Practitioner note has been reviewed, I agree with a documented findings and plan of care. Patient was seen and examined. Objective - Vital Signs Vital signs: Vital Signs Temp 98.4 F 11/16/20 02:47 Pulse 58 L 11/16/20 02:47 Resp 15 11/16/20 02:47 BP 117/63 11/16/20 02:47 Pulse Ox 96 11/16/20 02:47 Intake & Output 11/15/20 11/16/20 11/16/20 18:59 06:59 18:59 Intake Total 180 Balance 180 Weight 85 kg Intake: Oral 180 Other: Voiding Method Toilet Toilet Toilet Diaper # Voids 1 - Labs CBC & Chem 7: 11/15/20 02:45 11/16/20 05:15 Labs: Abnormal Lab Results - Last 24 Hours (Table) 11/16/20 Range/Units 05:15 Potassium 3.4 L (3.5-5.1) mmol/L BUN 18 H (7-17) mg/dL
--- NOTE | 2020-11-16 14:39 | ECHOF ---
Referral Reason:sob, lower extremity swelling MEASUREMENTS -------- HEIGHT: 175.3 cm WEIGHT: 84.8 kg BP: 151/85 IVSd: 1.4 cm (0.6 - 1.1) LVIDd: 3.6 cm (3.9 - 5.3) LVPWd: 1.7 cm (0.6 - 1.1) IVSs: 2.1 cm LVIDs: 2.2 cm LVPWs: 1.8 cm RVIDd: 4.7 cm (< 3.3) LAESV Index (A-L): 34.90 ml/m Ao Diam: 3.1 cm (2.0 - 3.7) LA Diam: 4.3 cm (2.7 - 3.8) AV Cusp: 2.1 cm (1.5 - 2.6) EPSS: 0.3 cm RAP: 5.00 mmHg RVSP: 50.54 mmHg MV EF SLOPE: 51.72 mm/s (70 - 150) MV EXCURSION: 14.92 mm (> 18.000) FINDINGS -------- This was a technically difficult study with suboptimal apical views. The left ventricular size is normal. There is moderate concentric left ventricular hypertrophy. O verall left ventricular systolic function is low-normal with, an EF between 50 - 55 %. Apical septu m LV wall motion is hypokinetic. The right ventricle is severely enlarged. LA is moderately dilated 34-39 ml/m2 The right atrium is moderately enlarged. Lumason used Interatrial and interventricular septum intact. There is mild aortic valve sclerosis. There is no evidence of aortic regurgitation. There is no e vidence of aortic stenosis. [id number] mitral regurgitation is present. Moderate to severe tricuspid regurgitation present. There is severe pulmonary hypertension. The r ight ventricular systolic pressure, as measured by Doppler, is 50.54mmHg. Trace/mild (physiologic) pulmonic regurgitation. The aortic root size is normal. IVC Not well visulized. There is no pericardial effusion. CONCLUSIONS -------- 1. The left ventricular size is normal. 2. There is moderate concentric left ventricular hypertrophy. 3. Overall left ventricular systolic function is low-normal with, an EF between 50 - 55 %. 4. Apical septum LV wall motion is hypokinetic. 5. The right ventricle is severely enlarged. 6. LA is moderately dilated 34-39 ml/m2 7. The right atrium is moderately enlarged. 8. There is mild aortic valve sclerosis. 9. Pshr-rn-vgcnkhrt mitral regurgitation is present. 10. Moderate to severe tricuspid regurgitation present. 11. There is severe pulmonary hypertension. 12. The right ventricular systolic pressure, as measured by Doppler, is 50.54mmHg. 13. Trace/mild (physiologic) pulmonic regurgitation. INSPECTOR RECEIVING: Julienne Dawson RDCS
--- NOTE | 2020-11-16 17:31 | PN ---
PROGRESS NOTE DATE OF SERVICE: 11/15/2020 CHIEF COMPLAINT: Chest pain. HISTORY OF PRESENT ILLNESS: This lady is doing well. Her pain is clearly not cardiac. It is more in her shoulder and left scapular area. However, her BNP is elevated. An echocardiogram suggests significant pathology, probably consistent with pulmonary hypertension and diastolic dysfunction. PHYSICAL EXAMINATION: Chest is clear. Cardiac exam is unremarkable except for her atrial fibrillation. The abdomen is soft and nontender. IMPRESSION: 1. Atypical chest pain. 2. Congestive heart failure (diastolic). PLAN: She can probably go home anytime when she is cleared by Cardiology. MMODL / IJN: [id number] /
--- NOTE | 2020-11-16 18:27 | PN ---
PROGRESS NOTE DATE OF SERVICE: 11/16/2020 CHIEF COMPLAINT: Pain in the left arm. HISTORY OF PRESENT ILLNESS: This lady is doing fairly well and can probably go home, but Cardiology wants to keep her another day. She does have a significantly elevated BNP and she is in atrial fibrillation. It looks like she also has pulmonary hypertension. PHYSICAL EXAMINATION: Chest is clear. Cardiac exam is unremarkable except for arrhythmia. Abdomen is soft, nontender. IMPRESSION: 1. Atypical chest and arm pain. 2. Congestive heart failure. 3. Pulmonary hypertension. 4. Atrial fibrillation. PLAN: Continue observation and discharge once cleared by Cardiology. MMODL / IJN: [id number] /
[2020-11-16] MEDS: CALCIUM CARBONATE 500 MG CHEWABLE PO SCH (19:07)
[2020-11-16] MEDS ORDERED: METOPROLOL TARTRATE 50 MG TAB PO SCH (21:00)
[2020-11-17] MEDS: LEVOTHYROXINE 100 MCG TAB PO SCH (05:16)
[2020-11-17 06:08] LABS: African American GFR (CKD) 74 (>60 ml/min/1.73 sqM); Anion Gap 7 mmol/L; Blood Urea Nitrogen 19 mg/dL (7-17); Calcium 9.3 mg/dL (8.4-10.2); Carbon Dioxide 26 mmol/L (22-30); Chloride 107 mmol/L (98-107); Glucose 92 mg/dL (74-99); Non-African American GFR(CKD) 64 (>60 ml/min/1.73 sqM); Potassium 4.2 mmol/L (3.5-5.1); Sodium 140 mmol/L (137-145)
[2020-11-17] MEDS ORDERED: lisinopriL 10 MG TAB PO SCH (09:00)
[2020-11-17] MEDS ORDERED: METOPROLOL SUCCINATE (ER) 50 MG TAB.ER.24H PO SCH (09:00)
[2020-11-17] MEDS: POTASSIUM CHLORIDE ER 20 MEQ TAB.ER PO SCH (09:23)
[2020-11-17] MEDS: ATORVASTATIN 20 MG TAB PO SCH (09:23)
[2020-11-17] MEDS: RIVAROXABAN 20 MG TAB PO SCH (09:23)
[2020-11-17] MEDS: CYANOCOBALAMIN 500 MCG TAB PO SCH (09:23)
[2020-11-17] MEDS: FUROSEMIDE 20 MG TAB PO SCH (09:24)
--- NOTE | 2020-11-17 10:18 | P.PN ---
Subjective HISTORY OF PRESENTING ILLNESS This is a pleasant 85-year-old female past medical history significant for paroxysmal atrial fibrillation on Xarelto, history of bilateral PE, hypertension, pulmonary hypertension and dyslipidemia. She has follows in the office with Dr. Walls one time however states she does not have transportation to follow up regularly. She is seen and examined sitting up in bed in no acute distress. She states she didn't sleep much past 0200 last night up worrying about her grandson driving in the snow. She denies having chest pain, shortness of breath, dizziness or palpitations. Her heart rate on the monitor was de creased yesterday on several occasions prompting PCP to hold lopressor. She states she has been up to the bathroom with her walker and felt like her breathing was "ok". No documented output for the previous 24 hours. Blood pressure 117/63 heart rate 58 afebrile and maintaining oxygen saturation on room air. Laboratory data reviewed, sodium 140, potassium 3.4 and creatinine 0.98. Echocardiogram has been obtained, revealing preserved LV sytolic function. 11/17/2020 Patient seen and examined sitting up in bed in no acute distress. She denies symptoms of chest pain, shortness of breath, dizziness or palpitations. Blood pressure 170/74 heart rate 85 afebrile maintaining oxygen saturation on room air. Laboratory data reviewed, sodium 140, potassium 4.2, creatinine 0.84. PHYSICAL EXAMINATION CONSTITUTIONAL: No apparent distress. HEENT: Head is normocephalic. Pupils are equal, round. Sclerae anicteric. Mucous membranes of the mouth are moist. No JVD. No carotid bruit. CHEST EXAMINATION: Lungs are clear to auscultation. No chest wall tenderness is noted on palpation or with deep breathing. HEART EXAMINATION: Irregular rate and rhythm. S1, S2 heard. No murmurs, gallops or rub. EXTREMITIES: 2+ peripheral pulses, trace bilateral lower extremity edema and no calf tenderness. ASSESSMENT Chest pain, musculoskeletal Acute on chronic diastolic heart failure Hypokalemia Chronic persistent atrial fibrillation on Xarelto Hypertension Dyslipidemia Former nicotine dependence PLAN Increase lisinopril to 10 mg twice a day and change beta melida to Toprol 150 mg daily in the morning. Stable for discharge from a cardiac perspective, follow-up in the office with Dr. Gill in 3-4 weeks. Nurse Practitioner note has been reviewed, I agree with a documented findings and plan of care. Patient was seen and examined. Objective - Vital Signs Vital signs: Vital Signs Temp 97.3 F L 11/17/20 07:34 Pulse 85 11/17/20 07:34 Resp 14 11/17/20 07:34 BP 170/74 11/17/20 07:34 Pulse Ox 96 11/17/20 07:34 Intake & Output 11/16/20 11/17/20 11/17/20 18:59 06:59 18:59 Intake Total 360 200 Output Total 68 Balance 292 200 Weight 84 kg Intake: Oral 360 200 Output: Post Void Residual 68 Other: Voiding Method Toilet Toilet Toilet Diaper Diaper Diaper # Voids 1 2 - Labs CBC & Chem 7: 11/15/20 02:45 11/17/20 05:23 Labs: Abnormal Lab Results - Last 24 Hours (Table) 11/17/20 Range/Units 05:23 BUN 19 H (7-17) mg/dL
[2020-11-17 13:42] VITALS: BP 122/69; PULSE 62; RESP 16; TEMP 97.9
--- NOTE | 2020-11-18 00:36 | DS ---
DISCHARGE SUMMARY CHIEF COMPLAINT: Chest and arm pain. HISTORY OF PRESENT ILLNESS AND PHYSICAL EXAMINATION: Details of this lady's history and physical can be found in the initial workup. LABORATORY STUDIES: While she was in the hospital, she had laboratory studies, details of which can be found in the laboratory section of her chart. COURSE IN THE HOSPITAL: After admission, she was placed on bedrest, started intravenous fluids and she was seen by Cardiology. Troponins are normal. BNP was quite elevated. She underwent echocardiogram which demonstrated pulmonary hypertension. She was also in atrial fibrillation. While in the hospital, the only pain she had was the left shoulder, left scapular area and left arm which were not felt to be related to her heart. She was doing well and it was felt that she could be discharged on the and she will be followed up in several days by our office and she will keep an appointment with Cardiology. FINAL DIAGNOSES: 1. Atypical chest pain, noncardiac. 2. Atrial fibrillation. 3. Congestive heart failure. 4. Pulmonary hypertension. OPERATIONS: None. CONSULTATIONS: Cardiology. She is improved. MMODL / IJN: [id number] /
--- NOTE | 2020-11-27 13:43 | HP ---
HISTORY AND PHYSICAL Patient was admitted when I was out of town. I did not perform the admitting exam or H and P. CHIEF COMPLAINT: Left upper anterior chest and shoulder pain. HISTORY OF PRESENT ILLNESS: This lady presented to the hospital with left chest and shoulder pain afraid that she was having a heart attack. REVIEW OF SYSTEMS: Review of systems was not obtained by me. Past medical history, family history, and personal and social histories were not obtained by me. PAST MEDICAL HISTORY: She does have a history of hypertension, hypothyroidism, depression and hypochondriasis. PHYSICAL EXAMINATION: Physical exam was not performed by me. She was admitted to the hospital with the diagnoses of: 1. Atypical left upper anterior chest pain and left shoulder pain. 2. History of hypertension. 3. History of hypothyroidism. 4. History of venous stasis disease and brawny edema of the lower extremities. PLAN: 1. Serial EKGs and enzymes. 2. Cardiology consult. MMODL / IJN: [id number] /
== END 2020-11-17 15:50 | disposition home health service (06) ==
LOC: EC 18:25 → 6NMEDSUR 22:08 → OBSVTOIN 11-17 07:34 → INTOOBSV 11-17 07:34 → UNDODISIN 11-17 15:50
PROVIDERS: ADMIT Family Medicine; ATTEND Family Medicine
DX: R07.89 Other chest pain (principal); I11.0 Hypertensive heart disease with heart failure; I50.33 Acute on chronic diastolic (congestive) heart failure; I48.19 Other persistent atrial fibrillation; I27.20 Pulmonary hypertension, unspecified; I44.7 Left bundle-branch block, unspecified; M19.042 Primary osteoarthritis, left hand; M19.041 Primary osteoarthritis, right hand; E78.5 Hyperlipidemia, unspecified; E87.6 Hypokalemia; F45.21 Hypochondriasis; E89.0 Postprocedural hypothyroidism; F41.0 Panic disorder [episodic paroxysmal anxiety]; F32.9 Major depressive disorder, single episode, unspecified; F41.9 Anxiety disorder, unspecified; Z79.890 Hormone replacement therapy; Z79.01 Long term (current) use of anticoagulants; Z79.899 Other long term (current) drug therapy; Z88.1 Allergy status to other antibiotic agents; Z90.49 Acquired absence of other specified parts of digestive tract; Z96.653 Presence of artificial knee joint, bilateral; Z98.42 Cataract extraction status, left eye; Z98.41 Cataract extraction status, right eye; Z87.891 Personal history of nicotine dependence; Z86.711 Personal history of pulmonary embolism; Z86.14 Personal history of Methicillin resistant Staphylococcus aureus infection; Z98.890 Other specified postprocedural states; Z81.8 Family history of other mental and behavioral disorders; Z81.1 Family history of alcohol abuse and dependence; Z82.49 Family history of ischemic heart disease and other diseases of the circulatory system; Z83.79 Family history of other diseases of the digestive system
CPT/HCPCS: 96376; 93005 ×2; 96374; 96375; 99285; 36415; 83880; 80053; 80048 ×3; 83735; 84484 ×2; 85025 ×2; 85610; 85730; 71046; 93971; G0378 ×4; C8929; J2060; J1940 ×2; Q9950; 93306

== ENCOUNTER 2021-04-22 20:41 | Emergency (ER) | payer MEDICARE ==
[2021-04-22 20:47] VITALS: RESP 18
[2021-04-22 22:45] LABS: Basophils % (A) 1 %; Eosinophils # (A) 0.2 k/uL (0-0.7); Eosinophils % (A) 4 %; HCT 40.1 % (34.0-46.0); HGB 13.3 gm/dL (11.4-16.0); Lymphocytes # (A) 2.1 k/uL (1.0-4.8); Lymphocytes % (A) 36 %; MCH 31.6 pg (25.0-35.0); MCHC 33.1 g/dL (31.0-37.0); MCV 95.6 fL (80.0-100.0); Mean Platelet Volume 9.1; Monocytes # (A) 0.6 k/uL (0-1.0); Monocytes % (A) 11 %; Neutrophils # (A) 2.7 k/uL (1.3-7.7); Neutrophils % (A) 45 %; Platelet Count 138 k/uL (150-450); RDW 13.1 % (11.5-15.5); WBC 5.9 k/uL (3.8-10.6)
[2021-04-22 23:02] LABS: Albumin 4.1 g/dL (3.5-5.0); Calcium 9.5 mg/dL (8.4-10.2); Potassium 3.8 mmol/L (3.5-5.1); Total Bilirubin 0.6 mg/dL (0.2-1.3); Total Protein 6.7 g/dL (6.3-8.2)
[2021-04-22 23:03] LABS: INR 1.5 (<1.2); Partial Thromboplastin Time 32.1 sec (22.0-30.0)
[2021-04-22 23:18] LABS: Appearance,Urine Clear (Clear); Bacteria,Urine Rare /hpf; Bilirubin,Urine Negative (Negative); Blood,Urine Trace (Negative); Color,Urine Yellow; Glucose,Urine (UA) Negative (Negative); Ketones,Urine Negative (Negative); Leukocyte Esterase,Urine Trace (Negative); Mucus,Urine Rare /hpf; Nitrite,Urine Negative (Negative); PH, Urine 6.5 (5.0-8.0); Protein,Urine Trace (Negative); RBC,Urine 3 /hpf (0-5); Specific Gravity,Urine 1.021 (1.001-1.035); Urobilinogen,Urine <2.0 mg/dL (<2.0); WBC,Urine 5 /hpf (0-5)
--- NOTE | 2021-04-22 23:18 | US ---
EXAMINATION TYPE: US renals and bladder DATE OF EXAM: 04/22/2021 COMPARISON: NONE CLINICAL HISTORY: hemorrhagic cystitis. gross hematuria tonight, no pain EXAM MEASUREMENTS: Right Kidney: 9.8 x 3.6 x 5.0 cm Left Kidney: 10.4 x 4.1 x 5.0 cm Right Kidney: Limited views of lower pole due to bowel gas, otherwise, no hydronephrosis or masses se en Left Kidney: No hydronephrosis or masses seen Bladder: not distended IMPRESSION: There is no evidence of a renal mass. There is some renal cortical thinning noted in the left kidney. No hydronephrosis.
[2021-04-22] MEDS ORDERED: cefTRIAXone IN SWFI 1,000 MG/10 ML SYRINGE IVP STA (23:28)
[2021-04-22] MEDS ORDERED: TOPICAL SKIN ADHESIVE 1 EACH AMP TOPICAL STA (23:51)
[2021-04-22] MEDS ORDERED: TOPICAL SKIN ADHESIVE 1 EACH AMP TOPICAL ONE (23:52)
[2021-04-23 00:04] VITALS: BP 163/87; PULSE 69; TEMP 98.1
--- NOTE | 2021-04-23 00:51 | ED ---
Female Urogenital HPI - General Chief complaint: Vaginal Bleeding Stated complaint: Vaginal Bleeding Time Seen by Provider: 04/22/21 21:35 Source: patient, EMS Mode of arrival: EMS Limitations: no limitations - History of Present Illness Initial comments: 85-year-old female past history of psoriasis, A. fib on anticoagulation who presents emergency Department with reported vaginal bleeding. Patient states that she was using the restroom when she had sudden onset of vaginal bleeding. Reports that it was dripping onto the floor. She denies any pain or discomfort in her abdomen at this time. No history of similar in the past. She denies hematuria or dysuria. No rectal bleeding. Denies any vaginal surgeries. No other alleviating, head loader modifying factors - Related Data Home Medications Medication Instructions Recorded Confirmed Rivaroxaban [Xarelto] 20 mg PO DAILY 08/02/17 04/22/21 ALPRAZolam [Xanax] 0.25 mg PO TID PRN 07/02/19 04/22/21 Atorvastatin [Lipitor] 20 mg PO HS 01/15/20 04/22/21 Calcium Carbonate [Calcium] 600 mg PO DAILY 11/14/20 04/22/21 Cyanocobalamin (Vitamin B-12) 1,000 mcg PO DAILY 11/14/20 04/22/21 [Vitamin B-12] Hydrocortisone Cream 1 applic TOPICAL BID PRN 04/22/21 04/22/21 [Hydrocortisone 2.5% Cream] Levothyroxine Sodium 200 mcg PO DAILY 04/22/21 04/22/21 Metoprolol Succinate (ER) [Toprol 100 mg PO DAILY 04/22/21 04/22/21 Xl] Previous Rx's Medication Instructions Recorded Furosemide [Lasix] 20 mg PO DAILY #90 tab 11/17/20 lisinopriL [Zestril] 10 mg PO BID #180 tab 11/17/20 Allergies Allergy/AdvReac Type Severity Reaction Status Date / Time doxycycline Allergy Itching Verified 04/22/21 23:15 Review of Systems ROS Statement: Those systems with pertinent positive or pertinent negative responses have been documented in the HPI. ROS Other: All systems not noted in ROS Statement are negative. Past Medical History Past Medical History: Atrial Fibrillation, Heart Failure, Hyperlipidemia, Hypertension, Osteoarthritis (OA), Skin Disorder, Supraventricular Tachycardia (SVT), Thyroid Disorder Additional Past Medical History / Comment(s): psoriasis, right lower extremity cellulitis, pedal edema, hypothyroidism, osteoarthritis hands and knees bilaterally, history of bowel obstruction requiring surgical intervention, diverticulosis, urinary incontinence, obstructive sleep apnea not utilizing any CPAP therapy, extensive reaction to doxycycline occurred on January 2016 with itching and leg weakness. History of Any Multi-Drug Resistant Organisms: MRSA Date of last positivie culture/infection: 01/15/20 MDRO Source:: MRSA LEG Past Surgical History: Appendectomy, Bowel Resection, Joint Replacement, Tonsillectomy Additional Past Surgical History / Comment(s): thyroidectomy, raissa knee replacements, bowel resection, muscle bx, D&C, bilateral cataract removals, bilateral foot bunionectomy, colonoscopies. Past Anesthesia/Blood Transfusion Reactions: No Reported Reaction Past Psychological History: Anxiety, Depression Smoking Status: Never smoker Past Alcohol Use History: Occasional Past Drug Use History: None Reported - Past Family History Mother Family Medical History: Dementia, Memory Impairment Father Family Medical History: Liver Disease Additional Family Medical History / Comment(s): Father was an alcoholic and of cirrhosis of the liver. Sister(s) Additional Family Medical History / Comment(s): heart problems Brother(s) Additional Family Medical History / Comment(s): heart problems r/t rheumatic fever General Exam Limitations: no limitations General appearance: alert, in no apparent distress Head exam: Present: atraumatic, normocephalic, normal inspection Eye exam: Present: normal appearance, PERRL, EOMI. Absent: scleral icterus, conjunctival injection, periorbital swelling ENT exam: Present: normal exam, mucous membranes moist Neck exam: Present: normal inspection. Absent: tenderness, meningismus, lymphadenopathy Respiratory exam: Present: normal lung sounds bilaterally. Absent: respiratory distress, wheezes, rales, rhonchi, stridor Cardiovascular Exam: Present: regular rate, normal rhythm, normal heart sounds. Absent: systolic murmur, diastolic murmur, rubs, gallop, clicks GI/Abdominal exam: Present: soft, normal bowel sounds. Absent: distended, tenderness, guarding, rebound, rigid External exam: Present: other (varicose vein right labia - multiple pinpoint areas close to the skin surface with overlying scabbing. No active bleeding) Speculum exam: Present: normal speculum exam. Absent: vaginal bleeding, laceration Extremities exam: Present: normal inspection, full ROM, normal capillary refill. Absent: tenderness, pedal edema, joint swelling, calf tenderness Back exam: Present: normal inspection Neurological exam: Present: alert, oriented X3, CN II-XII intact Psychiatric exam: Present: normal affect, normal mood Skin exam: Present: warm, dry, intact, normal color. Absent: rash Course Vital Signs 04/22/21 04/23/21 20:43 00:03 Temperature 98.3 F 98.1 F Pulse Rate 59 L 69 Respiratory 18 18 Rate Blood Pressure 147/93 163/87 O2 Sat by Pulse 99 98 Oximetry Medical Decision Making - Medical Decision Making Upon arrival patient is placed into room 27. A thorough history and physical exam was performed. Speculum exam is performed and demonstrates no bleeding inside the vagina. Rectal exam was also performed which demonstrates brown stool however no active bleeding. Source of the bright red blood is difficult to obtain. We did straight cath the patient. Laboratory studies are conducted. Patient is followed on the monitor and remained hypertensive. Laboratory studies are reviewed and the patient's hemoglobin is 13.3. Urinalysis only demonstrates trace of blood with 3 red blood cells. As the patient does not have a significant hemorrhagic cystitis noted on ultrasound or UA I did reevaluate the patient. Repeat speculum exam is performed which continues to not demonstrate any type of blood within the vaginal vault. Continues to have no rectal bleeding. Bleeding appears to stop completely at this time. Further inspection reveals that the patient does have a varicose vein noted to the right labia majora. There are several punctate areas that are scabbed over. My concern is that the patient was bleeding from the varicose vein. I did place some Dermabond of the site. I instructed the patient to only gently cleanse the area for the next several days. I want her to follow up with [facility] for further treatment options. Patient and her daughter at bedside agreed to this. She has any new or worsening symptoms please return to the emergency room. Patient was discharged home in stable condition - Lab Data Result diagrams: 04/22/21 22:26 04/22/21 22:26 Lab Results 04/22/21 04/22/21 04/22/21 Range/Units 22:26 22:26 22:26 WBC 5.9 (3.8-10.6) k/uL RBC 4.20 (3.80-5.40) m/uL Hgb 13.3 (11.4-16.0) gm/dL Hct 40.1 (34.0-46.0) % MCV 95.6 (80.0-100.0) fL MCH 31.6 (25.0-35.0) pg MCHC 33.1 (31.0-37.0) g/dL RDW 13.1 (11.5-15.5) % Plt Count 138 L (150-450) k/uL MPV 9.1 Neutrophils % 45 % Lymphocytes % 36 % Monocytes % 11 % Eosinophils % 4 % Basophils % 1 % Neutrophils # 2.7 (1.3-7.7) k/uL Lymphocytes # 2.1 (1.0-4.8) k/uL Monocytes # 0.6 (0-1.0) k/uL Eosinophils # 0.2 (0-0.7) k/uL Basophils # 0.0 (0-0.2) k/uL PT 15.0 H (9.0-12.0) sec INR 1.5 H (<1.2) APTT 32.1 H (22.0-30.0) sec Sodium 143 (137-145) mmol/L Potassium 3.8 (3.5-5.1) mmol/L Chloride 107 (98-107) mmol/L Carbon Dioxide 27 (22-30) mmol/L Anion Gap 9 mmol/L BUN 21 H (7-17) mg/dL Creatinine 0.76 (0.52-1.04) mg/dL Est GFR (CKD-EPI)AfAm 84 (>60 ml/min/1.73 sqM) Est GFR (CKD-EPI)NonAf 73 (>60 ml/min/1.73 sqM) Glucose 93 (74-99) mg/dL Calcium 9.5 (8.4-10.2) mg/dL Total Bilirubin 0.6 (0.2-1.3) mg/dL AST 30 (14-36) U/L ALT 14 (4-34) U/L Alkaline Phosphatase 89 (38-126) U/L Total Protein 6.7 (6.3-8.2) g/dL Albumin 4.1 (3.5-5.0) g/dL Urine Color Urine Appearance (Clear) Urine pH (5.0-8.0) Ur Specific [place] (1.001-1.035) Urine Protein (Negative) Urine Glucose (UA) (Negative) Urine Ketones (Negative) Urine Blood (Negative) Urine Nitrite (Negative) Urine Bilirubin (Negative) Urine Urobilinogen (<2.0) mg/dL Ur Leukocyte Esterase (Negative) Urine RBC (0-5) /hpf Urine WBC (0-5) /hpf Urine Bacteria (None) /hpf Urine Mucus (None) /hpf Blood Type Blood Type Confirm Blood Type Recheck Bld Type Recheck Status Antibody Screen Spec Expiration Date 04/22/21 04/22/21 04/22/21 Range/Units 22:26 22:26 22:35 WBC (3.8-10.6) k/uL RBC (3.80-5.40) m/uL Hgb (11.4-16.0) gm/dL Hct (34.0-46.0) % MCV (80.0-100.0) fL MCH (25.0-35.0) pg MCHC (31.0-37.0) g/dL RDW (11.5-15.5) % Plt Count (150-450) k/uL MPV Neutrophils % % Lymphocytes % % Monocytes % % Eosinophils % % Basophils % % Neutrophils # (1.3-7.7) k/uL Lymphocytes # (1.0-4.8) k/uL Monocytes # (0-1.0) k/uL Eosinophils # (0-0.7) k/uL Basophils # (0-0.2) k/uL PT (9.0-12.0) sec INR (<1.2) APTT (22.0-30.0) sec Sodium (137-145) mmol/L Potassium (3.5-5.1) mmol/L Chloride (98-107) mmol/L Carbon Dioxide (22-30) mmol/L Anion Gap mmol/L BUN (7-17) mg/dL Creatinine (0.52-1.04) mg/dL Est GFR (CKD-EPI)AfAm (>60 ml/min/1.73 sqM) Est GFR (CKD-EPI)NonAf (>60 ml/min/1.73 sqM) Glucose (74-99) mg/dL Calcium (8.4-10.2) mg/dL Total Bilirubin (0.2-1.3) mg/dL AST (14-36) U/L ALT (4-34) U/L Alkaline Phosphatase (38-126) U/L Total Protein (6.3-8.2) g/dL Albumin (3.5-5.0) g/dL Urine Color Yellow Urine Appearance Clear (Clear) Urine pH 6.5 (5.0-8.0) Ur Specific [place] 1.021 (1.001-1.035) Urine Protein Trace H (Negative) Urine Glucose (UA) Negative (Negative) Urine Ketones Negative (Negative) Urine Blood Trace H (Negative) Urine Nitrite Negative (Negative) Urine Bilirubin Negative (Negative) Urine Urobilinogen <2.0 (<2.0) mg/dL Ur Leukocyte Esterase Trace H (Negative) Urine RBC 3 (0-5) /hpf Urine WBC 5 (0-5) /hpf Urine Bacteria Rare H (None) /hpf Urine Mucus Rare H (None) /hpf Blood Type AB Negative Blood Type Confirm AB Negative Blood Type Recheck No Previous Record Bld Type Recheck Status CABO Indicated Antibody Screen NEGATIVE Spec Expiration Date 04/25/20212325 Disposition Clinical Impression: Bleeding from varicose vein Disposition: HOME SELF-CARE Condition: Stable Instructions (If sedation given, give patient instructions): Skin Adhesive Care (ED) Additional Instructions: Please follow up with the OBGYN in 1 week. Call to make an appointment. Return to the ED for any new worsening symptoms. Is patient prescribed a controlled substance at d/c from ED?: No Referrals: Case Berman MD [Primary Care Provider] - 1-2 days Aishwarya Alcaraz DO [Doctor of Osteopathic Medicine] - 1-2 days Evie Stewart DO [Doctor of Osteopathic Medicine] - 1-2 days Time of Disposition: 00:52
== END 2021-04-23 01:16 | disposition home or self-care (01) ==
LOC: EC 20:41
DX: I83.891 Varicose veins of right lower extremity with other complications (principal); I11.0 Hypertensive heart disease with heart failure; I50.9 Heart failure, unspecified; I48.91 Unspecified atrial fibrillation; E78.5 Hyperlipidemia, unspecified; E03.9 Hypothyroidism, unspecified; F32.9 Major depressive disorder, single episode, unspecified; F41.9 Anxiety disorder, unspecified; M19.90 Unspecified osteoarthritis, unspecified site; Z79.01 Long term (current) use of anticoagulants; Z79.899 Other long term (current) drug therapy; Z90.49 Acquired absence of other specified parts of digestive tract
CPT/HCPCS: 36415; 86900; 86901; 80053; 85025; 85610; 85730; 86850; 81001; 76770; 96374; 99285; J0696

== ENCOUNTER 2021-07-19 18:12 | Emergency (ER) | payer MEDICARE ==
[2021-07-19 18:20] VITALS: RESP 18; TEMP 98.9
[2021-07-19] MEDS ORDERED: ONDANSETRON 4 MG/2 ML VIAL IVP STA (19:19)
[2021-07-19] MEDS ORDERED: MORPHINE SULFATE 2 MG/ML SYRINGE IVP STA (19:19)
[2021-07-19 19:47] LABS: INR 1.5 (<1.2); Partial Thromboplastin Time 35.2 sec (22.0-30.0); Prothrombin Time 14.8 sec (9.0-12.0)
[2021-07-19 19:52] LABS: Basophils % (A) 0 %; Eosinophils # (A) 0.2 k/uL (0-0.7); Eosinophils % (A) 2 %; HCT 43.4 % (34.0-46.0); HGB 14.1 gm/dL (11.4-16.0); Lymphocytes # (A) 1.8 k/uL (1.0-4.8); Lymphocytes % (A) 23 %; MCH 31.3 pg (25.0-35.0); MCHC 32.4 g/dL (31.0-37.0); MCV 96.5 fL (80.0-100.0); Mean Platelet Volume 8.7; Monocytes # (A) 0.8 k/uL (0-1.0); Monocytes % (A) 10 %; Neutrophils # (A) 4.8 k/uL (1.3-7.7); Neutrophils % (A) 61 %; Platelet Count 183 k/uL (150-450); RBC 4.49 m/uL (3.80-5.40); RDW 12.8 % (11.5-15.5); WBC 7.8 k/uL (3.8-10.6)
[2021-07-19 20:12] LABS: Albumin 4.2 g/dL (3.5-5.0); Calcium 9.5 mg/dL (8.4-10.2); Magnesium 2.1 mg/dL (1.6-2.3); Potassium 3.9 mmol/L (3.5-5.1); Total Bilirubin 0.8 mg/dL (0.2-1.3); Total Protein 7.2 g/dL (6.3-8.2)
--- NOTE | 2021-07-19 21:01 | ED ---
Neck Injury/Pain HPI - General Chief Complaint: Neck Pain/Injury Stated Complaint: neck pain Time Seen by Provider: 07/19/21 19:02 Mode of arrival: wheelchair Limitations: no limitations - History of Present Illness Initial Comments: 86 year-old female patient presents to the emergency department for evaluation of left sided neck pain. Patient states she has been having this pain on and off for the last 2 weeks. States today it is worse than it has been and more constant as well. Denies pain radiating down her arm. Denies any chest pain or shortness of breath. Denies numbness or tingling to the upper extremities. Denies any known injury. States she is very concerned about her carotid artery. Denies fever or chills. Denies swelling to the arms. Does report a 4lb weight ga in over the last couple of days. Patient denies any recent rash, cough, abdominal pain, nausea, vomiting, diarrhea, constipation, back pain, dizziness, weakness, hematuria, dysuria, urinary urgency, urinary frequency, headache, visual changes, or any other complaints. - Related Data Home Medications Medication Instructions Recorded Confirmed Rivaroxaban [Xarelto] 20 mg PO DAILY 08/02/17 07/19/21 ALPRAZolam [Xanax] 0.25 mg PO TID PRN 07/02/19 07/19/21 Atorvastatin [Lipitor] 20 mg PO HS 01/15/20 07/19/21 Levothyroxine Sodium 200 mcg PO DAILY 04/22/21 07/19/21 Metoprolol Succinate (ER) [Toprol 50 mg PO DAILY 04/22/21 07/19/21 Xl] Furosemide [Lasix] 20 mg PO DAILY PRN 07/19/21 07/19/21 Potassium Chloride [Klor-Con 20 20 meq PO DAILY PRN 07/19/21 07/19/21 Packets] Previous Rx's Medication Instructions Recorded lisinopriL [Zestril] 10 mg PO BID #180 tab 11/17/20 Cyclobenzaprine [Flexeril] 10 mg PO TID #15 tab 07/19/21 Ibuprofen [Motrin] 600 mg PO Q8HR PRN #30 tab 07/19/21 Lidocaine 5% Patch [Lidoderm] 1 patch TOPICAL DAILY #30 patch 07/19/21 Allergies Allergy/AdvReac Type Severity Reaction Status Date / Time doxycycline Allergy Itching Verified 07/19/21 20:43 Review of Systems ROS Statement: Those systems with pertinent positive or pertinent negative responses have been documented in the HPI. ROS Other: All systems not noted in ROS Statement are negative. Past Medical History Past Medical History: Atrial Fibrillation, Heart Failure, Hyperlipidemia, Hypertension, Osteoarthritis (OA), Skin Disorder, Supraventricular Tachycardia (SVT), Thyroid Disorder Additional Past Medical History / Comment(s): psoriasis, right lower extremity cellulitis, pedal edema, hypothyroidism, osteoarthritis hands and knees bilatera lly, history of bowel obstruction requiring surgical intervention, diverticulosis, urinary incontinence, obstructive sleep apnea not utilizing any CPAP therapy, extensive reaction to doxycycline occurred on January 2016 with itching and leg weakness. History of Any Multi-Drug Resistant Organisms: MRSA Date of last positivie culture/infection: 01/15/20 MDRO Source:: MRSA LEG Past Surgical History: Appendectomy, Bowel Resection, Joint Replacement, Tonsillectomy Additional Past Surgical History / Comment(s): thyroidectomy, raissa knee replacements, bowel resection, muscle bx, D&C, bilateral cataract removals, bilateral foot bunionectomy, colonoscopies. Past Anesthesia/Blood Transfusion Reactions: No Reported Reaction Past Psychological History: Anxiety, Depression Smoking Status: Never smoker Past Alcohol Use History: Occasional Past Drug Use History: None Reported - Past Family History Mother Family Medical History: Dementia, Memory Impairment Father Family Medical History: Liver Disease Additional Family Medical History / Comment(s): Father was an alcoholic and of cirrhosis of the liver. Sister(s) Additional Family Medical History / Comment(s): heart problems Brother(s) Additional Family Medical History / Comment(s): heart problems r/t rheumatic fever General Exam Limitations: no limitations General appearance: alert, in no apparent distress, other (This is a well- developed, well-nourished adult female patient in no acute distress.) Eye exam: Present: normal appearance, PERRL, EOMI. Absent: scleral icterus, conjunctival injection, periorbital swelling Neck exam: Present: normal inspection, full ROM, other (Left lateral neck tenderness. No swelling. No redness.). Absent: tenderness, meningismus, lymphadenopathy Respiratory exam: Present: normal lung sounds bilaterally. Absent: respiratory distress, wheezes, rales, rhonchi, stridor Cardiovascular Exam: Present: regular rate, normal rhythm, normal heart sounds. Absent: systolic murmur, diastolic murmur, rubs, gallop, clicks GI/Abdominal exam: Present: soft, normal bowel sounds. Absent: distended, tend erness, guarding, rebound, rigid Neurological exam: Present: alert, oriented X3, CN II-XII intact Psychiatric exam: Present: normal affect, normal mood Skin exam: Present: warm, dry, intact, normal color. Absent: rash Course Vital Signs 07/19/21 07/19/21 18:16 21:00 Temperature 98.9 F Pulse Rate 66 70 Respiratory 18 18 Rate Blood Pressure 162/92 158/90 O2 Sat by Pulse 99 97 Oximetry Medical Decision Making - Medical Decision Making 86-year-old female patient presented to the emergency department today for evaluation of left neck pain started a couple of weeks ago worsen today. Physical examination did reveal left lateral neck tenderness. Increased pain with movement. Neurovascular status is intact to the arm. She is neurologically intact no focal deficits. Labs reviewed and are unremarkable. CT angiography of the neck was obtained and showed no evidence for abnormalities of the carotid arteries or the vertebral arteries. She is given pain medication here. Symptoms are consistent with spasmodic torticollis. She will be discharged from the primary care physician for recheck in 1-2 days. Return parameters were discussed in detail. Patient and family are agreeable with this plan. Case discussed with my attending Dr. Miguel. - Lab Data Result diagrams: 07/19/21 19:31 07/19/21 19:31 Lab Results 07/19/21 07/19/21 07/19/21 Range/Units 19:31 19:31 19:31 WBC 7.8 (3.8-10.6) k/uL RBC 4.49 (3.80-5.40) m/uL Hgb 14.1 (11.4-16.0) gm/dL Hct 43.4 (34.0-46.0) % MCV 96.5 (80.0-100.0) fL MCH 31.3 (25.0-35.0) pg MCHC 32.4 (31.0-37.0) g/dL RDW 12.8 (11.5-15.5) % Plt Count 183 (150-450) k/uL MPV 8.7 Neutrophils % 61 % Lymphocytes % 23 % Monocytes % 10 % Eosinophils % 2 % Basophils % 0 % Neutrophils # 4.8 (1.3-7.7) k/uL Lymphocytes # 1.8 (1.0-4.8) k/uL Monocytes # 0.8 (0-1.0) k/uL Eosinophils # 0.2 (0-0.7) k/uL Basophils # 0.0 (0-0.2) k/uL PT 14.8 H (9.0-12.0) sec INR 1.5 H (<1.2) APTT 35.2 H (22.0-30.0) sec Sodium 139 (137-145) mmol/L Potassium 3.9 (3.5-5.1) mmol/L Chloride 103 (98-107) mmol/L Carbon Dioxide 25 (22-30) mmol/L Anion Gap 11 mmol/L BUN 17 (7-17) mg/dL Creatinine 0.81 (0.52-1.04) mg/dL Est GFR (CKD-EPI)AfAm 78 (>60 ml/min/1.73 sqM) Est GFR (CKD-EPI)NonAf 67 (>60 ml/min/1.73 sqM) Glucose 102 H (74-99) mg/dL Calcium 9.5 (8.4-10.2) mg/dL Magnesium 2.1 (1.6-2.3) mg/dL Total Bilirubin 0.8 (0.2-1.3) mg/dL AST 25 (14-36) U/L ALT 17 (4-34) U/L Alkaline Phosphatase 96 (38-126) U/L Troponin I (0.000-0.034) ng/mL Total Protein 7.2 (6.3-8.2) g/dL Albumin 4.2 (3.5-5.0) g/dL 07/19/21 Range/Units 19:31 WBC (3.8-10.6) k/uL RBC (3.80-5.40) m/uL Hgb (11.4-16.0) gm/dL Hct (34.0-46.0) % MCV (80.0-100.0) fL MCH (25.0-35.0) pg MCHC (31.0-37.0) g/dL RDW (11.5-15.5) % Plt Count (150-450) k/uL MPV Neutrophils % % Lymphocytes % % Monocytes % % Eosinophils % % Basophils % % Neutrophils # (1.3-7.7) k/uL Lymphocytes # (1.0-4.8) k/uL Monocytes # (0-1.0) k/uL Eosinophils # (0-0.7) k/uL Basophils # (0-0.2) k/uL PT (9.0-12.0) sec INR (<1.2) APTT (22.0-30.0) sec Sodium (137-145) mmol/L Potassium (3.5-5.1) mmol/L Chloride (98-107) mmol/L Carbon Dioxide (22-30) mmol/L Anion Gap mmol/L BUN (7-17) mg/dL Creatinine (0.52-1.04) mg/dL Est GFR (CKD-EPI)AfAm (>60 ml/min/1.73 sqM) Est GFR (CKD-EPI)NonAf (>60 ml/min/1.73 sqM) Glucose (74-99) mg/dL Calcium (8.4-10.2) mg/dL Magnesium (1.6-2.3) mg/dL Total Bilirubin (0.2-1.3) mg/dL AST (14-36) U/L ALT (4-34) U/L Alkaline Phosphatase (38-126) U/L Troponin I <0.012 (0.000-0.034) ng/mL Total Protein (6.3-8.2) g/dL Albumin (3.5-5.0) g/dL - EKG Data -: EKG Interpreted by [facility] EKG Comments: EKG obtained at 1942 shows atrial fibrillation with a left bundle branch block. Ventricular rate is 65, QRS duration 138, QTC 458, QTC 476. No evidence of ST elevation or depression. - Radiology Data Radiology results: report reviewed, image reviewed CT angiography of the neck was obtained. Report was reviewed in its entirety. Impression by Dr. Brewer shows minimal atherosclerotic plaque at the carotid artery bifurcations. No evidence of hemodynamic stenosis. Normal-appearing vertebral arteries. Two-view x-ray of the chest is obtained. Report was reviewed in its entirety. Impression by Dr. Brewer shows COPD. Cardiomegaly. Very small pleural effusions. Mental chronic heart failure as possible. There is probably some pulmonary fibrosis. No change compared to old exam. Disposition Clinical Impression: Spasmodic torticollis Disposition: HOME SELF-CARE Condition: Good Instructions (If sedation given, give patient instructions): Spasmodic Torticollis (ED) Additional Instructions: Take medications as directed. Apply warm moist heat to the neck. Perform gentle range of motion exercises. Follow-up with her primary care physician for recheck in 1-2 days. If still experiencing pain consider physical therapy. Return for any new, worsening, or concerning symptoms. Prescriptions: Cyclobenzaprine [Flexeril] 10 mg PO TID #15 tab Lidocaine 5% Patch [Lidoderm] 1 patch TOPICAL DAILY #30 patch Ibuprofen [Motrin] 600 mg PO Q8HR PRN #30 tab PRN Reason: Pain Is patient prescribed a controlled substance at d/c from ED?: No Referrals: Case Berman MD [Primary Care Provider] - 1-2 days Time of Disposition: 22:27
--- NOTE | 2021-07-19 22:13 | CT ---
EXAMINATION TYPE: CT angio neck DATE OF EXAM: 07/19/2021 COMPARISON: None HISTORY: left neck pain h/o corotid stenosis CT DLP: 372 mGycm Automated exposure control for dose reduction was used. CONTRAST: Performed with IV Contrast, patient injected with 65 mL of Isovue 370. Images obtained from the aortic arch to the skull base with IV contrast. There are 3-D post processed images. There is normal branching pattern of the great vessels on the aortic arch. There is some plaque forma tion on the aortic arch. There is bilateral arterial flow in the subclavian arteries. There is arteri al flow in the common internal and external carotid arteries bilaterally. There is mild plaque at the carotid artery bifurcations and less than 10% stenosis. There is arterial flow in both vertebral arteries. Vertebral arteries are symmetric. There is arteria l flow in the vertebrobasilar artery system. There is no evidence of carotid or vertebral artery aneu rysm or dissection. IMPRESSION: Minimal atherosclerotic plaque at the carotid artery bifurcations. No evidence of hemodynamic stenosi s. Normal-appearing vertebral arteries.
--- NOTE | 2021-07-19 22:15 | XR ---
EXAMINATION TYPE: XR chest 2V DATE OF EXAM: 07/19/2021 COMPARISON: 11/14/2020 HISTORY: Chest pain TECHNIQUE: FINDINGS: Heart is enlarged. There is mild blunting of the costophrenic angles. There is pulmonary hy perinflation. There are no hilar masses. There is some coarsening of the interstitial markings. IMPRESSION: There is probably COPD. Cardiomegaly. Very small pleural effusions. Minimal chronic heart failure is possible. There is probably some pulmonary fibrosis. No change compared to old exam.
[2021-07-19] MEDS ORDERED: KETOROLAC 15 MG/ML 1 ML VIAL IVP STA (22:25)
[2021-07-19] MEDS ORDERED: LIDOCAINE 5% PATCH TOPICAL STA (22:26)
[2021-07-19] MEDS ORDERED: CYCLOBENZAPRINE 10MG STARTER 3 TAB BTL PO STA (23:05)
[2021-07-19 23:08] VITALS: BP 163/76; PULSE 83
== END 2021-07-19 23:08 | disposition home or self-care (01) ==
LOC: EC 18:12
DX: G24.3 Spasmodic torticollis (principal); I11.0 Hypertensive heart disease with heart failure; I50.9 Heart failure, unspecified; I48.91 Unspecified atrial fibrillation; E78.5 Hyperlipidemia, unspecified; M19.90 Unspecified osteoarthritis, unspecified site; E07.9 Disorder of thyroid, unspecified; F41.9 Anxiety disorder, unspecified; F32.9 Major depressive disorder, single episode, unspecified; Z88.1 Allergy status to other antibiotic agents; Z90.49 Acquired absence of other specified parts of digestive tract; Z90.89 Acquired absence of other organs; Z96.653 Presence of artificial knee joint, bilateral
CPT/HCPCS: 99284; 96374; 96375 ×2; 36415; 93005; 80053; 83735; 84484; 85025; 85610; 85730; 71046; 70498; J2405; J2270; J1885; Q9967

== ENCOUNTER 2021-10-18 17:32 | Emergency (ER) | payer MEDICARE ==
[2021-10-18 17:50] VITALS: RESP 18; TEMP 98.7
[2021-10-18] MEDS ORDERED: TOPICAL SKIN ADHESIVE 1 EACH AMP TOPICAL STA (18:29)
--- NOTE | 2021-10-18 19:22 | ED ---
General Adult HPI - General Chief complaint: Vaginal Bleeding Stated complaint: vaginal bleeding Time Seen by Provider: 10/18/21 18:12 Source: patient Mode of arrival: EMS Limitations: no limitations - History of Present Illness Initial comments: 86-year-old female with a complicated past medical history presents to the emergency room for multiple complaints. Patient stated she had some bleeding from her vaginal area that started earlier today when getting out of the shower. Daughter thinks she has scratched the area. Patient states she was recently evaluated by an [facility]ER for vaginal bleeding and nothing was found to be wrong so she does not think it is anything internal. States she has also has redness on her right thigh that she is concerned could be an infection. 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 Patient has no other complaints at this time including shortness of breath, chest pain, abdominal pain, nausea or vomit ing, headache, or visual changes. - Related Data Home Medications Medication Instructions Recorded Confirmed Rivaroxaban [Xarelto] 20 mg PO DAILY 08/02/17 07/19/21 ALPRAZolam [Xanax] 0.25 mg PO TID PRN 07/02/19 07/19/21 Atorvastatin [Lipitor] 20 mg PO HS 01/15/20 07/19/21 Levothyroxine Sodium 200 mcg PO DAILY 04/22/21 07/19/21 Metoprolol Succinate (ER) [Toprol 50 mg PO DAILY 04/22/21 07/19/21 Xl] Furosemide [Lasix] 20 mg PO DAILY PRN 07/19/21 07/19/21 Potassium Chloride [Klor-Con 20 20 meq PO DAILY PRN 07/19/21 07/19/21 Packets] Previous Rx's Medication Instructions Recorded lisinopriL [Zestril] 10 mg PO BID #180 tab 11/17/20 Cyclobenzaprine [Flexeril] 10 mg PO TID #15 tab 07/19/21 Ibuprofen [Motrin] 600 mg PO Q8HR PRN #30 tab 07/19/21 Lidocaine 5% Patch [Lidoderm] 1 patch TOPICAL DAILY #30 patch 07/19/21 Cephalexin [Keflex] 500 mg PO Q6HR 10 Days #40 cap 10/18/21 Sulfamethox-Tmp 800-160Mg [Bactrim 1 tab PO Q12HR #20 tab 10/18/21 DS 800-160 mg] hydrOXYzine HCL [Atarax] 10 mg PO HS PRN #10 tab 10/18/21 Allergies Allergy/AdvReac Type Severity Reaction Status Date / Time doxycycline Allergy Itching Verified 10/18/21 19:05 Review of Systems ROS Statement: Those systems with pertinent positive or pertinent negative responses have been documented in the HPI. ROS Other: All systems not noted in ROS Statement are negative. Past Medical History Past Medical History: Atrial Fibrillation, Heart Failure, Hyperlipidemia, Hypertension, Osteoarthritis (OA), Skin Disorder, Supraventricular Tachycardia (SVT), Thyroid Disorder Additional Past Medical History / Comment(s): psoriasis, right lower extremity cellulitis, pedal edema, hypothyroidism, osteoarthritis hands and knees bilaterally, history of bowel obstruction requiring surgical intervention, diverticulosis, urinary incontinence, obstructive sleep apnea not utilizing any CPAP therapy, extensive reaction to doxycycline occurred on January 2016 with itching and leg weakness. History of Any Multi-Drug Resistant Organisms: MRSA Date of last positivie culture/infection: 01/15/20 MDRO Source:: MRSA LEG Past Surgical History: Appendectomy, Bowel Resection, Joint Replacement, Tonsillectomy Additional Past Surgical History / Comment(s): thyroidectomy, raissa knee replacements, bowel resection, muscle bx, D&C, bilateral cataract removals, bilateral foot bunionectomy, colonoscopies. Past Anesthesia/Blood Transfusion Reactions: No Reported Reaction Past Psychological History: Anxiety, Depression Smoking Status: Never smoker Past Alcohol Use History: Occasional Past Drug Use History: None Reported - Past Family History Mother Family Medical History: Dementia, Memory Impairment Father Family Medical History: Liver Disease Additional Family Medical History / Comment(s): Father was an alcoholic and of cirrhosis of the liver. Sister(s) Additional Family Medical History / Comment(s): heart problems Brother(s) Additional Family Medical History / Comment(s): heart problems r/t rheumatic fever General Exam Limitations: no limitations General appearance: alert, in no apparent distress Head exam: Present: atraumatic Eye exam: Present: normal appearance, PERRL, EOMI. Absent: scleral icterus, conjunctival injection ENT exam: Present: normal exam, mucous membranes moist Neck exam: Present: normal inspection, full ROM Respiratory exam: Present: normal lung sounds bilaterally. Absent: respiratory distress, wheezes Cardiovascular Exam: Present: regular rate, normal rhythm, normal heart sounds GI/Abdominal exam: Present: soft, normal bowel sounds. Absent: distended, tenderness External exam: Present: erythema (She is noted to have intertrigo), lacerations (Patient has a small pinpoint lesion of excoriation noted to the left labia majora that is having bleeding. There is no bleeding from vaginal opening or rectal bleeding.) Course Vital Signs 10/18/21 17:42 Temperature 98.7 F Pulse Rate 71 Respiratory 18 Rate Blood Pressure 164/81 O2 Sat by Pulse 100 Oximetry Medical Decision Making - Medical Decision Making Vitals are stable. Patient is well-appearing. Patient does have a small pinpoint area of excoriation that is bleeding. This was able to be controlled with Exofin. Patient has already had a full workup for vaginal bleeding which was negative and I cannot see where the bleeding is coming from externally. She does have intertrigo noted but is on several different creams for this, will follow up with primary care. She also has some erythema noted on the right thigh which is about 3 cm x 3 cm in diameter. There is no fluctuant abscess to drain. Patient will be started on antibiotics, covered for MRSA given her history. Daughter is also requesting Atarax for itching for patient as her intertrigo is causing her severe itching especially at night. I discussed that these medications could cause her to get confused increased risk of falls. However daughter states that patient is with someone [address] her sons live there. States she will only take it at night when she is sleeping as the itching at that time bothers her the most. They will follow up with the doctor to discuss this. They will return here for any worsening symptoms. Disposition Clinical Impression: Cellulitis, Excoriation Disposition: HOME SELF-CARE Condition: Good Instructions (If sedation given, give patient instructions): Cellulitis (ED) Additional Instructions: Take medications as directed. Follow-up with your doctor. Return to the emergency room for any worsening symptoms. Prescriptions: hydrOXYzine HCL [Atarax] 10 mg PO HS PRN #10 tab PRN Reason: Itching Sulfamethox-Tmp 800-160Mg [Bactrim DS 800-160 mg] 1 tab PO Q12HR #20 tab Cephalexin [Keflex] 500 mg PO Q6HR 10 Days #40 cap Is patient prescribed a controlled substance at d/c from ED?: No Referrals: Case Berman MD [Primary Care Provider] - 1-2 days [facility] Visiting Nurse, [NON-STAFF] - 1-2 days Time of Disposition: 19:20
[2021-10-18] MEDS ORDERED: CEPHALEXIN 500MG STARTER PACK 4 CAP BTL PO STA (19:23)
[2021-10-18] MEDS ORDERED: SULFAMETH-TMP DS STARTER PACK 2 TAB BTL PO STA (19:23)
[2021-10-18] MEDS ORDERED: diphenhydrAMINE 50 MG/ML 1 ML VIAL IVP STA (19:23)
[2021-10-18 19:57] VITALS: BP 155/84; PULSE 56
== END 2021-10-18 19:57 | disposition home or self-care (01) ==
LOC: EC 17:32
DX: S30.814A Abrasion of vagina and vulva, initial encounter (principal); N76.2 Acute vulvitis; I48.91 Unspecified atrial fibrillation; I11.0 Hypertensive heart disease with heart failure; I50.9 Heart failure, unspecified; E78.5 Hyperlipidemia, unspecified; M19.90 Unspecified osteoarthritis, unspecified site; E07.9 Disorder of thyroid, unspecified; F41.9 Anxiety disorder, unspecified; F32.A Depression, unspecified; Z88.1 Allergy status to other antibiotic agents; Z90.49 Acquired absence of other specified parts of digestive tract; Z96.653 Presence of artificial knee joint, bilateral; X58.XXXA Exposure to other specified factors, initial encounter
CPT/HCPCS: 99284; 96374; J1200

== ENCOUNTER → 2021-12-01 | Outpatient (CLI) | payer MEDICARE | END | disposition home or self-care (01) | LOC: LABWHC1 11:16 | PROVIDERS: ATTEND Nurse Practitioner Adult Health | DX: E03.9 Hypothyroidism, unspecified (principal) | CPT/HCPCS: 36415; 84443 ==

== ENCOUNTER → 2022-04-10 | Outpatient (CLI) | payer MEDICARE | END | disposition home or self-care (01) | LOC: LABWHC1 11:43 | PROVIDERS: ATTEND Nurse Practitioner Adult Health | DX: I48.21 Permanent atrial fibrillation (principal) | CPT/HCPCS: 36415; 84443 ==

== ENCOUNTER 2022-07-10 08:02 | Emergency (ER) | payer MEDICARE ==
[2022-07-10 08:18] VITALS: RESP 18; TEMP 98.5
[2022-07-10 09:01] LABS: Partial Thromboplastin Time 25.2 sec (22.0-30.0); Prothrombin Time 11.3 sec (9.0-12.0)
[2022-07-10 09:04] LABS: Basophils % (A) 1 %; Eosinophils # (A) 0.1 k/uL (0-0.7); Eosinophils % (A) 2 %; HGB 13.2 gm/dL (11.4-16.0); Lymphocytes # (A) 0.8 k/uL (1.0-4.8); Lymphocytes % (A) 21 %; MCH 32.4 pg (25.0-35.0); MCHC 33.9 g/dL (31.0-37.0); MCV 95.6 fL (80.0-100.0); Mean Platelet Volume 9.7; Monocytes # (A) 0.5 k/uL (0-1.0); Monocytes % (A) 13 %; Neutrophils # (A) 2.3 k/uL (1.3-7.7); Neutrophils % (A) 59 %; Platelet Count 155 k/uL (150-450); RBC 4.08 m/uL (3.80-5.40); WBC 3.9 k/uL (3.8-10.6)
[2022-07-10 09:13] LABS: Albumin 3.9 g/dL (3.5-5.0); Calcium 8.8 mg/dL (8.4-10.2); Magnesium 2.1 mg/dL (1.6-2.3); Total Bilirubin 0.8 mg/dL (0.2-1.3); Total Protein 6.3 g/dL (6.3-8.2)
--- NOTE | 2022-07-10 09:23 | US ---
EXAMINATION TYPE: US venous doppler duplex LE RT DATE OF EXAM: 07/10/2022 9:13 AM COMPARISON: US 2020 CLINICAL HISTORY: swelling. Swelling and pain within right leg. Patient is on Xarelto. Hx bilateral k nee replacement. SIDE PERFORMED: Right TECHNIQUE: The lower extremity deep venous system is examined utilizing real time linear array sonog mark with graded compression, doppler sonography and color-flow sonography. VESSELS IMAGED: Common Femoral Vein Deep Femoral Vein Greater Saphenous Vein * Femoral Vein Popliteal Vein Small Saphenous Vein * Proximal Calf Veins (* superficial vessels) There is compressibility and color Doppler flow identified within the visualized right lower extremit y venous vasculature. Right Leg: No evidence of DVT in veins imaged at this time. IMPRESSION: No ultrasound evidence of deep venous thrombosis of the right lower extremity.
--- NOTE | 2022-07-10 09:26 | ED ---
General Adult HPI - General Chief complaint: Weakness Stated complaint: lower extremity pain Time Seen by Provider: 07/10/22 08:17 Source: patient, EMS, RN notes reviewed, old records reviewed Mode of arrival: EMS Limitations: no limitations - History of Present Illness Initial comments: 87-year-old female with bilateral lower extremity pain and swelling. Symptoms have been present for some time. Patient does have history of heart failure. She reports that she takes 20 mg of Lasix daily and is instructed to take an additional 20 mg as needed for weight gain or worsening swelling. She has difficulty ambulating and is reluctant to take additional doses of Lasix for the swelling because of the need to urinate. She denies chest pain. Very mild dyspnea associated with her swelling. No abdominal pain. No vomiting. No fever. - Related Data Home Medications Medication Instructions Recorded Confirmed Rivaroxaban [Xarelto] 20 mg PO DAILY 08/02/17 07/19/21 ALPRAZolam [Xanax] 0.25 mg PO TID PRN 07/02/19 07/19/21 Atorvastatin [Lipitor] 20 mg PO HS 01/15/20 07/19/21 Levothyroxine Sodium 200 mcg PO DAILY 04/22/21 07/19/21 Metoprolol Succinate (ER) [Toprol 50 mg PO DAILY 04/22/21 07/19/21 Xl] Furosemide [Lasix] 20 mg PO DAILY PRN 07/19/21 07/19/21 Potassium Chloride [Klor-Con 20 20 meq PO DAILY PRN 07/19/21 07/19/21 Packets] Previous Rx's Medication Instructions Recorded lisinopriL [Zestril] 10 mg PO BID #180 tab 11/17/20 Cyclobenzaprine [Flexeril] 10 mg PO TID #15 tab 07/19/21 Ibuprofen [Motrin] 600 mg PO Q8HR PRN #30 tab 07/19/21 Lidocaine 5% Patch [Lidoderm] 1 patch TOPICAL DAILY #30 patch 07/19/21 Cephalexin [Keflex] 500 mg PO Q6HR 10 Days #40 cap 10/18/21 Sulfamethox-Tmp 800-160Mg [Bactrim 1 tab PO Q12HR #20 tab 10/18/21 DS 800-160 mg] hydrOXYzine HCL [Atarax] 10 mg PO HS PRN #10 tab 10/18/21 Cephalexin [Keflex] 500 mg PO QID 7 Days #28 cap 07/10/22 Allergies Allergy/AdvReac Type Severity Reaction Status Date / Time doxycycline Allergy Itching Verified 07/10/22 08:18 Review of Systems ROS Statement: Those systems with pertinent positive or pertinent negative responses have been documented in the HPI. ROS Other: All systems not noted in ROS Statement are negative. Past Medical History Past Medical History: Atrial Fibrillation, Heart Failure, Hyperlipidemia, Hypert ension, Osteoarthritis (OA), Skin Disorder, Supraventricular Tachycardia (SVT), Thyroid Disorder Additional Past Medical History / Comment(s): psoriasis, right lower extremity cellulitis, pedal edema, hypothyroidism, osteoarthritis hands and knees bilaterally, history of bowel obstruction requiring surgical intervention, diverticulosis, urinary incontinence, obstructive sleep apnea not utilizing any CPAP therapy, extensive reaction to doxycycline occurred on January 2016 with itching and leg weakness. History of Any Multi-Drug Resistant Organisms: None Reported, MRSA Date of last positivie culture/infection: 01/15/20 MDRO Source:: MRSA LEG Past Surgical History: Appendectomy, Bowel Resection, Joint Replacement, Tonsillectomy Additional Past Surgical History / Comment(s): thyroidectomy, raissa knee replacements, bowel resection, muscle bx, D&C, bilateral cataract removals, bilateral foot bunionectomy, colonoscopies. Past Anesthesia/Blood Transfusion Reactions: No Reported Reaction Past Psychological History: Anxiety, Depression Smoking Status: Never smoker Past Alcohol Use History: Occasional Past Drug Use History: None Reported - Past Family History Mother Family Medical History: Dementia, Memory Impairment Father Family Medical History: Liver Disease Additional Family Medical History / Comment(s): Father was an alcoholic and of cirrhosis of the liver. Sister(s) Additional Family Medical History / Comment(s): heart problems Brother(s) Additional Family Medical History / Comment(s): heart problems r/t rheumatic fever General Exam Limitations: no limitations General appearance: alert, in no apparent distress Head exam: Present: atraumatic, normocephalic Eye exam: Present: normal appearance, PERRL ENT exam: Present: normal exam Neck exam: Present: normal inspection. Absent: tenderness, meningismus Respiratory exam: Present: normal lung sounds bilaterally. Absent: respiratory distress, wheezes, rales Cardiovascular Exam: Present: regular rate, normal rhythm GI/Abdominal exam: Present: soft. Absent: distended, tenderness, guarding Extremities exam: Present: pedal edema, calf tenderness (On the right) Neurological exam: Present: alert, oriented X3, CN II-XII intact. Absent: motor sensory deficit Psychiatric exam: Present: normal affect, normal mood Skin exam: Present: warm, dry, intact. Absent: cyanosis, diaphoretic Course Vital Signs 07/10/22 07/10/22 07/10/22 08:14 08:18 10:18 Temperature 98.5 F Pulse Rate 71 74 Respiratory 18 18 18 Rate Blood Pressure 145/77 175/92 O2 Sat by Pulse 99 99 Oximetry EKG Findings - EKG Comments: EKG Findings:: EKG: Sinus rhythm with first-degree AV block, left bundle branch block, rate is 69, IA interval 222, QRS duration 144, QTC 480. History of left bundle Medical Decision Making - Medical Decision Making 87-year-old female with bilateral lower extremity pain which is been present for about one month. She did have more prominent swelling and tenderness on the right as well as some mild erythema. I did perform an ultrasound which is negative for DVT. Laboratory testing is unremarkable including negative troponin, minimally elevated BNP at 1200. R lites are normal. CBC is normal. Her vital signs are stable. Chest x-ray is clear. Without acute findings. Patient will be prescribed Keflex for cellulitis in the right lower extremity. She will follow-up with the primary care physician. - Lab Data Result diagrams: 07/10/22 08:42 07/10/22 08:42 Lab Results 07/10/22 07/10/22 07/10/22 Range/Units 08:42 08:42 08:42 WBC 3.9 (3.8-10.6) k/uL RBC 4.08 (3.80-5.40) m/uL Hgb 13.2 (11.4-16.0) gm/dL Hct 39.0 (34.0-46.0) % MCV 95.6 (80.0-100.0) fL MCH 32.4 (25.0-35.0) pg MCHC 33.9 (31.0-37.0) g/dL RDW 13.0 (11.5-15.5) % Plt Count 155 (150-450) k/uL MPV 9.7 Neutrophils % 59 % Lymphocytes % 21 % Monocytes % 13 % Eosinophils % 2 % Basophils % 1 % Neutrophils # 2.3 (1.3-7.7) k/uL Lymphocytes # 0.8 L (1.0-4.8) k/uL Monocytes # 0.5 (0-1.0) k/uL Eosinophils # 0.1 (0-0.7) k/uL Basophils # 0.0 (0-0.2) k/uL PT 11.3 (9.0-12.0) sec INR 1.0 (<1.2) APTT 25.2 (22.0-30.0) sec Sodium 140 (137-145) mmol/L Potassium 4.0 (3.5-5.1) mmol/L Chloride 106 (98-107) mmol/L Carbon Dioxide 26 (22-30) mmol/L Anion Gap 8 mmol/L BUN 16 (7-17) mg/dL Creatinine 0.86 (0.52-1.04) mg/dL Est GFR (CKD-EPI)AfAm 72 (>60 ml/min/1.73 sqM) Est GFR (CKD-EPI)NonAf 62 (>60 ml/min/1.73 sqM) Glucose 93 (74-99) mg/dL Calcium 8.8 (8.4-10.2) mg/dL Magnesium 2.1 (1.6-2.3) mg/dL Total Bilirubin 0.8 (0.2-1.3) mg/dL AST 26 (14-36) U/L ALT 25 (4-34) U/L Alkaline Phosphatase 95 (38-126) U/L Troponin I (0.000-0.034) ng/mL NT-Pro-B Natriuret Pep pg/mL Total Protein 6.3 (6.3-8.2) g/dL Albumin 3.9 (3.5-5.0) g/dL Urine Color Urine Appearance (Clear) Urine pH (5.0-8.0) Ur Specific [place] (1.001-1.035) Urine Protein (Negative) Urine Glucose (UA) (Negative) Urine Ketones (Negative) Urine Blood (Negative) Urine Nitrite (Negative) Urine Bilirubin (Negative) Urine Urobilinogen (<2.0) mg/dL Ur Leukocyte Esterase (Negative) Urine RBC (0-5) /hpf Urine WBC (0-5) /hpf Ur Squamous Epith Cells (0-4) /hpf Urine Bacteria (None) /hpf Urine Mucus (None) /hpf 07/10/22 07/10/22 07/10/22 Range/Units 08:42 08:42 10:57 WBC (3.8-10.6) k/uL RBC (3.80-5.40) m/uL Hgb (11.4-16.0) gm/dL Hct (34.0-46.0) % MCV (80.0-100.0) fL MCH (25.0-35.0) pg MCHC (31.0-37.0) g/dL RDW (11.5-15.5) % Plt Count (150-450) k/uL MPV Neutrophils % % Lymphocytes % % Monocytes % % Eosinophils % % Basophils % % Neutrophils # (1.3-7.7) k/uL Lymphocytes # (1.0-4.8) k/uL Monocytes # (0-1.0) k/uL Eosinophils # (0-0.7) k/uL Basophils # (0-0.2) k/uL PT (9.0-12.0) sec INR (<1.2) APTT (22.0-30.0) sec Sodium (137-145) mmol/L Potassium (3.5-5.1) mmol/L Chloride (98-107) mmol/L Carbon Dioxide (22-30) mmol/L Anion Gap mmol/L BUN (7-17) mg/dL Creatinine (0.52-1.04) mg/dL Est GFR (CKD-EPI)AfAm (>60 ml/min/1.73 sqM) Est GFR (CKD-EPI)NonAf (>60 ml/min/1.73 sqM) Glucose (74-99) mg/dL Calcium (8.4-10.2) mg/dL Magnesium (1.6-2.3) mg/dL Total Bilirubin (0.2-1.3) mg/dL AST (14-36) U/L ALT (4-34) U/L Alkaline Phosphatase (38-126) U/L Troponin I 0.023 (0.000-0.034) ng/mL NT-Pro-B Natriuret Pep 1240 pg/mL Total Protein (6.3-8.2) g/dL Albumin (3.5-5.0) g/dL Urine Color Light Yellow Urine Appearance Cloudy H (Clear) Urine pH 7.5 (5.0-8.0) Ur Specific [place] 1.009 (1.001-1.035) Urine Protein Negative (Negative) Urine Glucose (UA) Negative (Negative) Urine Ketones Negative (Negative) Urine Blood Negative (Negative) Urine Nitrite Negative (Negative) Urine Bilirubin Negative (Negative) Urine Urobilinogen <2.0 (<2.0) mg/dL Ur Leukocyte Esterase Negative (Negative) Urine RBC 2 (0-5) /hpf Urine WBC 1 (0-5) /hpf Ur Squamous Epith Cells 2 (0-4) /hpf Urine Bacteria Rare H (None) /hpf Urine Mucus Rare H (None) /hpf Disposition Clinical Impression: Lower extremity edema, Cellulitis Disposition: HOME SELF-CARE Condition: Fair Instructions (If sedation given, give patient instructions): Cellulitis (ED) Prescriptions: Cephalexin [Keflex] 500 mg PO QID 7 Days #28 cap Is patient prescribed a controlled substance at d/c from ED?: No Referrals: Dania Ghosh MD [Primary Care Provider] - 1-2 days Time of Disposition: 11:21
--- NOTE | 2022-07-10 10:02 | XR ---
EXAMINATION TYPE: XR chest 2V DATE OF EXAM: 07/10/2022 COMPARISON: 07/19/2021 INDICATION: Weakness lower extremity swelling and pain TECHNIQUE: Frontal and lateral views of the chest are obtained. FINDINGS: The heart size is mildly prominent. The pulmonary vasculature is normal. No suspicious focal consolidation is evident.. There is some mild hyperinflation and increased AP di ameter increased kyphosis and flattening the diaphragms. Findings can be associated with COPD. IMPRESSION: 1. No acute pulmonary process. 2. Mild cardiomegaly. 3. COPD
[2022-07-10 10:21] VITALS: BP 175/92; PULSE 74
[2022-07-10 11:13] LABS: Appearance,Urine Cloudy (Clear); Bacteria,Urine Rare /hpf; Bilirubin,Urine Negative (Negative); Blood,Urine Negative (Negative); Color,Urine Light Yellow; Glucose,Urine (UA) Negative (Negative); Ketones,Urine Negative (Negative); Leukocyte Esterase,Urine Negative (Negative); Mucus,Urine Rare /hpf; Nitrite,Urine Negative (Negative); PH, Urine 7.5 (5.0-8.0); Protein,Urine Negative (Negative); RBC,Urine 2 /hpf (0-5); Specific Gravity,Urine 1.009 (1.001-1.035); Squamous Epithelial Cell,Urine 2 /hpf (0-4); Urobilinogen,Urine <2.0 mg/dL (<2.0); WBC,Urine 1 /hpf (0-5)
== END 2022-07-10 12:40 | disposition home or self-care (01) ==
LOC: EC 08:02
DX: L03.115 Cellulitis of right lower limb (principal); L03.116 Cellulitis of left lower limb; I48.91 Unspecified atrial fibrillation; I50.9 Heart failure, unspecified; E78.5 Hyperlipidemia, unspecified; I10 Essential (primary) hypertension; E07.9 Disorder of thyroid, unspecified; Z88.1 Allergy status to other antibiotic agents; Z79.890 Hormone replacement therapy; Z79.899 Other long term (current) drug therapy
CPT/HCPCS: 36415; 71046; 80053; 81001; 83735; 83880; 84484; 85025; 85610; 85730; 93005; 99284

== ENCOUNTER 2022-07-13 11:40 | Emergency (ER) | payer MEDICARE ==
[2022-07-13 11:48] VITALS: RESP 18
--- NOTE | 2022-07-13 12:40 | ED ---
Lower Extremity Injury HPI - General Chief Complaint: Extremity Injury, Lower Stated Complaint: R leg celulitis Time Seen by Provider: 07/13/22 12:01 Source: patient, RN notes reviewed Mode of arrival: EMS Limitations: no limitations - History of Present Illness Initial Comments: 87-year-old female presents emergency Department chief complaint right legs rash. Patient was seen here recently for cellulitis patient developed blistering on her right leg. Patient states is painful radiates up her leg. Patient is currently on Keflex has taken Keflex in the past. Patient only has ALLERGY to doxycycline. Patient offers no complaints. - Related Data Home Medications Medication Instructions Recorded Confirmed Rivaroxaban [Xarelto] 20 mg PO DAILY 08/02/17 07/19/21 ALPRAZolam [Xanax] 0.25 mg PO TID PRN 07/02/19 07/19/21 Atorvastatin [Lipitor] 20 mg PO HS 01/15/20 07/19/21 Levothyroxine Sodium 200 mcg PO DAILY 04/22/21 07/19/21 Metoprolol Succinate (ER) [Toprol 50 mg PO DAILY 04/22/21 07/19/21 Xl] Furosemide [Lasix] 20 mg PO DAILY PRN 07/19/21 07/19/21 Potassium Chloride [Klor-Con 20 20 meq PO DAILY PRN 07/19/21 07/19/21 Packets] Previous Rx's Medication Instructions Recorded lisinopriL [Zestril] 10 mg PO BID #180 tab 11/17/20 Cyclobenzaprine [Flexeril] 10 mg PO TID #15 tab 07/19/21 Ibuprofen [Motrin] 600 mg PO Q8HR PRN #30 tab 07/19/21 Lidocaine 5% Patch [Lidoderm] 1 patch TOPICAL DAILY #30 patch 07/19/21 Cephalexin [Keflex] 500 mg PO Q6HR 10 Days #40 cap 10/18/21 Sulfamethox-Tmp 800-160Mg [Bactrim 1 tab PO Q12HR #20 tab 10/18/21 DS 800-160 mg] hydrOXYzine HCL [Atarax] 10 mg PO HS PRN #10 tab 10/18/21 Cephalexin [Keflex] 500 mg PO QID 7 Days #28 cap 07/10/22 valACYclovir HCL [Valtrex] 1,000 mg PO TID #30 tablet 07/13/22 Allergies Allergy/AdvReac Type Severity Reaction Status Date / Time doxycycline Allergy Itching Verified 07/13/22 11:41 Review of Systems ROS Statement: Those systems with pertinent positive or pertinent negative responses have been documented in the HPI. ROS Other: All systems not noted in ROS Statement are negative. Past Medical History Past Medical History: Atrial Fibrillation, Heart Failure, Hyperlipidemia, Hypertension, Osteoarthritis (OA), Skin Disorder, Supraventricular Tachycardia (SVT), Thyroid Disorder Additional Past Medical History / Comment(s): psoriasis, right lower extremity cellulitis, pedal edema, hypothyroidism, osteoarthritis hands and knees bilaterally, history of bowel obstruction requiring surgical intervention, diverticulosis, urinary incontinence, obstructive sleep apnea not utilizing any CPAP therapy, extensive reaction to doxycycline occurred on January 2016 with itching and leg weakness. History of Any Multi-Drug Resistant Organisms: None Reported, MRSA Date of last positivie culture/infection: 01/15/20 MDRO Source:: MRSA LEG Past Surgical History: Appendectomy, Bowel Resection, Joint Replacement, Tonsillectomy Additional Past Surgical History / Comment(s): thyroidectomy, raissa knee replacements, bowel resection, muscle bx, D&C, bilateral cataract removals, bilateral foot bunionectomy, colonoscopies. Past Anesthesia/Blood Transfusion Reactions: No Reported Reaction Past Psychological History: Anxiety, Depression Smoking Status: Never smoker Past Alcohol Use History: Occasional Past Drug Use History: None Reported - Past Family History Mother Family Medical History: Dementia, Memory Impairment Father Family Medical History: Liver Disease Additional Family Medical History / Comment(s): Father was an alcoholic and of cirrhosis of the liver. Sister(s) Additional Family Medical History / Comment(s): heart problems Brother(s) Additional Family Medical History / Comment(s): heart problems r/t rheumatic fever General Exam Limitations: no limitations General appearance: alert, in no apparent distress Head exam: Present: atraumatic, normocephalic, normal inspection Eye exam: Present: normal appearance, PERRL, EOMI. Absent: scleral icterus, conjunctival injection, periorbital swelling ENT exam: Present: normal exam, normal oropharynx, mucous membranes moist Neck exam: Present: normal inspection, full ROM. Absent: tenderness, meningismus, lymphadenopathy Respiratory exam: Present: normal lung sounds bilaterally. Absent: respiratory distress, wheezes, rales, rhonchi, stridor Cardiovascular Exam: Present: regular rate, normal rhythm, normal heart sounds. Absent: systolic murmur, diastolic murmur, rubs, gallop, clicks Extremities exam: Present: other (Right leg there is erythematous blistering) Skin exam: Present: warm, dry, intact, normal color, rash Course Vital Signs 07/13/22 11:42 Temperature 98.1 F Pulse Rate 62 Respiratory 18 Rate Blood Pressure 120/75 Medical Decision Making - Medical Decision Making 87-year-old female presented for rash her legs patient has notable herpes zoster. Patient was started on Valtrex. Patient has close follow-up return parameters were discussed. Disposition Clinical Impression: Shingles Disposition: HOME SELF-CARE Condition: Stable Instructions (If sedation given, give patient instructions): Shingles (ED) Additional Instructions: Please return to the Emergency Department if symptoms worsen or any other concerns. Prescriptions: valACYclovir HCL [Valtrex] 1,000 mg PO TID #30 tablet Is patient prescribed a controlled substance at d/c from ED?: No Referrals: None,Stated [Primary Care Provider] - 1-2 days Time of Disposition: 12:40
[2022-07-13] MEDS ORDERED: ACET/COD 300 MG/30 MG STARTER PACK 6 TAB BTL PO STA (13:22)
[2022-07-13 13:32] VITALS: BP 146/88; PULSE 60; TEMP 98.8
== END 2022-07-13 13:35 | disposition home or self-care (01) ==
LOC: EC 11:40
DX: B02.9 Zoster without complications (principal); I48.91 Unspecified atrial fibrillation; I11.0 Hypertensive heart disease with heart failure; I50.9 Heart failure, unspecified; E03.9 Hypothyroidism, unspecified; E78.5 Hyperlipidemia, unspecified; Z96.653 Presence of artificial knee joint, bilateral; Z88.1 Allergy status to other antibiotic agents; Z79.890 Hormone replacement therapy; Z79.899 Other long term (current) drug therapy; Z79.01 Long term (current) use of anticoagulants
CPT/HCPCS: 99283

== ENCOUNTER 2022-07-24 13:59 | Observation (INO) | payer MEDICARE ==
--- NOTE | 2022-07-24 14:40 | XR ---
EXAMINATION TYPE: XR chest 2V DATE OF EXAM: 07/24/2022 COMPARISON: 07/10/2022 HISTORY: Shortness of breath TECHNIQUE: Frontal and lateral views of the chest are obtained. FINDINGS: Scattered senescent parenchymal changes noted. Hyperinflation compatible with COPD. No evidence for infiltrate. No evidence for atelectasis. Heart size is stable. Mediastinal structures are stable and grossly unremarkable. No evidence for hilar prominence. Degenerative changes dorsal spine. IMPRESSION: 1. No evidence for acute pulmonary disease.
--- NOTE | 2022-07-24 16:58 | XR ---
EXAMINATION TYPE: XR femur RT DATE OF EXAM: 07/24/2022 COMPARISON: NONE HISTORY: Pain TECHNIQUE: 4 views FINDINGS: There is right knee prosthesis. Components appear intact. No evidence of femoral fracture. The proximal femur and hip joint are intact. There is mild acetabular spurring. IMPRESSION: No acute abnormality of the right femur.
--- NOTE | 2022-07-24 17:46 | ED ---
General Adult HPI - General Chief complaint: Shortness of Breath Stated complaint: SOB,Hypotension Time Seen by Provider: 07/24/22 16:57 Source: patient, family, RN notes reviewed Mode of arrival: wheelchair Limitations: no limitations - History of Present Illness Initial comments: Patient is an 87-year-old female presenting to the emergency room with her daughter is at the direction of her primary care provider regarding concerns for exacerbation of congestive heart failure along with pain, numbness, and tingling to her right lateral lower extremity. She has had shortness of breath with activity and lower extremity swelling which her Lasix regimen was increased to twice a day over the last several days and family was advised that the home care nurse had heard crackles and decreased lung sounds on assessment today which are not present on her current exam. She was diagnosed on July 12 with shingles and completed a course of valacyclovir. Lesions to her right lateral leg are significantly improved without any vesicular lesions at this time however her pain is located to this region and radiates downward from there. Due to her pain and numbness and tingling in her right lower extremity she has been less active over the last several weeks. She has a history of cellulitis to her right lower extremity and prior to her diagnosis of shingles earlier this month she was treated for cellulitis. Her family reports no diffuse erythema near at the time of diagnosis of shingles. In addition to her recurrent cellulitis and shingles history she has a past medical history significant for atrial fibrillation, SVT, hypertension, hyperlipidemia, osteoarthritis, anxiety, depression, sleep apnea without use of CPAP, CHF and hypothyroidism. - Related Data Home Medications Medication Instructions Recorded Confirmed Rivaroxaban [Xarelto] 20 mg PO DAILY 08/02/17 07/24/22 Atorvastatin [Lipitor] 20 mg PO HS 01/15/20 07/24/22 Metoprolol Succinate (ER) [Toprol 50 mg PO DAILY 04/22/21 07/24/22 Xl] Furosemide [Lasix] 20 mg PO DAILY PRN 07/19/21 07/24/22 Cholecalciferol [Vitamin D3 (25 25 mcg PO DAILY 07/24/22 07/24/22 Mcg = 1000 Iu)] Cyanocobalamin [Vitamin B-12] 500 mcg PO DAILY 07/24/22 07/24/22 Levothyroxine Sodium [Synthroid] 88 mcg PO DAILY 07/24/22 07/24/22 hydrOXYzine HCL [Atarax] 25 mg PO HS PRN 07/24/22 07/24/22 Previous Rx's Medication Instructions Recorded lisinopriL [Zestril] 10 mg PO BID #180 tab 11/17/20 Cephalexin [Keflex] 500 mg PO QID 7 Days #28 cap 07/10/22 valACYclovir HCL [Valtrex] 1,000 mg PO TID #30 tablet 07/13/22 Allergies Allergy/AdvReac Type Severity Reaction Status Date / Time doxycycline Allergy Itching Verified 07/24/22 14:07 Review of Systems ROS Statement: Those systems with pertinent positive or pertinent negative responses have been documented in the HPI. ROS Other: All systems not noted in ROS Statement are negative. Past Medical History Past Medical History: Atrial Fibrillation, Heart Failure, Hyperlipidemia, Hypertension, Osteoarthritis (OA), Skin Disorder, Supraventricular Tachycardia (SVT), Thyroid Disorder Additional Past Medical History / Comment(s): psoriasis, right lower extremity cellulitis, pedal edema, hypothyroidism, osteoarthritis hands and knees bilaterally, history of bowel obstruction requiring surgical intervention, diverticulosis, urinary incontinence, obstructive sleep apnea not utilizing any CPAP therapy, extensive reaction to doxycycline occurred on January 2016 with itching and leg weakness. History of Any Multi-Drug Resistant Organisms: None Reported, MRSA Date of last positivie culture/infection: 01/15/20 MDRO Source:: MRSA LEG Past Surgical History: Appendectomy, Bowel Resection, Joint Replacement, Tonsillectomy Additional Past Surgical History / Comment(s): thyroidectomy, raissa knee replacements, bowel resection, muscle bx, D&C, bilateral cataract removals, b ilateral foot bunionectomy, colonoscopies. Past Anesthesia/Blood Transfusion Reactions: No Reported Reaction Past Psychological History: Anxiety, Depression Smoking Status: Never smoker Past Alcohol Use History: Occasional Past Drug Use History: None Reported - Past Family History Mother Family Medical History: Dementia, Memory Impairment Father Family Medical History: Liver Disease Additional Family Medical History / Comment(s): Father was an alcoholic and of cirrhosis of the liver. Sister(s) Additional Family Medical History / Comment(s): heart problems Brother(s) Additional Family Medical History / Comment(s): heart problems r/t rheumatic fever General Exam Limitations: no limitations General appearance: alert, in no apparent distress Head exam: Present: atraumatic, normocephalic, normal inspection Eye exam: Present: normal appearance, PERRL, EOMI. Absent: scleral icterus, conjunctival injection, periorbital swelling ENT exam: Present: normal exam, mucous membranes moist Neck exam: Present: normal inspection, full ROM Respiratory exam: Present: normal lung sounds bilaterally, other (barrel chested). Absent: respiratory distress, wheezes, rales, rhonchi, stridor, accessory muscle use Cardiovascular Exam: Present: bradycardia, irregular rhythm, normal heart sounds. Absent: systolic murmur, diastolic murmur, rubs, gallop, clicks GI/Abdominal exam: Present: soft, normal bowel sounds. Absent: distended, tenderness, guarding, rebound, rigid Rectal exam: Present: deferred Extremities exam: Present: pedal edema (Bilateral lower extremity trace right greater than left) Back exam: Present: normal inspection Neurological exam: Present: alert, oriented X3, CN II-XII intact Psychiatric exam: Present: normal affect, normal mood Skin exam: Present: other (Healing rash right lateral lower leg) Course Vital Signs 07/24/22 07/24/22 14:04 17:44 Temperature 99.3 F Pulse Rate 74 53 L Respiratory 16 20 Rate Blood Pressure 103/67 111/60 O2 Sat by Pulse 98 100 Oximetry Medical Decision Making - Medical Decision Making 87-year-old female presenting to the emergency room at the direction of her primary care provider in regards to right lower extremity pain numbness and tingling along with abnormal lung sounds reported by home care nurse and shortness of breath with exertion. Chest x-ray and x-ray of the right femur ordered and completed by triaging nurse. No indication for x-ray of the right lower extremity or the right femur. Chest x-ray reveals no acute cardiopulmonary process. Lungs are clear to auscultation. Will obtain further diagnostic test ing and laboratory studies including an EKG, CBC, CMP, lactic acid, proBNP, d- dimer, and coags along with Covid and influenza swabs. No need for supplemental oxygenation, nebulized treatment or analgesic at this time. Pain consistent with neuropathic pain secondary to shingles. Will await laboratory studies however will likely benefit from gabapentin prescription. No evidence of infection, d-dimer negative, Covid and influenza swabs negative, lactic acid normal. Chest x-ray and labs revealed no evidence of fluid volume overload. Troponin indeterminate but at baseline. Mild dehydration noted with a BUN of 29. Bradycardia noted with rate 45-55x currently on Toprol 50 mg XL. Discussed findings with Dr. Draper who is on-call for [facility] call for [facility] physicians. Excepting of admission for observation stay regarding post herpetic neuralgia; he will adjust beta melida in regards to bradycardia and reports no need for cardiac consult at this time. Discussed findings and plan with family. Case discussed with Dr. Becker - Lab Data Result diagrams: 07/24/22 17:57 07/24/22 17:57 Lab Results 07/24/22 07/24/22 07/24/22 Range/Units 17:57 17:57 17:57 WBC 7.3 (3.8-10.6) k/uL RBC 4.29 (3.80-5.40) m/uL Hgb 14.2 (11.4-16.0) gm/dL Hct 41.9 (34.0-46.0) % MCV 97.7 (80.0-100.0) fL MCH 33.1 (25.0-35.0) pg MCHC 33.8 (31.0-37.0) g/dL RDW 12.7 (11.5-15.5) % Plt Count 219 (150-450) k/uL MPV 9.1 Neutrophils % 51 % Lymphocytes % 33 % Monocytes % 10 % Eosinophils % 3 % Basophils % 1 % Neutrophils # 3.7 (1.3-7.7) k/uL Lymphocytes # 2.4 (1.0-4.8) k/uL Monocytes # 0.7 (0-1.0) k/uL Eosinophils # 0.2 (0-0.7) k/uL Basophils # 0.0 (0-0.2) k/uL PT 14.4 H (9.0-12.0) sec INR 1.4 H (<1.2) APTT 33.6 H (22.0-30.0) sec D-Dimer <0.17 (<0.60) mg/L FEU Sodium 139 (137-145) mmol/L Potassium 3.8 (3.5-5.1) mmol/L Chloride 104 (98-107) mmol/L Carbon Dioxide 23 (22-30) mmol/L Anion Gap 12 mmol/L BUN 29 H (7-17) mg/dL Creatinine 1.05 H (0.52-1.04) mg/dL Est GFR (CKD-EPI)AfAm 56 (>60 ml/min/1.73 sqM) Est GFR (CKD-EPI)NonAf 49 (>60 ml/min/1.73 sqM) Glucose 103 H (74-99) mg/dL Plasma Lactic Acid Beau (0.7-2.0) mmol/L Calcium 9.0 (8.4-10.2) mg/dL Total Bilirubin 0.8 (0.2-1.3) mg/dL AST 32 (14-36) U/L ALT 23 (4-34) U/L Alkaline Phosphatase 83 (38-126) U/L Troponin I (0.000-0.034) ng/mL NT-Pro-B Natriuret Pep pg/mL Total Protein 6.5 (6.3-8.2) g/dL Albumin 4.0 (3.5-5.0) g/dL Coronavirus (PCR) (Not Detectd) Influenza Type A RNA (Not Detectd) Influenza Type B (PCR) (Not Detectd) 07/24/22 07/24/22 07/24/22 Range/Units 17:57 17:57 17:57 WBC (3.8-10.6) k/uL RBC (3.80-5.40) m/uL Hgb (11.4-16.0) gm/dL Hct (34.0-46.0) % MCV (80.0-100.0) fL MCH (25.0-35.0) pg MCHC (31.0-37.0) g/dL RDW (11.5-15.5) % Plt Count (150-450) k/uL MPV Neutrophils % % Lymphocytes % % Monocytes % % Eosinophils % % Basophils % % Neutrophils # (1.3-7.7) k/uL Lymphocytes # (1.0-4.8) k/uL Monocytes # (0-1.0) k/uL Eosinophils # (0-0.7) k/uL Basophils # (0-0.2) k/uL PT (9.0-12.0) sec INR (<1.2) APTT (22.0-30.0) sec D-Dimer (<0.60) mg/L FEU Sodium (137-145) mmol/L Potassium (3.5-5.1) mmol/L Chloride (98-107) mmol/L Carbon Dioxide (22-30) mmol/L Anion Gap mmol/L BUN (7-17) mg/dL Creatinine (0.52-1.04) mg/dL Est GFR (CKD-EPI)AfAm (>60 ml/min/1.73 sqM) Est GFR (CKD-EPI)NonAf (>60 ml/min/1.73 sqM) Glucose (74-99) mg/dL Plasma Lactic Acid Beau 1.5 (0.7-2.0) mmol/L Calcium (8.4-10.2) mg/dL Total Bilirubin (0.2-1.3) mg/dL AST (14-36) U/L ALT (4-34) U/L Alkaline Phosphatase (38-126) U/L Troponin I 0.027 (0.000-0.034) ng/mL NT-Pro-B Natriuret Pep 999 pg/mL Total Protein (6.3-8.2) g/dL Albumin (3.5-5.0) g/dL Coronavirus (PCR) (Not Detectd) Influenza Type A RNA (Not Detectd) Influenza Type B (PCR) (Not Detectd) 07/24/22 07/24/22 Range/Units 17:57 17:57 WBC (3.8-10.6) k/uL RBC (3.80-5.40) m/uL Hgb (11.4-16.0) gm/dL Hct (34.0-46.0) % MCV (80.0-100.0) fL MCH (25.0-35.0) pg MCHC (31.0-37.0) g/dL RDW (11.5-15.5) % Plt Count (150-450) k/uL MPV Neutrophils % % Lymphocytes % % Monocytes % % Eosinophils % % Basophils % % Neutrophils # (1.3-7.7) k/uL Lymphocytes # (1.0-4.8) k/uL Monocytes # (0-1.0) k/uL Eosinophils # (0-0.7) k/uL Basophils # (0-0.2) k/uL PT (9.0-12.0) sec INR (<1.2) APTT (22.0-30.0) sec D-Dimer (<0.60) mg/L FEU Sodium (137-145) mmol/L Potassium (3.5-5.1) mmol/L Chloride (98-107) mmol/L Carbon Dioxide (22-30) mmol/L Anion Gap mmol/L BUN (7-17) mg/dL Creatinine (0.52-1.04) mg/dL Est GFR (CKD-EPI)AfAm (>60 ml/min/1.73 sqM) Est GFR (CKD-EPI)NonAf (>60 ml/min/1.73 sqM) Glucose (74-99) mg/dL Plasma Lactic Acid Beau (0.7-2.0) mmol/L Calcium (8.4-10.2) mg/dL Total Bilirubin (0.2-1.3) mg/dL AST (14-36) U/L ALT (4-34) U/L Alkaline Phosphatase (38-126) U/L Troponin I (0.000-0.034) ng/mL NT-Pro-B Natriuret Pep pg/mL Total Protein (6.3-8.2) g/dL Albumin (3.5-5.0) g/dL Coronavirus (PCR) Not Detected (Not Detectd) Influenza Type A RNA Not Detected (Not Detectd) Influenza Type B (PCR) Not Detected (Not Detectd) - EKG Data EKG Comments: Atrophic fibrillation with slow ventricular response, left bundle branch block, ventricular rate 46 bpm, RI interval *ms, QRS duration 145 ms, QT/QTC 491/450 ms, PRT axes *, -24, 76 - Radiology Data Radiology results: report reviewed, image reviewed Chest x-ray two-view impression shows no evidence for acute cardiopulmonary disease. X-ray of the right femur reveals no acute abnormalities of the right femur. Disposition Clinical Impression: Post herpetic neuralgia Disposition: ADMITTED IP TO THIS HOSP Condition: Stable Is patient prescribed a controlled substance at d/c from ED?: No Referrals: Melissa Cerda [Primary Care Provider] - 1-2 days Time of Disposition: 19:00
[2022-07-24 18:09] LABS: Basophils % (A) 1 %; Eosinophils # (A) 0.2 k/uL (0-0.7); Eosinophils % (A) 3 %; HCT 41.9 % (34.0-46.0); HGB 14.2 gm/dL (11.4-16.0); Lymphocytes # (A) 2.4 k/uL (1.0-4.8); Lymphocytes % (A) 33 %; MCH 33.1 pg (25.0-35.0); MCHC 33.8 g/dL (31.0-37.0); MCV 97.7 fL (80.0-100.0); Mean Platelet Volume 9.1; Monocytes # (A) 0.7 k/uL (0-1.0); Monocytes % (A) 10 %; Neutrophils # (A) 3.7 k/uL (1.3-7.7); Neutrophils % (A) 51 %; Platelet Count 219 k/uL (150-450); RBC 4.29 m/uL (3.80-5.40); RDW 12.7 % (11.5-15.5); WBC 7.3 k/uL (3.8-10.6)
[2022-07-24 18:11] LABS: Potassium 3.8 mmol/L (3.5-5.1); Total Bilirubin 0.8 mg/dL (0.2-1.3); Total Protein 6.5 g/dL (6.3-8.2)
[2022-07-24 18:18] LABS: INR 1.4 (<1.2); Partial Thromboplastin Time 33.6 sec (22.0-30.0); Prothrombin Time 14.4 sec (9.0-12.0)
[2022-07-24] MEDS ORDERED: NALOXONE 0.4 MG/ML 1 ML VIAL IV PRN (18:56)
[2022-07-24] MEDS ORDERED: GABAPENTIN 100 MG CAP PO STA (18:57)
[2022-07-24 20:40] LABS: T4, Free (Free Thyroxine) 1.55 ng/dL (0.78-2.19)
[2022-07-25] MEDS ORDERED: hydrOXYzine HCL 25 MG TAB PO PRN (00:20)
--- NOTE | 2022-07-25 00:23 | P.HPIM ---
History of Present Illness H&P Date: 07/24/22 The patient is an 87-year-old female with a PMH of A. fib on Xarelto, CHF, hypertension, HLD, and hypothyroidism who presented to the emergency room at the direction of her primary care physician due to persistent right lower extremity pain and numbness. History was supplemented by the ED physician and from the chart. The patient states that over the past 2-3 weeks, she has had gradually worsening right lower extremity pain for which she has seen multiple providers. As per the ED physician, the patient was diagnosed with shingles on July 12 and completed a course of valacyclovir. She was also noticed to have lower extremity edema for itch her Lasix dose had increased over the past few days and the patient's home care nurse noted that she had worsening crackles with mild lo wer extremity edema. The patient notes that the pain in the right lower but he is 9 out of 10, burning and constant in nature, with no alleviating or exacerbating features area she states that other with Ultram for pain, she has been unable to ambulate. The patient was also diagnosed with cellulitis prior to her shingles diagnosis and received a course of oral antibiotics. She states that her rash on her right lower extremity has healed completely. She denied experiencing chest discomfort, nausea, vomiting, diaphoresis, abdominal pain, or, chills, cough. In the emergency room a right femur x-ray was unremarkable with chest x-ray also unremarkable. EKG revealed A. fib with SVR at 46 bpm with left bundle branch block. Laboratory evaluation was remarkable for creatinine 1.05, TSH 10.4, and proBNP 999. Review of systems: Pertinent positives and negatives as discussed in HPI, a complete review of systems was performed and all other systems are negative. Physical examination: General: non toxic, no distress, appears at stated age, overweight Derm: no unusual rashes/lesions, warm Head: atraumatic, normocephalic, symmetric Eyes: EOMI, no lid lag, anicteric sclera, pupils equal round reactive to light ENT: Nose and ears atraumatic Neck: No cervical lymphadenopathy, trachea midline, supple Mouth: no lip lesion, mucus membranes moist Cardiovascular: S1S2 reg, no murmur, positive dorsalis pedis pulse bilateral, no edema Lungs: CTA bilateral, no rhonchi, no rales, no accessory muscle use Abdominal: soft, nontender to palpation, no guarding Ext: muscle strength 4 out of 5 in all 4 extremities grossly, no gross muscle atrophy, no contractures, right lower extremity diffuse tenderness without overlying skin abnormalities or erythema Neuro: CN II-XI grossly intact, no gross focal neuro deficits Psych: Alert, oriented, appropriate affect Assessment/plan Intractable right lower extremity pain, suspected postherpetic pain -Start topical capsaicin and gabapentin Mild acute kidney injury -Avoid IV fluids in setting of CHF history -Monitor for now Chronic conditions: Hypertension, hyperlipidemia, hypothyroidism -Continue with home meds DVT prophylaxis -Xarelto The patient is admitted with an anticipated less than 2 midnight stay for evaluation of right lower extremity pain. CODE STATUS: Full Code Discussed with: Patient Anticipated discharge date: in am Anticipated discharge place: Home Past Medical History Past Medical History: Atrial Fibrillation, Heart Failure, Hyperlipidemia, Hypertension, Osteoarthritis (OA), Skin Disorder, Supraventricular Tachycardia (SVT), Thyroid Disorder Additional Past Medical History / Comment(s): psoriasis, right lower extremity cellulitis, pedal edema, hypothyroidism, osteoarthritis hands and knees bilaterally, history of bowel obstruction requiring surgical intervention, diverticulosis, urinary incontinence, obstructive sleep apnea not utilizing any CPAP therapy, extensive reaction to doxycycline occurred on January 2016 with itching and leg weakness. History of Any Multi-Drug Resistant Organisms: None Reported, MRSA Date of last positivie culture/infection: 01/15/20 MDRO Source:: MRSA LEG Past Surgical History: Appendectomy, Bowel Resection, Joint Replacement, Tonsillectomy Additional Past Surgical History / Comment(s): thyroidectomy, raissa knee replacements, bowel resection, muscle bx, D&C, bilateral cataract removals, bilateral foot bunionectomy, colonoscopies. Past Anesthesia/Blood Transfusion Reactions: No Reported Reaction Past Psychological History: Anxiety, Depression Smoking Status: Never smoker Past Alcohol Use History: Occasional Past Drug Use History: None Reported - Past Family History Mother Family Medical History: Dementia, Memory Impairment Father Family Medical History: Liver Disease Additional Family Medical History / Comment(s): Father was an alcoholic and of cirrhosis of the liver. Sister(s) Additional Family Medical History / Comment(s): heart problems Brother(s) Additional Family Medical History / Comment(s): heart problems r/t rheumatic fever Medications and Allergies Home Medications Medication Instructions Recorded Confirmed Type Rivaroxaban [Xarelto] 20 mg PO DAILY 08/02/17 07/24/22 History Atorvastatin [Lipitor] 20 mg PO HS 01/15/20 07/24/22 History lisinopriL [Zestril] 10 mg PO BID #180 tab 11/17/20 07/24/22 Rx Metoprolol Succinate (ER) [Toprol 50 mg PO DAILY 04/22/21 07/24/22 History Xl] Furosemide [Lasix] 20 mg PO DAILY PRN 07/19/21 07/24/22 History Cephalexin [Keflex] 500 mg PO QID 7 Days #28 cap 07/10/22 07/24/22 Rx valACYclovir HCL [Valtrex] 1,000 mg PO TID #30 tablet 07/13/22 07/24/22 Rx Cholecalciferol [Vitamin D3 (25 25 mcg PO DAILY 07/24/22 07/24/22 History Mcg = 1000 Iu)] Cyanocobalamin [Vitamin B-12] 500 mcg PO DAILY 07/24/22 07/24/22 History Levothyroxine Sodium [Synthroid] 88 mcg PO DAILY 07/24/22 07/24/22 History hydrOXYzine HCL [Atarax] 25 mg PO HS PRN 07/24/22 07/24/22 History Allergies Allergy/AdvReac Type Severity Reaction Status Date / Time doxycycline Allergy Itching Verified 07/24/22 14:07 Physical Exam Vitals: Vital Signs Temp Pulse Resp BP Pulse Ox 07/24/22 17:44 53 L 20 111/60 100 07/24/22 14:04 99.3 F 74 16 103/67 98 Intake and Output 07/24/22 07/24/22 07/24/22 06:59 14:59 22:59 Other: Weight 86.183 kg Results CBC & Chem 7: 07/24/22 17:57 07/24/22 17:57 Labs: Abnormal Lab Results - Last 24 Hours (Table) 07/24/22 07/24/22 07/24/22 Range/Units 17:57 17:57 18:11 PT 14.4 H (9.0-12.0) sec INR 1.4 H (<1.2) APTT 33.6 H (22.0-30.0) sec BUN 29 H (7-17) mg/dL Creatinine 1.05 H (0.52-1.04) mg/dL Glucose 103 H (74-99) mg/dL TSH 10.400 H (0.465-4.680) mIU/L
[2022-07-25] MEDS: GABAPENTIN 100 MG CAP PO SCH ×4 (07:51→20:14)
[2022-07-25] MEDS: LEVOTHYROXINE 88 MCG TAB PO SCH (07:52)
[2022-07-25] MEDS: CAPSAICIN 0.025% CREAM 60 GM TUBE TOPICAL SCH ×4 (09:16→22:22)
[2022-07-25] MEDS: RIVAROXABAN 20 MG TAB PO SCH (09:27)
[2022-07-25] MEDS: valACYclovir HCL 1,000 MG TABLET PO SCH ×2 (09:27→21:44)
[2022-07-25] MEDS: CYANOCOBALAMIN 500 MCG TAB PO SCH (09:27)
[2022-07-25] MEDS: CHOLECALCIFEROL 25 MCG (1000 IU) TABLET PO SCH (09:27)
[2022-07-25] MEDS: lisinopriL 10 MG TAB PO SCH ×2 (09:27→20:13)
[2022-07-25] MEDS: METOPROLOL SUCCINATE (ER) 50 MG TAB.ER.24H PO SCH (09:27)
[2022-07-25] MEDS: FUROSEMIDE 20 MG TAB PO PRN (09:30)
--- NOTE | 2022-07-25 17:35 | P.PN ---
Subjective Progress Note Date: 07/25/22 Hospital course: The patient is a very pleasant 87-year-old female with a past medical history of atrial fibrillation on anticoagulation with Xarelto, CHF, hypertension, HLD, and hypothyroidism. She presented to the emergency room at the direction of her primary care physician due to persistent right lower extremity pain and numbness. The patient stated that over the past 2-3 weeks, she has had gradually worsening right lower extremity pain for which she has seen multiple providers. As per the ED physician, the patient was diagnosed with shingles on July 12 and completed a course of valacyclovir. The patient notes that the pain is in the right lower extremity is severe and constant and described as a burning sensation. Patient denies anything making this better or worse. Patient states she assumed the burning pain would go away once her rash on her right lower extremity was healed but states pain has remained and is severe resulting in her inability to ambulate. Patient was admitted under services with consult PT/OT. Physical examination: Vital signs reviewed and stable. General: Nontoxic, no distress and appears stated age. Derm: Skin warm and dry, normal coloration for ethnicity. Head: Atraumatic, normocephalic and symmetric. Eyes: EOMs intact, no lid lag, and anicteric sclera Mouth: no lip lesions, mucus membranes moist Cardiovascular: regular rate and rhythm with normal S1S2, systolic murmur, positive posterior tibial pulses bilaterally, and cap refill < 2 seconds. Lungs: Respirations even, regular, and unlabored on room air. Lungs CTA b ilaterally, no rhonchi, no rales, no wheezing, and no accessory muscle usage. Abdominal: soft, nontender to palpation, no guarding, no appreciable organomegaly Ext: ROM intact. No gross muscle atrophy, no edema, no contractures. Patient with limited movement of right lower extremity secondary to reports of pain. Patient skin very sensitive to touch. Neuro: Speech clear, face symmetrical and CN II-XII grossly intact with no noted focal neuro deficits Psych: Alert and oriented to person, place, time, and situation. Appropriate and pleasant affect. Assessment and plan of care: Intractable right lower extremity pain, suspected postherpetic pain -Start topical capsaicin and gabapentin -Venous Doppler completed 07/10/22 negative for DVT. Mild acute kidney injury -Avoid IV fluids in setting of CHF history -Monitor for now Chronic conditions: Hypertension, hyperlipidemia, hypothyroidism -Continue with home meds DVT prophylaxis -Xarelto CODE STATUS: Full Code DVT prophylaxis: Xarelto Discussed with: Patient and RN Anticipated discharge date: Tomorrow morning Anticipated discharge place: Home versus [facility] facility. Patient reports she lives at home with her 2 sons and is unable to ambulate. A total of 33 minutes was spent on the care of this complex patient more than 50% of the time was spent in counseling and care coordination. Objective - Vital Signs Vital signs: Vital Signs Temp 97.5 F L 07/25/22 07:57 Pulse 74 07/25/22 09:00 Resp 18 07/25/22 09:00 BP 134/74 07/25/22 09:00 Pulse Ox 100 07/25/22 09:00 FiO2 Intake & Output 07/24/22 07/25/22 07/25/22 18:59 06:59 18:59 Weight 86.183 kg - Labs CBC & Chem 7: 07/24/22 17:57 07/24/22 17:57 Labs: Abnormal Lab Results - Last 24 Hours (Table) 07/24/22 07/24/22 07/24/22 Range/Units 17:57 17:57 18:11 PT 14.4 H (9.0-12.0) sec INR 1.4 H (<1.2) APTT 33.6 H (22.0-30.0) sec BUN 29 H (7-17) mg/dL Creatinine 1.05 H (0.52-1.04) mg/dL Glucose 103 H (74-99) mg/dL TSH 10.400 H (0.465-4.680) mIU/L
[2022-07-25] MEDS: ATORVASTATIN 20 MG TAB PO SCH (20:13)
[2022-07-25] MEDS ORDERED: ACETAMINOPHEN TAB 325 MG TAB PO PRN (20:55)
[2022-07-26] MEDS: LEVOTHYROXINE 88 MCG TAB PO SCH (06:17)
[2022-07-26] MEDS: CAPSAICIN 0.025% CREAM 60 GM TUBE TOPICAL SCH ×3 (08:10→20:36)
[2022-07-26] MEDS: lisinopriL 10 MG TAB PO SCH ×2 (08:10→20:35)
[2022-07-26] MEDS: CYANOCOBALAMIN 500 MCG TAB PO SCH (08:10)
[2022-07-26] MEDS: RIVAROXABAN 20 MG TAB PO SCH (08:10)
[2022-07-26] MEDS: valACYclovir HCL 1,000 MG TABLET PO SCH ×2 (08:10→20:37)
[2022-07-26] MEDS: METOPROLOL SUCCINATE (ER) 50 MG TAB.ER.24H PO SCH (08:11)
[2022-07-26] MEDS: CHOLECALCIFEROL 25 MCG (1000 IU) TABLET PO SCH (08:11)
[2022-07-26] MEDS: GABAPENTIN 100 MG CAP PO SCH (08:11)
[2022-07-26 13:49] VITALS: BMI 31.1
[2022-07-26] MEDS: GABAPENTIN 300 MG CAP PO SCH ×2 (16:48→20:36)
--- NOTE | 2022-07-26 17:45 | P.PN ---
Subjective Progress Note Date: 07/26/22 The patient is an 87-year-old female with a atrial fibrillation on anticoagulation with Xarelto, CHF, hypertension, HLD, and hypothyroidism who presented to the emergency room at the direction of her primary care physician due to persistent right lower extremity pain and numbness. In the emergency department she underwent an extensive evaluation. Vital signs were unremarkable and laboratory analysis was within normal. Chest x-ray showed no acute process and right femur x-ray was unrembarkable. She was placed in observation. She was seen by PT/OT and she is unable to ambulate and will require SNF. She was started on gabapentin and capsasin cream. Patient seen and examined at bedside. She continues to have pain and is unable to ambulate. She is aware that she will need rehab. Daughter is concerned about poor oral intake. All questions answered about post-herpetic neuralgia. Vital signs reviewed and stable. General: Nontoxic, no distress and appears stated age. Derm: Skin warm and dry, normal coloration for ethnicity. Head: Atraumatic, normocephalic and symmetric. Eyes: EOMs intact, no lid lag, and anicteric sclera Mouth: no lip lesions, mucus membranes moist Cardiovascular: regular rate and rhythm with normal S1S2, systolic murmur, positive posterior tibial pulses bilaterally, and cap refill < 2 seconds. Lungs: Respirations even, regular, and unlabored on room air. Lungs CTA bilaterally, no rhonchi, no rales, no wheezing, and no accessory muscle usage. Abdominal: soft, nontender to palpation, no guarding, no appreciable organomegaly Ext: ROM intact. No gross muscle atrophy, no edema, no contractures. Patient with limited movement of right lower extremity secondary to reports of pain. Patient skin very sensitive to touch. Neuro: Speech clear, face symmetrical and CN II-XII grossly intact with no noted focal neuro deficits Psych: Alert and oriented to person, place, time, and situation. Appropriate and pleasant affect. Assessment and plan: Intractable right lower extremity pain, suspected postherpetic pain - increased gabapentin - will need rehab - PT/OT recommendations Mild acute kidney injury -Avoid IV fluids in setting of CHF history -Repeat in Cr AM Chronic conditions: Hypertension, hyperlipidemia, hypothyroidism -Continue with current meds - repeat TSH in 6 weeks, increase levothyroxine. DVT prophylaxis -Xarelto unable to discharge as unable to ambulate and awaiting auth for SNF. CODE STATUS: Full Code DVT prophylaxis: John Discussed with: Patient and RN Anticipated discharge date: in AM Anticipated discharge place: Home versus jail facility. Patient jose alejandro rts she lives at home with her 2 sons and is unable to ambulate. A total of 33 minutes was spent on the care of this complex patient more than 50% of the time was spent in counseling and care coordination. Active Medications Acetaminophen (Acetaminophen Tab 325 Mg Tab) 650 mg PO Q6HR PRN PRN Reason: Fever and/ or Pain Last Admin: 07/25/22 21:44 Dose: 650 mg Atorvastatin Calcium (Atorvastatin 20 Mg Tab) 20 mg PO HS [facility] Last Admin: 07/25/22 20:13 Dose: 20 mg Capsaicin (Capsaicin 0.025% Cream 60 Gm Tube) 1 applic TOPICAL TID [facility]; Protocol Last Admin: 07/26/22 16:48 Dose: 1 applic Cholecalciferol (Cholecalciferol 25 Mcg (1000 Iu) Tablet) 25 mcg PO DAILY [facility] Last Admin: 07/26/22 08:11 Dose: 25 mcg Cyanocobalamin (Cyanocobalamin 500 Mcg Tab) 500 mcg PO DAILY [facility] Last Admin: 07/26/22 08:10 Dose: 500 mcg Furosemide (Furosemide 20 Mg Tab) 20 mg PO DAILY PRN PRN Reason: Edema Gabapentin (Gabapentin 300 Mg Cap) 300 mg PO TID [facility] Last Admin: 07/26/22 16:48 Dose: 300 mg Hydroxyzine HCl (Hydroxyzine Hcl 25 Mg Tab) 25 mg PO HS PRN PRN Reason: Anxiety Levothyroxine Sodium (Levothyroxine 88 Mcg Tab) 88 mcg PO DAILY@0630 [facility] Last Admin: 07/26/22 06:17 Dose: 88 mcg Lisinopril (Lisinopril 10 Mg Tab) 10 mg PO BID [facility] Last Admin: 07/26/22 08:10 Dose: 10 mg Metoprolol Succinate (Metoprolol Succinate (Er) 50 Mg Tab.Er.24h) 50 mg PO DAILY [facility] Last Admin: 07/26/22 08:11 Dose: 50 mg Naloxone HCl (Naloxone 0.4 Mg/Ml 1 Ml Vial) 0.2 mg IV Q2M PRN PRN Reason: Opioid Reversal Rivaroxaban (Rivaroxaban 20 Mg Tab) 20 mg PO DAILY [facility]; Protocol Last Admin: 07/26/22 08:10 Dose: 20 mg Valacyclovir HCl (Valacyclovir Hcl 1,000 Mg Tablet) 1,000 mg PO BID [facility]; Protocol Last Admin: 07/26/22 08:10 Dose: 1,000 mg Objective - Vital Signs Vital signs: Vital Signs Temp 98.1 F 07/26/22 15:24 Pulse 67 07/26/22 15:24 Resp 18 07/26/22 15:24 BP 88/53 07/26/22 15:24 Pulse Ox 98 07/26/22 15:24 FiO2 Intake & Output 07/25/22 07/26/22 07/26/22 18:59 06:59 18:59 Intake Total 240 600 Output Total 350 Balance 240 250 Weight 86.183 kg 90 kg 90 kg Intake: Oral 240 600 Output: Urine 350 Other: Voiding Method External Catheter External Catheter # Voids 2 - Labs CBC & Chem 7: 07/24/22 17:57 07/24/22 17:57
[2022-07-26] MEDS: ATORVASTATIN 20 MG TAB PO SCH (20:36)
[2022-07-27 05:26] LABS: HCT 42.8 % (34.0-46.0); MCH 33.1 pg (25.0-35.0); MCHC 32.7 g/dL (31.0-37.0); MCV 101.5 fL (80.0-100.0); Macrocytosis Slight; Mean Platelet Volume 10.4; Platelet Count 155 k/uL (150-450); RBC 4.22 m/uL (3.80-5.40); RDW 13.4 % (11.5-15.5); WBC 8.2 k/uL (3.8-10.6)
[2022-07-27 06:09] LABS: African American GFR (CKD) 67 (>60 ml/min/1.73 sqM); Anion Gap 11 mmol/L; Blood Urea Nitrogen 25 mg/dL (7-17); Calcium 8.9 mg/dL (8.4-10.2); Carbon Dioxide 19 mmol/L (22-30); Chloride 111 mmol/L (98-107); Glucose 86 mg/dL (74-99); Non-African American GFR(CKD) 58 (>60 ml/min/1.73 sqM); Sodium 141 mmol/L (137-145)
[2022-07-27] MEDS ORDERED: LEVOTHYROXINE 100 MCG TAB PO SCH (06:30)
[2022-07-27] MEDS: CHOLECALCIFEROL 25 MCG (1000 IU) TABLET PO SCH (09:19)
[2022-07-27] MEDS: FUROSEMIDE 20 MG TAB PO PRN (09:19)
[2022-07-27] MEDS: lisinopriL 10 MG TAB PO SCH (09:19)
[2022-07-27] MEDS: METOPROLOL SUCCINATE (ER) 50 MG TAB.ER.24H PO SCH (09:19)
[2022-07-27] MEDS: CYANOCOBALAMIN 500 MCG TAB PO SCH (09:19)
[2022-07-27] MEDS: GABAPENTIN 300 MG CAP PO SCH ×2 (09:19→16:33)
[2022-07-27] MEDS: RIVAROXABAN 20 MG TAB PO SCH (09:20)
[2022-07-27] MEDS: valACYclovir HCL 1,000 MG TABLET PO SCH (09:20)
[2022-07-27] MEDS: CAPSAICIN 0.025% CREAM 60 GM TUBE TOPICAL SCH (09:20)
[2022-07-27 14:22] VITALS: BP 107/70; PULSE 84; RESP 12; TEMP 97.7
--- NOTE | 2022-07-27 15:22 | P.DS ---
Providers Date of admission: 07/24/22 18:56 Expected date of discharge: 07/27/22 Attending physician: Elaine Lim MD Primary care physician: Melissa Lemuel Shattuck Hospital Course: Discharge Diagnosis: Intractable right lower extremity pain, suspected postherpetic pain Mild acute kidney injury Hypertension Hyperlipidemia Hypothyroidism DVT prophylaxis Paroxysmal A fib anticoagulant with Xarelto Hospital Course: The patient is an 87-year-old female with a atrial fibrillation on anticoagulation with Xarelto, CHF, hypertension, HLD, and hypothyroidism who presented to the emergency room at the direction of her primary care physician due to persistent right lower extremity pain and numbness. In the emergency department she underwent an extensive evaluation. Vital signs were unremarkable and laboratory analysis was within normal. Chest x-ray showed no acute process and right femur x-ray was unrembarkable. She was placed in observation. She was seen by PT/OT and she is unable to ambulate and will require SNF. She was started on gabapentin and capsasin cream. She had minimal improvement and aggangements were made for transfer to long-term facility. Patient seen and examined at bedside. No chest pain, no shortness of breath, still with leg pain and inability to ambulate Vital signs reviewed and stable. General: nontoxic, no distress, appears at stated age Derm: warm, dry Head: atraumatic, normocephalic, symmetric Eyes: EOMI, no lid lag, anicteric sclera Mouth: no lip lesion, mucus membranes moist Cardiovascular: S1S2 reg, no murmur, positive posterior tibial pulse bilateral, Lungs: CTA bilateral, no rhonchi, no rales , no accessory muscle use Abdominal: soft, nontender to palpation, no guarding, no appreciable organomegaly Ext: no gross muscle atrophy, no edema, no contractures Neuro: CN II-XI grossly intact, no focal neuro deficits Psych: Alert, oriented, appropriate affect A total of 25 minutes of time were spent preparing this complex discharge summary. Patient was discharged on 07/27/22. Patient Condition at Discharge: Stable Plan - Discharge Summary Discharge Rx Participant: No New Discharge Prescriptions: New Capsaicin Cream [Trixaicin Cream] 1 applic TOPICAL TID each Gabapentin [Neurontin] 300 mg PO TID #30 cap Levothyroxine Sodium [Synthroid] 100 mcg PO DAILY@0630 tab Continue Rivaroxaban [Xarelto] 20 mg PO DAILY Atorvastatin [Lipitor] 20 mg PO HS lisinopriL [Zestril] 10 mg PO BID #180 tab Metoprolol Succinate (ER) [Toprol XL] 50 mg PO DAILY Furosemide [Lasix] 20 mg PO DAILY PRN PRN Reason: Edema hydrOXYzine HCL [Atarax] 25 mg PO HS PRN PRN Reason: Anxiety Cyanocobalamin [Vitamin B-12] 500 mcg PO DAILY Cholecalciferol [Vitamin D3 (25 Mcg = 1000 Iu)] 25 mcg PO DAILY Discontinued Cephalexin [Keflex] 500 mg PO QID 7 Days #28 cap valACYclovir HCL [Valtrex] 1,000 mg PO TID #30 tablet Levothyroxine Sodium [Synthroid] 88 mcg PO DAILY Discharge Medication List Rivaroxaban [Xarelto] 20 mg PO DAILY 08/02/17 [History] Atorvastatin [Lipitor] 20 mg PO HS 01/15/20 [History] lisinopriL [Zestril] 10 mg PO BID #180 tab 11/17/20 [Rx] Metoprolol Succinate (ER) [Toprol XL] 50 mg PO DAILY 04/22/21 [History] Furosemide [Lasix] 20 mg PO DAILY PRN 07/19/21 [History] Cholecalciferol [Vitamin D3 (25 Mcg = 1000 Iu)] 25 mcg PO DAILY 07/24/22 [History] Cyanocobalamin [Vitamin B-12] 500 mcg PO DAILY 07/24/22 [History] hydrOXYzine HCL [Atarax] 25 mg PO HS PRN 07/24/22 [History] Capsaicin Cream [Trixaicin Cream] 1 applic TOPICAL TID each 07/27/22 [Rx] Gabapentin [Neurontin] 300 mg PO TID #30 cap 07/27/22 [Rx] Levothyroxine Sodium [Synthroid] 100 mcg PO DAILY@0630 tab 07/27/22 [Rx] Follow up Appointment(s)/Referral(s): Melissa Cerda [Primary Care Provider] - 1-2 days Activity/Diet/Wound Care/Special Instructions: Activity: as tolerated Diet: regular Special Instructions: Thank you for trusting us with your care, we wish you well on your journey to better health. Recommend repeating your thyroid labs in 6 weeks. Discharge Disposition: TRANSFER TO SNF/ECF
== END 2022-07-27 17:00 ==
LOC: EC 13:59 → 3SCARD 18:56 → 6NMEDSUR 22:56
PROVIDERS: ADMIT Internal Medicine; ATTEND Internal Medicine
DX: M79.604 Pain in right leg (principal); N17.9 Acute kidney failure, unspecified; I11.0 Hypertensive heart disease with heart failure; I50.9 Heart failure, unspecified; E78.5 Hyperlipidemia, unspecified; I48.0 Paroxysmal atrial fibrillation; E89.0 Postprocedural hypothyroidism; G47.33 Obstructive sleep apnea (adult) (pediatric); F32.A Depression, unspecified; F41.9 Anxiety disorder, unspecified; Z20.822 Contact with and (suspected) exposure to COVID-19; Z96.653 Presence of artificial knee joint, bilateral; Z79.01 Long term (current) use of anticoagulants; Z79.899 Other long term (current) drug therapy; Z79.890 Hormone replacement therapy; Z88.1 Allergy status to other antibiotic agents
CPT/HCPCS: 99285; 36415; 93005; 97530 ×2; 97162; 97535 ×2; 97167; 85379; 84439; 83880; 80053; 80048; 84443; 83605; 84484; 85025; 85027; 85610; 85730; 87502; 87635; 73552; 71046; G0378 ×5

== ENCOUNTER 2022-12-18 20:12 | Emergency (ER) | payer MEDICARE ==
[2022-12-18 20:33] VITALS: BP 145/69; PULSE 71; RESP 18; TEMP 98.9
--- NOTE | 2022-12-18 20:40 | CT ---
EXAMINATION TYPE: CT brain cspine wo con CT DLP: 1487.6 mGycm, Automated exposure control for dose reduction was used. DATE OF EXAM: 12/18/2022 8:28 PM COMPARISON: 09/02/2016 CLINICAL INDICATION:Female, 87 years old with history of pain; Fall on thinners. TECHNIQUE: Brain: Multiple axial CT images of the brain were obtained without IV contrast. Cspine: Axial CT images from the skull base to the inferior aspect of T2 we obtained without intraven ous contrast. Coronal and sagittal reformatted images were also reviewed. FINDINGS: Brain: Extra-axial spaces: No abnormal extra-axial fluid collections. Ventricular system: Dilatation in proportion to cerebral atrophy. Cerebral parenchyma: Cerebral atrophy. No acute intraparenchymal hemorrhage or mass effect. The cunningham -white junction is well differentiated. Scattered hypoattenuating areas are seen within the white mat ter. Cerebellum: Unremarkable. Mass effect: No evidence of midline shift. Intracranial vasculature: Atherosclerotic calcifications of the intracranial vessels. Soft tissues: Normal. Calvarium/osseous structures: No depressed skull fracture. Paranasal sinuses and mastoid air cells: Clear. Visualized orbits: Orbital contents are intact. Cervical spine: Fracture: None. Osseous structures: Diffuse osseous demineralization. Increase lordotic curvature to the cervical spi ne and kyphosis of the thoracic spine. Multilevel degenerative disc disease changes with endplate spu rring and disc osteophyte complex's. Vertebral alignment: Within normal limits. Spinal canal/Neural Foramina: No evidence of significant spinal canal narrowing. No evidence for sign ificant neural foraminal stenosis. Neck soft tissues: Prevertebral soft tissues are within normal limits. Other: The airway is patent. The lung apices are clear. Small right pleural effusion is present. Athe rosclerosis of the carotid bifurcations. IMPRESSION: 1. No acute intracranial process. 2. Nonspecific white matter changes, likely secondary to chronic small vessel ischemic disease. 3. No evidence of cervical spine fracture. 4. Moderate multilevel degenerative disc disease. 5. Diffuse osseous demineralization. 6. Small right pleural effusion.
--- NOTE | 2022-12-18 21:10 | ED ---
Fall HPI - General Chief Complaint: Fall Stated Complaint: Head Injury Time Seen by Provider: 12/18/22 20:13 Source: patient, EMS Mode of arrival: EMS Limitations: no limitations - History of Present Illness Initial Comments: This a 87-year-old female presents emergency Department via EMS chief complaint of fall, head injury. Patient is on Xarelto for evaluation evaluation. Patient states she is given off the toilet loss of balance ball strike her head. She has no laceration patient states she hasn't filled days she did have some initial memory issues. Denies any neck pain, back pain. Patient offers no other complaints. - Related Data Home Medications Medication Instructions Recorded Confirmed Rivaroxaban [Xarelto] 20 mg PO DAILY 08/02/17 07/24/22 Atorvastatin [Lipitor] 20 mg PO HS 01/15/20 07/24/22 Metoprolol Succinate (ER) [Toprol 50 mg PO DAILY 04/22/21 07/24/22 XL] Furosemide [Lasix] 20 mg PO DAILY PRN 07/19/21 07/24/22 Cholecalciferol [Vitamin D3 (25 25 mcg PO DAILY 07/24/22 07/24/22 Mcg = 1000 Iu)] Cyanocobalamin [Vitamin B-12] 500 mcg PO DAILY 07/24/22 07/24/22 hydrOXYzine HCL [Atarax] 25 mg PO HS PRN 07/24/22 07/24/22 Previous Rx's Medication Instructions Recorded lisinopriL [Zestril] 10 mg PO BID #180 tab 11/17/20 Capsaicin Cream [Trixaicin Cream] 1 applic TOPICAL TID each 07/27/22 Gabapentin [Neurontin] 300 mg PO TID #30 cap 07/27/22 Levothyroxine Sodium [Synthroid] 100 mcg PO DAILY@0630 tab 07/27/22 Allergies Allergy/AdvReac Type Severity Reaction Status Date / Time doxycycline Allergy Itching Verified 12/18/22 20:30 Review of Systems ROS Statement: Those systems with pertinent positive or pertinent negative responses have been documented in the HPI. ROS Other: All systems not noted in ROS Statement are negative. Past Medical History Past Medical History: Atrial Fibrillation, Heart Failure, Hyperlipidemia, Hypertension, Osteoarthritis (OA), Skin Disorder, Supraventricular Tachycardia (SVT), Thyroid Disorder Additional Past Medical History / Comment(s): psoriasis, right lower extremity cellulitis, pedal edema, hypothyroidism, osteoarthritis hands and knees bilaterally, history of bowel obstruction requiring surgical intervention, diverticulosis, urinary incontinence, obstructive sleep apnea not utilizing any CPAP therapy, extensive reaction to doxycycline occurred on January 2016 with itching and leg weakness. History of Any Multi-Drug Resistant Organisms: None Reported, MRSA Date of last positivie culture/infection: 01/15/20 MDRO Source:: MRSA LEG Past Surgical History: Appendectomy, Bowel Resection, Joint Replacement, Tonsillectomy Additional Past Surgical History / Comment(s): thyroidectomy, raissa knee replacements, bowel resection, muscle bx, D&C, bilateral cataract removals, bilateral foot bunionectomy, colonoscopies. Past Anesthesia/Blood Transfusion Reactions: No Reported Reaction Past Psychological History: Anxiety, Depression Smoking Status: Never smoker Past Alcohol Use History: Occasional Past Drug Use History: None Reported - Past Family History Mother Family Medical History: Dementia, Memory Impairment Father Family Medical History: Liver Disease Additional Family Medical History / Comment(s): Father was an alcoholic and of cirrhosis of the liver. Sister(s) Additional Family Medical History / Comment(s): heart problems Brother(s) Additional Family Medical History / Comment(s): heart problems r/t rheumatic fever General Exam Limitations: no limitations General appearance: alert, in no apparent distress Head exam: Present: atraumatic, normocephalic, normal inspection Eye exam: Present: normal appearance, PERRL, EOMI. Absent: scleral icterus, conjunctival injection, periorbital swelling ENT exam: Present: normal exam, mucous membranes moist Neck exam: Present: normal inspection, full ROM. Absent: tenderness, meningismus, lymphadenopathy Respiratory exam: Present: normal lung sounds bilaterally. Absent: respiratory distress, wheezes, rales, rhonchi, stridor Cardiovascular Exam: Present: regular rate, normal rhythm, normal heart sounds. Absent: systolic murmur, diastolic murmur, rubs, gallop, clicks Back exam: Present: normal inspection, full ROM. Absent: tenderness Neurological exam: Present: alert, oriented X3, CN II-XII intact, reflexes normal. Absent: motor sensory deficit Course Vital Signs 12/18/22 20:30 Temperature 98.9 F Pulse Rate 71 Respiratory 18 Rate Blood Pressure 145/69 O2 Sat by Pulse 98 Oximetry Medical Decision Making - Medical Decision Making Was pt. sent in by a medical professional or institution (, [facility], DIALYSIS BIOMED TECHNICIAN, urgent care, hospital, or intermediate...) When possible be specific @ -No Did you speak to anyone other than the patient for history (EMS, parent, family, police, friend...)? What history was obtained from this source @ -EMS and family Did you review nursing and triage notes (agree or disagree)? Why? @ -I reviewed and agree with nursing and triage notes Were old charts reviewed (outside hosp., previous admission, EMS record, old EKG, old radiological studies, urgent care reports/EKG's, intermediate records)? Report findings @ none Differential Diagnosis (chest pain, altered mental status, abdominal pain women, abdominal pain men, vaginal bleeding, weakness, fever, dyspnea, syncope, headache, dizziness, GI bleed, back pain, seizure, CVA, palpatations, mental health, musculoskeletal)? @ --Differential Headache: Migraine, tension, cluster, carbon monoxide, central venous thrombosis, pension karma temporal arteritis, acute closure glaucoma, intercranial hemorrhage, mastoiditis, sinusitis, head injury, this is not meant to be an all-inclusive list. EKG interpreted by me (3pts min.). @ -None X-rays interpreted by me (1pt min.). @ -None done CT interpreted by me (1pt min.). @ -CT of the brain, C-spine show no acute processes. U/S interpreted by me (1pt. min.). @ -None done What testing was considered but not performed or refused? (CT, X-rays, U/S, labs)? Why? @ -None What meds were considered but not given or refused? Why? @ -None Did you discuss the management of the patient with other professionals (professionals i.e. , [facility], DIALYSIS BIOMED TECHNICIAN, lab, RT, psych nurse, social sciences instructor, hourly shift manager, teacher, security flex officer, correctional counselor/case manager)? Give summary @ -No Was smoking cessation discussed for >3mins.? @ -No Was critical care preformed (if so, how long)? @ -No Were there social determinants of health that impacted care today? How? (Homelessness, low income, unemployed, alcoholism, drug addiction, transportation, low edu. Level, literacy, decrease access to med. care, m[facility], re hab)? @ -No Was there de-escalation of care discussed even if they declined (Discuss DNR or withdrawal of care, Hospice)? DNR status @ -No What co-morbidities impacted this encounter? (DM, HTN, Smoking, COPD, CAD, Cancer, CVA, ARF, Chemo, Hep., AIDS, mental health diagnosis, sleep apnea, morbid obesity)? @ -None Was patient admitted / discharged? Hospital course, mention meds given and route, prescriptions, significant lab abnormalities, going to OR and other pertinent info. @ -Discharge CT is negative for acute abnormality. Patient is neurologically intact. Patient we discharged in stable condition return parameters were discussed. Undiagnosed new problem with uncertain prognosis? @ -No Drug Therapy requiring intensive monitoring for toxicity (Heparin, Nitro, Insulin, Cardizem)? @ -No Were any procedures done? @ -No Diagnosis/symptom? @ -closed head Injury Acute, or Chronic, or Acute on Chronic? @ -Acute Uncomplicated (without systemic symptoms) or Complicated (systemic symptoms)? @ -Uncomplicated Side effects of treatment? @ -No Exacerbation, Progression, or Severe Exacerbation? @ -No Poses a threat to life or bodily function? How? (Chest pain, USA, OR, pneumonia, PE, COPD, DKA, ARF, appy, cholecystitis, CVA, Diverticulitis, Homicidal, Suicidal, threat to staff... and all critical care pts) @ -No Disposition Clinical Impression: Fall, Closed head injury Disposition: HOME SELF-CARE Condition: Stable Instructions (If sedation given, give patient instructions): Head Injury (ED) Additional Instructions: Please return to the Emergency Department if symptoms worsen or any other concerns. Is patient prescribed a controlled substance at d/c from ED?: No Referrals: Nonstaff,Physician [Primary Care Provider] - 1-2 days Time of Disposition: 21:09
== END 2022-12-18 21:22 | disposition home or self-care (01) ==
LOC: EC 20:12
DX: S09.90XA Unspecified injury of head, initial encounter (principal); I11.0 Hypertensive heart disease with heart failure; I50.9 Heart failure, unspecified; I48.91 Unspecified atrial fibrillation; E78.5 Hyperlipidemia, unspecified; Z79.01 Long term (current) use of anticoagulants; Z79.899 Other long term (current) drug therapy; W18.30XA Fall on same level, unspecified, initial encounter
CPT/HCPCS: 70450; 72125; 99284

== ENCOUNTER 2023-02-27 09:07 | Emergency (ER) | payer MEDICARE ==
[2023-02-27 09:13] VITALS: RESP 18
[2023-02-27 09:24] VITALS: TEMP 98.2
--- NOTE | 2023-02-27 09:30 | ED ---
General Adult HPI - General Chief complaint: Anxiety Stated complaint: arm pain, anxiety Time Seen by Provider: 02/27/23 09:10 Source: patient, EMS, RN notes reviewed, old records reviewed Mode of arrival: EMS Limitations: no limitations - History of Present Illness Initial comments: This is an 87-year-old female who presents emergency department stating that for 2 weeks her arms hurt and it feels like muscular pain she states. Patient states that she thinks is from trying to get up and down from her walker. Patient states she started reading about arm pain and read somewhere that it could represent heart pain so she decided she wanted to come the emergency department. Patient denies any chest pain palpitations difficulty breathing shortness of breath per patient denies any fever chills or cough. Patient denies any abdominal pain patient denies nausea vomiting diarrhea. Patient denies any lightheadedness or dizziness. Patient has any back pain. Patient denies any recent fever chills or cough - Related Data Home Medications Medication Instructions Recorded Confirmed Rivaroxaban [Xarelto] 20 mg PO DAILY 08/02/17 07/24/22 Atorvastatin [Lipitor] 20 mg PO HS 01/15/20 07/24/22 Metoprolol Succinate (ER) [Toprol 50 mg PO DAILY 04/22/21 07/24/22 XL] Furosemide [Lasix] 20 mg PO DAILY PRN 07/19/21 07/24/22 Cholecalciferol [Vitamin D3 (25 25 mcg PO DAILY 07/24/22 07/24/22 Mcg = 1000 Iu)] Cyanocobalamin [Vitamin B-12] 500 mcg PO DAILY 07/24/22 07/24/22 hydrOXYzine HCL [Atarax] 25 mg PO HS PRN 07/24/22 07/24/22 Previous Rx's Medication Instructions Recorded lisinopriL [Zestril] 10 mg PO BID #180 tab 11/17/20 Capsaicin Cream [Trixaicin Cream] 1 applic TOPICAL TID each 07/27/22 Gabapentin [Neurontin] 300 mg PO TID #30 cap 07/27/22 Levothyroxine Sodium [Synthroid] 100 mcg PO DAILY@0630 tab 07/27/22 Allergies Allergy/AdvReac Type Severity Reaction Status Date / Time doxycycline Allergy Itching Verified 02/27/23 09:13 Review of Systems ROS Statement: Those systems with pertinent positive or pertinent negative responses have been documented in the HPI. ROS Other: All systems not noted in ROS Statement are negative. Past Medical History Past Medical History: Atrial Fibrillation, Heart Failure, Hyperlipidemia, Hypertension, Osteoarthritis (OA), Skin Disorder, Supraventricular Tachycardia (SVT), Thyroid Disorder Additional Past Medical History / Comment(s): psoriasis, right lower extremity cellulitis, pedal edema, hypothyroidism, osteoarthritis hands and knees bilaterally, history of bowel obstruction requiring surgical intervention, diverticulosis, urinary incontinence, obstructive sleep apnea not utilizing any CPAP therapy, extensive reaction to doxycycline occurred on January 2016 with itching and leg weakness. History of Any Multi-Drug Resistant Organisms: None Reported, MRSA Date of last positivie culture/infection: 01/15/20 MDRO Source:: MRSA LEG Past Surgical History: Appendectomy, Bowel Resection, Joint Replacement, Tonsillectomy Additional Past Surgical History / Comment(s): thyroidectomy, raissa knee replacements, bowel resection, muscle bx, D&C, bilateral cataract removals, bilateral foot bunionectomy, colonoscopies. Past Anesthesia/Blood Transfusion Reactions: No Reported Reaction Past Psychological History: Anxiety, Depression Smoking Status: Never smoker Past Alcohol Use History: Occasional Past Drug Use History: None Reported - Past Family History Mother Family Medical History: Dementia, Memory Impairment Father Family Medical History: Liver Disease Additional Family Medical History / Comment(s): Father was an alcoholic and of cirrhosis of the liver. Sister(s) Additional Family Medical History / Comment(s): heart problems Brother(s) Additional Family Medical History / Comment(s): heart problems r/t rheumatic fever General Exam - General Exam Comments Initial Comments: GENERAL: Patient is well-developed and well-nourished. Patient is nontoxic and well- hydrated and is in no acute distress. ENT: Neck is soft and supple. No significant lymphadenopathy is noted. Oropharynx is clear. Moist mucous membranes. Neck has full range of motion without eliciting any pain. EYES: The sclera were anicteric and conjunctiva were pink and moist. Extraocular movements were intact and pupils were equal round and reactive to light. Eyelids were unremarkable. PULMONARY: Unlabored respirations. Good breath sounds bilaterally. No audible rales rhonchi or wheezing was noted. CARDIOVASCULAR: There is a regular rate and rhythm without any murmurs gallops or rubs. ABDOMEN: Soft and nontender with normal bowel sounds. SKIN: Skin is clear with no lesions or rashes and otherwise unremarkable. NEUROLOGIC: Patient is alert and oriented x3. Cranial nerves II through XII are grossly intact. Motor and sensory are also intact. Normal speech, volume and content. Symmetrical smile. MUSCULOSKELETAL: Normal extremities with adequate strength and full range of motion. No lower extremity swelling or edema. No calf tenderness. LYMPHATICS: No significant lymphadenopathy is noted PSYCHIATRIC: Anxious Limitations: no limitations Course Vital Signs 02/27/23 09:09 Temperature 98.2 F Pulse Rate 73 Respiratory 18 Rate Blood Pressure 156/89 O2 Sat by Pulse 95 Oximetry Medical Decision Making - Medical Decision Making EKG is interpreted by myself it shows atrial fibrillation at 59 bpm QRS is 140 QT interval 500 QTC is 495. Patient's EKG shows no ST segment elevation or depression Was pt. sent in by a medical professional or institution (, PA, CLINICAL REHABILITATION AIDE, urgent care, hospital, or penitentiary...) When possible be specific @ -No Did you speak to anyone other than the patient for history (EMS, parent, family, police, friend...)? What history was obtained from this source @ -No Did you review nursing and triage notes (agree or disagree)? Why? @ -I reviewed and agree with nursing and triage notes Were old charts reviewed (outside hosp., previous admission, EMS record, old EKG, old radiological studies, urgent care reports/EKG's, penitentiary records)? Report findings @ -No old charts were reviewed Differential Diagnosis (chest pain, altered mental status, abdominal pain women, abdominal pain men, vaginal bleeding, weakness, fever, dyspnea, syncope, headache, dizziness, GI bleed, back pain, seizure, CVA, palpatations, mental health, musculoskeletal)? @ -Differential Mental Health Depression, anxiety, bipolar, psychosis, schizophrenia, borderline personality, situational depression, adjustment disorder, behavioral disorder, brain tumor, malingering, substance abuse, encephalopathy, medication reaction, dementia, hypothyroidism, degenerative neurologic disorder, lupus.... This is not meant to be all-inclusive list EKG interpreted by me (3pts min.). @ -As above X-rays interpreted by me (1pt min.). @ -None done CT interpreted by me (1pt min.). @ -None done U/S interpreted by me (1pt. min.). @ -None done What testing was considered but not performed or refused? (CT, X-rays, U/S, labs)? Why? @ -None What meds were considered but not given or refused? Why? @ -None Did you discuss the management of the patient with other professionals (professionals i.e. , PA, CLINICAL REHABILITATION AIDE, lab, RT, psych nurse, social media community manager, medical recruiter, teacher, air defence officer, case investigator)? Give summary @ -No Was smoking cessation discussed for >3mins.? @ -No Was critical care preformed (if so, how long)? @ -No Were there social determinants of health that impacted care today? How? (Homelessness, low income, unemployed, alcoholism, drug addiction, transportation, low edu. Level, literacy, decrease access to med. care, alf, rehab)? @ -No Was there de-escalation of care discussed even if they declined (Discuss DNR or withdrawal of care, Hospice)? DNR status @ -No What co-morbidities impacted this encounter? (DM, HTN, Smoking, COPD, CAD, Cancer, CVA, ARF, Chemo, Hep., AIDS, mental health diagnosis, sleep apnea, morbid obesity)? @ -None Was patient admitted / discharged? Hospital course, mention meds given and route, prescriptions, significant lab abnormalities, going to OR and other pertinent info. @ -Patient was very anxious lab work was normal she had no further symptoms in the emergency department she did get 0.5 of Ativan patient was comfortable going home at this time Undiagnosed new problem with uncertain prognosis? @ -No Drug Therapy requiring intensive monitoring for toxicity (Heparin, Nitro, Insulin, Cardizem)? @ -No Were any procedures done? @ -[No] Diagnosis/symptom? @ -Anxiety Acute, or Chronic, or Acute on Chronic? @ -Acute Uncomplicated (without systemic symptoms) or Complicated (systemic symptoms)? @ -Uncomplicated Side effects of treatment? @ -[No] Exacerbation, Progression, or Severe Exacerbation? @ -[No] Poses a threat to life or bodily function? How? (Chest pain, USA, [place], pneumonia, PE, COPD, DKA, ARF, appy, cholecystitis, CVA, Diverticulitis, Homicidal, Suicidal, threat to staff... and all critical care pts) @ -[No] - Lab Data Result diagrams: 02/27/23 09:29 02/27/23 09:29 Lab Results 02/27/23 02/27/23 Range/Units 09:29 09:29 WBC 5.1 (3.8-10.6) k/uL RBC 4.14 (3.80-5.40) m/uL Hgb 12.6 (11.4-16.0) gm/dL Hct 38.9 (34.0-46.0) % MCV 93.9 (80.0-100.0) fL MCH 30.5 (25.0-35.0) pg MCHC 32.5 (31.0-37.0) g/dL RDW 13.1 (11.5-15.5) % Plt Count 190 (150-450) k/uL MPV 9.1 Neutrophils % 60 % Lymphocytes % 25 % Monocytes % 10 % Eosinophils % 3 % Basophils % 0 % Neutrophils # 3.1 (1.3-7.7) k/uL Lymphocytes # 1.3 (1.0-4.8) k/uL Monocytes # 0.5 (0-1.0) k/uL Eosinophils # 0.2 (0-0.7) k/uL Basophils # 0.0 (0-0.2) k/uL Sodium 141 (137-145) mmol/L Potassium 4.0 (3.5-5.1) mmol/L Chloride 107 (98-107) mmol/L Carbon Dioxide 26 (22-30) mmol/L Anion Gap 8 mmol/L BUN 10 (7-17) mg/dL Creatinine 0.65 (0.52-1.04) mg/dL Est GFR (CKD-EPI)AfAm >90 (>60 ml/min/1.73 sqM) Est GFR (CKD-EPI)NonAf 81 (>60 ml/min/1.73 sqM) Glucose 97 (74-99) mg/dL Calcium 9.0 (8.4-10.2) mg/dL Total Bilirubin 1.1 (0.2-1.3) mg/dL AST 19 (14-36) U/L ALT 16 (4-34) U/L Alkaline Phosphatase 87 (38-126) U/L Total Protein 6.2 L (6.3-8.2) g/dL Albumin 3.7 (3.5-5.0) g/dL Disposition Clinical Impression: Acute anxiety Disposition: HOME SELF-CARE Condition: Good Instructions (If sedation given, give patient instructions): Generalized Anxiety Disorder (ED) Is patient prescribed a controlled substance at d/c from ED?: No Referrals: Nonstaff,Physician [Primary Care Provider] - 1-2 days Time of Disposition: 11:08
[2023-02-27 09:48] LABS: Basophils % (A) 0 %; Eosinophils # (A) 0.2 k/uL (0-0.7); Eosinophils % (A) 3 %; HCT 38.9 % (34.0-46.0); HGB 12.6 gm/dL (11.4-16.0); Lymphocytes # (A) 1.3 k/uL (1.0-4.8); Lymphocytes % (A) 25 %; MCH 30.5 pg (25.0-35.0); MCHC 32.5 g/dL (31.0-37.0); MCV 93.9 fL (80.0-100.0); Mean Platelet Volume 9.1; Monocytes # (A) 0.5 k/uL (0-1.0); Monocytes % (A) 10 %; Neutrophils # (A) 3.1 k/uL (1.3-7.7); Neutrophils % (A) 60 %; Platelet Count 190 k/uL (150-450); RBC 4.14 m/uL (3.80-5.40); RDW 13.1 % (11.5-15.5); WBC 5.1 k/uL (3.8-10.6)
[2023-02-27 10:23] LABS: ALT 16 U/L (4-34); AST 19 U/L (14-36); African American GFR (CKD) >90 (>60 ml/min/1.73 sqM); Albumin 3.7 g/dL (3.5-5.0); Alkaline Phosphatase 87 U/L (38-126); Anion Gap 8 mmol/L; Blood Urea Nitrogen 10 mg/dL (7-17); Carbon Dioxide 26 mmol/L (22-30); Chloride 107 mmol/L (98-107); Glucose 97 mg/dL (74-99); Non-African American GFR(CKD) 81 (>60 ml/min/1.73 sqM); Sodium 141 mmol/L (137-145); Total Bilirubin 1.1 mg/dL (0.2-1.3); Total Protein 6.2 g/dL (6.3-8.2)
[2023-02-27] MEDS ORDERED: LORazepam 2 MG/ML INJ IV STA (11:08)
[2023-02-27 11:36] VITALS: BP 169/91; PULSE 63
== END 2023-02-27 11:44 | disposition home or self-care (01) ==
LOC: EC 09:07
DX: F41.9 Anxiety disorder, unspecified (principal); I48.91 Unspecified atrial fibrillation; E78.5 Hyperlipidemia, unspecified; I11.0 Hypertensive heart disease with heart failure; I50.9 Heart failure, unspecified; M19.041 Primary osteoarthritis, right hand; M19.042 Primary osteoarthritis, left hand; M17.0 Bilateral primary osteoarthritis of knee; F32.A Depression, unspecified; Z88.8 Allergy status to other drugs, medicaments and biological substances; Z79.899 Other long term (current) drug therapy
CPT/HCPCS: 36415; 93005; 80053; 85025; 99284; 96374; J2060

== ENCOUNTER 2023-07-18 18:33 | Inpatient (IN) | payer MEDICARE ==
[2023-07-18] MEDS ORDERED: SODIUM CHLORIDE 0.9% 500 ML 500 ML IV STA (19:14)
[2023-07-18 20:07] LABS: Basophils % (A) 0 %; Eosinophils % (A) 0 %; HCT 42.2 % (34.0-46.0); HGB 13.6 gm/dL (11.4-16.0); Lymphocytes # (A) 0.8 k/uL (1.0-4.8); Lymphocytes % (A) 6 %; MCH 30.4 pg (25.0-35.0); MCHC 32.3 g/dL (31.0-37.0); MCV 94.2 fL (80.0-100.0); Monocytes # (A) 0.8 k/uL (0-1.0); Monocytes % (A) 6 %; Neutrophils % (A) 86 %; Platelet Count 176 k/uL (150-450); RBC 4.48 m/uL (3.80-5.40); RDW 14.1 % (11.5-15.5); WBC 12.9 k/uL (3.8-10.6)
--- NOTE | 2023-07-18 20:10 | XR ---
EXAMINATION TYPE: XR chest 2V DATE OF EXAM: 07/18/2023 8:05 PM CLINICAL INDICATION:Female, 88 years old with history of Weakness; [facility] COMPARISON: Chest radiographs from 07/24/2022 TECHNIQUE: XR chest 2V Frontal and lateral views of the chest. FINDINGS: Lungs/Pleura: No evidence of focal consolidation or pneumothorax. Blunting of the costophrenic angles is present. Pulmonary vascularity: Pulmonary vascular congestion. Heart/mediastinum: Cardiomediastinal silhouette is enlarged and stable. Musculoskeletal: No acute osseous pathology. IMPRESSION: Cardiomegaly, pulmonary vascular congestion and bilateral pleural effusions. Correlate with BNP for c ongestive heart failure.
[2023-07-18 20:14] LABS: INR 1.4 (<1.2); Partial Thromboplastin Time 31.5 sec (22.0-30.0); Prothrombin Time 14.8 sec (10.0-12.5)
[2023-07-18 20:29] LABS: ALT 22 U/L (4-34); AST 28 U/L (14-36); African American GFR (CKD) >90 (>60 ml/min/1.73 sqM); Albumin 4.2 g/dL (3.5-5.0); Alkaline Phosphatase 110 U/L (38-126); Anion Gap 13 mmol/L; Blood Urea Nitrogen 14 mg/dL (7-17); Calcium 9.5 mg/dL (8.4-10.2); Carbon Dioxide 20 mmol/L (22-30); Chloride 104 mmol/L (98-107); Glucose 118 mg/dL (74-99); Magnesium 1.8 mg/dL (1.6-2.3); Non-African American GFR(CKD) 82 (>60 ml/min/1.73 sqM); Potassium 4.2 mmol/L (3.5-5.1); Sodium 137 mmol/L (137-145); Total Bilirubin 1.3 mg/dL (0.2-1.3); Total Protein 7.3 g/dL (6.3-8.2)
--- NOTE | 2023-07-18 20:29 | CT ---
EXAMINATION TYPE: CT brain wo con CT DLP: 1212.4 mGycm, Automated exposure control for dose reduction was used. DATE OF EXAM: 07/18/2023 8:00 PM COMPARISON: 12/19/2019. CLINICAL INDICATION:Female, 88 years old with history of weakness, weakness TECHNIQUE: Brain: Axial CT images of the brain were obtained with coronal and sagittal reformats created and rev iewed. Contrast used: None. Oral contrast used: None. FINDINGS: Brain: Extra-axial spaces: No abnormal extra-axial fluid collections. Ventricular system: Dilatation in proportion to cerebral atrophy. Cerebral parenchyma: Cerebral atrophy. No acute intraparenchymal hemorrhage or mass effect. The cunningham -white junction is well differentiated. Scattered hypoattenuating areas are seen within the white mat ter. Cerebellum: Unremarkable. Mass effect: No evidence of midline shift. Intracranial vasculature: Atherosclerotic calcifications of the intracranial vessels. Soft tissues: Normal. Calvarium/osseous structures: No depressed skull fracture. Paranasal sinuses and mastoid air cells: Mild scattered paranasal sinus disease. Visualized orbits: Bilateral aphakia IMPRESSION: 1. No acute intracranial process. 2. Nonspecific white matter changes, likely secondary to chronic small vessel ischemic disease.
--- NOTE | 2023-07-18 21:02 | US ---
EXAMINATION TYPE: US venous doppler duplex LE RT DATE OF EXAM: 07/18/2023 8:51 PM COMPARISON: 07/10/2022 CLINICAL INDICATION: Female, 88 years old with history of eval for dvt; Rt calf/ankle redness and swe lling. On blood thinners. Hx of PE years ago SIDE PERFORMED: Right TECHNIQUE: The lower extremity deep venous system is examined utilizing real time linear array sonog mark with graded compression, doppler sonography and color-flow sonography. VESSELS IMAGED: Common Femoral Vein Deep Femoral Vein Greater Saphenous Vein * Femoral Vein Popliteal Vein Small Saphenous Vein * Proximal Calf Veins (* superficial vessels) Right Leg: No evidence for DVT seen. Edema noted in calf Left Leg: IMPRESSION: Grayscale, color doppler, spectral doppler imaging performed of the deep veins of the lo wer extremities. There is normal flow, compressibility, vascular waveforms.
[2023-07-18] MEDS ORDERED: VANCOMYCIN IV PER PHARMACY 1 EACH MISC MISCELLANE PRN (21:09)
[2023-07-18] MEDS ORDERED: VANCOMYCIN 1,500 MG in SODIUM CHLORIDE 0.9% 500 ML 500 ML IVPB STA (21:12)
[2023-07-18] MEDS ORDERED: NALOXONE 0.4 MG/ML 1 ML VIAL IV PRN (21:50)
[2023-07-18] MEDS ORDERED: ACETAMINOPHEN TAB 325 MG TAB PO PRN (21:50)
--- NOTE | 2023-07-18 22:11 | ED ---
General Adult HPI - General Chief complaint: Recheck/Abnormal Lab/Rx Stated complaint: Weakness,hypertension Time Seen by Provider: 07/18/23 19:00 Source: patient, family, EMS, RN notes reviewed, old records reviewed Mode of arrival: EMS Limitations: no limitations - History of Present Illness Initial comments: Patient is an 88-year-old female who lives at home with family presents emergency department for weakness as well as concern for infection. Patient has had episodes of hypertension with systolics in the upper 100s. That has since resolved. Patient for few days has been feeling more weak. They believe he cellulitis is back on her right lower extremity. Currently is not on antibiotics. Has a history of UTIs. Patient denies chest pain, abdominal pain, nausea, vomiting. Endorses decreased appetite. Endorses weakness. He relates with a walker at baseline. Was at home. Presents for further evaluation. Is on blood thinners. No known falls. - Related Data Home Medications Medication Instructions Recorded Confirmed Rivaroxaban [Xarelto] 20 mg PO HS 08/02/17 07/18/23 Atorvastatin [Lipitor] 20 mg PO HS 01/15/20 07/18/23 Metoprolol Succinate (ER) [Toprol 50 mg PO DAILY 04/22/21 07/18/23 XL] Acetaminophen Tab [Tylenol Tab] 500 mg PO Q8H PRN 07/18/23 07/18/23 DULoxetine HCL [Cymbalta] 30 mg PO DAILY 07/18/23 07/18/23 Furosemide [Lasix] 40 mg PO DAILY 07/18/23 07/18/23 Levothyroxine Sodium 137 mcg PO DAILY 07/18/23 07/18/23 Potassium Chloride ER [K-Dur 10] 10 meq PO DAILY 07/18/23 07/18/23 Roflumilast [Zoryve] 1 applic TOPICAL DAILY PRN 07/18/23 07/18/23 lisinopriL [Zestril] 5 mg PO DAILY 07/18/23 07/18/23 Previous Rx's Medication Instructions Recorded Gabapentin [Neurontin] 300 mg PO TID #30 cap 07/27/22 Allergies Allergy/AdvReac Type Severity Reaction Status Date / Time doxycycline Allergy Itching Verified 07/18/23 21:44 Review of Systems ROS Statement: Those systems with pertinent positive or pertinent negative responses have been documented in the HPI. Review of Systems: CONST: Denies fever EYES: Denies blurry vision ENT: Denies nasal congestion C/V: Denies Chest pain RESP: Denies shortness of breath GI: Denies abdominal pain : Denies dysuria SKIN: Endorses possible right lower extremity cellulitis. MSK: Denies joint pain. NEURO: Endorses weakness ROS Other: All systems not noted in ROS Statement are negative. Past Medical History Past Medical History: Atrial Fibrillation, Heart Failure, Hyperlipidemia, Hypertension, Osteoarthritis (OA), Skin Disorder, Supraventricular Tachycardia (SVT), Thyroid Disorder Additional Past Medical History / Comment(s): psoriasis, right lower extremity cellulitis, pedal edema, hypothyroidism, osteoarthritis hands and knees bilaterally, history of bowel obstruction requiring surgical intervention, diverticulosis, urinary incontinence, obstructive sleep apnea not utilizing any CPAP therapy, extensive reaction to doxycycline occurred on January 2016 with itching and leg weakness. History of Any Multi-Drug Resistant Organisms: None Reported, MRSA Date of last positivie culture/infection: 01/15/20 MDRO Source:: MRSA LEG Past Surgical History: Appendectomy, Bowel Resection, Joint Replacement, Tonsillectomy Additional Past Surgical History / Comment(s): thyroidectomy, raissa knee replacements, bowel resection, muscle bx, D&C, bilateral cataract removals, bila teral foot bunionectomy, colonoscopies. Past Anesthesia/Blood Transfusion Reactions: No Reported Reaction Past Psychological History: Anxiety, Depression Smoking Status: Never smoker Past Alcohol Use History: Occasional Past Drug Use History: None Reported - Past Family History Mother Family Medical History: Dementia, Memory Impairment Father Family Medical History: Liver Disease Additional Family Medical History / Comment(s): Father was an alcoholic and of cirrhosis of the liver. Sister(s) Additional Family Medical History / Comment(s): heart problems Brother(s) Additional Family Medical History / Comment(s): heart problems r/t rheumatic fever General Exam - General Exam Comments Initial Comments: General: Appears in no acute distress. HEAD: Normal with no signs of head trauma. EYES: PERRLA, EOMI, conjunctiva normal, no discharge. ENT: Hearing grossly intact, normal oropharynx. RESPIRATORY: Clear breath sounds bilaterally. No wheezes, rales, or rhonchi. C/V: Regular rate and rhythm. S1 and S2 auscultated, chronic right lower extremity edema, right worse than left, peripheral pulses 2+ and intact throughout ABD: Abd is soft, nontender, nondistended EXT: Normal range of motion, no obvious deformity SKIN: Patient does have erythema located over the right lower extremity calf mostly near the ankle. Also some edema of the right lower extremity. NEURO: Alert and oriented x 4. Cranial nerves II-XII intact. No focal sensory or strength deficits. GCS 15. Limitations: no limitations Course Vital Signs 07/18/23 18:38 Temperature 98.2 F Pulse Rate 89 Respiratory 22 Rate Blood Pressure 135/97 O2 Sat by Pulse 97 Oximetry Medical Decision Making - Medical Decision Making Was pt. sent in by a medical professional or institution (, PA, SOFTWARE INSTALLER, urgent care, hospital, or intermediate...) When possible be specific @ -No Did you speak to anyone other than the patient for history (EMS, parent, family, police, friend...)? What history was obtained from this source @ -Patient's daughter is the primary historian. Did you review nursing and triage notes (agree or disagree)? Why? @ -I reviewed and agree with nursing and triage notes Were old charts reviewed (outside hosp., previous admission, EMS record, old EKG, old radiological studies, urgent care reports/EKG's, intermediate records)? Report findings @ -Old charts reviewed Differential Diagnosis (chest pain, altered mental status, abdominal pain women, abdominal pain men, vaginal bleeding, weakness, fever, dyspnea, syncope, headache, dizziness, GI bleed, back pain, seizure, CVA, palpatations, mental health, musculoskeletal)? @ -Differential Weakness: Hypoglycemia, shock, sepsis, hyponatremia, anemia, infection, OK, ETOH, adverse medicine reaction, overdose, stroke, this is not meant to be an all-inclusive list. EKG interpreted by me (3pts min.). @ -As above X-rays interpreted by me (1pt min.). @ -Chest x-ray reveals no obvious infiltrate or infectious process. CT interpreted by me (1pt min.). @CT brain reveals no obvious acute intracranial process. U/S interpreted by me (1pt. min.). @ -Venous duplex ultrasound negative for DVT. Of the right lower extremity. What testing was considered but not performed or refused? (CT, X-rays, U/S, labs)? Why? @ -None What meds were considered but not given or refused? Why? @ -None Did you discuss the management of the patient with other professionals (professionals i.e. , PA, SOFTWARE INSTALLER, lab, RT, psych nurse, child welfare social worker, ranch cook, teacher, special technical operations officer, employment case manager)? Give summary @ -Discussed with Dr. Nice who accepted the admission. Was smoking cessation discussed for >3mins.? @ -No Was critical care preformed (if so, how long)? @ -No Were there social determinants of health that impacted care today? How? (Homelessness, low income, unemployed, alcoholism, drug addiction, transportation, low edu. Level, literacy, decrease access to med. care, custodial, rehab)? @ -No Was there de-escalation of care discussed even if they declined (Discuss DNR or withdrawal of care, Hospice)? DNR status @ -No What co-morbidities impacted this encounter? (DM, HTN, Smoking, COPD, CAD, Cancer, CVA, ARF, Chemo, Hep., AIDS, mental health diagnosis, sleep apnea, morbid obesity)? @ -None Was patient admitted / discharged? Hospital course, mention meds given and r oute, prescriptions, significant lab abnormalities, going to OR and other pertinent info. @ -Based on patient's presentation and physical exam, presents with weakness. We will obtain generalized workup. Family and patient were in agreement with this plan. I do suspect is likely from cellulitis. Vital signs within except for limits. EKG shows A. fib which is known and chronic for the patient. She was given a half liter fluid bolus. Chest x-ray reveals no obvious acute cardio pulmonary process. Imaging otherwise is unremarkable including a negative DVT ultrasound of the right lower extremity. Patient's labs remarkable for a mild leukocytosis of 12.9, as well as a lactic acid of 2.7. Urine is still pending. Discussed the results with the patient as well as family. She is more weak than her typical baseline we will admit for IV vancomycin for cellulitis. Blood cultures were obtained. We're still waiting on urine studies. They were in agreement with this plan. I spoke with city call Dr. Nice who accepted the patient. Undiagnosed new problem with uncertain prognosis? @ -No Drug Therapy requiring intensive monitoring for toxicity (Heparin, Nitro, Insulin, Cardizem)? @ -No Were any procedures done? @ -No Diagnosis/symptom? @ -Weakness, right lower extremity cellulitis Acute, or Chronic, or Acute on Chronic? @ -Acute Uncomplicated (without systemic symptoms) or Complicated (systemic symptoms)? @ -Complicated Side effects of treatment? @ -No Exacerbation, Progression, or Severe Exacerbation? @ -No Poses a threat to life or bodily function? How? (Chest pain, USA, OK, pneumonia, PE, COPD, DKA, ARF, appy, cholecystitis, CVA, Diverticulitis, Homicidal, Suicidal, threat to staff... and all critical care pts) @ -yes - Lab Data Result diagrams: 07/18/23 19:30 07/18/23 19:30 Lab Results 07/18/23 07/18/23 07/18/23 Range/Units 19:00 19:30 19:30 WBC 12.9 H (3.8-10.6) k/uL RBC 4.48 (3.80-5.40) m/uL Hgb 13.6 (11.4-16.0) gm/dL Hct 42.2 (34.0-46.0) % MCV 94.2 (80.0-100.0) fL MCH 30.4 (25.0-35.0) pg MCHC 32.3 (31.0-37.0) g/dL RDW 14.1 (11.5-15.5) % Plt Count 176 (150-450) k/uL MPV 10.0 Neutrophils % 86 % Lymphocytes % 6 % Monocytes % 6 % Eosinophils % 0 % Basophils % 0 % Neutrophils # 11.0 H (1.3-7.7) k/uL Lymphocytes # 0.8 L (1.0-4.8) k/uL Monocytes # 0.8 (0-1.0) k/uL Eosinophils # 0.0 (0-0.7) k/uL Basophils # 0.0 (0-0.2) k/uL PT 14.8 H (10.0-12.5) sec INR 1.4 H (<1.2) APTT 31.5 H (22.0-30.0) sec Sodium (137-145) mmol/L Potassium (3.5-5.1) mmol/L Chloride (98-107) mmol/L Carbon Dioxide (22-30) mmol/L Anion Gap mmol/L BUN (7-17) mg/dL Creatinine (0.52-1.04) mg/dL Est GFR (CKD-EPI)AfAm (>60 ml/min/1.73 sqM) Est GFR (CKD-EPI)NonAf (>60 ml/min/1.73 sqM) Glucose (74-99) mg/dL Plasma Lactic Acid Beau 2.7 H* (0.7-2.0) mmol/L Calcium (8.4-10.2) mg/dL Magnesium (1.6-2.3) mg/dL Total Bilirubin (0.2-1.3) mg/dL AST (14-36) U/L ALT (4-34) U/L Alkaline Phosphatase (38-126) U/L Total Protein (6.3-8.2) g/dL Albumin (3.5-5.0) g/dL Influenza Type A (PCR) (Not Detectd) Influenza Type B (PCR) (Not Detectd) RSV (PCR) (Not Detectd) SARS-CoV-2 (PCR) (Not Detectd) 07/18/23 07/18/23 Range/Units 19:30 19:30 WBC (3.8-10.6) k/uL RBC (3.80-5.40) m/uL Hgb (11.4-16.0) gm/dL Hct (34.0-46.0) % MCV (80.0-100.0) fL MCH (25.0-35.0) pg MCHC (31.0-37.0) g/dL RDW (11.5-15.5) % Plt Count (150-450) k/uL MPV Neutrophils % % Lymphocytes % % Monocytes % % Eosinophils % % Basophils % % Neutrophils # (1.3-7.7) k/uL Lymphocytes # (1.0-4.8) k/uL Monocytes # (0-1.0) k/uL Eosinophils # (0-0.7) k/uL Basophils # (0-0.2) k/uL PT (10.0-12.5) sec INR (<1.2) APTT (22.0-30.0) sec Sodium 137 (137-145) mmol/L Potassium 4.2 (3.5-5.1) mmol/L Chloride 104 (98-107) mmol/L Carbon Dioxide 20 L (22-30) mmol/L Anion Gap 13 mmol/L BUN 14 (7-17) mg/dL Creatinine 0.61 (0.52-1.04) mg/dL Est GFR (CKD-EPI)AfAm >90 (>60 ml/min/1.73 sqM) Est GFR (CKD-EPI)NonAf 82 (>60 ml/min/1.73 sqM) Glucose 118 H (74-99) mg/dL Plasma Lactic Acid Beau (0.7-2.0) mmol/L Calcium 9.5 (8.4-10.2) mg/dL Magnesium 1.8 (1.6-2.3) mg/dL Total Bilirubin 1.3 (0.2-1.3) mg/dL AST 28 (14-36) U/L ALT 22 (4-34) U/L Alkaline Phosphatase 110 (38-126) U/L Total Protein 7.3 (6.3-8.2) g/dL Albumin 4.2 (3.5-5.0) g/dL Influenza Type A (PCR) Not Detected (Not Detectd) Influenza Type B (PCR) Not Detected (Not Detectd) RSV (PCR) Not Detected (Not Detectd) SARS-CoV-2 (PCR) Not Detected (Not Detectd) - EKG Data -: EKG Interpreted by Me EKG Comments: 12-lead Electrocardiogram Interpretation Note EKG was reviewed and interpreted by myself. 12-lead ECG performed at 1900 is interpreted by me as revealing atrial fibrillation at a rate of 82 beats per minute. Indeterminate axis. QRS is 139 ms, QTc is 456 ms.. There were no ST or T wave abnormalities to suggest myocardial ischemia or injury. R wave progression across the precordium was satisfactory. By my interpretation this EKG is non-diagnostic for acute ischemia. Disposition Clinical Impression: Weakness, Cellulitis Disposition: ADMITTED IP TO THIS HOSP Condition: Stable Is patient prescribed a controlled substance at d/c from ED?: No Referrals: None,Stated [Primary Care Provider] - 1-2 days Time of Disposition: 19:30
[2023-07-18] MEDS: RIVAROXABAN 20 MG TAB PO SCH (22:34)
[2023-07-19] MEDS: LEVOTHYROXINE 137 MCG TAB PO SCH (06:41)
[2023-07-19 08:14] LABS: Basophils % (A) 0 %; Eosinophils % (A) 0 %; HCT 38.3 % (34.0-46.0); HGB 12.5 gm/dL (11.4-16.0); Lymphocytes % (A) 23 %; MCH 31.1 pg (25.0-35.0); MCHC 32.7 g/dL (31.0-37.0); MCV 95.1 fL (80.0-100.0); Mean Platelet Volume 9.3; Monocytes # (A) 0.7 k/uL (0-1.0); Monocytes % (A) 8 %; Neutrophils # (A) 5.8 k/uL (1.3-7.7); Neutrophils % (A) 67 %; Platelet Count 152 k/uL (150-450); RBC 4.02 m/uL (3.80-5.40); RDW 13.7 % (11.5-15.5); WBC 8.7 k/uL (3.8-10.6)
[2023-07-19 08:45] LABS: African American GFR (CKD) 90 (>60 ml/min/1.73 sqM); Non-African American GFR(CKD) 78 (>60 ml/min/1.73 sqM)
[2023-07-19 08:48] LABS: African American GFR (CKD) >90 (>60 ml/min/1.73 sqM); Anion Gap 9 mmol/L; Blood Urea Nitrogen 16 mg/dL (7-17); Calcium 8.8 mg/dL (8.4-10.2); Carbon Dioxide 25 mmol/L (22-30); Chloride 105 mmol/L (98-107); Glucose 89 mg/dL (74-99); Non-African American GFR(CKD) 80 (>60 ml/min/1.73 sqM); Sodium 139 mmol/L (137-145)
[2023-07-19] MEDS: GABAPENTIN 300 MG CAP PO SCH ×3 (08:48→20:11)
[2023-07-19] MEDS: POTASSIUM CHLORIDE ER 10 MEQ TAB.ER.PRT PO SCH (08:48)
[2023-07-19] MEDS: METOPROLOL SUCCINATE (ER) 50 MG TAB.ER.24H PO SCH (08:48)
[2023-07-19] MEDS: lisinopriL 5 MG TAB PO SCH (08:48)
[2023-07-19] MEDS ORDERED: VANCOMYCIN 1,500 MG in SODIUM CHLORIDE 0.9% 500 ML 500 ML IVPB SCH (09:00)
[2023-07-19] MEDS ORDERED: FUROSEMIDE 40 MG TAB PO SCH (09:00)
[2023-07-19 09:14] LABS: Potassium 3.6 mmol/L (3.5-5.1)
[2023-07-19] MEDS: DULoxetine HCL 30 MG CAPSULE.DR PO SCH (09:23)
[2023-07-19 19:08] LABS: NT-Pro-B-Type Natriuretic Pept 14700 pg/mL
[2023-07-19] MEDS: ATORVASTATIN 20 MG TAB PO SCH (20:11)
[2023-07-19] MEDS: RIVAROXABAN 20 MG TAB PO SCH (20:11)
[2023-07-19] MEDS: IPRATROPIUM-ALBUTEROL 3 ML NEB INHALATION SCH (21:02)
--- NOTE | 2023-07-19 23:08 | HP ---
HISTORY AND PHYSICAL HISTORY OF PRESENT ILLNESS: This 88-year-old white female came to concern for infection, episodes of hypertension with systolic into the high 100s, since resolved. She is feeling more weak, cellulitis back in her right lower extremity. She is currently not on antibiotics, has history of UTIs. Denies any abdominal pain. She is talking, giving appropriate answers. She has weakness. She uses a walker at baseline. She is on blood thinners. She has no known falls. HOME MEDICINES: 1. Xarelto 20 daily. 2. Lipitor 20 daily. 3. Metoprolol succinate 50 mg daily. 4. Cymbalta 30 mg daily. 5. Lasix 40 mg daily. 6. Levothyroxine 137 daily. 7. K-Dur 10 mEq daily. 8. Zoryve topically daily. 9. Lisinopril 5 mg daily. ALLERGIES: Doxycycline, itching. REVIEW OF SYSTEMS: A 14-point review of system positive for right leg swollen, red, and infected. Otherwise negative. MEDICAL HISTORY: She has history of SVT, hypothyroidism, atrial fibrillation, heart failure, dyslipidemia, hypertension, osteoarthritis, skin disorder, urinary incontinence, sleep apnea, not utilizing any CPAP therapy, extensive reaction to doxycycline, history of MRSA. PAST SURGICAL HISTORY: History of thyroidectomy, bilateral knee replacement, appendectomy, bowel resections, joint placement, tonsillectomy. FAMILY HISTORY: Father with liver disease, alcoholic. Sister, heart problems. Brother, heart problems. PHYSICAL EXAMINATION: VITAL SIGNS: Temp 98.2, pulse 70s to 89, respiratory rate 20 to 22, blood pressure 135/97, and O2 96 to 97. CARDIOVASCULAR: S1, S2. LUNGS: Transmitted upper sounds. GI: Soft. HEMATOLOGY: Negative for Homans. Hematologic, she has 2 to 3+ edema bilaterally. EXTREMITIES: Right leg is red and warm from the toes all the way up to the mid thigh. The patient has cellulitis. She has atrial fibrillation which is chronic. She had negative DVT ultrasound. Mild leukocytosis, lactic acidosis due to dehydration. IV antibiotics, vancomycin since she has history of MRSA, fluids for lactic acidosis, work her up for COPD and sleep apnea, acute on chronic renal failure, diverticulitis. Prognosis is guarded. Please see further orders. MMODL / IJN: [id number] /
--- NOTE | 2023-07-19 23:12 | P.CONS ---
History of Present Illness - Reason for Consult Consult date: 07/19/23 - History of Present Illness Patient is a 88-year-old female with a past medical history significant for hypertension hyperlipidemia heart failure with atrial fibrillation osteoarthritis in this patient presenting to the hospital last night for evaluation of weakness and concern for infection apparently the patie nt did have an episode of mild hypotension and the patient has been feeling more weak also having an ulcer on the plantar aspect of her left foot with the patient has been attributing to the pressure from her shoe patient also having swelling or redness to the lower extremity did have mild aching pain without any radiation with the symptoms the patient has been evaluated on presentation the hospital but did have low-grade fever 100.4 F patient did have vital of 12.9 with a left shift creatinine was 0.61 lactic acid was elevated influenza RSV and COVID testing was negative patient did have a chest x-ray cardiomegaly pulmonary vascular congestion bilateral effusion venous Doppler no evidence of DVT patient was started on vancomycin admitted to hospital infectious disease was consulted for further management of antibiotic therapy Past Medical History Past Medical History: Atrial Fibrillation, Heart Failure, Hyperlipidemia, Hypertension, Osteoarthritis (OA), Skin Disorder, Supraventricular Tachycardia (SVT), Thyroid Disorder Additional Past Medical History / Comment(s): psoriasis, right lower extremity cellulitis, pedal edema, hypothyroidism, osteoarthritis hands and knees bilaterally, history of bowel obstruction requiring surgical intervention, diverticulosis, urinary incontinence, obstructive sleep apnea not utilizing any CPAP therapy, extensive reaction to doxycycline occurred on January 2016 with itching and leg weakness. History of Any Multi-Drug Resistant Organisms: None Reported, MRSA Year Discovered:: 01/15/20 MDRO Source:: MRSA LEG Past Surgical History: Appendectomy, Bowel Resection, Joint Replacement, T onsillectomy Additional Past Surgical History / Comment(s): thyroidectomy, raissa knee replacements, bowel resection, muscle bx, D&C, bilateral cataract removals, bilateral foot bunionectomy, colonoscopies. Past Anesthesia/Blood Transfusion Reactions: No Reported Reaction Past Psychological History: Anxiety, Depression Additional Psychological History / Comment(s): Pt has 2 adult grandsons who live with her and are very helpful. She ambulates with a walker. Pt no longer drives, family takes her to appointments. Smoking Status: Never smoker Past Alcohol Use History: Occasional Past Drug Use History: None Reported - Past Family History Mother Family Medical History: Dementia, Memory Impairment Father Family Medical History: Liver Disease Additional Family Medical History / Comment(s): Father was an alcoholic and of cirrhosis of the liver. Sister(s) Additional Family Medical History / Comment(s): heart problems Brother(s) Additional Family Medical History / Comment(s): heart problems r/t rheumatic fever Medications and Allergies Home Medications Medication Instructions Recorded Confirmed Type Rivaroxaban [Xarelto] 20 mg PO HS 08/02/17 07/18/23 History Atorvastatin [Lipitor] 20 mg PO HS 01/15/20 07/18/23 History Metoprolol Succinate (ER) [Toprol 50 mg PO DAILY 04/22/21 07/18/23 History XL] Gabapentin [Neurontin] 300 mg PO TID #30 cap 07/27/22 07/18/23 Rx Acetaminophen Tab [Tylenol Tab] 500 mg PO Q8H PRN 07/18/23 07/18/23 History DULoxetine HCL [Cymbalta] 30 mg PO DAILY 07/18/23 07/18/23 History Furosemide [Lasix] 40 mg PO DAILY 07/18/23 07/18/23 History Levothyroxine Sodium 137 mcg PO DAILY 07/18/23 07/18/23 History Potassium Chloride ER [K-Dur 10] 10 meq PO DAILY 07/18/23 07/18/23 History Roflumilast [Zoryve] 1 applic TOPICAL DAILY PRN 07/18/23 07/18/23 History lisinopriL [Zestril] 5 mg PO DAILY 07/18/23 07/18/23 History Allergies Allergy/AdvReac Type Severity Reaction Status Date / Time doxycycline Allergy Itching Verified 07/18/23 21:44 Physical Exam Vitals: Vital Signs Temp Pulse Pulse Resp BP BP Pulse Ox 07/19/23 09:28 93 L 07/19/23 08:00 55 L 18 07/19/23 07:00 98.4 F 55 L 18 105/56 93 L 07/19/23 01:16 100.4 F H 80 18 126/69 94 L 07/18/23 23:14 99.6 F 71 19 122/69 93 L 07/18/23 22:00 78 16 134/84 95 07/18/23 18:38 98.2 F 89 22 135/97 97 Intake and Output 07/18/23 07/19/23 07/19/23 22:59 06:59 14:59 Intake Total 180 Balance 180 Intake: Oral 180 Other: Voiding Method Incontinent Incontinent External Catheter External Catheter # Bowel Movements 0 Weight 83.915 kg 83.915 kg Results CBC & Chem 7: 07/19/23 07:46 07/19/23 07:46 Labs: Abnormal Lab Results - Last 24 Hours (Table) 07/18/23 07/18/23 07/18/23 Range/Units 19:00 19:30 19:30 WBC 12.9 H (3.8-10.6) k/uL Neutrophils # 11.0 H (1.3-7.7) k/uL Lymphocytes # 0.8 L (1.0-4.8) k/uL PT 14.8 H (10.0-12.5) sec INR 1.4 H (<1.2) APTT 31.5 H (22.0-30.0) sec Carbon Dioxide (22-30) mmol/L Glucose (74-99) mg/dL Plasma Lactic Acid Beau 2.7 H* (0.7-2.0) mmol/L 07/18/23 Range/Units 19:30 WBC (3.8-10.6) k/uL Neutrophils # (1.3-7.7) k/uL Lymphocytes # (1.0-4.8) k/uL PT (10.0-12.5) sec INR (<1.2) APTT (22.0-30.0) sec Carbon Dioxide 20 L (22-30) mmol/L Glucose 118 H (74-99) mg/dL Plasma Lactic Acid Beau (0.7-2.0) mmol/L Assessment and Plan Plan: 1patient presented to hospital with weakness fever did have evidence of lower extremity swelling and redness concerning for cellulitis likely from gram- positive skin laury less likely gram-negative and low risk factor for MRSA infection 2-marked area of the redness 3-discontinue vancomycin 4-we will start the patient on cefazolin 2 g every 8 hours We will follow on clinical condition and cultures to further adjust medication if needed Thank you for this consultation we will follow the patient along with you Dictation was produced using [employer] software. please excuse any grammatical, word or spelling errors. Time with Patient: Greater than 30
[2023-07-20 06:28] LABS: African American GFR (CKD) >90 (>60 ml/min/1.73 sqM); Non-African American GFR(CKD) 83 (>60 ml/min/1.73 sqM)
[2023-07-20] MEDS: LEVOTHYROXINE 137 MCG TAB PO SCH (06:38)
[2023-07-20] MEDS: FUROSEMIDE 20 MG TAB PO SCH (08:47)
[2023-07-20] MEDS: POTASSIUM CHLORIDE ER 10 MEQ TAB.ER.PRT PO SCH (08:48)
[2023-07-20] MEDS: DULoxetine HCL 30 MG CAPSULE.DR PO SCH (08:48)
[2023-07-20] MEDS: METOPROLOL SUCCINATE (ER) 50 MG TAB.ER.24H PO SCH (08:48)
[2023-07-20] MEDS: lisinopriL 5 MG TAB PO SCH (08:48)
[2023-07-20] MEDS: GABAPENTIN 300 MG CAP PO SCH ×3 (08:48→21:00)
[2023-07-20] MEDS: IPRATROPIUM-ALBUTEROL 3 ML NEB INHALATION SCH ×4 (09:18→21:16)
--- NOTE | 2023-07-20 09:27 | CA ---
Transthoracic Echo Report Name: Brittany Reveles Age: 88 Gender: F : 1935 Exam Date: 07/20/2023 08:10 Exam Location: [facility] Ht (in): 69 Wt (lb): 185 Ordering Physician: Maxim Nice MD Attending/Referring Phys: Voip Technician Sapphire Rubin RDCS Procedure CPT: Indications: chf Cardiac Hx: Technical Quality: Good Contrast 1: Total Dose (mL): Contrast 2: Total Dose (mL): MEASUREMENTS (Male / Female) Normal Values 2D ECHO LV Diastolic Diameter PLAX 4.5 cm 4.2 - 5.9 / 3.9 - 5.3 cm LV Systolic Diameter PLAX 3.1 cm IVS Diastolic Thickness 1.1 cm 0.6 - 1.0 / 0.6 - 0.9 cm LVPW Diastolic Thickness 1.3 cm 0.6 - 1.0 / 0.6 - 0.9 cm LV Relative Wall Thickness 0.5 RV Internal Dim ED PLAX 3.2 cm LA Systolic Diameter LX 4.5 cm 3.0 - 4.0 / 2.7 - 3.8 cm LV Diastolic Volume MOD 4C 79.1 cm??? LV Systolic Volume MOD 4C 44.1 cm??? LV Ejection Fraction MOD 4C 44.3 % LV Cardiac Index MOD 4C 1237.6 cm???/min???m??? LV Diastolic Length 4C 7.2 cm LV Systolic Length 4C 6.3 cm LV Diastolic Volume MOD 2C 78.2 cm??? LV Systolic Volume MOD 2C 47.2 cm??? LV Ejection Fraction MOD 2C 39.6 % LV Cardiac Index MOD 2C 1095.6 cm???/min???m??? LV Diastolic Length 2C 7.7 cm LV Systolic Length 2C 7.0 cm LA Volume 74.0 cm??? 18 - 58 / 22 - 52 cm??? LA Volume Index 36.3 cm???/m??? 16 - 28 cm???/m??? M-MODE Aortic Root Diameter MM 3.3 cm MV E Point Septal Separation 0.8 cm AV Cusp Separation MM 2.0 cm DOPPLER AV Peak Velocity 134.4 cm/s AV Peak Gradient 7.2 mmHg MV Area PHT 3.9 cm??? MV Deceleration Time 189.3 ms TR Peak Velocity 314.9 cm/s TR Peak Gradient 39.7 mmHg Right Ventricular Systolic Press 47.0 mmHg FINDINGS Left Ventricle Left ventricular ejection fraction is estimated at 40-45 %. Left ventricular cavity size normal. Mildly increased septal wall thickness. Mildly increased posterior wall thickness. Right Ventricle Right ventricular enlargement. Moderate pulmonary hypertension. Right ventricular systolic pressure estimated at 47 mm hg. Right Atrium Right atrial enlargement Left Atrium Moderately increased left atrial diameter. Moderately increased left atrial volume. Mildly increased left atrial area. Mitral Valve Structurally normal mitral valve. Mild mitral regurgitation. Aortic Valve Trileaflet aortic valve. Thickened aortic valve without stenosis. Tricuspid Valve Structurally normal tricuspid valve. Pulmonic Valve Structurally normal pulmonic valve. Trace pulmonic regurgitation. Pericardium No pericardial effusion. Aorta Normal size aortic root and proximal ascending aorta. CONCLUSIONS Reduced LV systolic function ejection fraction 45% Pulmonary hypertension with enlarged right ventricle and right atrium Previewed by: Dr. Dayron Berger MD (Electronically Signed) Final Date: 20 July 2023 09:26
--- NOTE | 2023-07-20 13:18 | P.CRDCN ---
History of Present Illness Consult date: 07/20/23 Consult reason: congestive heart failure History of present illness: History of present illness: This is an 88 year old female patient of Dr. Berger with past medical history of chronic diastolic heart failure, valvular heart disease, hypertension, dyslipidemia, pulmonary emboli, persistent atrial fibrillation. We have been asked to evaluate the patient for CHF. Patient presented to the hospital on 07/18 for weakness for several days, lower extremity edema and erythema, ulcer on the left foot. Patient presented with temperature max 100.4 and leukocytosis. EKG atrial fibrillation Chest x-ray: Cardiomegaly, pulmonary vascular congestion and bilateral pleural effusions. Venous Doppler negative for DVT on the right CAT scan of the brain negative Echocardiogram 07/19/2023 reveals reduced LV systolic function EF 45%. Pulmonary hypertension and a large right ventricle and right atrium. Repeat WBC 8.7, hemoglobin 12.5, platelet count 152. Electrolytes are normal. Creatinine 0.67. ProBNP 14,700. TSH 0.9. Liver function tests are normal. Lactic acid 2.7 followed by 2.0. Influenza A, influenza B, RSV, Covid 19 not detected. Home cardiac medications: Atorvastatin 20 g at bedtime, Lasix 40 mg daily, levothyroxine 137 g daily, lisinopril 5 mg daily, Toprol-XL 50 mg daily, potassium chloride 10 mEq daily, Xarelto 20 mg at bedtime Echocardiogram 2020 revealed EF of 50%, mild to moderate MR, moderate to severe TR, severe pulmonary hypertension. Review Of Systems: At the time of my evaluation: Constitutional: No fever, no chills. + weakness, + fatigue + lethargy. EENT: No headache. No dizziness. Lungs: No shortness of breath, cough, no sputum production. No wheezing. Cardiovascular: No chest pain, no lower extremity edema. No palpitations. No paroxysmal nocturnal dyspnea. No orthopnea. No lightheadedness or dizziness. No syncopal episodes. Abdominal: No abdominal pain. No nausea, vomiting. No diarrhea. No constipation. No bloody or tarry stools. Musculoskeletal: No myalgias. + muscle weakness. Integumentary: + wounds. No rash. No unusual bruising. Neurologic: No aphasia. No facial droop. + change in mentation. Physical examination: Gen: This is an 88-year-old female resting in bed appears to be comfortable and in no acute distress. VS: reviewed HEENT: Head is atraumatic, normocephalic. Pupils equal, round. Sclerae is anicteric. NECK: Supple. No JVD. LUNGS: Diminished bilaterally. No wheezes or rhonchi. No intercostal retractions. HEART: Regular rate and rhythm. No murmur. ABDOMEN: Soft No tenderness. EXTREMITIES: Right lower extremity edema and erythema. NEUROLOGICAL: Patient is awake. Assessment: Cellulitis right lower extremity Right lower extremity edema Bilateral pleural effusions Chronic diastolic heart failure Pulmonary hypertension Hypertension Dyslipidemia History of pulmonary emboli Persistent atrial fibrillation Plan: Resume patient's home cardiac medications with the following changes: Increase Lasix to 60 mg oral daily Continue antibiotics Further recommendations to follow based upon clinical course Thank you kindly for this consultation. Nurse practitioner note has been reviewed, I agree with documented findings and plan of care. Patient was seen and examined. Past Medical History Past Medical History: Atrial Fibrillation, Heart Failure, Hyperlipidemia, Hypertension, Osteoarthritis (OA), Skin Disorder, Supraventricular Tachycardia (SVT), Thyroid Disorder Additional Past Medical History / Comment(s): psoriasis, right lower extremity cellulitis, pedal edema, hypothyroidism, osteoarthritis hands and knees bilaterally, history of bowel obstruction requiring surgical intervention, diverticulosis, urinary incontinence, obstructive sleep apnea not utilizing any CPAP therapy, extensive reaction to doxycycline occurred on January 2016 with itching and leg weakness. History of Any Multi-Drug Resistant Organisms: None Reported, MRSA Date of last positivie culture/infection: 01/15/20 MDRO Source:: MRSA LEG Past Surgical History: Appendectomy, Bowel Resection, Joint Replacement, Tonsillectomy Additional Past Surgical History / Comment(s): thyroidectomy, raissa knee replacements, bowel resection, muscle bx, D&C, bilateral cataract removals, bilateral foot bunionectomy, colonoscopies. Past Anesthesia/Blood Transfusion Reactions: No Reported Reaction Past Psychological History: Anxiety, Depression Additional Psychological History / Comment(s): Pt has 2 adult grandsons who live with her and are very helpful. She ambulates with a walker. Pt no longer drives, family takes her to appointments. Smoking Status: Never smoker Past Alcohol Use History: Occasional Past Drug Use History: None Reported - Past Family History Mother Family Medical History: Dementia, Memory Impairment Father Family Medical History: Liver Disease Additional Family Medical History / Comment(s): Father was an alcoholic and of cirrhosis of the liver. Sister(s) Additional Family Medical History / Comment(s): heart problems Brother(s) Additional Family Medical History / Comment(s): heart problems r/t rheumatic fever Medications and Allergies Home Medications Medication Instructions Recorded Confirmed Type Rivaroxaban [Xarelto] 20 mg PO HS 08/02/17 07/18/23 History Atorvastatin [Lipitor] 20 mg PO HS 01/15/20 07/18/23 History Metoprolol Succinate (ER) [Toprol 50 mg PO DAILY 04/22/21 07/18/23 History XL] Gabapentin [Neurontin] 300 mg PO TID #30 cap 07/27/22 07/18/23 Rx Acetaminophen Tab [Tylenol Tab] 500 mg PO Q8H PRN 07/18/23 07/18/23 History DULoxetine HCL [Cymbalta] 30 mg PO DAILY 07/18/23 07/18/23 History Furosemide [Lasix] 40 mg PO DAILY 07/18/23 07/18/23 History Levothyroxine Sodium 137 mcg PO DAILY 07/18/23 07/18/23 History Potassium Chloride ER [K-Dur 10] 10 meq PO DAILY 07/18/23 07/18/23 History Roflumilast [Zoryve] 1 applic TOPICAL DAILY PRN 07/18/23 07/18/23 History lisinopriL [Zestril] 5 mg PO DAILY 07/18/23 07/18/23 History Allergies Allergy/AdvReac Type Severity Reaction Status Date / Time doxycycline Allergy Itching Verified 07/18/23 21:44 Physical Exam Vitals: Vital Signs Temp Pulse Resp BP Pulse Ox 07/20/23 09:19 94 L 07/20/23 08:00 68 16 07/20/23 07:30 98.2 F 68 16 124/74 96 07/20/23 04:40 98.2 F 61 18 113/66 95 07/19/23 18:48 98.1 F 79 19 99/59 95 07/19/23 14:44 96 F L 73 18 102/59 07/19/23 14:00 55 L 18 Intake and Output 07/19/23 07/20/23 07/20/23 22:59 06:59 14:59 Intake Total 500 Output Total 350 200 Balance -350 -200 500 Intake: Oral 500 Output: Urine 350 200 Other: Voiding Method Incontinent Incontinent Incontinent External Catheter External Catheter External Catheter Results 07/19/23 07:46 07/20/23 05:39 Comprehensive Metabolic Panel 07/20/23 Range/Units 05:39 Creatinine 0.59 (0.52-1.04) mg/dL Current Medications Generic Name Dose Route Start Last Admin Trade Name Freq PRN Reason Stop Dose Admin Acetaminophen 650 mg 07/18/23 21:50 07/19/23 01:20 Acetaminophen Tab 325 Mg Tab PO 650 mg Q6HR PRN Administration Mild Pain or Fever > 100.5 Albuterol/Ipratropium 3 ml 07/19/23 20:00 07/20/23 12:00 Ipratropium-Albuterol 3 Ml Neb INHALATION Not Given RT-QID DWAYNE Atorvastatin Calcium 20 mg 07/19/23 21:00 07/19/23 20:11 Atorvastatin 20 Mg Tab PO 20 mg HS DWAYNE Administration Duloxetine HCl 30 mg 07/19/23 09:00 07/20/23 08:48 Duloxetine Hcl 30 Mg Capsule.Dr PO 30 mg DAILY DWAYNE Administration Furosemide 60 mg 07/20/23 09:00 07/20/23 08:47 Furosemide 20 Mg Tab PO 60 mg DAILY DWAYNE Administration Gabapentin 300 mg 07/19/23 09:00 07/20/23 08:48 Gabapentin 300 Mg Cap PO 300 mg TID DWAYNE Administration Cefazolin Sodium 2 gm/ Sodium 50 mls @ 100 mls/hr 07/19/23 16:00 07/20/23 08:47 Chloride IVPB 100 mls/hr Q8HR DWAYNE Administration Protocol Levothyroxine Sodium 137 mcg 07/19/23 06:30 07/20/23 06:38 Levothyroxine 137 Mcg Tab PO 137 mcg DAILY@0630 DWAYNE Administration Lisinopril 5 mg 07/19/23 09:00 07/20/23 08:48 Lisinopril 5 Mg Tab PO 5 mg DAILY DWAYNE Administration Metoprolol Succinate 50 mg 07/19/23 09:00 07/20/23 08:48 Metoprolol Succinate (Er) 50 Mg Tab.Er.24h PO 50 mg DAILY DWAYNE Administration Naloxone HCl 0.2 mg 07/18/23 21:50 Naloxone 0.4 Mg/Ml 1 Ml Vial IV Q2M PRN Opioid Reversal Potassium Chloride 10 meq 07/19/23 09:00 07/20/23 08:48 Potassium Chloride Er 10 Meq Tab.Er.Prt PO 10 meq DAILY DWAYNE Administration Rivaroxaban 20 mg 07/18/23 22:15 07/19/23 20:11 Rivaroxaban 20 Mg Tab PO 20 mg HS DWAYNE Administration Protocol Intake and Output 07/19/23 07/20/23 07/20/23 22:59 06:59 14:59 Intake Total 500 Output Total 350 200 Balance -350 -200 500 Intake: Oral 500 Output: Urine 350 200 Other: Voiding Method Incontinent Incontinent Incontinent External Catheter External Catheter External Catheter 07/19/23 07:46 07/20/23 05:39
--- NOTE | 2023-07-20 15:46 | CT ---
EXAMINATION TYPE: CT chest wo con DATE OF EXAM: 07/20/2023 COMPARISON: Radiograph 07/18/2023, CT 10/14/2016 HISTORY: 88-year-old female Pleural effusion TECHNIQUE: Contiguous axial scanning of the chest without IV contrast. Coronal and sagittal reconstru ctions performed.. CT DLP: 328.4mGycm. Automatic exposure control utilized for a dose reduction. FINDINGS: Mild to moderate generalized anasarca changes. Heart borderline in size without pericardial effusion. LAD coronary artery calcifications are present . Mild to moderate atherosclerotic arch calcifications within the joint. Branching anatomy. Large caliber to the main right and left pulmonary arteries measuring up to 2.8 cm each suggesting un derlying pulmonary hypertension. No thoracic lymphadenopathy by CT size criteria. There is a moderate right and trace left pleural effusion. Adjacent atelectasis of posterior and medi al basilar segments of the right lower lobe. Benign calcified granuloma at the left base. Mild biapical pleural-parenchymal scarring. Visualized upper abdomen shows no gross abnormality. Diffuse osteopenia. Markedly accentuated midthoracic kyphosis. 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 IMPRESSION: 1. Generalized anasarca with moderate right and trace left pleural effusions. Borderline cardiomegaly . Pulmonary hypertension. Correlate for fluid overload state and elevated cardiac pressures. No sridhar pulmonary edema. 2. Adjacent atelectasis of the medial and posterior basilar segments of the right lower lobe.
--- NOTE | 2023-07-20 17:06 | P.PN ---
Subjective Progress Note Date: 07/20/23 Principal diagnosis: Right lower extremity cellulitis Patient is 88 year female with multiple comorbidities presenting to the hospital with weakness also noticed to have increasing swelling redness to the right leg concerning for cellulitis. On today's evaluation that is 07/20/2023, the patient remains to be afebrile the patient is breathing comfortably on room air without need for supplemental oxygen, the patient denies chest pain, shortness of breath or cough, patient denies nausea/vomiting , no diarrhea and no abdominal pain, right leg swelling redness slightly decreased. Patient white count is normalized to 8.7 creatinine 0.5 Objective - Vital Signs Vital signs: Vital Signs Temp 98.2 F 07/20/23 07:30 Pulse 68 07/20/23 08:00 Resp 16 07/20/23 08:00 BP 124/74 07/20/23 07:30 Pulse Ox 94 L 07/20/23 09:19 FiO2 Intake & Output 07/19/23 07/20/23 07/20/23 18:59 06:59 18:59 Intake Total 680 500 Output Total 500 550 Balance 180 -550 500 Intake: Oral 680 500 Output: Urine 500 550 Other: Voiding Method Incontinent Incontinent Incontinent External Catheter External Catheter External Catheter - Exam GENERAL DESCRIPTION: An elderly female lying in bed in no distress RESPIRATORY SYSTEM: Unlabored breathing , decreased breath sounds at bases HEART: S1 S2 regular rate and rhythm , ABDOMEN: Soft , no tenderness EXTREMITIES: Right leg swelling redness slightly decreased - Labs CBC & Chem 7: 07/19/23 07:46 07/20/23 05:39 Labs: Microbiology - Last 24 Hours (Table) 07/18/23 19:15 Blood Culture - Preliminary Blood 07/18/23 19:30 Blood Culture - Preliminary Blood Assessment and Plan (1) Cellulitis of right lower extremity Current Visit: No Status: Acute Code(s): L03.115 - CELLULITIS OF RIGHT LOWER LIMB SNOMED Code(s): 73624776114638724 Plan: 1patient presented to hospital with weakness fever did have evidence of lower extremity swelling and redness concerning for cellulitis likely from gram- positive skin laury less likely gram-negative and low risk factor for MRSA infection 2Patient states that was subsequent clinical improvement and will continue with cefazolin 2 g every 8 hours Dictation was produced using [employer] dictation software. please excuse any grammatical, word or spelling errors. Time with Patient: Less than 30
[2023-07-20 18:56] LABS: Appearance,Urine Clear (Clear); Bilirubin,Urine Negative (Negative); Blood,Urine Negative (Negative); Color,Urine Colorless; Glucose,Urine (UA) Negative (Negative); Ketones,Urine Negative (Negative); Leukocyte Esterase,Urine Negative (Negative); Nitrite,Urine Negative (Negative); PH, Urine 6.5 (5.0-8.0); Protein,Urine Negative (Negative); Specific Gravity,Urine 1.008 (1.001-1.035); Urobilinogen,Urine <2.0 mg/dL (<2.0)
[2023-07-20] MEDS: RIVAROXABAN 20 MG TAB PO SCH (21:00)
[2023-07-20] MEDS: ATORVASTATIN 20 MG TAB PO SCH (21:00)
[2023-07-21 05:22] LABS: African American GFR (CKD) >90 (>60 ml/min/1.73 sqM); Non-African American GFR(CKD) 84 (>60 ml/min/1.73 sqM)
[2023-07-21] MEDS: LEVOTHYROXINE 137 MCG TAB PO SCH (05:57)
[2023-07-21] MEDS: IPRATROPIUM-ALBUTEROL 3 ML NEB INHALATION SCH ×4 (09:16→20:43)
[2023-07-21] MEDS: lisinopriL 5 MG TAB PO SCH (09:26)
[2023-07-21] MEDS: FUROSEMIDE 20 MG TAB PO SCH (09:26)
[2023-07-21] MEDS: DULoxetine HCL 30 MG CAPSULE.DR PO SCH (09:27)
[2023-07-21] MEDS: METOPROLOL SUCCINATE (ER) 50 MG TAB.ER.24H PO SCH (09:27)
[2023-07-21] MEDS: POTASSIUM CHLORIDE ER 10 MEQ TAB.ER.PRT PO SCH (09:27)
[2023-07-21] MEDS: RIVAROXABAN 20 MG TAB PO SCH (09:27)
[2023-07-21] MEDS: GABAPENTIN 300 MG CAP PO SCH ×3 (09:27→20:50)
--- NOTE | 2023-07-21 12:55 | P.PN ---
Subjective Progress Note Date: 07/21/23 Principal diagnosis: Right lower extremity cellulitis Patient is 88 year female with multiple comorbidities presenting to the hospital with weakness also noticed to have increasing swelling redness to the right leg concerning for cellulitis. On today's evaluation that is 07/21/2023, the patient denies any fever or any chills, the patient is breathing comfortably on room air , the patient denies chest pain, shortness of breath and no significant cough, patient denies abdominal pain, no nausea/vomiting or diarrhea, the patient right leg swelling redness has decreased in intensity. Patient white count is normalized to 8.7 as of 07/19/2023 no CBC was done today and creatinine 0.57 Objective - Vital Signs Vital signs: Vital Signs Temp 97.5 F L 07/21/23 07:10 Pulse 72 07/21/23 08:00 Resp 16 07/21/23 08:00 BP 134/77 07/21/23 07:10 Pulse Ox 96 07/21/23 09:16 FiO2 2 07/21/23 09:16 Intake & Output 07/20/23 07/21/23 07/21/23 18:59 06:59 18:59 Intake Total 960 435 Output Total 1300 650 Balance -340 -650 435 Intake: Oral 960 435 Output: Urine 1300 650 Other: Voiding Method Incontinent Incontinent Incontinent External Catheter External Catheter External Catheter # Voids 1 # Bowel Movements 1 - Exam GENERAL DESCRIPTION: An elderly female lying in bed in no distress RESPIRATORY SYSTEM: Unlabored breathing , decreased breath sounds at bases HEART: S1 S2 regular rate and rhythm , ABDOMEN: Soft , no tenderness EXTREMITIES: Right leg swelling redness slightly decreased - Labs CBC & Chem 7: 07/19/23 07:46 07/21/23 04:20 Labs: Microbiology - Last 24 Hours (Table) 07/18/23 19:15 Blood Culture - Preliminary Blood 07/18/23 19:30 Blood Culture - Preliminary Blood Assessment and Plan (1) Cellulitis of right lower extremity Current Visit: No Status: Acute Code(s): L03.115 - CELLULITIS OF RIGHT LOWER LIMB SNOMED Code(s): 33287531039044263 Plan: 1patient presented to hospital with weakness fever did have evidence of lower extremity swelling and redness concerning for cellulitis likely from gram- positive skin laury less likely gram-negative and low risk factor for MRSA infection 2Patient did have clinical improvement of the right lower extremity cellulitis, and will continue with cefazolin 2 g every 8 hours, apply Rubio wrap to give the swelling down Dictation was produced using [employer] software. please excuse any grammatical, word or spelling errors. Time with Patient: Less than 30
[2023-07-21] MEDS: POLYMYXIN B-TRIMETHOPRIM SULF (10,000-1) OPHTH DROPS 10 ML BTL RIGHT EYE SCH (19:11)
[2023-07-21] MEDS: ATORVASTATIN 20 MG TAB PO SCH (20:50)
[2023-07-22] MEDS: POLYMYXIN B-TRIMETHOPRIM SULF (10,000-1) OPHTH DROPS 10 ML BTL RIGHT EYE SCH ×4 (00:42→17:34)
--- NOTE | 2023-07-22 01:53 | PN ---
PROGRESS NOTE SUBJECTIVE: An 88-year-old white female admitted with COPD, diastolic heart failure, generalized weakness, fatigue. She is on cefazolin for leg infection of the right leg. She has pulmonary hypertension, I told to wear oxygen at night. She underwent breathing treatments. White count is normal. Hemoglobin is 12.5. [place] [address], TSH 0.9, creatinine 0.97, glucose 89. UA is negative. OBJECTIVE: VITAL SIGNS: Blood pressure 116 to 134 over 68 to 77, O2 of 96% on 2 L, temp 97.5, pulse 72, respiratory rate 16 to 18. CARDIOVASCULAR: S1, S2. ASSESSMENT: She had a chest CT yesterday that showed kyphosis to her spine, scarring and granulomas and lung based pleural effusions, portal hypertension, osteopenia, generalized anasarca, moderate right and left pleural effusions, fluid overload, atelectasis in the right lower lobe. Continue with cellulitis of the right leg, acute venous Doppler on the leg when she first came in, which was negative for DVT, but she has soft tissue swelling from fluid build up. Continue with PT/OT and watch her balance. See what Cardiology does say for CHF. Dr. Berger saw her, they are going to increase Lasix to 60 orally daily. Continue antibiotics. Follow a clinical course. Prognosis guarded. MMODL / IJN: [id number] /
[2023-07-22] MEDS: LEVOTHYROXINE 137 MCG TAB PO SCH (06:09)
[2023-07-22] MEDS: IPRATROPIUM-ALBUTEROL 3 ML NEB INHALATION SCH ×4 (09:31→21:14)
[2023-07-22] MEDS: DULoxetine HCL 30 MG CAPSULE.DR PO SCH (11:17)
[2023-07-22] MEDS: FUROSEMIDE 20 MG TAB PO SCH (11:17)
[2023-07-22] MEDS: POTASSIUM CHLORIDE ER 10 MEQ TAB.ER.PRT PO SCH (11:17)
[2023-07-22] MEDS: METOPROLOL SUCCINATE (ER) 50 MG TAB.ER.24H PO SCH (11:17)
[2023-07-22] MEDS: GABAPENTIN 300 MG CAP PO SCH ×3 (11:17→21:18)
[2023-07-22] MEDS: lisinopriL 5 MG TAB PO SCH (11:17)
--- NOTE | 2023-07-22 15:32 | P.PN ---
Subjective Progress Note Date: 07/22/23 Principal diagnosis: Right lower extremity cellulitis Patient is 88 year female with multiple comorbidities presenting to the hospital with weakness also noticed to have increasing swelling redness to the right leg concerning for cellulitis. On today's evaluation that is 07/22/2023, the patient remains to be afebrile, the patient is breathing comfortably on 2 L nasal cannula supplemental oxygen , the patient denies chest pain or cough, patient denies nausea/vomiting or diarrhea and denies any abdominal pain, the patient right leg swelling redness has decreased in intensity. No new symptoms Patient white count is normalized to 8.7 as of 07/19/2023 no CBC was done today and creatinine 0.57 as of yesterday Objective - Vital Signs Vital signs: Vital Signs Temp 98.1 F 07/22/23 07:20 Pulse 72 07/22/23 13:14 Resp 16 07/22/23 07:20 BP 106/67 07/22/23 07:20 Pulse Ox 100 07/22/23 07:20 FiO2 2 07/21/23 09:16 Intake & Output 07/21/23 07/22/23 07/22/23 18:59 06:59 18:59 Intake Total 435 410 Output Total 600 2100 Balance -165 -2100 410 Intake: Oral 435 410 Output: Urine 600 2100 Other: Voiding Method Incontinent Incontinent Incontinent External Catheter External Catheter External Catheter - Exam GENERAL DESCRIPTION: An elderly female lying in bed in no distress RESPIRATORY SYSTEM: Unlabored breathing , decreased breath sounds at bases HEART: S1 S2 regular rate and rhythm , ABDOMEN: Soft , no tenderness EXTREMITIES: Right leg swelling redness slightly decreased - Labs CBC & Chem 7: 07/19/23 07:46 07/21/23 04:20 Labs: Microbiology - Last 24 Hours (Table) 07/18/23 19:15 Blood Culture - Preliminary Blood 07/18/23 19:30 Blood Culture - Preliminary Blood Assessment and Plan (1) Cellulitis of right lower extremity Current Visit: No Status: Acute Code(s): L03.115 - CELLULITIS OF RIGHT LOWER LIMB SNOMED Code(s): 07442046402850745 Plan: 1patient presented to hospital with weakness fever did have evidence of lower extremity swelling and redness concerning for cellulitis likely from gram- positive skin laury less likely gram-negative and low risk factor for MRSA infection 2Patient did have clinical improvement of the right lower extremity cellulitis, 3- will continue with cefazolin 2 g every 8 hours, with a plan to finish therapy with oral Keflex Dictation was produced using [employer] dictation software. please excuse any grammatical, word or spelling errors. Time with Patient: Less than 30
[2023-07-22] MEDS: ATORVASTATIN 20 MG TAB PO SCH (21:18)
[2023-07-22] MEDS: RIVAROXABAN 20 MG TAB PO SCH (21:18)
[2023-07-23] MEDS: POLYMYXIN B-TRIMETHOPRIM SULF (10,000-1) OPHTH DROPS 10 ML BTL RIGHT EYE SCH ×5 (00:54→23:51)
--- NOTE | 2023-07-23 01:50 | PN ---
PROGRESS NOTE An 88-year-old white female came in with syncope, weakness, fatigue, CHF, cellulitis of the legs. Pulse is 72. She had oxygen 2 L on a Venti mask. She is feeling better. Creatinine is 0.57 today, down from 0.67. BNP [place] [address] on admission. TSH was 0.09. Urine was negative. Cardiology consulted. Cardiology has her on diuretics. She has 40% to 45% ejection fraction, which is believed is a combined systolic diastolic heart failure. Cellulitis of the right leg, she is on IV antibiotics. CT of the chest shows pleural effusions. She has elevated pulmonary hypertension, fluid overload. Continue current treatment. Follow up in the next 24 to 48 hours. She appears to be improving. PT, OT. MMODL / IJN: [id number] /
[2023-07-23 08:55] LABS: Basophils # (A) 0.04 X 10*3/uL (0.00-0.10); Basophils % (A) 0.7 %; Eosinophils # (A) 0.17 X 10*3/uL (0.04-0.35); Eosinophils % (A) 2.8 %; HCT 38.3 % (37.2-46.3); HGB 12.2 d/dL (12.0-15.0); Lymphocytes # (A) 1.95 X 10*3/uL (0.90-5.00); Lymphocytes % (A) 32.6 %; MCH 29.9 pg (27.0-32.0); MCHC 31.9 d/dL (32.0-37.0); MCV 93.9 FL (80.0-97.0); Mean Platelet Volume 11.7 FL (9.5-12.2); Monocytes # (A) 1.21 X 10*3/uL (0.20-1.00); Monocytes % (A) 20.2 %; NRBC Per 100 WBC 0 X 10*3/uL (0.00-0.01); Neutrophils # (A) 2.61 X 10*3/uL (1.80-7.70); Neutrophils % (A) 43.5 %; Platelet Count 229 X 10*3/uL (140-440); RBC 4.08 X 10*6/uL (4.10-5.20); RDW 13.6 % (11.5-14.5); WBC 5.99 X 10*3/uL (4.50-10.00)
[2023-07-23] MEDS: GABAPENTIN 300 MG CAP PO SCH ×3 (08:59→20:38)
[2023-07-23] MEDS: FUROSEMIDE 20 MG TAB PO SCH (08:59)
[2023-07-23] MEDS: lisinopriL 5 MG TAB PO SCH (09:00)
[2023-07-23] MEDS: DULoxetine HCL 30 MG CAPSULE.DR PO SCH (09:00)
[2023-07-23] MEDS: METOPROLOL SUCCINATE (ER) 50 MG TAB.ER.24H PO SCH (09:00)
[2023-07-23] MEDS: POTASSIUM CHLORIDE ER 10 MEQ TAB.ER.PRT PO SCH (09:00)
[2023-07-23] MEDS: LEVOTHYROXINE 137 MCG TAB PO SCH (09:00)
[2023-07-23] MEDS: RIVAROXABAN 20 MG TAB PO SCH (09:00)
[2023-07-23 09:01] LABS: ALT 10 U/L (8-44); AST 21 U/L (13-35); Albumin 3.2 d/dL (3.8-4.9); Albumin/Globulin Ratio 1.33 Ratio (1.60-3.17); Alkaline Phosphatase 90 U/L (41-126); BUN/Creat Ratio 17.14 Ratio (12.00-20.00); Calcium 8.7 mg/dL (8.7-10.3); Chloride 100 mmol/L (96-109); Globulin 2.4 d/dL (1.6-3.3); Glucose 74 mg/dL (70-110); Potassium 3.2 mmol/L (3.5-5.5); Sodium 141 mmol/L (135-145); Total Bilirubin 0.6 mg/dL (0.3-1.2); Total Protein 5.6 d/dL (6.2-8.2)
[2023-07-23] MEDS: IPRATROPIUM-ALBUTEROL 3 ML NEB INHALATION SCH ×4 (09:19→20:23)
[2023-07-23] MEDS ORDERED: POTASSIUM CHLORIDE ER 20 MEQ TAB.ER PO STA (17:51)
[2023-07-23] MEDS: ATORVASTATIN 20 MG TAB PO SCH (20:38)
--- NOTE | 2023-07-24 03:23 | PN ---
PROGRESS NOTE An 88-year-old white female, breathing better. Diastolic heart failure is better. Her leg swelling and redness is better. She is able to wear socks . She has walked all the way down the [place]. Possibly go to rehab center for a couple of weeks prior to going home. She is on thyroid medicine. She is on breathing medicines. She has had difficulty coughing when she swallows right eye infection. Potassium replacement. Increase potassium by 20 mEq a day. She wears 2 L oxygen. Cardiovascular, S1, S2. Lungs, scattered rhonchi and wheeze. Hematologic, 2+ edema. Some stasis changes. Prognosis guarded. Continue current treatment. She is doing great. She is up ambulating down the [place]. Rehab placement versus home placement. Barium swallow in the morning. Check potassium again. MMODL / IJN: [id number] /
[2023-07-24] MEDS: LEVOTHYROXINE 137 MCG TAB PO SCH (05:52)
[2023-07-24] MEDS: POLYMYXIN B-TRIMETHOPRIM SULF (10,000-1) OPHTH DROPS 10 ML BTL RIGHT EYE SCH ×4 (05:53→23:23)
[2023-07-24] MEDS: METOPROLOL SUCCINATE (ER) 50 MG TAB.ER.24H PO SCH (09:34)
[2023-07-24] MEDS: lisinopriL 5 MG TAB PO SCH (09:34)
[2023-07-24] MEDS: DULoxetine HCL 30 MG CAPSULE.DR PO SCH (09:34)
[2023-07-24] MEDS: FUROSEMIDE 20 MG TAB PO SCH (09:34)
[2023-07-24] MEDS: POTASSIUM CHLORIDE ER 10 MEQ TAB.ER.PRT PO SCH (09:34)
[2023-07-24] MEDS: GABAPENTIN 300 MG CAP PO SCH ×3 (09:34→20:14)
[2023-07-24] MEDS: IPRATROPIUM-ALBUTEROL 3 ML NEB INHALATION SCH ×4 (09:40→20:19)
--- NOTE | 2023-07-24 13:06 | FL ---
Modified barium swallow. HISTORY: Dysphagia. Modified barium swallow was performed with the department of speech pathology. The patient was prese nted with various consistencies of barium. There is no evidence for aspiration. Transient penetration noted. [facility] Impression: There is no evidence for aspiration.
--- NOTE | 2023-07-24 13:36 | P.PN ---
Subjective Progress Note Date: 07/23/23 Principal diagnosis: Right lower extremity cellulitis Patient is 88 year female with multiple comorbidities presenting to the hospital with weakness also noticed to have increasing swelling redness to the right leg concerning for cellulitis. On today's evaluation that is 07/23/2023, the patient continues to be afebrile, the patient is breathing comfortably on room air and denies any chest pain or cough, patient denies abdominal pain, and denies any nausea/vomiting or diarrhea , the patient right leg swelling redness has decreased in intensity. The patient is feeling better and no new symptoms Patient white count is 5.99, creatinine 0.7 Objective - Vital Signs Vital signs: Vital Signs Temp 97.9 F 07/23/23 07:00 Pulse 68 07/23/23 08:00 Resp 16 07/23/23 08:00 BP 103/62 07/23/23 07:00 Pulse Ox 98 07/23/23 07:00 FiO2 2 07/21/23 09:16 Intake & Output 07/22/23 07/23/23 07/23/23 18:59 06:59 18:59 Intake Total 590 180 Output Total 300 1200 800 Balance 290 -1200 -620 Intake: Oral 590 180 Output: Urine 300 1200 800 Other: Voiding Method Incontinent Incontinent Incontinent External Catheter External Catheter External Catheter # Voids 1 # Bowel Movements 1 - Exam GENERAL DESCRIPTION: An elderly female lying in bed in no distress RESPIRATORY SYSTEM: Unlabored breathing , decreased breath sounds at bases HEART: S1 S2 regular rate and rhythm , ABDOMEN: Soft , no tenderness EXTREMITIES: Right leg swelling redness slightly decreased - Labs CBC & Chem 7: 07/23/23 05:19 07/23/23 05:19 Labs: Abnormal Lab Results - Last 24 Hours (Table) 07/23/23 07/23/23 Range/Units 05:19 05:19 RBC 4.08 L (4.10-5.20) X 10*6/uL MCHC 31.9 L (32.0-37.0) d/dL Monocytes # 1.21 H (0.20-1.00) X 10*3/uL Potassium 3.2 L (3.5-5.5) mmol/L Total Protein 5.6 L (6.2-8.2) d/dL Albumin 3.2 L (3.8-4.9) d/dL Albumin/Globulin Ratio 1.33 L (1.60-3.17) Ratio Assessment and Plan (1) Cellulitis of right lower extremity Current Visit: No Status: Acute Code(s): L03.115 - CELLULITIS OF RIGHT LOWER LIMB SNOMED Code(s): 36901199326627782 Plan: 1patient presented to hospital with weakness fever did have evidence of lower extremity swelling and redness concerning for cellulitis likely from gram- positive skin laury less likely gram-negative and low risk factor for MRSA infection 2Patient did have clinical improvement of the right lower extremity cellulitis, 3-patient will continue with cefazolin 2 g every 8 hours, with a plan to finish therapy with oral Keflex on discharge and monitor clinical course closely Dictation was produced using [employer] dictation software. please excuse any grammatical, word or spelling errors. Time with Patient: Less than 30
--- NOTE | 2023-07-24 13:38 | P.PN ---
Subjective Progress Note Date: 07/24/23 Principal diagnosis: Right lower extremity cellulitis Patient is 88 year female with multiple comorbidities presenting to the hospital with weakness also noticed to have increasing swelling redness to the right leg concerning for cellulitis. On today's evaluation that is 07/24/2023, the patient remains to be afebrile, the patient is breathing comfortably on room air without the need for supplemental oxygen and denies any shortness of breath, the patient denies havi ng any chest pain or cough, patient denies nausea/vomiting /diarrhea and no abdominal pain, patient right leg swelling redness has decreased no new symptoms Patient white count is 5.99, creatinine 0.7 as of yesterday no lab draw today Objective - Vital Signs Vital signs: Vital Signs Temp 98.0 F 07/24/23 07:36 Pulse 60 07/24/23 07:36 Resp 15 07/24/23 08:00 BP 113/70 07/24/23 07:36 Pulse Ox 93 L 07/24/23 07:36 FiO2 2 07/21/23 09:16 Intake & Output 07/23/23 07/24/23 07/24/23 18:59 06:59 18:59 Intake Total 298 Output Total 2049 325 Balance -1751 - Intake: Oral 298 Output: Urine 2049 Other: Voiding Method Incontinent Incontinent Incontinent External Catheter External Catheter External Catheter # Voids 1 # Bowel Movements 1 - Exam GENERAL DESCRIPTION: An elderly female lying in bed in no distress RESPIRATORY SYSTEM: Unlabored breathing , decreased breath sounds at bases HEART: S1 S2 regular rate and rhythm , ABDOMEN: Soft , no tenderness EXTREMITIES: Right leg swelling redness has decreased in intensity - Labs CBC & Chem 7: 07/23/23 05:19 07/23/23 05:19 Labs: Microbiology - Last 24 Hours (Table) 07/18/23 19:15 Blood Culture - Final Blood 07/18/23 19:30 Blood Culture - Final Blood Assessment and Plan (1) Cellulitis of right lower extremity Current Visit: No Status: Acute Code(s): L03.115 - CELLULITIS OF RIGHT LOWER LIMB SNOMED Code(s): 46933077568832542 Plan: 1patient presented to hospital with weakness fever did have evidence of lower extremity swelling and redness concerning for cellulitis likely from gram- positive skin laury less likely gram-negative and low risk factor for MRSA infection 2Patient did have clinical improvement of the right lower extremity cellulitis, 3-patient to continue cefazolin while inpatient currently waiting for placement patient will be able to finish therapy with oral Keflex 7 days Dictation was produced using [employer] dictation software. please excuse any grammatical, word or spelling errors. Time with Patient: Less than 30
[2023-07-24] MEDS: RIVAROXABAN 20 MG TAB PO SCH (20:14)
[2023-07-24] MEDS: ATORVASTATIN 20 MG TAB PO SCH (20:14)
[2023-07-24] MEDS: POTASSIUM CHLORIDE ER 20 MEQ TAB.ER PO SCH (20:16)
--- NOTE | 2023-07-24 23:32 | PN ---
PROGRESS NOTE The patient is doing better. Temperature 97.9, pulse 86, respiratory rate 16 to 18, blood pressure 145/80, O2 97 to 99% on room air. Potassium little low at 3.2, we are going to continue to give her potassium. Creatinine is stable. GFR is 84. BNP is 14,700 on admission. Leg swelling is much better. Thyroid is okay. Urine is negative. She is ambulating down in the colón. Urine cultures, blood cultures negative. Possible discharge to [facility] when it is arranged by discharge planning. Meantime, Kefzol for her legs cellulitis. Lasix is oral, updrafts, thyroid is being given. Blood pressure medications were given. Potassium is stable, little bit low, I am going to elevate her potassium up to 40 a day and possible discharge home tomorrow. MMODL / IJN: [id number] /
[2023-07-25] MEDS: LEVOTHYROXINE 137 MCG TAB PO SCH (06:04)
[2023-07-25] MEDS: POLYMYXIN B-TRIMETHOPRIM SULF (10,000-1) OPHTH DROPS 10 ML BTL RIGHT EYE SCH ×3 (06:04→18:11)
[2023-07-25] MEDS: IPRATROPIUM-ALBUTEROL 3 ML NEB INHALATION SCH ×4 (08:23→20:45)
[2023-07-25] MEDS: GABAPENTIN 300 MG CAP PO SCH ×3 (08:28→21:44)
[2023-07-25] MEDS: METOPROLOL SUCCINATE (ER) 50 MG TAB.ER.24H PO SCH (08:28)
[2023-07-25] MEDS: lisinopriL 5 MG TAB PO SCH (08:28)
[2023-07-25] MEDS: DULoxetine HCL 30 MG CAPSULE.DR PO SCH (08:28)
[2023-07-25] MEDS: POTASSIUM CHLORIDE ER 20 MEQ TAB.ER PO SCH ×2 (08:28→21:44)
[2023-07-25] MEDS: FUROSEMIDE 20 MG TAB PO SCH (08:28)
[2023-07-25 10:33] LABS: Basophils # (A) 0.03 X 10*3/uL (0.00-0.10); Basophils % (A) 0.5 %; Eosinophils # (A) 0.29 X 10*3/uL (0.04-0.35); Eosinophils % (A) 4.8 %; HCT 34.4 % (37.2-46.3); Lymphocytes % (A) 31.1 %; MCH 30.1 pg (27.0-32.0); Mean Platelet Volume 11.4 FL (9.5-12.2); Monocytes # (A) 0.94 X 10*3/uL (0.20-1.00); Monocytes % (A) 15.4 %; NRBC Per 100 WBC 0 X 10*3/uL (0.00-0.01); Neutrophils % (A) 47.5 %; Platelet Count 274 X 10*3/uL (140-440); RBC 3.66 X 10*6/uL (4.10-5.20); RDW 13.7 % (11.5-14.5)
[2023-07-25 11:00] LABS: ALT 11 U/L (8-44); AST 24 U/L (13-35); Albumin 3.1 d/dL (3.8-4.9); Albumin/Globulin Ratio 1.41 Ratio (1.60-3.17); Alkaline Phosphatase 86 U/L (41-126); Blood Urea Nitrogen 12.6 mg/dL (9.0-27.0); Calcium 8.8 mg/dL (8.7-10.3); Carbon Dioxide 28.7 mmol/L (21.6-31.8); Chloride 100 mmol/L (96-109); Globulin 2.2 d/dL (1.6-3.3); Glucose 84 mg/dL (70-110); Potassium 3.6 mmol/L (3.5-5.5); Sodium 141 mmol/L (135-145); Total Bilirubin 0.5 mg/dL (0.3-1.2); Total Protein 5.3 d/dL (6.2-8.2)
[2023-07-25] MEDS: RIVAROXABAN 20 MG TAB PO SCH (21:44)
[2023-07-25] MEDS: ATORVASTATIN 20 MG TAB PO SCH (21:44)
--- NOTE | 2023-07-25 21:50 | PN ---
PROGRESS NOTE SUBJECTIVE: The patient is having some chills. Does not want to go to rehab to place today. OBJECTIVE: VITAL SIGNS: Blood pressure is 116/53, O2 is 98% on room air, temp 98.5, pulse 68 to 70, respiratory rate 16 to 18. CARDIOVASCULAR: S1, S2. LUNGS: Scattered wheeze. No rhonchi. HEMATOLOGY: Negative Homans. PSYCH: Fair mood and affect. LABORATORY DATA: Echo and CT scan reviewed. ASSESSMENT: She is breathing better with wearing oxygen at night and breathing treatments. Prognosis is guarded. We are going to check her for COVID before she goes according to Dr. Doty because she has chills, so we want a rapid COVID on her to make sure she does not have that. Otherwise, she says she is going to be okay to go on Keflex for 10 days. Protein calorie malnutrition. Continue current treatment. Please see further orders. MMODL / IJN: [id number] /
[2023-07-26] MEDS: POLYMYXIN B-TRIMETHOPRIM SULF (10,000-1) OPHTH DROPS 10 ML BTL RIGHT EYE SCH ×5 (00:10→23:02)
[2023-07-26] MEDS: LEVOTHYROXINE 137 MCG TAB PO SCH (06:24)
[2023-07-26] MEDS: IPRATROPIUM-ALBUTEROL 3 ML NEB INHALATION SCH ×4 (09:04→18:10)
[2023-07-26] MEDS: METOPROLOL SUCCINATE (ER) 50 MG TAB.ER.24H PO SCH (09:23)
[2023-07-26] MEDS: GABAPENTIN 300 MG CAP PO SCH ×3 (09:23→20:24)
[2023-07-26] MEDS: lisinopriL 5 MG TAB PO SCH (09:23)
[2023-07-26] MEDS: FUROSEMIDE 20 MG TAB PO SCH (09:23)
[2023-07-26] MEDS: POTASSIUM CHLORIDE ER 20 MEQ TAB.ER PO SCH ×2 (09:23→20:24)
[2023-07-26] MEDS: DULoxetine HCL 30 MG CAPSULE.DR PO SCH (10:14)
--- NOTE | 2023-07-26 10:50 | DS ---
DISCHARGE SUMMARY HOSPITAL COURSE: An 88-year-old white female came in the hospital with acute diastolic heart failure, pulmonary hypertension, atrial fibrillation, RVR, cellulitis of the right lower extremity. Blood cultures are negative. Seen by Dr. Doty, we started her on IV cefazolin for 2-3 days IV diuretics for CHF, oxygen and breathing treatments. Cardiology saw her. She had a CT of the chest, echo done, continue with her breathing nebulizer treatments 3-4 times a day for sure and on 2 L oxygen when she naps or sleeps at night. Make sure she maintains her oxygen every night. She has no evidence of aspiration on the barium swallow. She is doing better. She is much improved on discharge. She needs to take Keflex orally for antibiotics for the right lower leg. As mentioned, stay on nebulizer treatments q.i.d. and oxygen level, O2 at 2 L, especially when she sleeps at night or naps. DISCHARGE MEDICATIONS: 1. DuoNeb updraft q.i.d. 2. Potassium chloride 20 mEq b.i.d. for hypokalemia. 3. Lasix 60 mg daily. 4. Keflex 500 q.8 hours for 10 days and then after that stay on it at least once a day after the 10-day stay on Keflex 500 daily after that. 5. Polymyxin ophthalmologic ointment eyedrops 2 drops in the right eye b.i.d., keep that going for another week till the eye improves. 6. Xarelto 20 mg daily. 7. Lipitor 20 mg daily. 8. Metoprolol-XL 50 daily. 9. Zestril 5 mg daily. 10.Cymbalta 30 mg daily. 11.Gabapentin 300 t.i.d. 12.Tylenol 500 q.8h p.r.n. 13.Levothyroxine 137 mcg daily. 14. topically daily for the rash on the buttocks. CONDITION: Stable. PROGNOSIS: Guarded. Follow up as an outpatient, prognosis guarded. Diet will be as tolerated. Ambulate as tolerated. Pressure stockings, knee-high compression stockings will be good for both legs. Continue with that and maintain her oxygen as mentioned and updraft treatments until discharged. MMODL / IJN: [id number] /
[2023-07-26] MEDS: RIVAROXABAN 20 MG TAB PO SCH (20:24)
[2023-07-26] MEDS: ATORVASTATIN 20 MG TAB PO SCH (20:24)
[2023-07-26] MEDS: CLOTRIMAZOLE 1% CREAM 30 GM TUBE TOPICAL SCH (21:22)
--- NOTE | 2023-07-26 21:37 | P.PN ---
Subjective Progress Note Date: 07/25/23 Principal diagnosis: Right lower extremity cellulitis Patient is 88 year female with multiple comorbidities presenting to the hospital with weakness also noticed to have increasing swelling redness to the right leg concerning for cellulitis. On today's evaluation that is 07/25/2023, the patient denies any fever and chills, the patient is breathing comfortably on 3LNC oxygen, the patient denies having any chest pain or cough, patient denies Abdominal pain, nausea/vomiting /diarrhea , patient right leg swelling redness has decreased in intensity Patient white count is 6.10, creatinine 0.7 Objective - Vital Signs Vital signs: Vital Signs Temp 98.0 F 07/25/23 07:28 Pulse 72 07/25/23 08:34 Resp 20 07/25/23 07:28 BP 127/73 07/25/23 07:28 Pulse Ox 98 07/25/23 07:28 FiO2 3 07/25/23 08:23 Intake & Output 07/24/23 07/25/23 07/25/23 18:59 06:59 18:59 Output Total 950 Balance -950 Output: Urine 950 Other: Voiding Method Incontinent Incontinent External Catheter External Catheter # Voids 1 - Exam GENERAL DESCRIPTION: An elderly female lying in bed in no distress RESPIRATORY SYSTEM: Unlabored breathing , decreased breath sounds at bases HEART: S1 S2 regular rate and rhythm , ABDOMEN: Soft , no tenderness EXTREMITIES: Right leg swelling redness has decreased in intensity - Labs CBC & Chem 7: 07/25/23 06:23 07/25/23 06:23 Labs: Abnormal Lab Results - Last 24 Hours (Table) 07/25/23 Range/Units 06:23 RBC 3.66 L (4.10-5.20) X 10*6/uL Hgb 11.0 L (12.0-15.0) d/dL Hct 34.4 L (37.2-46.3) % Assessment and Plan (1) Cellulitis of right lower extremity Current Visit: No Status: Acute Code(s): L03.115 - CELLULITIS OF RIGHT LOWER LIMB SNOMED Code(s): 85156533128723410 Plan: 1patient presented to hospital with weakness fever did have evidence of lower extremity swelling and redness concerning for cellulitis likely from gram- positive skin laury less likely gram-negative and low risk factor for MRSA infection 2Patient did have clinical improvement of the right lower extremity cellulitis, 3-patient to continue cefazolin while inpatient , patient will be able to finish therapy with oral Keflex 7 days Dictation was produced using [employer] dictation software. please excuse any grammatical, word or spelling errors. Time with Patient: Less than 30
--- NOTE | 2023-07-26 21:38 | P.PN ---
Subjective Progress Note Date: 07/26/23 Principal diagnosis: Right lower extremity cellulitis Patient is 88 year female with multiple comorbidities presenting to the hospital with weakness also noticed to have increasing swelling redness to the right leg concerning for cellulitis. On today's evaluation that is 07/26/2023, the patient continues to be afebrile, the patient is breathing comfortably on 2LNC oxygen, the patient denies any chest pain , did have occasional dry cough, patient denies abdominal pain, and denies any nausea/vomiting or diarrhea patient right leg swelling redness has decreased in intensity Patient white count is 6.10, creatinine 0.7 as of yesterday no lab draw today Objective - Vital Signs Vital signs: Vital Signs Temp 98.6 F 07/26/23 08:00 Pulse 72 07/26/23 09:13 Resp 20 07/26/23 08:00 BP 123/74 07/26/23 08:00 Pulse Ox 94 L 07/26/23 09:04 FiO2 3 07/25/23 08:23 Intake & Output 07/25/23 07/26/23 07/26/23 18:59 06:59 18:59 Intake Total 476 Output Total 1800 400 Balance -1324 -400 Intake: Oral 476 Output: Urine 1800 400 Other: Voiding Method Incontinent Incontinent External Catheter External Catheter - Exam GENERAL DESCRIPTION: An elderly female lying in bed in no distress RESPIRATORY SYSTEM: Unlabored breathing , decreased breath sounds at bases HEART: S1 S2 regular rate and rhythm , ABDOMEN: Soft , no tenderness EXTREMITIES: Right leg swelling redness has decreased in intensity - Labs CBC & Chem 7: 07/25/23 06:23 07/25/23 06:23 Labs: Abnormal Lab Results - Last 24 Hours (Table) 07/25/23 Range/Units 06:23 Anion Gap 12.30 H (4.00-12.00) mmol/L Total Protein 5.3 L (6.2-8.2) d/dL Albumin 3.1 L (3.8-4.9) d/dL Albumin/Globulin Ratio 1.41 L (1.60-3.17) Ratio Assessment and Plan (1) Cellulitis of right lower extremity Current Visit: No Status: Acute Code(s): L03.115 - CELLULITIS OF RIGHT LOWER LIMB SNOMED Code(s): 65007530391212811 Plan: 1patient presented to hospital with weakness fever did have evidence of lower extremity swelling and redness concerning for cellulitis likely from gram- positive skin laury less likely gram-negative and low risk factor for MRSA infection 2Patient did have clinical improvement of the right lower extremity cellulitis, to continue cefazolin while inpatient however patient will be able to finish therapy with oral Keflex discussed with admitting physican Dictation was produced using [employer] dictation software. please excuse any grammatical, word or spelling errors. Time with Patient: Less than 30
[2023-07-27] MEDS: POLYMYXIN B-TRIMETHOPRIM SULF (10,000-1) OPHTH DROPS 10 ML BTL RIGHT EYE SCH ×2 (06:07→12:40)
[2023-07-27] MEDS: LEVOTHYROXINE 137 MCG TAB PO SCH (06:08)
[2023-07-27 06:44] LABS: African American GFR (CKD) >90 (>60 ml/min/1.73 sqM); Anion Gap 8 mmol/L; Blood Urea Nitrogen 15 mg/dL (7-17); C Reactive Protein 4.3 mg/dL (<1.0); Calcium 8.5 mg/dL (8.4-10.2); Carbon Dioxide 26 mmol/L (22-30); Chloride 101 mmol/L (98-107); Glucose 81 mg/dL (74-99); Non-African American GFR(CKD) 85 (>60 ml/min/1.73 sqM); Potassium 4.2 mmol/L (3.5-5.1); Sodium 135 mmol/L (137-145)
[2023-07-27 06:51] LABS: NT-Pro-B-Type Natriuretic Pept 2380 pg/mL
[2023-07-27 08:24] VITALS: RESP 16
[2023-07-27 09:08] LABS: Basophils # (A) 0.04 X 10*3/uL (0.00-0.10); Basophils % (A) 0.8 %; Eosinophils # (A) 0.31 X 10*3/uL (0.04-0.35); Eosinophils % (A) 5.8 %; HCT 32.9 % (37.2-46.3); HGB 10.5 d/dL (12.0-15.0); Lymphocytes # (A) 1.85 X 10*3/uL (0.90-5.00); Lymphocytes % (A) 34.7 %; MCH 29.7 pg (27.0-32.0); MCHC 31.9 d/dL (32.0-37.0); MCV 92.9 FL (80.0-97.0); Mean Platelet Volume 10.6 FL (9.5-12.2); Monocytes # (A) 0.77 X 10*3/uL (0.20-1.00); Monocytes % (A) 14.4 %; NRBC Per 100 WBC 0 X 10*3/uL (0.00-0.01); Neutrophils # (A) 2.33 X 10*3/uL (1.80-7.70); Neutrophils % (A) 43.7 %; Platelet Count 268 X 10*3/uL (140-440); RBC 3.54 X 10*6/uL (4.10-5.20); RDW 13.6 % (11.5-14.5); WBC 5.33 X 10*3/uL (4.50-10.00)
[2023-07-27] MEDS: METOPROLOL SUCCINATE (ER) 50 MG TAB.ER.24H PO SCH (09:18)
[2023-07-27] MEDS: FUROSEMIDE 20 MG TAB PO SCH (09:18)
[2023-07-27] MEDS: lisinopriL 5 MG TAB PO SCH (09:18)
[2023-07-27] MEDS: DULoxetine HCL 30 MG CAPSULE.DR PO SCH (09:18)
[2023-07-27] MEDS: GABAPENTIN 300 MG CAP PO SCH (09:18)
[2023-07-27] MEDS: POTASSIUM CHLORIDE ER 20 MEQ TAB.ER PO SCH (09:20)
[2023-07-27] MEDS: CLOTRIMAZOLE 1% CREAM 30 GM TUBE TOPICAL SCH (09:20)
[2023-07-27] MEDS: IPRATROPIUM-ALBUTEROL 3 ML NEB INHALATION SCH ×2 (09:24→12:57)
--- NOTE | 2023-07-27 10:11 | XR ---
EXAMINATION TYPE: XR chest 2V DATE OF EXAM: 07/27/2023 COMPARISON: NONE HISTORY: Anemia. TECHNIQUE: Frontal and lateral views of the chest are obtained. FINDINGS: Evaluation is somewhat limited due to overpenetration of the PA view. There are small bila teral pleural effusions. The cardiac silhouette is moderately enlarged and there appears to be mild e min. Degenerative changes are seen within the shoulders bilaterally. IMPRESSION: Cardiomegaly with mild edema and small bilateral pleural effusions.
[2023-07-27 14:41] VITALS: BP 94/53; PULSE 69; TEMP 97.7
--- NOTE | 2023-07-27 15:30 | P.PN ---
Subjective Progress Note Date: 07/27/23 Principal diagnosis: Right lower extremity cellulitis Patient is 88 year female with multiple comorbidities presenting to the hospital with weakness also noticed to have increasing swelling redness to the right leg concerning for cellulitis. On today's evaluation that is 07/27/2023, the patient denies any fever or any chills, the patient is breathing comfortably on room air and no need for supplemental oxygen, the patient denies any chest pain or cough, patient denies any nausea/vomiting or diarrhea and no abdominal pain patient right leg swelling redness has decreased in intensity Patient white count is 5.33, creatinine 0.56 Objective - Vital Signs Vital signs: Vital Signs Temp 98.1 F 07/27/23 08:00 Pulse 58 L 07/27/23 12:16 Resp 16 07/27/23 08:00 BP 111/64 07/27/23 08:00 Pulse Ox 100 07/27/23 12:16 FiO2 3 07/25/23 08:23 Intake & Output 07/26/23 07/27/23 07/27/23 18:59 06:59 18:59 Intake Total 480 Output Total 650 500 Balance -170 -500 Intake: Oral 480 Output: Urine 650 500 Other: Voiding Method Incontinent Incontinent External Catheter External Catheter - Exam GENERAL DESCRIPTION: An elderly female lying in bed in no distress RESPIRATORY SYSTEM: Unlabored breathing , decreased breath sounds at bases HEART: S1 S2 regular rate and rhythm , ABDOMEN: Soft , no tenderness EXTREMITIES: Right leg swelling redness has decreased in intensity - Labs CBC & Chem 7: 07/27/23 06:03 07/27/23 06:03 Labs: Abnormal Lab Results - Last 24 Hours (Table) 07/27/23 07/27/23 07/27/23 Range/Units 06:03 06:03 06:03 RBC 3.54 L (4.10-5.20) X 10*6/uL Hgb 10.5 L (12.0-15.0) d/dL Hct 32.9 L (37.2-46.3) % MCHC 31.9 L (32.0-37.0) d/dL Sodium 135 L (137-145) mmol/L C-Reactive Protein 4.3 H (<1.0) mg/dL Procalcitonin 0.11 H (0.02-0.09) ng/mL Assessment and Plan (1) Cellulitis of right lower extremity Current Visit: No Status: Acute Code(s): L03.115 - CELLULITIS OF RIGHT LOWER LIMB SNOMED Code(s): 11989658617427316 Plan: 1patient presented to hospital with weakness fever did have evidence of lower extremity swelling and redness concerning for cellulitis likely from gram- positive skin laury less likely gram-negative and low risk factor for MRSA infection 2Patient did have clinical improvement as far as right lower extremity cellulitis, to continue cefazolin while inpatient , patient will finish therapy with oral Keflex , patient with cardiomegaly pulmonary vascular congestion and elevated NT proBNP may benefit from cardiology evaluation Dictation was produced using [employer] dictation software. please excuse any grammatical, word or spelling errors. Time with Patient: Less than 30
== END 2023-07-27 15:50 | DRG 602 ==
LOC: EC 18:33 → 6NMEDSUR 21:50 → OBSVTOIN 07-23 09:50
PROVIDERS: ADMIT Family Medicine; ATTEND Family Medicine
DX: L03.116 Cellulitis of left lower limb (principal); I50.33 Acute on chronic diastolic (congestive) heart failure; I48.19 Other persistent atrial fibrillation; J98.11 Atelectasis; K76.6 Portal hypertension; E46 Unspecified protein-calorie malnutrition; I11.0 Hypertensive heart disease with heart failure; L03.115 Cellulitis of right lower limb; I25.10 Atherosclerotic heart disease of native coronary artery without angina pectoris; L40.9 Psoriasis, unspecified; I27.20 Pulmonary hypertension, unspecified; Z20.822 Contact with and (suspected) exposure to COVID-19; R32 Unspecified urinary incontinence; L97.529 Non-pressure chronic ulcer of other part of left foot with unspecified severity; Z79.01 Long term (current) use of anticoagulants; M17.0 Bilateral primary osteoarthritis of knee; M19.041 Primary osteoarthritis, right hand; M19.042 Primary osteoarthritis, left hand; M40.209 Unspecified kyphosis, site unspecified; M85.80 Other specified disorders of bone density and structure, unspecified site; Z79.890 Hormone replacement therapy; Z79.899 Other long term (current) drug therapy; Z86.711 Personal history of pulmonary embolism; Z87.440 Personal history of urinary (tract) infections; Z96.653 Presence of artificial knee joint, bilateral; Z86.14 Personal history of Methicillin resistant Staphylococcus aureus infection; Z90.49 Acquired absence of other specified parts of digestive tract; Z68.27 Body mass index [BMI] 27.0-27.9, adult
CPT/HCPCS: 36415; 70450; 71046; 71250; 74230; 80048; 80053; 81003; 82565; 83605; 83735; 83880; 84145; 84443; 85025; 85610; 85730; 86140; 87040; 87635; 87636; 93005; 93306; 94640; 94760; 96361; 96365; 99285

== ENCOUNTER 2023-10-27 13:21 | Emergency (ER) | payer MEDICARE ==
[2023-10-27 13:59] VITALS: PULSE 78; TEMP 98.1
--- NOTE | 2023-10-27 14:13 | ED ---
General Adult HPI - General Chief complaint: Fall Stated complaint: head injury Time Seen by Provider: 10/27/23 13:27 Source: patient, EMS, RN notes reviewed Mode of arrival: EMS Limitations: no limitations - History of Present Illness Initial comments: Patient is a pleasant 88-year-old female presenting to the emergency department with concerns for fall. Patient was sitting on a chair reaching into her. Patient states the chair slipped and she fell down. Patient struck the back of her head. No loss of consciousness. No weakness. No confusion. Patient is on Xarelto secondary to history of cardiac problems, questionable atrial fibrillation. Patient does have some mild neck discomfort however believes that was present before she fell and secondary to sleeping on it wrong. - Related Data Home Medications Medication Instructions Recorded Confirmed Rivaroxaban [Xarelto] 20 mg PO HS 08/02/17 07/18/23 Atorvastatin [Lipitor] 20 mg PO HS 01/15/20 07/18/23 Metoprolol Succinate (ER) [Toprol 50 mg PO DAILY 04/22/21 07/18/23 XL] Acetaminophen Tab [Tylenol] 500 mg PO Q8H PRN 07/18/23 07/18/23 DULoxetine HCL [Cymbalta] 30 mg PO DAILY 07/18/23 07/18/23 Levothyroxine Sodium 137 mcg PO DAILY 07/18/23 07/18/23 Roflumilast [Zoryve] 1 applic TOPICAL DAILY PRN 07/18/23 07/18/23 lisinopriL [Zestril] 5 mg PO DAILY 07/18/23 07/18/23 Previous Rx's Medication Instructions Recorded Gabapentin [Neurontin] 300 mg PO TID #30 cap 07/27/22 Cephalexin [Keflex] 500 mg PO Q8HR 10 Days #30 cap 07/23/23 Furosemide [Lasix] 60 mg PO DAILY 90 Days #90 tab 07/25/23 Ipratropium-Albuterol Nebulize 3 ml INHALATION RT-QID 90 Days 07/25/23 [Duoneb 0.5 mg-3 mg/3 ml Soln] #360 each Polymyxin B-Trimeth Sulf Ophth 1 drops RIGHT EYE Q6HR ml 07/25/23 [Polytrim Opthalmic] Potassium Chloride ER [K-Dur 20] 20 meq PO BID 90 Days #180 tab 07/25/23 Allergies Allergy/AdvReac Type Severity Reaction Status Date / Time doxycycline Allergy Itching Verified 10/27/23 13:29 Review of Systems ROS Statement: Those systems with pertinent positive or pertinent negative responses have been documented in the HPI. ROS Other: All systems not noted in ROS Statement are negative. Constitutional: Denies: fever Eyes: Denies: eye pain ENT: Denies: ear pain Respiratory: Denies: cough, dyspnea Cardiovascular: Denies: chest pain Endocrine: Denies: fatigue Gastrointestinal: Denies: abdominal pain Neurological: Denies: weakness, numbness, paresthesias, confusion Past Medical History Past Medical History: Atrial Fibrillation, Heart Failure, Hyperlipidemia, Hypertension, Osteoarthritis (OA), Skin Disorder, Supraventricular Tachycardia (SVT), Thyroid Disorder Additional Past Medical History / Comment(s): psoriasis, right lower extremity cellulitis, pedal edema, hypothyroidism, osteoarthritis hands and knees bilaterally, history of bowel obstruction requiring surgical intervention, diverticulosis, urinary incontinence, obstructive sleep apnea not utilizing any CPAP therapy, extensive reaction to doxycycline occurred on January 2016 with itching and leg weakness. History of Any Multi-Drug Resistant Organisms: None Reported, MRSA Date of last positivie culture/infection: 01/15/20 MDRO Source:: MRSA LEG Past Surgical History: Appendectomy, Bowel Resection, Joint Replacement, Tonsillectomy Additional Past Surgical History / Comment(s): thyroidectomy, raissa knee replacements, bowel resection, muscle bx, D&C, bilateral cataract removals, bilateral foot bunionectomy, colonoscopies. Past Anesthesia/Blood Transfusion Reactions: No Reported Reaction Past Psychological History: Anxiety, Depression Smoking Status: Never smoker Past Alcohol Use History: Occasional Past Drug Use History: None Reported - Past Family History Mother Family Medical History: Dementia, Memory Impairment Father Family Medical History: Liver Disease Additional Family Medical History / Comment(s): Father was an alcoholic and of cirrhosis of the liver. Sister(s) Additional Family Medical History / Comment(s): heart problems Brother(s) Additional Family Medical History / Comment(s): heart problems r/t rheumatic fever General Exam Limitations: no limitations General appearance: alert, in no apparent distress Head exam: Present: other (Minimal soft tissue swelling posterior parietal) Eye exam: Present: normal appearance, PERRL, EOMI ENT exam: Present: normal oropharynx Neck exam: Present: normal inspection. Absent: tenderness Respiratory exam: Present: normal lung sounds bilaterally Cardiovascular Exam: Present: regular rate, normal rhythm GI/Abdominal exam: Present: soft. Absent: tenderness Extremities exam: Present: normal inspection, full ROM. Absent: tenderness Neurological exam: Present: alert, oriented X3, CN II-XII intact. Absent: motor sensory deficit Psychiatric exam: Present: normal affect, normal mood Skin exam: Present: normal color Course Vital Signs 10/27/23 13:23 Temperature 98.1 F Pulse Rate 78 Respiratory 18 Rate Blood Pressure 131/69 O2 Sat by Pulse 96 Oximetry Medical Decision Making - Medical Decision Making Was pt. sent in by a medical professional or institution (, PA, DEMONSTRATOR SALES, urgent care, hospital, or assisted...) When possible be specific @ -No Did you speak to anyone other than the patient for history (EMS, parent, family, police, friend...)? What history was obtained from this source @ -No Did you review nursing and triage notes (agree or disagree)? Why? @ -I reviewed and agree with nursing and triage notes Were old charts reviewed (outside hosp., previous admission, EMS record, old EKG, old radiological studies, urgent care reports/EKG's, assisted records)? Report findings @ -No old charts were reviewed Differential Diagnosis (chest pain, altered mental status, abdominal pain women, abdominal pain men, vaginal bleeding, weakness, fever, dyspnea, syncope, headache, dizziness, GI bleed, back pain, seizure, CVA, palpatations, mental health, musculoskeletal)? @ -Differential Musculoskeletal Muscular strain, contusion, ligament sprain, fracture, arthritis, septic arthritis, bursitis, cellulitis, muscle spasm, nerve compression, DVT, arterial occlusion, herpes zoster, electrolyte abnormality, tumor.... This is not meant to be in all inclusive list EKG interpreted by me (3pts min.). @ -As above X-rays interpreted by me (1pt min.). @ -None done CT interpreted by me (1pt min.). @ -CT brain and cervical spine with degenerative changes, no acute obvious abnormality U/S interpreted by me (1pt. min.). @ -None done What testing was considered but not performed or refused? (CT, X-rays, U/S, labs)? Why? @ -None What meds were considered but not given or refused? Why? @ -None Did you discuss the management of the patient with other professionals (professionals i.e. , PA, DEMONSTRATOR SALES, lab, RT, psych nurse, social media senior associate, drawing hand, teacher, campus security officer, family service caseworker)? Give summary @ -No Was smoking cessation discussed for >3mins.? @ -No Was critical care preformed (if so, how long)? @ -No Were there social determinants of health that impacted care today? How? (Homelessness, low income, unemployed, alcoholism, drug addiction, transportation, low edu. Level, literacy, decrease access to med. care, skilled nursing, rehab)? @ -No Was there de-escalation of care discussed even if they declined (Discuss DNR or withdrawal of care, Hospice)? DNR status @ -No What co-morbidities impacted this encounter? (DM, HTN, Smoking, COPD, CAD, Cancer, CVA, ARF, Chemo, Hep., AIDS, mental health diagnosis, sleep apnea, morbid obesity)? @ -None Was patient admitted / discharged? Hospital course, mention meds given and route, prescriptions, significant lab abnormalities, going to OR and other pertinent info. @ -Patient reevaluated and updated. Patient will be discharged. Undiagnosed new problem with uncertain prognosis? @ -No Drug Therapy requiring intensive monitoring for toxicity (Heparin, Nitro, Insulin, Cardizem)? @ -No Were any procedures done? @ -No Diagnosis/symptom? @ -Fall, head contusion Acute, or Chronic, or Acute on Chronic? @ -Acute, acute Uncomplicated (without systemic symptoms) or Complicated (systemic symptoms)? @ -default Side effects of treatment? @ -No Exacerbation, Progression, or Severe Exacerbation? @ -No Poses a threat to life or bodily function? How? (Chest pain, [place], [place], pneumonia, PE, COPD, DKA, ARF, appy, cholecystitis, CVA, Diverticulitis, Homicidal, Suicidal, threat to staff... and all critical care pts) @ -No Disposition Clinical Impression: Fall, Head contusion, Anticoagulant long-term use Disposition: HOME SELF-CARE Condition: Stable Instructions (If sedation given, give patient instructions): Fall Prevention (ED), Head Injury (ED) Additional Instructions: Hold Xarelto for 24 hours. Please follow-up with primary care physician in the next one or 2 days for recheck. Return for confusion, weakness, change in mental status, visual change, difficulty walking, worsening symptoms or any other concerns. Is patient prescribed a controlled substance at d/c from ED?: No Referrals: Maxim Montejo MD [STAFF PHYSICIAN] - 1-2 days Forms: Area PCPs Time of Disposition: 14:47
[2023-10-27 14:23] VITALS: RESP 18
--- NOTE | 2023-10-27 14:40 | CT ---
EXAMINATION TYPE: CT brain rahel wo con DATE OF EXAM: 10/27/2023 COMPARISON: None HISTORY: abdominal pain, septic, renal failure. CT DLP: 1379.4 mGycm, Automated exposure control for dose reduction was used. CONTRAST: Patient injected with 0 mL of Isovue 300. CT of the brain is performed utilizing 3 mm thick sections through the posterior fossa and 3 mm thick sections through the remaining calvarium. Study is performed within 24 hours of arrival to the hospital. No abnormal hyperdensity is present to suggest an acute intracranial hemorrhage. No mass lesion is evident. No acute infarcts are evident. Patchy periventricular white matter hypodensity is present, likely on the basis of chronic white matter ischemic changes. Ventricles and sulci are prominent for the patient age. Paranasal sinuses and mastoid air cells within the [id number] are clear. IMPRESSIONS: 1. No acute intracranial process. Follow-up MRI can be performed as clinically indicated. 2. Chronic appearing periventricular white matter ischemic changes with age-related atrophy. CT cervical spine. COMPARISON: None CT of the cervical spine is performed in the axial plane at 2 mm thick sections. Reconstructed image s in the coronal, and sagittal plane are reviewed on the computer. No acute fractures are evident. There is exaggeration of thoracic kyphosis and compensatory cervical lordosis. Diffuse disc space narrowing is present. Vertebral body heights are preserved. No spinal canal stenosis is evident. Left C3-4 foraminal stenosis from uncovertebral hypertrophy and facet hypertrophy is present. Bilater al foraminal stenosis present at C4-5 and C5-6, greater on the left. Small to moderate right pleural effusion is present within the lung apex. IMPRESSION: 1. Foraminal stenosis mid cervical spine discussed above. 2. Right pleural effusion. 3. No acute osseous abnormality cervical spine
[2023-10-27] MEDS ORDERED: ACETAMINOPHEN TAB 500 MG TAB PO STA (14:52)
[2023-10-27 15:59] VITALS: BP 145/75
== END 2023-10-27 15:38 | disposition home or self-care (01) ==
LOC: EC 13:21
DX: S00.93XA Contusion of unspecified part of head, initial encounter (principal); I11.0 Hypertensive heart disease with heart failure; I48.91 Unspecified atrial fibrillation; I50.9 Heart failure, unspecified; G47.33 Obstructive sleep apnea (adult) (pediatric); E78.5 Hyperlipidemia, unspecified; E03.9 Hypothyroidism, unspecified; F41.9 Anxiety disorder, unspecified; F32.A Depression, unspecified; Z79.01 Long term (current) use of anticoagulants; Z79.890 Hormone replacement therapy; Z79.899 Other long term (current) drug therapy; Z88.8 Allergy status to other drugs, medicaments and biological substances; W22.03XA Walked into furniture, initial encounter
CPT/HCPCS: 70450; 72125; 99284